=== PATIENT | male | born 1960 | race Caucasian/White ===

== ENCOUNTER 2018-03-07 08:50 | Day surgery (SDC) | payer BC ==
[2018-03-05 15:28] VITALS: BMI 31.1
[2018-03-07 09:26] VITALS: RESP 16; TEMP 97.4
[2018-03-07] MEDS: LACTATED RINGERS 1,000 ML IV SCH ×2 (09:32→09:56)
[2018-03-07] MEDS ORDERED: LIDOCAINE 1% 20 ML VIAL (10MG/ML) FOR IV START INTRADERMA ONE (09:32)
[2018-03-07] MEDS ORDERED: MIDAZOLAM 2 MG/2 ML VIAL ONE (09:59)
[2018-03-07] MEDS ORDERED: fentaNYL (PF) 50 MCG/ML 2 ML AMP ONE (09:59)
[2018-03-07] MEDS ORDERED: PROPOFOL 10 MG/ML 20 ML VIAL IV ONE (09:59)
--- NOTE | 2018-03-07 10:16 | P.PCN ---
Date of Procedure: 03/07/18 Procedure(s) Performed: BRIEF HISTORY: Patient is a 57-year-old pleasant white male, scheduled for an elective colonoscopy as a part of evaluation of prior history of colon polyps. Last colonoscopy was in 3 years ago and was noted to have multiple colon polyps all of which showed tubular adenoma. PROCEDURE PERFORMED: Colonoscopy with snare polypectomy. PREOPERATIVE DIAGNOSIS: History of colon polyps. IV sedation per Anesthesia. PROCEDURE: After informed consent was obtained, the patient, was brought into the endoscopy unit. IV sedation was administered by Anesthesia under continuous monitoring. Digital rectal examination was normal. Initially the Olympus CF- 160 flexible video colonoscope was then inserted in the rectum, gradually advanced into the cecum without any difficulty. Careful examination was performed as the scope was gradually being withdrawn. Ileocecal valve and the appendiceal orifice were visualized and appeared normal. Prep was excellent. Mucosa of the cecum, ascending colon, transverse colon, appeared normal. In the descending colon there was a 5 mm sessile polyp removed by snare polypectomy. In the sigmoid colon there was a 1 cm sessile polyp removed by snare polypectomy. There are scattered sigmoid diverticulosis seen. Rest of the descending colon, sigmoid colon, and rectum appeared normal. Retroflexion was performed in the rectum and no lesions were seen. The patient tolerated the procedure well. IMPRESSION: 1. 5 mm sessile descending colon polyp status post polypectomy 2. 1 cm sessile sigmoid colon polyp status post polypectomy 3. Scattered sigmoid diverticulosis RECOMMENDATIONS: Findings of this examination were discussed with the patient as well as his family. He was advised to follow with the biopsy results. Based on the biopsy results and can have a repeat colonoscopy in 3-5 years
[2018-03-07 10:50] VITALS: BP 118/74; PULSE 69
== END 2018-03-07 11:04 | disposition home or self-care (01) ==
LOC: ORWHC2ENDO 08:50
PROVIDERS: ATTEND Internal Medicine Gastroenterology
DX: Z12.11 Encounter for screening for malignant neoplasm of colon (principal); D12.4 Benign neoplasm of descending colon; D12.5 Benign neoplasm of sigmoid colon; K57.30 Diverticulosis of large intestine without perforation or abscess without bleeding; Z86.010 Personal history of colon polyps; H93.19 Tinnitus, unspecified ear
CPT/HCPCS: 88305; 45385; J2250; J3010; J2704

== ENCOUNTER 2020-05-02 01:30 | Emergency (ER) | payer OTHER, BC ==
[2020-05-02 01:38] VITALS: BP 155/88; PULSE 91; RESP 20; TEMP 98.1
[2020-05-02] MEDS ORDERED: LIDOCAINE 1% INJ 10MG/ML (20 ML MDV) SQ ONE (01:47)
[2020-05-02] MEDS ORDERED: BACITRACIN OINT 1 EACH PACKET TOPICAL ONE (01:48)
--- NOTE | 2020-05-02 02:23 | ED ---
Wound/Laceration HPI - General Chief Complaint: Wound/Laceration Stated Complaint: [facility]HS facial lac Time Seen by Provider: 05/02/20 01:39 Source: patient Mode of arrival: ambulatory Limitations: no limitations - History of Present Illness Initial Comments: 59-year-old male presents to the emergency department with complaints of laceration in his left eyebrow, onset 1 hour prior to arrival. States injury occurred while at work when a high pressure hose got away from him colliding with his safety glasses. Patient states he thinks the laceration is the result of the impact of the hose on his glasses. Denies loss of consciousness, dizziness, blurry vision, or marked periorbital tenderness. Does report having had a tetanus shot within the past 5 years. Patient denies any neck pain, back pain, chest pain, shortness of breath, dizziness, weakness, abdominal pain, nausea, vomiting, or difficulties with bowel movements or urination. - Related Data Home Medications Medication Instructions Recorded Confirmed Multivitamins, Thera [Multivitamin] 1 each PO DAILY 09/03/14 03/07/18 Flaxseed Oil [Cheney-3 Flaxseed Oil] 1,000 mg PO DAILY 03/05/18 03/07/18 Allergies Allergy/AdvReac Type Severity Reaction Status Date / Time No Known Allergies Allergy Verified 05/02/20 02:49 Review of Systems ROS Statement: Those systems with pertinent positive or pertinent negative responses have been documented in the HPI. ROS Other: All systems not noted in ROS Statement are negative. Past Medical History Past Medical History: Cancer Additional Past Medical History / Comment(s): tinnitus, leukemia History of Any Multi-Drug Resistant Organisms: None Reported Past Surgical History: Orthopedic Surgery Additional Past Surgical History / Comment(s): ganglion cyst-left hand Past Anesthesia/Blood Transfusion Reactions: No Reported Reaction Past Psychological History: No Psychological Hx Reported Smoking Status: Never smoker Past Alcohol Use History: Rare Past Drug Use History: None Reported - Past Family History Mother Family Medical History: No Reported History General Exam Limitations: no limitations (Well-developed, well-nourished male in no acute distress. Initial temperature 98.1F, pulse 91, respirations 20, blood pressure 155/88, pulse ox 99% on room air.) General appearance: alert, in no apparent distress Head exam: Present: normocephalic Expanded Head exam: Present: laceration (2 cm linear laceration in left eyebrow). Absent: abrasion, hematoma, raccoon eyes, castillo's sign Eye exam: Present: normal appearance, PERRL, EOMI. Absent: scleral icterus, conjunctival injection, periorbital swelling Respiratory exam: Present: normal lung sounds bilaterally. Absent: respiratory distress, wheezes, rales, rhonchi, stridor Cardiovascular Exam: Present: regular rate, normal rhythm, normal heart sounds. Absent: systolic murmur, diastolic murmur, rubs, gallop, clicks Neurological exam: Present: alert, oriented X3, CN II-XII intact, other (Denies loss of consciousness at time of injury) Psychiatric exam: Present: normal affect, normal mood Skin exam: Present: warm, dry, normal color Course Vital Signs 05/02/20 01:35 Temperature 98.1 F Pulse Rate 91 Respiratory 20 Rate Blood Pressure 155/88 O2 Sat by Pulse 99 Oximetry Procedures - Laceration Laceration #1 Consent Obtained: verbal consent Indication: laceration Site: face Size (cm): 2 Description: linear Depth: simple, single layer Anesthetic Used: lidocaine 1% Anesthesia Technique: local infiltration Amount (mls): 3 Pre-repair: irrigated extensively Type of Sutures: nylon Size of Sutures: 6-0 Number of Sutures: 4 Technique: simple, interrupted Patient Tolerated Procedure: well Medical Decision Making - Medical Decision Making 59-year-old male presents with a 2 cm linear laceration in the left eyebrow. Bleeding controlled prior to arrival. States injury occurred at work when a high pressure hose got away from him and collided with his safety glasses which in turn caused his injury. Patient denies any loss of consciousness, headache, blurry vision, or marked periorbital tenderness. States his last tetanus shot was within the past 5 years. Wound anesthetized, irrigated extensively, and then closed with four 4-0 nylon sutures. Patient tolerated procedure without difficulty or complication. Wound care and suture instructions reviewed with patient; including suture removal in 5 days. Return parameters were discussed in detail. Patient verbalizes understanding and agrees with this plan. Disposition Clinical Impression: Laceration of left eyebrow Disposition: HOME SELF-CARE Condition: Good Instructions (If sedation given, give patient instructions): Care For Your Stitches (ED), Laceration (ED) Additional Instructions: Keep wound clean and dry. Cleanse twice daily with warm water and antibacterial soap. Return in 3-5 days at the stitches removed. Monitor for signs or symptoms of infection including but not limited to redness, swelling, drainage of pus, fever, and chills. Return to the emergency department immediately for any new, worsening, or concerning symptoms. Is patient prescribed a controlled substance at d/c from ED?: No Referrals: Nate Blandon III, MD [Primary Care Provider] - 1-2 days Time of Disposition: 02:23
== END 2020-05-02 02:28 | disposition home or self-care (01) ==
LOC: EC 01:30
DX: S01.112A Laceration without foreign body of left eyelid and periocular area, initial encounter (principal); Z85.6 Personal history of leukemia; W25.XXXA Contact with sharp glass, initial encounter; Y93.89 Activity, other specified; Y92.69 Other specified industrial and construction area as the place of occurrence of the external cause; Y99.0 Civilian activity done for income or pay
CPT/HCPCS: 99282; 12011; J2001

== ENCOUNTER 2020-05-02 02:36 | Emergency (ER) | payer BC, OTHER ==
[2020-05-02 02:49] VITALS: BP 162/83; PULSE 82; RESP 20; TEMP 97.9
== END 2020-05-02 03:01 ==
LOC: EC 02:36
DX: Z02.89 Encounter for other administrative examinations (principal)
CPT/HCPCS: 99499

== ENCOUNTER → 2022-04-26 | Outpatient (CLI) | payer BC, OTHER ==
[~2022-04-26] MED LIST: TIXAGEVIMAB/CILGAVIMAB (EUA) 300 MG/3 ML COMBO.PKG IM NR
[2022-04-26 14:08] VITALS: RESP 16; TEMP 97.8
[2022-04-26 14:40] VITALS: BP 152/83; PULSE 84
== END ==
LOC: PROCWHC3 13:54
PROVIDERS: ATTEND Internal Medicine Hematology & Oncology
DX: Z23 Encounter for immunization (principal)
CPT/HCPCS: Q0220; M0220

== ENCOUNTER 2024-10-30 06:34 | Day surgery (SDC) | payer BC ==
[2024-10-30 07:07] VITALS: RESP 16; TEMP 98.1
[2024-10-30] MEDS: LACTATED RINGERS 1,000 ML IV SCH (07:07)
[2024-10-30] MEDS: IV FLUID CONTINUATION 1,000 ML IV ONE (07:08)
[2024-10-30] MEDS: LIDOCAINE 1% (10MG/ML) FOR IV START INTRADERMA STA (07:08)
[2024-10-30] MEDS ORDERED: LIDOCAINE 1% INJ 10MG/ML (20 ML MDV) ONE (07:48)
[2024-10-30] MEDS ORDERED: PROPOFOL 10 MG/ML 20 ML VIAL IV ONE (07:48)
--- NOTE | 2024-10-30 08:14 | P.PCN ---
Date of Procedure: 10/30/24 Procedure(s) Performed: Brief history: Patient is a pleasant 64-year-old white male scheduled for an elective upper endoscopy as well as colonoscopy as a part of evaluation of iron deficiency anemia and screening for history of colon polyps. Last colonoscopy was done in November 2017 and was noted to have colon polyps that revealed tubular adenoma. Procedure performed: Esophagogastroduodenoscopy with biopsy Colonoscopy with biopsy, tattooing with Nadege ink and snare polypectomy Preoperative diagnosis: Iron deficiency anemia Screening for history of colon polyps Anesthesia: MAC Procedure: After informed consent was obtained from the patient was brought into the endoscopy unit and IV sedation was administered by anesthesia under continuous monitoring. Initially upper endoscopy was done. The Olympus GF 160 video endoscope was inserted inserted into the mouth and esophagus intubated without any difficulty and was gradually advanced into the stomach and duodenum and carefully examined. The bulb and second part of the duodenum appeared normal. The scope was then withdrawn into the stomach adequately insufflated with air and upon careful examination the antrum and body, cardia and fundus appeared normal. The scope was then withdrawn into the esophagus. The GE junction was located at 40 cm to the incisors. It appeared regular with no erythema erosions or ulcerations. Rest of the esophagus appeared normal. Patient tolerated the procedure well. At this time the patient continued to remain sedation. Initial digital rectal examination was normal. Olympus CF 160 video colonoscope was then inserted into the rectum and gradually advanced to the cecum without any difficulty. Careful examination was performed as the scope was gradually being withdrawn. The prep was excellent. The cecum, ascending colon, transverse colon, appeared normal. In the distal descending colon there was a circumferential ulcerated mass identified at 50 cm from the anal verge and multiple biopsies were done from this area followed by tattooing with Nadege ink. Moderate left-sided diverticulosis seen. Rest of the descending colon, sigmoid colon and rectum appeared normal. Retroflexion was performed in the rectum and no lesions were noted. The rectum there was a 6 mm polyp removed by cold snare polypectomy. Patient tolerated the procedure well. Impression: 1. Upper endoscopy revealed mild antral gastritis but no notes of esophagitis or peptic ulcer disease 2. Colonoscopy revealed circumferential ulcerated distal descending colon mass located at 50 cm from the anal verge status post multiple biopsies followed by tattooing with Nadege ink. Scattered sigmoid diverticulosis and 6 mm rectal polyp status post cold snare polypectomy Recommendations: Findings of this examination were discussed with the patient as well as his family. He was advised to follow-up with the biopsy results. Follow-up in the office in [address] Randhawa in 1 week.
[2024-10-30 09:19] VITALS: BP 140/76; PULSE 92
== END 2024-10-30 09:02 | disposition home or self-care (01) ==
LOC: ORWHC2ENDO 06:34
PROVIDERS: ATTEND Internal Medicine Gastroenterology
DX: C18.6 Malignant neoplasm of descending colon (principal); K29.50 Unspecified chronic gastritis without bleeding; C91.10 Chronic lymphocytic leukemia of B-cell type not having achieved remission; D50.9 Iron deficiency anemia, unspecified; D12.8 Benign neoplasm of rectum; K57.30 Diverticulosis of large intestine without perforation or abscess without bleeding; Z86.0100 Personal history of colon polyps, unspecified
CPT/HCPCS: 45380; 45385; 43239; 45381; J2003; J2704; 88305

== ENCOUNTER → 2024-10-31 | Outpatient (CLI) | payer BC ==
--- NOTE | 2024-10-31 10:20 | CT ---
EXAMINATION TYPE: CT abdomen pelvis w con CT DLP: 1701.5 mGycm, Automated exposure control for dose reduction was used. DATE OF EXAM: 10/31/2024 10:04 AM COMPARISON: None CLINICAL INDICATION:Male, 64 years old with history of K63.89 OTHER SPECIFIED DISEASES OF INTESTINE; Abnormal colonoscopy. TECHNIQUE: Standard CT of the abdomen and pelvis following the administration of 100 cc of Isovue 3 00 IV contrast material and oral contrast. Coronal and sagittal reformats were performed. FINDINGS: LOWER CHEST: Small to moderate size right pleural effusion with trace left pleural effusion. There is associated compressive atelectasis of the right lower lobe. Elevation the right hemidiaphragm. Film arch anterior epicardial lymph nodes measuring up to 1.9 cm. There is soft tissue thickening along t he partially visualized right major fissure measuring up to 1.1 cm. ABDOMEN LIVER: Subcentimeter hypodense focus within the anterior left hepatic lobe which is too small to nikkie acterize. GALLBLADDER AND BILE DUCTS: Unremarkable. PANCREAS: Unremarkable. SPLEEN: Enlarged measuring 20.1 cm in CC dimension. Portal venous system appears grossly patent. ADRENAL GLANDS: Unremarkable. KIDNEYS AND URETERS: No evidence of hydronephrosis or renal calculus. The kidneys enhance symmetrical ly. Left renal upper pole 1 cm simple appearing cyst. No follow up recommended. Contrast is demonstra fabio within both collecting systems and proximal ureters on the delayed phase. PELVIS BLADDER: Unremarkable REPRODUCTIVE: Unremarkable. ABDOMEN & PELVIS STOMACH AND BOWEL: Stomach and duodenum are unremarkable. Abnormal circumferential wall thickening wi th surrounding stranding changes and small satellite prominent lymph nodes involving the proximal alyssa cending colon. Wall thickening measures up to 1.8 cm. Satellite nodules measuring up to 1.2 cm. Scatt ered colonic diverticulosis without evidence for acute diverticulitis. The appendix is within normal limits. Enteric contrast reaches the splenic flexure. No evidence of bowel obstruction. PERITONEUM: No evidence of pneumoperitoneum or free fluid. VASCULATURE: Mild atherosclerotic calcifications are present throughout the abdominal aorta and its b ranches. No evidence of aortic aneurysm. MUSCULOSKELETAL: No acute osseous abnormalities. No aggressive osseous lesion. LYMPH NODES: Prominent and enlarged retroperitoneal periaortic lymph nodes with largest on the left m easuring 2.9 cm (series 5, images 41). Enlarged periportal lymph nodes measuring up to 2.7 cm (series 3, image 25). Nonenlarged but mildly prominent bilateral inguinal lymph nodes. SOFT TISSUE/ABDOMINAL WALL: Unremarkable IMPRESSION: 1. Abnormal short segment circumferential wall thickening with stranding changes and satellite nodul arity involving the proximal aspect of the descending colon highly concerning for primary colon malig luis. Correlate with colonoscopy results. 2. Several enlarged periportal, periaortic retroperitoneal, and epicardial lymph nodes concerning for metastasis. 3. Splenomegaly measuring up to 20.1 cm in AP dimension. 4. Small to moderate size right pleural effusion with trace left pleural effusion. There is some abno rmal thickening along the partially visualized right major fissure which may represent metastasis katlyn coleman atelectatic lung. Recommend further evaluation with CT chest. 5. Colonic diverticulosis without evidence for acute diverticulitis. [facility], , 10/31/2024 10:18 AM
== END | disposition home or self-care (01) ==
LOC: RADCTMAIN 08:07
PROVIDERS: ATTEND Internal Medicine Gastroenterology
DX: K63.89 Other specified diseases of intestine (principal); K57.30 Diverticulosis of large intestine without perforation or abscess without bleeding; R59.0 Localized enlarged lymph nodes; R16.1 Splenomegaly, not elsewhere classified; J90 Pleural effusion, not elsewhere classified
CPT/HCPCS: 74177; Q9967

== ENCOUNTER → 2024-11-13 | Outpatient (CLI) | payer BC ==
--- NOTE | 2024-11-13 15:34 | CT ---
CT thorax with contrast. HISTORY: Shortness of breath. History of colon cancer COMPARISON: None TECHNIQUE: Multiple thorax after the administration of IV contrast material. FINDINGS: There is a small left pleural effusion and a moderate right pleural effusion. There is mild compressi ve atelectasis in the right lower lobe adjacent to the effusion. There are multiple parenchymal and j uxtapleural nodules in both lungs largest of which are in the right lung measuring approximately 7 to 8 mm. Evaluate suspicious for metastatic nodules. There is mild bilateral axillary adenopathy. The l argest lymph nodes are approximately 13 mm in both axilla. There is mild to moderate mediastinal noam opathy including a 15 to 16 mm subcarinal lymph node and a 15 mm right paratracheal lymph node. Limited scanning through the upper abdomen reveals a 16 mm area caval lymph node in the 14 mm peripor richa enlarged lymph node. There is marked splenomegaly. There are no focal osseous lesions. IMPRESSION: 1. Small left pleural effusion and moderate right pleural effusion. 2. Mild right lower lobe compressive atelectasis. 3. Multiple innumerable parenchymal and juxtapleural pulmonary nodules. 4. bilateral axillary and mediastinal adenopathy. 5. Marked splenomegaly. 6. Adenopathy in the visualized upper abdomen as described above. 7. Findings highly suspicious for metastatic colon cancer [facility], Workstation: BLACK 11/13/2024 3:32 PM
== END | disposition home or self-care (01) ==
LOC: RADCTMAIN 14:21
PROVIDERS: ATTEND Internal Medicine Hematology & Oncology
DX: C18.6 Malignant neoplasm of descending colon (principal); J90 Pleural effusion, not elsewhere classified; R91.8 Other nonspecific abnormal finding of lung field; R59.0 Localized enlarged lymph nodes; R16.1 Splenomegaly, not elsewhere classified
CPT/HCPCS: 71260; Q9967

== ENCOUNTER 2024-11-27 09:36 | Inpatient (IN) | payer BC ==
[2024-11-27 10:41] LABS: ALT 26 U/L (4-49); AST 22 U/L (17-59); African American GFR (CKD) >90 (>60 ml/min/1.73 sqM); Albumin 3.2 g/dL (3.5-5.0); Alkaline Phosphatase 87 U/L (38-126); Anion Gap 9 mmol/L; Blood Urea Nitrogen 13 mg/dL (9-20); Calcium 8.7 mg/dL (8.4-10.2); Carbon Dioxide 24 mmol/L (22-30); Chloride 96 mmol/L (98-107); Glucose 149 mg/dL (74-99); Magnesium 1.6 mg/dL (1.6-2.3); Non-African American GFR(CKD) >90 (>60 ml/min/1.73 sqM); Partial Thromboplastin Time 21.3 sec (22.0-30.0); Potassium 4.4 mmol/L (3.5-5.1); Prothrombin Time 11.3 sec (10.0-12.5); Sodium 129 mmol/L (137-145); Total Bilirubin 0.5 mg/dL (0.2-1.3); Total Protein 7.7 g/dL (6.3-8.2)
[2024-11-27 10:49] LABS: NT-Pro-B-Type Natriuretic Pept 33 pg/mL
--- NOTE | 2024-11-27 10:51 | XR ---
EXAMINATION TYPE: XR chest 2V DATE OF EXAM: 11/27/2024 10:35 AM COMPARISON: 11/21/2024 CLINICAL INDICATION: Male, 64 years old with history of difficulty breathing, TECHNIQUE: XR chest 2V view(s) obtained. FINDINGS: The heart size is normal. The pulmonary vasculature is normal. Moderate right pleural effusion is present. This is increasing from comparison.. Minimal left pleura l effusion is increasing. IMPRESSION: 1. Moderate right and minimal left pleural effusion, increasing from comparison.. [facility], , 11/27/2024 10:49 AM
[2024-11-27 11:12] LABS: HCT 27.4 % (39.6-50.0); HGB 8.9 g/dL (13.0-17.0); MCH 27.1 pg (27.0-32.0); MCHC 32.5 g/dL (32.0-37.0); MCV 83.3 fL (80.0-97.0); Mean Platelet Volume 9.4 fL (9.5-12.2); Platelet Count 210 10*3/uL (140-440); RBC 3.29 10*6/uL (4.40-5.60); RDW 15.4 % (11.5-14.5); WBC 48.17 10*3/uL (4.50-10.00)
--- NOTE | 2024-11-27 11:44 | ED ---
SOB HPI - General Chief Complaint: Shortness of Breath Stated Complaint: SOB Time Seen by Provider: 11/27/24 09:42 Source: patient, RN notes reviewed Mode of arrival: ambulatory Limitations: no limitations - History of Present Illness Initial Comments: 64-year-old male presents emergency department chief complaint of shortness of breath. Patient states that he had a recent thoracentesis. Patient states that he is unsure why this is happening he does admit that he has had a recent diagnosis of colon cancer unsure of his metastasized but is had multiple CTs. Patient has not started chemotherapy radiation or had any surgery secondary to his pulmonary function patient states she has had increased weakness, generalized not feeling well he is followed by Dr. Randhawa oncology and states that he saw Dr. Baker and for thoracentesis. - Related Data Home Medications Medication Instructions Recorded Confirmed Multivitamins, Thera [Multivitamin] 1 tab PO DAILY 09/03/14 11/27/24 Glucosamine/Chondr Tsai A Sod [Osteo 1 tab PO DAILY 04/26/22 11/27/24 Bi-Flex Caplet] Magnesium 250 mg PO DAILY 11/20/24 11/27/24 [place]-3/Dha/Epa/Fish Oil [[place]-3 1 cap PO DAILY 11/27/24 11/27/24 Fish Oil 1,000 mg Sfgl] Allergies Allergy/AdvReac Type Severity Reaction Status Date / Time No Known Allergies Allergy Verified 11/27/24 11:41 Review of Systems ROS Statement: Those systems with pertinent positive or pertinent negative responses have been documented in the HPI. ROS Other: All systems not noted in ROS Statement are negative. Past Medical History Past Medical History: Cancer Additional Past Medical History / Comment(s): tinnitus, leukemia.CML, colon ca History of Any Multi-Drug Resistant Organisms: None Reported Past Surgical History: Orthopedic Surgery Additional Past Surgical History / Comment(s): ganglion cyst-left hand, colonoscopies x 2 Past Anesthesia/Blood Transfusion Reactions: No Reported Reaction Past Psychological History: No Psychological Hx Reported Smoking Status: Never smoker - Past Family History Mother Family Medical History: No Reported History General Exam Limitations: no limitations General appearance: alert, in no apparent distress Head exam: Present: atraumatic, normocephalic, normal inspection Eye exam: Present: normal appearance, PERRL, EOMI. Absent: scleral icterus, conjunctival injection, periorbital swelling ENT exam: Present: normal exam, mucous membranes moist Neck exam: Present: normal inspection, full ROM. Absent: tenderness, meningismus, lymphadenopathy Respiratory exam: Present: decreased breath sounds. Absent: normal lung sounds bilaterally, respiratory distress, wheezes, rales, rhonchi, stridor Cardiovascular Exam: Present: normal rhythm, tachycardia, normal heart sounds. Absent: systolic murmur, diastolic murmur, rubs, gallop, clicks GI/Abdominal exam: Present: soft, tenderness, normal bowel sounds. Absent: distended, guarding, rebound, rigid Course Vital Signs 11/27/24 11/27/24 11/27/24 09:39 10:11 11:00 Temperature 97.5 F L Pulse Rate 114 H 97 92 Respiratory 20 18 18 Rate Blood Pressure 144/77 127/83 127/83 O2 Sat by Pulse 96 94 L 94 L Oximetry 11/27/24 11/27/24 11/27/24 12:00 12:46 13:00 Temperature Pulse Rate 95 92 Respiratory 18 18 16 Rate Blood Pressure 139/84 O2 Sat by Pulse 94 L 93 L Oximetry 11/27/24 11/27/24 11/27/24 14:00 15:00 16:00 Temperature Pulse Rate 103 H 104 H 90 Respiratory 18 8 L 16 Rate Blood Pressure 131/81 129/71 125/76 O2 Sat by Pulse 94 L 94 L 90 L Oximetry 11/27/24 11/27/24 11/27/24 17:00 18:00 19:28 Temperature 98.6 F Pulse Rate 104 H 102 H 96 Respiratory 16 16 18 Rate Blood Pressure 129/77 138/75 143/83 O2 Sat by Pulse 93 L 93 L 95 Oximetry 11/27/24 21:06 Temperature Pulse Rate 105 H Respiratory 18 Rate Blood Pressure 138/76 O2 Sat by Pulse 95 Oximetry Medical Decision Making - Medical Decision Making Was pt. sent in by a medical professional or institution (, PA, CIRCLE SHEAR OPERATOR, urgent care, hospital, or senior care...) When possible be specific @ -No Did you speak to anyone other than the patient for history (EMS, parent, family, police, friend...)? What history was obtained from this source @ -No Did you review nursing and triage notes (agree or disagree)? Why? @ -I reviewed and agree with nursing and triage notes Were old charts reviewed (outside hosp., previous admission, EMS record, old EKG, old radiological studies, urgent care reports/EKG's, senior care records)? Report findings @ -Reviewed recent outpatient x-ray and thoracentesis records Differential Diagnosis (chest pain, altered mental status, abdominal pain women, abdominal pain men, vaginal bleeding, weakness, fever, dyspnea, syncope, headache, dizziness, GI bleed, back pain, seizure, CVA, palpatations, mental health, musculoskeletal)? @ -Differential Dyspnea: Coronary syndrome, arrhythmia, tamponade, asthma, COPD, pulmonary embolism, pneumonia, pneumothorax, pulmonary effusion, anaphylaxis, diabetic ketoacidosis, flailed chest, pulmonary contusion, diaphragmatic rupture, anemia, neuromuscular, this is not meant to be an all-inclusive list. EKG interpreted by me (3pts min.). @ -As above X-rays interpreted by me (1pt min.). @ -Chest x-ray shows moderate pleural effusion CT interpreted by me (1pt min.). @ -None done U/S interpreted by me (1pt. min.). @ -None done What testing was considered but not performed or refused? (CT, X-rays, U/S, labs)? Why? @ -None What meds were considered but not given or refused? Why? @ -None Did you discuss the management of the patient with other professionals (professionals i.e. , PA, CIRCLE SHEAR OPERATOR, lab, RT, psych nurse, healthcare social worker, vp talent management, teacher, chief security officer, wrapper caser)? Give summary @ -[Some physician for admission requesting procalcitonin Was smoking cessation discussed for >3mins.? @ -No Was critical care preformed (if so, how long)? @ -No Were there social determinants of health that impacted care today? How? (Homelessness, low income, unemployed, alcoholism, drug addiction, transportation, low edu. Level, literacy, decrease access to med. care, usp, rehab)? @ -No Was there de-escalation of care discussed even if they declined (Discuss DNR or withdrawal of care, Hospice)? DNR status @ -No What co-morbidities impacted this encounter? (DM, HTN, Smoking, COPD, CAD, Cancer, CVA, ARF, Chemo, Hep., AIDS, mental health diagnosis, sleep apnea, morbid obesity)? @ -Colon cancer Was patient admitted / discharged? Hospital course, mention meds given and route, prescriptions, significant lab abnormalities, going to OR and other pertinent info. @Admitted patient found to have significant leukocytosis without obvious evidence of infection patient does have large pleural effusion requiring probable recurrent thoracentesis. Patient does have anemia of 8.9 concerning from known cancer. Patient admitted for oncology, pulmonary evaluation Undiagnosed new problem with uncertain prognosis? @ -Yes Drug Therapy requiring intensive monitoring for toxicity (Heparin, Nitro, Insulin, Cardizem)? @ -No Were any procedures done? @ -No Diagnosis/symptom? @ -Colon cancer, pleural effusion, dyspnea, anemia, leukocytosis Acute, or Chronic, or Acute on Chronic? @ -Acute Uncomplicated (without systemic symptoms) or Complicated (systemic symptoms)? @ -Complicated Side effects of treatment? @ -No Exacerbation, Progression, or Severe Exacerbation? @ -No Poses a threat to life or bodily function? How? (Chest pain, [place], [place], pneumonia, PE, COPD, DKA, ARF, appy, cholecystitis, CVA, Diverticulitis, Homicidal, Suicidal, threat to staff... and all critical care pts) @ -Yes threat to endorgan failure - Lab Data Result diagrams: 11/27/24 10:11 11/27/24 14:43 Lab Results 11/27/24 11/27/24 11/27/24 Range/Units 10:11 10:11 10:11 WBC 48.17 H (4.50-10.00) 10*3/uL RBC 3.29 L (4.40-5.60) 10*6/uL Hgb 8.9 L (13.0-17.0) g/dL Hct 27.4 L (39.6-50.0) % MCV 83.3 (80.0-97.0) fL MCH 27.1 (27.0-32.0) pg MCHC 32.5 (32.0-37.0) g/dL Plt Count 210 (140-440) 10*3/uL MPV 9.4 L (9.5-12.2) fL Immature Gran % (Auto) 0.1 % Neutrophils % (Manual) 5 % Lymphocytes % (Manual) 95 % Immature Gran # 0.03 (0.00-0.04) 10*3/uL Neutrophils # (Manual) 2.41 (1.3-7.7) k/uL Lymphocytes # (Manual) 45.76 H (1.0-4.8) k/uL Nucleated RBCs 0 (0-0) /100 WBC Manual Slide Review Performed PT 11.3 (10.0-12.5) sec INR 1.0 (<1.2) APTT 21.3 L (22.0-30.0) sec Sodium 129 L (137-145) mmol/L Potassium 4.4 (3.5-5.1) mmol/L Chloride 96 L (98-107) mmol/L Carbon Dioxide 24 (22-30) mmol/L Anion Gap 9 mmol/L BUN 13 (9-20) mg/dL Creatinine 0.63 L (0.66-1.25) mg/dL Est GFR (CKD-EPI)AfAm >90 (>60 ml/min/1.73 sqM) Est GFR (CKD-EPI)NonAf >90 (>60 ml/min/1.73 sqM) Glucose 149 H (74-99) mg/dL Plasma Lactic Acid [place] (0.7-2.0) mmol/L Calcium 8.7 (8.4-10.2) mg/dL Magnesium 1.6 (1.6-2.3) mg/dL Total Bilirubin 0.5 (0.2-1.3) mg/dL AST 22 (17-59) U/L ALT 26 (4-49) U/L Alkaline Phosphatase 87 (38-126) U/L Troponin I (0.000-0.034) ng/mL NT-Pro-B Natriuret Pep 33 pg/mL Total Protein 7.7 (6.3-8.2) g/dL Albumin 3.2 L (3.5-5.0) g/dL 11/27/24 11/27/24 Range/Units 10:11 10:11 WBC (4.50-10.00) 10*3/uL RBC (4.40-5.60) 10*6/uL Hgb (13.0-17.0) g/dL Hct (39.6-50.0) % MCV (80.0-97.0) fL MCH (27.0-32.0) pg MCHC (32.0-37.0) g/dL Plt Count (140-440) 10*3/uL MPV (9.5-12.2) fL Immature Gran % (Auto) % Neutrophils % (Manual) % Lymphocytes % (Manual) % Immature Gran # (0.00-0.04) 10*3/uL Neutrophils # (Manual) (1.3-7.7) k/uL Lymphocytes # (Manual) (1.0-4.8) k/uL Nucleated RBCs (0-0) /100 WBC Manual Slide Review PT (10.0-12.5) sec INR (<1.2) APTT (22.0-30.0) sec Sodium (137-145) mmol/L Potassium (3.5-5.1) mmol/L Chloride (98-107) mmol/L Carbon Dioxide (22-30) mmol/L Anion Gap mmol/L BUN (9-20) mg/dL Creatinine (0.66-1.25) mg/dL Est GFR (CKD-EPI)AfAm (>60 ml/min/1.73 sqM) Est GFR (CKD-EPI)NonAf (>60 ml/min/1.73 sqM) Glucose (74-99) mg/dL Plasma Lactic Acid [place] 1.0 (0.7-2.0) mmol/L Calcium (8.4-10.2) mg/dL Magnesium (1.6-2.3) mg/dL Total Bilirubin (0.2-1.3) mg/dL AST (17-59) U/L ALT (4-49) U/L Alkaline Phosphatase (38-126) U/L Troponin I <0.012 (0.000-0.034) ng/mL NT-Pro-B Natriuret Pep pg/mL Total Protein (6.3-8.2) g/dL Albumin (3.5-5.0) g/dL - EKG Data -: EKG Interpreted by Me EKG Comments: EKG performed at 9: 47 sinus rhythm rate of 97 TX 154 QRS 89 QT/QTc 322/377 Disposition Clinical Impression: Leukocytosis, Anemia, Colon cancer, Pleural effusion, Dyspnea Disposition: ADMITTED IP TO THIS [facility] Condition: Fair Time of Disposition: 11:45
[2024-11-27] MEDS ORDERED: HYDROcodone/APAP 5-325MG 1 EACH TAB PO PRN (11:45)
[2024-11-27] MEDS ORDERED: ACETAMINOPHEN TAB 325 MG TAB PO PRN (11:45)
[2024-11-27] MEDS ORDERED: NALOXONE 0.4 MG/ML 1 ML VIAL IV PRN (11:45)
[2024-11-27] MEDS: SODIUM CHLORIDE 0.9% 1,000 ML IV SCH (12:14)
[2024-11-27 13:16] LABS: Lymphocytes # (M) 45.76 k/uL (1.0-4.8); Neutrophils # (M) 2.41 k/uL (1.3-7.7); Neutrophils % (M) 5 %; Nucleated Red Blood Cells 0 /100 WBC (0-0); Total Cells Counted 100
[2024-11-27 15:18] LABS: African American GFR (CKD) >90 (>60 ml/min/1.73 sqM); Anion Gap 8 mmol/L; Blood Urea Nitrogen 12 mg/dL (9-20); Calcium 8.4 mg/dL (8.4-10.2); Carbon Dioxide 25 mmol/L (22-30); Chloride 97 mmol/L (98-107); Glucose 218 mg/dL (74-99); Non-African American GFR(CKD) >90 (>60 ml/min/1.73 sqM); Potassium 4.2 mmol/L (3.5-5.1); Sodium 130 mmol/L (137-145)
--- NOTE | 2024-11-27 15:39 | P.HPIM ---
History of Present Illness H&P Date: 11/27/24 Patient is a 64-year-old male with past medical history of CLL not requiring tx diagnosed 10 years ago, iron deficiency anemia, tubular adenoma and colon, recent diagnosis of invasive moderately differentiated colonic adenocarcinoma as of 10/2024, patient had CT abdomen pelvis done on 10/31/2024 that showed enlarged periportal, periaortic retroperitoneal and epicardial lymph nodes concerning for metastasis, splenomegaly, small to moderate right pleural effusion, CT chest showed multiple innumerable parenchymal and extra pleural pulmonary nodules, bilateral axillary and mediastinal adenopathy, his last echo dated 11/20/2024 showed EF of 65 to 70%, mild LVH, no valvular disease. Mildly dilated aorta 3.8, presented to the ER on 11/27 with worsening shortness of breath. States that he started feeling short of breath during wintertime when he developed bronchitis, however, recently noted worsening, also has right-sided very localized point tenderness worse with movement, had a fall on the right side and could not under go any evaluation for that, denied fevers, chills, chest pain, a bdominal pain He underwent right-sided thoracentesis on 11/21/[address] Sullivan, 900 cc turbid colored fluid removed., Cytology pending Admission afebrile, tachycardic 114, BP 144/77, SpO2 96% on room air. Underwent extensive workup, WBC is significantly elevated at 28.17, hemoglobin 8.9, platelet count normal, unknown baseline, sodium 129, potassium normal, bicarb normal, creatinine 0.63, normal liver enzymes and total bilirubin, chest x-ray showed moderate right and minimal left pleural effusion increased from before. EKG showed sinus rhythm, normal QTc, no ST elevation. Patient will be admitted for further evaluation of recurrent pleural effusion, leukocytosis, pulmonology, hematology oncology consulted. Pertinent positives and negatives as discussed in HPI, a complete review of systems was performed and all other systems are negative. Patient seen and examined at bedside. Vital signs reviewed General: nontoxic, no distress, appears at stated age Derm: warm, dry Head: atraumatic, normocephalic, symmetric Eyes: EOMI, no lid lag, anicteric sclera, pupils equal round reactive to light ENT: Nose and ears atraumatic Neck: No thyromegaly, supple Mouth: no lip lesion, mucus membranes moist Cardiovascular: S1S2 reg, no murmur, no edema Lungs: Diminished breath sounds on the right l, no rhonchi, no rales, no wheeze, no accessory muscle use Abdominal: soft, nontender to palpation, no guarding, no appreciable organomegaly Ext: no gross muscle atrophy, muscle strength muscle strength 5 out of 5 in all 4 extremities, no contractures Neuro: CN II-XII grossly intact Psych: Alert, oriented, appropriate affect Assessment/Plan: Shortness of breath secondary to recurrent right-sided pleural effusion invasive moderately differentiated colonic adenocarcinoma as of 10/2024, periportal, periaortic retroperitoneal and epicardial lymphadenopathy concerning for metastasis bilateral axillary and mediastinal adenopathy, likely CLL related Innumerable pulmonary nodules -Pulmonology for possible thoracentesis , oncology consulted, appreciate recommendations -Procalcitonin pending Mildly dilated aorta 3.8 Hyponatremia, 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 CODE STATUS: Full code DVT prophylaxis: SCD Anticipated discharge date: TBD Anticipated discharge place: TBD A total of 40 minutes was spent on the care of this complex patient more than 50% of the time was spent in counseling and care coordination. Past Medical History Past Medical History: Cancer Additional Past Medical History / Comment(s): tinnitus, leukemia.CML, colon ca History of Any Multi-Drug Resistant Organisms: None Reported Past Surgical History: Orthopedic Surgery Additional Past Surgical History / Comment(s): ganglion cyst-left hand, colonoscopies x 2 Past Anesthesia/Blood Transfusion Reactions: No Reported Reaction Past Psychological History: No Psychological Hx Reported Smoking Status: Never smoker - Past Family History Mother Family Medical History: No Reported History Medications and Allergies Home Medications Medication Instructions Recorded Confirmed Type Multivitamins, Thera [Multivitamin] 1 tab PO DAILY 09/03/14 11/27/24 History Glucosamine/Chondr Tsai A Sod [Osteo 1 tab PO DAILY 04/26/22 11/27/24 History Bi-Flex Caplet] Magnesium 250 mg PO DAILY 11/20/24 11/27/24 History [place]-3/Dha/Epa/Fish Oil [[place]-3 1 cap PO DAILY 11/27/24 11/27/24 History Fish Oil 1,000 mg Sfgl] Allergies Allergy/AdvReac Type Severity Reaction Status Date / Time No Known Allergies Allergy Verified 11/27/24 11:41 Physical Exam Vitals: Vital Signs Temp Pulse Resp BP Pulse Ox 11/27/24 12:46 18 11/27/24 12:00 95 18 139/84 94 L 11/27/24 11:00 92 18 127/83 94 L 11/27/24 10:11 97 18 127/83 94 L 11/27/24 09:39 97.5 F L 114 H 20 144/77 96 Intake and Output 11/26/24 11/27/24 11/27/24 22:59 06:59 14:59 Other: Weight 100.244 kg Results CBC & Chem 7: 11/27/24 10:11 11/27/24 14:43 Labs: Abnormal Lab Results - Last 24 Hours (Table) 11/27/24 11/27/24 11/27/24 Range/Units 10:11 10:11 10:11 WBC 48.17 H (4.50-10.00) 10*3/uL RBC 3.29 L (4.40-5.60) 10*6/uL Hgb 8.9 L (13.0-17.0) g/dL Hct 27.4 L (39.6-50.0) % MPV 9.4 L (9.5-12.2) fL APTT 21.3 L (22.0-30.0) sec Sodium 129 L (137-145) mmol/L Chloride 96 L (98-107) mmol/L Creatinine 0.63 L (0.66-1.25) mg/dL Glucose 149 H (74-99) mg/dL Albumin 3.2 L (3.5-5.0) g/dL
[2024-11-27] MEDS: LIDOCAINE 4% PATCH TOPICAL SCH (16:31)
[2024-11-27 21:04] LABS: Influenza A Not Detected (Not Detectd); Influenza B Not Detected (Not Detectd); RSV Not Detected (Not Detectd)
--- NOTE | 2024-11-27 22:10 | P.CNPUL ---
History of Present Illness Consult date: 11/27/24 Reason for consult: dyspnea History of present illness: This is a 64-year-old male patient who was recent diagnosed having invasive moderate differentiated colonic adenocarcinoma. The patient was found to have iron deficiency and subsequent workup with a colonoscopy revealed a colonic mass. CT of the abdomen that was done on 10/31/2024 showed enlarged periportal, periaortic and retroperitoneal and epicardial lymph nodes concerning for metast ases. However the patient also has history of CLL and this could also account for this lymphadenopathy. The patient also had a right-sided pleural effusion. I performed a thoracentesis on this patient on 11/21/2024 and a total of 900 cc of pleural fluid was aspirated. The primary report on the pleural fluid is consistent with adenocarcinoma consistent with metastases from the colon. The CAT scan of the chest done on 11/13/2024 showed several subcentimeter pulmonary nodules measuring 7 to 8 mm in size, suspicious for metastases. He also had mild bilateral axillary lymphadenopathy largest being 13 mm in the right axilla and 16 mm subcarinal lymph nodes and 15 mm paratracheal lymph node and the patient also had a moderate-sized right-sided pleural effusion and small left- sided pleural effusion. Following his thoracentesis, the patient was stable and he was discharged and is currently coming into the hospital with worsening shortness of breath and the patient has developed a recurrent right-sided pleural effusion. Based on that, a pulmonary consultation was requested. The patient is currently on room air oxygen with a pulse ox of 94%. Chest x-ray clearly shows a right-sided pleural effusion, moderate in size. The white cell count is chronically elevated at 48, hemoglobin is 8.9 and the patient's platelet count is at 210. Electrolytes show a sodium level of 130, BUN of 12 with a creatinine of 0.7. Troponins are negative. proBNP level is at 33. His previous echocardiogram has shown a ejection fraction of 65 to 70% with mild LVH without any significant valvular abnormalities. No fever at this point. Hemodynamically stable. Review of Systems Constitutional: Reports fatigue, Reports poor appetite Eyes: denies as per HPI, denies blurred vision, denies bulging eye, denies decreased vision, denies diplopia, denies discharge, denies dry eye, denies irritation, denies itching, denies pain, denies photophobia, denies loss of peripheral vision, denies loss of vision, denies tunnel vision/blind spots Ears: deny: decreased hearing, ear discharge, earache, tinnitus Ears, nose, mouth and throat: Reports as per HPI Breasts: absent: as per HPI, gynecomastia Cardiovascular: Reports decreased exercise tolerance, Reports dyspnea on exertion Respiratory: Reports dyspnea Gastrointestinal: Reports as per HPI Genitourinary: Reports as per HPI Musculoskeletal: Reports as per HPI Musculoskeletal: absent: ankle pain, ankle stiffness, ankle swelling, as per HPI, elbow pain, elbow stiffness, elbow swelling, foot pain, foot stiffness, foot swelling, hand pain, hand stiffness, hand swelling, hip pain, hip stiffness, hip swelling, knee pain, knee stiffness, knee swelling, shoulder pa in, shoulder stiffness, shoulder swelling, wrist pain, wrist stiffness, wrist swelling Integumentary: Reports as per HPI Neurological: Reports as per HPI Hematologic/Lymphatic: Reports as per HPI Allergic/Immunologic: Reports as per HPI Past Medical History Past Medical History: Cancer Additional Past Medical History / Comment(s): History of chronic lymphocytic leukemia, history of chronic adenocarcinoma, anemia with iron deficiency. History of Any Multi-Drug Resistant Organisms: None Reported Past Surgical History: Orthopedic Surgery Additional Past Surgical History / Comment(s): ganglion cyst-left hand, colonoscopies x 2 Past Anesthesia/Blood Transfusion Reactions: No Reported Reaction Past Psychological History: No Psychological Hx Reported Smoking Status: Never smoker - Past Family History Mother Family Medical History: No Reported History Medications and Allergies Home Medications Medication Instructions Recorded Confirmed Type Multivitamins, Thera [Multivitamin] 1 tab PO DAILY 09/03/14 11/27/24 History Glucosamine/Chondr Tsai A Sod [Osteo 1 tab PO DAILY 04/26/22 11/27/24 History Bi-Flex Caplet] Magnesium 250 mg PO DAILY 11/20/24 11/27/24 History Hammond-3/Dha/Epa/Fish Oil [Hammond-3 1 cap PO DAILY 11/27/24 11/27/24 History Fish Oil 1,000 mg Sfgl] Allergies Allergy/AdvReac Type Severity Reaction Status Date / Time No Known Allergies Allergy Verified 11/27/24 11:41 Physical Exam Vitals: Vital Signs Temp Pulse Resp BP Pulse Ox 11/27/24 12:46 18 11/27/24 12:00 95 18 139/84 94 L 11/27/24 11:00 92 18 127/83 94 L 11/27/24 10:11 97 18 127/83 94 L 11/27/24 09:39 97.5 F L 114 H 20 144/77 96 Intake and Output 11/27/24 11/27/24 11/27/24 06:59 14:59 22:59 Other: Weight 100.244 kg The patient appeared well nourished and normally developed. Vital signs as documented. Head exam is unremarkable. No scleral icterus or corneal arcus noted. Neck is without jugular venous distension, thyromegaly, or carotid bruits. Carotid upstrokes are brisk bilaterally. Lungs are clear to auscultation and percussion. Diminished breath on the right compared to the left Cardiac exam reveals the PMI to be normally sized and situated. Rhythm is regular. First and second heart sounds normal. No murmurs, rubs or gallops. Abdominal exam reveals normal bowel sounds, no masses, no organomegaly and no aortic enlargement. Extremities are nonedematous and both femoral and pedal pulses are normal. Examination of the skin revealed no evidence of significant rashes, suspicious appearing nevi or other concerning lesions. Neurologically, the patient is awake and alert and the patient does not have any focal neurological deficit. Cranial nerves are essentially intact. Results - Laboratory Findings CBC and BMP: 11/27/24 10:11 11/27/24 14:43 PT/INR, D-dimer PT 11.3 sec (10.0-12.5) 11/27/24 10:11 INR 1.0 (<1.2) 11/27/24 10:11 Abnormal lab findings: Abnormal Labs 11/27/24 11/27/24 11/27/24 10:11 10:11 10:11 WBC 48.17 H RBC 3.29 L Hgb 8.9 L Hct 27.4 L MPV 9.4 L Lymphocytes # (Manual) 45.76 H APTT 21.3 L Sodium 129 L Chloride 96 L Creatinine 0.63 L Glucose 149 H Albumin 3.2 L 11/27/24 14:43 WBC RBC Hgb Hct MPV Lymphocytes # (Manual) APTT Sodium 130 L Chloride 97 L Creatinine Glucose 218 H Albumin - Diagnostic Findings Chest x-ray: image reviewed Assessment and Plan Plan: Metastatic invasive colonic adenocarcinoma with a malignant right-sided pleural effusion. The patient had a recent diagnosis of colonic adenocarcinoma identified on a recent colonoscopy and the patient had CAT scan of the chest that showed multiple subcentimeter pulmonary nodules, mediastinal lymphadenopathy largest in the subcarinal area and a right-sided pleural effusion. A diagnostic and therapeutic thoracentesis of the right lung was done with evacuation of 900 cc of pleural fluid and a fluid cytology was positive for metastatic chronic adenocarcinoma. Recurrent right-sided pleural effusion, malignant Dyspnea secondary to above Intra-abdominal lymphadenopathy, could be related to CLL versus metastatic colon adenocarcinoma. Favor CLL as the patient has also splenomegaly and intra- abdominal and mediastinal lymphadenopathy although carcinoma cannot be completely ruled out. Chronic lymphocytic leukemia Iron deficiency anemia Plan Will discuss findings with the patient and cardiothoracic surgery. The pleural effusion obviously recurrent and it recurred within a short period of time. It would beneficial to consider a Pleurx catheter for this patient as the patient is undergoing further workup and investigation regarding his metastatic chronic adenocarcinoma. He does have a chronic leukocytosis related to his CLL and the patient has obvious lymphocytic predominance in the order of 95%. His sodium level is borderline low, rest of the electrolytes are all stable. Most recent echocardiogram showed a preserved LV function from 11/19/2024 without any significant valvular abnormalities Oncology consultation Will discuss case with cardiothoracic surgery Will continue to follow.
[2024-11-28] MEDS ORDERED: DEXTROSE 50% SYRINGE 50 ML IVP PRN ×2 (08:44)
[2024-11-28 10:33] LABS: BUN/Creat Ratio 14.86 Ratio (12.00-20.00); Blood Urea Nitrogen 10.4 mg/dL (9.0-27.0); Calcium 8.2 mg/dL (8.7-10.3); Chloride 98 mmol/L (96-109); Glucose 133 mg/dL (70-110); Potassium 4.2 mmol/L (3.5-5.5); Sodium 129 mmol/L (135-145)
--- NOTE | 2024-11-28 11:23 | P.GSCN ---
History of Present Illness Consult date: 11/28/24 Reason for Consult: Right-sided recurrent pleural effusion, recommendation for Pleurx catheter Requesting physician: Apple Sullivan History of present illness: This is a 64-year-old gentleman who follows outpatient with Dr. Randhawa for newly diagnosed colon cancer. He has a previous medical history of CLL for which he states he has never received treatment for, only monitoring, anemia, and previous tobacco dependence with cessation more than 30 years ago. This gentleman has had a recent diagnosis of colon adenocarcinoma expected to begin immunotherapy soon. His diagnosis came from anemia with iron deficiency, workup included colonoscopy which revealed a colonic mass. CT of the abdomen completed in October of this year showed enlarged periportal, periaortic, and retroperitoneal as well as epicardial lymph nodes concerning for metastasis. He was also found to have a right sided pleural effusion and underwent thoracentesis by Dr. Sullivan on November 21, 2024 with removal of 900 mL of fluid which was positive for adenocarcinoma consistent with metastases from the colon. He also had a CAT scan of the chest showing several subcentimeter pulmonary nodules which were suspicious for metastases. After his thoracentesis he was stable and felt good for a couple days, however he returned to the emergency room yesterday with complaints of progressive shortness of breath. Chest x-ray demonstrated recurrent right-sided pleural effusion. The patient was admitted for observation with consultation placed to pulmonology who then placed a consultation to cardiothoracic surgery for Pleurx catheter placement. Review of Systems Review of systems was completed and was negative except as noted - Respiratory Reports dyspnea Past Medical History Past Medical History: Cancer Additional Past Medical History / Comment(s): tinnitus, leukemia.CML, colon ca History of Any Multi-Drug Resistant Organisms: None Reported Past Surgical History: Orthopedic Surgery Additional Past Surgical History / Comment(s): ganglion cyst-left hand, colonoscopies x 2 Past Anesthesia/Blood Transfusion Reactions: No Reported Reaction Past Psychological History: No Psychological Hx Reported Smoking Status: Former smoker Past Alcohol Use History: Occasional Past Drug Use History: None Reported - Past Family History Mother Family Medical History: No Reported History Medications and Allergies Home Medications Medication Instructions Recorded Confirmed Type Multivitamins, Thera [Multivitamin] 1 tab PO DAILY 09/03/14 11/27/24 History Glucosamine/Chondr Tsai A Sod [Osteo 1 tab PO DAILY 04/26/22 11/27/24 History Bi-Flex Caplet] Magnesium 250 mg PO DAILY 11/20/24 11/27/24 History Boyce-3/Dha/Epa/Fish Oil [Boyce-3 1 cap PO DAILY 11/27/24 11/27/24 History Fish Oil 1,000 mg Sfgl] Allergies Allergy/AdvReac Type Severity Reaction Status Date / Time No Known Allergies Allergy Verified 11/27/24 11:41 Surgical - Exam Vital Signs Temp Pulse Resp BP Pulse Ox 97.5 F L 114 H 20 144/77 96 11/27/24 09:39 11/27/24 09:39 11/27/24 09:39 11/27/24 09:39 11/27/24 09:39 CONSTITUTIONAL: Awake and alert, appears comfortable, cooperative, well- developed, well-nourished, no pain, no acute distress EYES: Pupils equal, round, reactive to light, normal ocular movement ENT: Moist mucous membranes without oral lesions present NECK: No masses, no bruits, trachea midline RESPIRATORY: Lungs sounds clear to auscultation bilaterally. Respirations even, nonlabored. Currently on room air with oxygen saturation 93%. CARDIOVASCULAR: S1, S2 present. Regular rate and rhythm. Palpable peripheral pulses bilaterally. No edema present. No calf pain or tenderness noted GASTROINTESTINAL: Abdomen soft, nontender, nondistended without masses or organomegaly noted. There is no rebound or guarding present. Active bowel sounds present 4 quadrants. GENITOURINARY: Deferred INTEGUMENTARY: Skin is warm and dry NEUROLOGIC: Cranial nerves II through XII intact, normal coordination, no obvious motor or sensory deficits, speech is normal MUSKULOSKELETAL: Able to move all extremities, strength equal bilaterally, normal posture PSYCHIATRIC: Alert and oriented to person place and time, appropriate affect, intact judgment and insight Results - Labs 11/27/24 10:11 11/28/24 06:46 Abnormal Lab Results - Last 24 Hours (Table) 11/27/24 11/27/24 11/27/24 Range/Units 10:11 10:11 10:11 WBC 48.17 H (4.50-10.00) 10*3/uL RBC 3.29 L (4.40-5.60) 10*6/uL Hgb 8.9 L (13.0-17.0) g/dL Hct 27.4 L (39.6-50.0) % MPV 9.4 L (9.5-12.2) fL Lymphocytes # (Manual) 45.76 H (1.0-4.8) k/uL APTT 21.3 L (22.0-30.0) sec Sodium 129 L (137-145) mmol/L Chloride 96 L (98-107) mmol/L Creatinine 0.63 L (0.66-1.25) mg/dL Glucose 149 H (74-99) mg/dL Albumin 3.2 L (3.5-5.0) g/dL 11/27/24 Range/Units 14:43 WBC (4.50-10.00) 10*3/uL RBC (4.40-5.60) 10*6/uL Hgb (13.0-17.0) g/dL Hct (39.6-50.0) % MPV (9.5-12.2) fL Lymphocytes # (Manual) (1.0-4.8) k/uL APTT (22.0-30.0) sec Sodium 130 L (137-145) mmol/L Chloride 97 L (98-107) mmol/L Creatinine (0.66-1.25) mg/dL Glucose 218 H (74-99) mg/dL Albumin (3.5-5.0) g/dL Diabetes panel 11/27/24 11/27/24 Range/Units 10:11 14:43 Sodium 129 L 130 L (137-145) mmol/L Potassium 4.4 4.2 (3.5-5.1) mmol/L Chloride 96 L 97 L (98-107) mmol/L Carbon Dioxide 24 25 (22-30) mmol/L BUN 13 12 (9-20) mg/dL Creatinine 0.63 L 0.72 (0.66-1.25) mg/dL Glucose 149 H 218 H (74-99) mg/dL Calcium 8.7 8.4 (8.4-10.2) mg/dL AST 22 (17-59) U/L ALT 26 (4-49) U/L Alkaline Phosphatase 87 (38-126) U/L Total Protein 7.7 (6.3-8.2) g/dL Albumin 3.2 L (3.5-5.0) g/dL Calcium panel 11/27/24 11/27/24 Range/Units 10:11 14:43 Calcium 8.7 8.4 (8.4-10.2) mg/dL Albumin 3.2 L (3.5-5.0) g/dL Pituitary panel 11/27/24 11/27/24 Range/Units 10:11 14:43 Sodium 129 L 130 L (137-145) mmol/L Potassium 4.4 4.2 (3.5-5.1) mmol/L Chloride 96 L 97 L (98-107) mmol/L Carbon Dioxide 24 25 (22-30) mmol/L BUN 13 12 (9-20) mg/dL Creatinine 0.63 L 0.72 (0.66-1.25) mg/dL Glucose 149 H 218 H (74-99) mg/dL Calcium 8.7 8.4 (8.4-10.2) mg/dL Adrenal panel 11/27/24 11/27/24 Range/Units 10:11 14:43 Sodium 129 L 130 L (137-145) mmol/L Potassium 4.4 4.2 (3.5-5.1) mmol/L Chloride 96 L 97 L (98-107) mmol/L Carbon Dioxide 24 25 (22-30) mmol/L BUN 13 12 (9-20) mg/dL Creatinine 0.63 L 0.72 (0.66-1.25) mg/dL Glucose 149 H 218 H (74-99) mg/dL Calcium 8.7 8.4 (8.4-10.2) mg/dL Total Bilirubin 0.5 (0.2-1.3) mg/dL AST 22 (17-59) U/L ALT 26 (4-49) U/L Alkaline Phosphatase 87 (38-126) U/L Total Protein 7.7 (6.3-8.2) g/dL Albumin 3.2 L (3.5-5.0) g/dL - Imaging Chest x-ray: report reviewed, image reviewed Assessment and Plan Assessment: Recurrent right-sided pleural effusion, second occurrence, status post thoracentesis November 21, 2024 with removal of 900 mL of fluid which was positive for adenocarcinoma consistent with metastases from the colon Shortness of breath, secondary to above History of recent diagnosis of colon adenocarcinoma CLL for which he states he has never received treatment for, only monitoring Anemia Previous tobacco dependence with cessation more than 30 years ago Plan: The patient was seen and examined standing up walking around in his room on the medical oncology unit. Chart/diagnostics reviewed. The case was discussed with Dr. Sullivan. It was also discussed with Dr. Granados. Our plan is for right sided Pleurx catheter placement tomorrow, 11/29/[address] Granados. The usual perioperative course was discussed in detail with the patient, risks and benefits were reviewed, all questions were answered. Home care consulted for Pleurx bottle replacement and drainage, case management consulted. Patient should be nothing to eat or drink after midnight. After Pleurx catheter placement patient may be discharged to home with home care from our standpoint when okay with other services. Medical management of other comorbidities per internal medicine, pulmonology, oncology. Thank you Dr. Sullivan for this consult, we will continue to follow and make further recommendations as appropriate. I have personally seen and examined the patient, performed the documentation and the assessment and plan as written. Number of minutes spent on the visit: 30. Cielo Ramirez, YANIRA-C
[2024-11-28 12:08] LABS: Glucose,Whole Blood 202 mg/dL (70-110)
[2024-11-28] MEDS: INSULIN LISPRO (HumaLOG) 100 UNIT/ML 10 mL VL SQ SCH (12:39)
[2024-11-28 12:56] LABS: Basophils # (M) 0 X 10*3/uL (0.00-0.10); Eosinophils # (M) 0 X 10*3/uL (0.04-0.35); HCT 27.5 % (39.6-50.0); HGB 8.4 g/dL (13.0-17.0); Lymphocytes # (M) 39.97 X 10*3/uL (0.90-5.00); MCH 26.1 pg (27.0-32.0); MCHC 30.5 g/dL (32.0-37.0); MCV 85.4 FL (80.0-97.0); Mean Platelet Volume 9.7 FL (9.5-12.2); Monocytes # (M) 1.25 X 10*3/uL (0.20-1.00); NRBC Per 100 WBC 0 X 10*3/uL (0.00-0.01); Neutrophils # (M) 0.42 X 10*3/uL (1.80-7.70); Neutrophils % (M) 1 %; Platelet Count 205 X 10*3/uL (140-440); RBC 3.22 X 10*6/uL (4.40-5.60); RDW 15.3 % (11.5-14.5); WBC 41.64 X 10*3/uL (4.50-10.00)
--- NOTE | 2024-11-28 13:51 | P.PN ---
Subjective Progress Note Date: 11/28/24 Hospital Course: Patient is a 64-year-old male with past medical history of CLL not requiring tx diagnosed 10 years ago, iron deficiency anemia, tubular adenoma and colon, recent diagnosis of invasive moderately differentiated colonic adenocarcinoma as of 10/2024, patient had CT abdomen pelvis done on 10/31/2024 that showed enlarged periportal, periaortic retroperitoneal and epicardial lymph nodes concerning for metastasis, splenomegaly, small to moderate right pleural effusion, CT chest showed multiple innumerable parenchymal and extra pleural pulmonary nodules, bilateral axillary and mediastinal adenopathy, his last echo dated 11/20/2024 showed EF of 65 to 70%, mild LVH, no valvular disease. Mildly dilated aorta 3.8, presented to the ER on 11/27 with worsening shortness of breath. States that he started feeling short of breath during wintertime when he developed bronchitis, however, recently noted worsening, also has right-sided very localized point tenderness worse with movement, had a fall on the right side and could not under go any evaluation for that, denied fevers, chills, chest pain, abdominal pain He underwent right-sided thoracentesis on 11/21/[address] Sullivan, 900 cc turbid colored fluid removed., Cytology pending Admission afebrile, tachycardic 114, BP 144/77, SpO2 96% on room air. Underwent extensive workup, WBC is significantly elevated at 28.17, hemoglobin 8.9, platelet count normal, unknown baseline, sodium 129, potassium normal, bicarb normal, creatinine 0.63, normal liver enzymes and total bilirubin, chest x-ray showed moderate right and minimal left pleural effusion increased from before. EKG showed sinus rhythm, normal QTc, no ST elevation. Patient will be admitted for further evaluation of recurrent pleural effusion, leukocytosis, pulmonology, hematology oncology consulted. 11/28/2024: Examined at bedside, present. Shortness of breath persistent, no other new complaints. WBC elevated at 41.6, hemoglobin stable 8.4, platelet count 205, neutrophils 0.42 today, sodium 129, stable, blood glucose controlled, viral panel negative. Pulmonology consulted thoracic surgery, recommend to proceed with Pleurx catheter placement 11/29/2024. Oncology recommendations pending Pertinent positives and negatives as discussed above, a complete review of systems was performed and all other systems are negative. Vitals Signs Reviewed. General: nontoxic, no distress, appears at stated age Derm: warm, dry Head: atraumatic, normocephalic, symmetric Eyes: EOMI, no lid lag, anicteric sclera, pupils equal round reactive to light ENT: Nose and ears atraumatic Neck: No thyromegaly, supple Mouth: no lip lesion, mucus membranes moist Cardiovascular: S1S2 reg, no murmur, no edema Lungs: Diminished breath sounds on the right l, no rhonchi, no rales, no wheeze, no accessory muscle use Abdominal: soft, nontender to palpation, no guarding, no appreciable organomegaly Ext: no gross muscle atrophy, muscle strength muscle strength 5 out of 5 in all 4 extremities, no contractures Neuro: CN II-XII grossly intact Psych: Alert, oriented, appropriate affect Assessment and Plan: [Shortness of breath secondary to recurrent right-sided pleural effusion invasive moderately differentiated colonic adenocarcinoma as of 10/2024, periportal, periaortic retroperitoneal and epicardial lymphadenopathy concerning for metastasis bilateral axillary and mediastinal adenopathy, likely CLL related Innumerable pulmonary nodules -Pulmonology , oncology consulted, appreciate recommendations - Cardiothoracic surgery plans Pleurx catheter placement 11/29 -Case discussed with social work Mildly dilated aorta 3.8 Hyponatremia, likely secondary to malignancy related SIADH - Sodium remained stable at 129 despite IV hydration, will discontinue normal saline and repeat BMP in the morning Leukocytosis in the settings of CLL, unkown baseline iron deficiency anemia, unknown baseline - Continue to monitor CBC daily CODE STATUS: Full code DVT prophylaxis: SCD Anticipated discharge date: TBD Anticipated discharge place: TBD Objective - Vital Signs Vital signs: Vital Signs Temp 98.1 F 11/28/24 12:03 Pulse 103 H 11/28/24 12:03 Resp 20 11/28/24 12:03 BP 146/74 11/28/24 12:03 Pulse Ox 95 11/28/24 12:03 FiO2 Intake & Output 11/27/24 11/28/24 11/28/24 18:59 06:59 18:59 Intake Total 560 Balance 560 Weight 100.244 kg 100.244 kg Intake: Oral 560 Other: Voiding Method Toilet Toilet # Voids 3 - Labs CBC & Chem 7: 11/28/24 06:46 06/05/25 06:46 Labs: Abnormal Lab Results - Last 24 Hours (Table) 11/27/24 11/27/24 11/28/24 Range/Units 10:11 14:43 06:46 WBC 48.17 H 41.64 H (4.50-10.00) 10*3/uL RBC 3.29 L 3.22 L (4.40-5.60) 10*6/uL Hgb 8.9 L 8.4 L (13.0-17.0) g/dL Hct 27.4 L 27.5 L (39.6-50.0) % MCH 26.1 L (27.0-32.0) pg MCHC 30.5 L (32.0-37.0) g/dL RDW 15.3 H (11.5-14.5) % MPV 9.4 L (9.5-12.2) fL Neutrophils # (Manual) 0.42 A* (1.80-7.70) X 10*3/uL Lymphocytes # (Manual) 45.76 H 39.97 H (1.0-4.8) k/uL Monocytes # (Manual) 1.25 H (0.20-1.00) X 10*3/uL Eosinophils # (Manual) 0 L (0.04-0.35) X 10*3/uL Sodium 130 L (137-145) mmol/L Chloride 97 L (98-107) mmol/L Glucose 218 H (74-99) mg/dL POC Glucose (mg/dL) (70-110) mg/dL Calcium (8.7-10.3) mg/dL 11/28/24 11/28/24 Range/Units 06:46 12:07 WBC (4.50-10.00) 10*3/uL RBC (4.40-5.60) 10*6/uL Hgb (13.0-17.0) g/dL Hct (39.6-50.0) % MCH (27.0-32.0) pg MCHC (32.0-37.0) g/dL RDW (11.5-14.5) % MPV (9.5-12.2) fL Neutrophils # (Manual) (1.80-7.70) X 10*3/uL Lymphocytes # (Manual) (1.0-4.8) k/uL Monocytes # (Manual) (0.20-1.00) X 10*3/uL Eosinophils # (Manual) (0.04-0.35) X 10*3/uL Sodium 129 L (137-145) mmol/L Chloride (98-107) mmol/L Glucose 133 H (74-99) mg/dL POC Glucose (mg/dL) 202 H (70-110) mg/dL Calcium 8.2 L (8.7-10.3) mg/dL
--- NOTE | 2024-11-28 16:27 | P.CONS ---
History of Present Illness - Reason for Consult Consult date: 11/28/24 CLL, met colon adenocarcinoma Requesting physician: Ramakrishna Wilkinson - Chief Complaint SOB - History of Present Illness Mr. Dutta is a pleasant 64-year-old male patient of Dr. Randhawa with a longstanding history of CLL, diagnosed around 2014. He has not required t reatment for the same. His baseline white count is in the 20,000-50,000 range. Patient has remained current on his follow-ups. In September 2024 he was noted to have developed anemia, workup showed iron deficiency so, he was referred for GI workup. He underwent EGD and colonoscopy 10/30/2024 which showed a mass in the descending colon-prev colonoscopy was in 2018, polyp removed. Biopsy positive for invasive adenocarcinoma, MSI high, BRAF V600 E+. 10/31/2024 CTAP showed enlarged retroperitoneal, periaortic, janae hepatis and epicardiac lymphadenopathy, 20 cm splenomegaly and a moderate right pleural effusion. Patient did have a thoracentesis, pleural fluid was positive for metastatic colon adenocarcinoma. There are plans already in place for patient to begin dual immunotherapy with CTL A4 inhibitor and PD-L1 inhibitor. Unfortunately, patient was having recurrent shortness of breath, found to have recurrent effusion. Dr. Randhawa and Dr. Sullivan already have discussed the case. There are plans for Pleurx drain placement. When seen today patient denied any fevers, nausea or vomiting, he is stable to ambulate, though slowly, he does have to do some positioning in order to sleep. He is still having bowel movements, denies any black or bloody stools at this time. Review of Systems 10 point review of systems is negative except as stated in HPI Past Medical History Past Medical History: Cancer Additional Past Medical History / Comment(s): tinnitus, leukemia.CML, colon ca History of Any Multi-Drug Resistant Organisms: None Reported Past Surgical History: Orthopedic Surgery Additional Past Surgical History / Comment(s): ganglion cyst-left hand, colonoscopies x 2 Past Anesthesia/Blood Transfusion Reactions: No Reported Reaction Past Psychological History: No Psychological Hx Reported Smoking Status: Former smoker Past Alcohol Use History: Occasional Past Drug Use History: None Reported - Past Family History Mother Family Medical History: No Reported History Medications and Allergies Home Medications Medication Instructions Recorded Confirmed Type Multivitamins, Thera [Multivitamin] 1 tab PO DAILY 09/03/14 11/27/24 History Glucosamine/Chondr Tsai A Sod [Osteo 1 tab PO DAILY 04/26/22 11/27/24 History Bi-Flex Caplet] Magnesium 250 mg PO DAILY 11/20/24 11/27/24 History [place]-3/Dha/Epa/Fish Oil [[place]-3 1 cap PO DAILY 11/27/24 11/27/24 History Fish Oil 1,000 mg Sfgl] Allergies Allergy/AdvReac Type Severity Reaction Status Date / Time No Known Allergies Allergy Verified 11/27/24 11:41 Physical Exam Vitals: Vital Signs Temp Pulse Pulse Resp BP BP Pulse Ox 11/28/24 12:03 98.1 F 103 H 20 146/74 95 11/28/24 07:04 98 F 100 20 130/77 93 L 11/28/24 01:40 98 F 102 H 18 150/83 93 L 11/27/24 21:39 97.9 F 104 H 18 146/75 96 11/27/24 21:06 105 H 18 138/76 95 11/27/24 19:28 98.6 F 96 18 143/83 95 11/27/24 18:00 102 H 16 138/75 93 L 11/27/24 17:00 104 H 16 129/77 93 L Intake and Output 11/28/24 11/28/24 11/28/24 06:59 14:59 22:59 Other: Voiding Method Toilet # Voids 3 - Constitutional General appearance: average body habitus, cooperative, no acute distress - EENT Eyes: anicteric sclerae, EOMI ENT: hearing grossly normal - Respiratory Respiratory: right: diminished, left: rales (base) - Cardiovascular Rhythm: regular Heart sounds: normal: S1, S2 Abnormal Heart Sounds: no systolic murmur, no diastolic murmur, no rub, no S3 Gallop, no S4 Gallop, no click, no other leg Peripheral Edema: bilateral: None - Gastrointestinal General gastrointestinal: normal bowel sounds, soft - Integumentary Integumentary: normal - Neurologic Neurologic: CNII-XII intact - Musculoskeletal Musculoskeletal: strength equal bilaterally - Psychiatric Psychiatric: A&O x's 3, appropriate affect, intact judgment & insight Results CBC & Chem 7: 11/28/24 06:46 11/28/24 06:46 Labs: Abnormal Lab Results - Last 24 Hours (Table) 11/27/24 11/28/24 11/28/24 Range/Units 10:11 06:46 06:46 WBC 48.17 H 41.64 H (4.50-10.00) 10*3/uL RBC 3.29 L 3.22 L (4.40-5.60) 10*6/uL Hgb 8.9 L 8.4 L (13.0-17.0) g/dL Hct 27.4 L 27.5 L (39.6-50.0) % MCH 26.1 L (27.0-32.0) pg MCHC 30.5 L (32.0-37.0) g/dL RDW 15.3 H (11.5-14.5) % MPV 9.4 L (9.5-12.2) fL Neutrophils # (Manual) 0.42 A* (1.80-7.70) X 10*3/uL Lymphocytes # (Manual) 45.76 H 39.97 H (1.0-4.8) k/uL Monocytes # (Manual) 1.25 H (0.20-1.00) X 10*3/uL Eosinophils # (Manual) 0 L (0.04-0.35) X 10*3/uL Sodium 129 L (135-145) mmol/L Glucose 133 H (70-110) mg/dL POC Glucose (mg/dL) (70-110) mg/dL Calcium 8.2 L (8.7-10.3) mg/dL 11/28/24 Range/Units 12:07 WBC (4.50-10.00) 10*3/uL RBC (4.40-5.60) 10*6/uL Hgb (13.0-17.0) g/dL Hct (39.6-50.0) % MCH (27.0-32.0) pg MCHC (32.0-37.0) g/dL RDW (11.5-14.5) % MPV (9.5-12.2) fL Neutrophils # (Manual) (1.80-7.70) X 10*3/uL Lymphocytes # (Manual) (1.0-4.8) k/uL Monocytes # (Manual) (0.20-1.00) X 10*3/uL Eosinophils # (Manual) (0.04-0.35) X 10*3/uL Sodium (135-145) mmol/L Glucose (70-110) mg/dL POC Glucose (mg/dL) 202 H (70-110) mg/dL Calcium (8.7-10.3) mg/dL Chest x-ray: report reviewed Assessment and Plan (1) Malignant pleural effusion Current Visit: Yes Status: Acute Priority: High Code(s): J91.0 - MALIGNANT PLEURAL EFFUSION SNOMED Code(s): 508029008 (2) Anemia Current Visit: Yes Status: Acute Priority: Medium Code(s): D64.9 - ANEMIA, UNSPECIFIED SNOMED Code(s): 122664599 (3) Colon cancer Current Visit: Yes Status: Acute Priority: High Code(s): C18.9 - MALIGNANT NEOPLASM OF COLON, UNSPECIFIED SNOMED Code(s): 479361234 (4) CLL (chronic lymphocytic leukemia) Current Visit: Yes Status: Chronic Priority: Low Code(s): C91.10 - CHRONIC LYMPHOCYTIC LEUK OF B-CELL TYPE NOT ACHIEVE REMIS SNOMED Code(s): 82611256 Plan: Recurrent malignant pleural effusion - Case was discussed with Pulmonary. Pulmonary has discussed the case with CTS. Plans for placement of a Pleurx drain. Agree with plan for the same. Anemia - First noted in September 2024. Workup revealed PAT. This led to upper and lower endoscopy. Colon malignancy identified. Anemia secondary to colon malignancy. - Anemia has been/is being addressed in the outpatient setting. - Currently hemoglobin is 8.9, no need for transfusion at this time Metastatic colon adenocarcinoma - Diagnosis as documented in HPI. - Molecular testing did show that tumor is MSI high, he is due to start treatment on dual immunotherapy in the near future outpt. CLL - Chronic, diagnosed in 2014. - Baseline white blood cell count 20-50,000 range - Patient has not required treatment for the same - No acute intervention at this time
[2024-11-28 17:06] LABS: Glucose,Whole Blood 124 mg/dL (70-110)
--- NOTE | 2024-11-28 17:54 | P.PN ---
Subjective Progress Note Date: 11/28/24 On 11/28/2024, the patient is calm and comfortable. No new complaints for now. As stated, the patient has a malignant right-sided pleural effusion the patient is being considered for a Pleurx catheter insertion. Cardiothoracic consultation was obtained and the patient will have this procedure tomorrow on 11/29/2024. No new complaints otherwise for now. White cell count 41 consistent with CLL and hemoglobin stable at 8.4. Sodium is at 129, BUN is 10 with a creatinine 0.7. Nausea. No emesis. The patient will be seen also by medical oncology regarding his metastatic colonic adenocarcinoma. He is being considered for dual immunotherapy in the future. He remains anemic and hemoglobin is at 8.9. He remains on room air oxygen. Objective - Vital Signs Vital signs: Vital Signs Temp 98.1 F 11/28/24 12:03 Pulse 103 H 11/28/24 12:03 Resp 20 11/28/24 12:03 BP 146/74 11/28/24 12:03 Pulse Ox 95 11/28/24 12:03 FiO2 Intake & Output 11/27/24 11/28/24 11/28/24 18:59 06:59 18:59 Intake Total 560 Balance 560 Weight 100.244 kg 100.244 kg Intake: Oral 560 Other: Voiding Method Toilet Toilet # Voids 3 2 - Exam The patient appeared well nourished and normally developed. Vital signs as documented. Head exam is unremarkable. No scleral icterus or corneal arcus noted. Neck is without jugular venous distension, thyromegaly, or carotid bruits. Carotid upstrokes are brisk bilaterally. Lungs are clear to auscultation and percussion. Diminished breath on the right compared to the left Cardiac exam reveals the PMI to be normally sized and situated. Rhythm is regular. First and second heart sounds normal. No murmurs, rubs or gallops. Abdominal exam reveals normal bowel sounds, no masses, no organomegaly and no aortic enlargement. Extremities are nonedematous and both femoral and pedal pulses are normal. Examination of the skin revealed no evidence of significant rashes, suspicious appearing nevi or other concerning lesions. Neurologically, the patient is awake and alert and the patient does not have any focal neurological deficit. Cranial nerves are essentially intact. - Labs CBC & Chem 7: 11/28/24 06:46 11/28/24 06:46 Labs: Abnormal Lab Results - Last 24 Hours (Table) 11/27/24 11/28/24 11/28/24 Range/Units 10:11 06:46 06:46 WBC 48.17 H 41.64 H (4.50-10.00) 10*3/uL RBC 3.29 L 3.22 L (4.40-5.60) 10*6/uL Hgb 8.9 L 8.4 L (13.0-17.0) g/dL Hct 27.4 L 27.5 L (39.6-50.0) % MCH 26.1 L (27.0-32.0) pg MCHC 30.5 L (32.0-37.0) g/dL RDW 15.3 H (11.5-14.5) % MPV 9.4 L (9.5-12.2) fL Neutrophils # (Manual) 0.42 A* (1.80-7.70) X 10*3/uL Lymphocytes # (Manual) 45.76 H 39.97 H (1.0-4.8) k/uL Monocytes # (Manual) 1.25 H (0.20-1.00) X 10*3/uL Eosinophils # (Manual) 0 L (0.04-0.35) X 10*3/uL Sodium 129 L (135-145) mmol/L Glucose 133 H (70-110) mg/dL POC Glucose (mg/dL) (70-110) mg/dL Calcium 8.2 L (8.7-10.3) mg/dL 11/28/24 11/28/24 Range/Units 12:07 17:04 WBC (4.50-10.00) 10*3/uL RBC (4.40-5.60) 10*6/uL Hgb (13.0-17.0) g/dL Hct (39.6-50.0) % MCH (27.0-32.0) pg MCHC (32.0-37.0) g/dL RDW (11.5-14.5) % MPV (9.5-12.2) fL Neutrophils # (Manual) (1.80-7.70) X 10*3/uL Lymphocytes # (Manual) (1.0-4.8) k/uL Monocytes # (Manual) (0.20-1.00) X 10*3/uL Eosinophils # (Manual) (0.04-0.35) X 10*3/uL Sodium (135-145) mmol/L Glucose (70-110) mg/dL POC Glucose (mg/dL) 202 H 124 H (70-110) mg/dL Calcium (8.7-10.3) mg/dL Assessment and Plan Plan: Metastatic invasive colonic adenocarcinoma with a malignant right-sided pleural effusion. The patient had a recent diagnosis of colonic adenocarcinoma identified on a recent colonoscopy and the patient had CAT scan of the chest that showed multiple subcentimeter pulmonary nodules, mediastinal lymphadenopathy largest in the subcarinal area and a right-sided pleural effusion. A diagnostic and therapeutic thoracentesis of the right lung was done with evacuation of 900 cc of pleural fluid and a fluid cytology was positive for metastatic chronic adenocarcinoma. Recurrent right-sided pleural effusion, malignant Dyspnea secondary to above Intra-abdominal lymphadenopathy, could be related to CLL versus metastatic colon adenocarcinoma. Favor CLL as the patient has also splenomegaly and intra- abdominal and mediastinal lymphadenopathy although carcinoma cannot be completely ruled out. Chronic lymphocytic leukemia Iron deficiency anemia Plan Case was discussed with CT surgery and the patient will have a Pleurx catheter inserted for recurrent right-sided pleural effusion. The pleural effusion obviously recurrent and it recurred within a short period of time. Oncology evaluation and patient is able to receive dual immunotherapy on outpatient basis for metastatic colonic adenocarcinoma. He does have a chronic leukocytosis related to his CLL and the patient has obvious lymphocytic predominance in the order of 95%. His sodium level is borderline low, rest of the electrolytes are all stable. Most recent echocard iogram showed a preserved LV function from 11/19/2024 without any significant valvular abnormalities Will continue to follow. Pleurx catheter to be inserted on 11/29/2024.
[2024-11-28 20:23] LABS: Glucose,Whole Blood 178 mg/dL (70-110)
[2024-11-29 06:10] LABS: African American GFR (CKD) >90 (>60 ml/min/1.73 sqM); Anion Gap 8 mmol/L; Blood Urea Nitrogen 12 mg/dL (9-20); Calcium 8.7 mg/dL (8.4-10.2); Carbon Dioxide 25 mmol/L (22-30); Chloride 97 mmol/L (98-107); Glucose 128 mg/dL (74-99); Non-African American GFR(CKD) >90 (>60 ml/min/1.73 sqM); Potassium 4.3 mmol/L (3.5-5.1); Sodium 130 mmol/L (137-145)
[2024-11-29] MEDS: IV FLUID CONTINUATION 1,000 ML IV ONE (06:47)
[2024-11-29 06:53] LABS: Glucose,Whole Blood 142 mg/dL (70-110)
[2024-11-29] MEDS: ONDANSETRON 4 MG/2 ML VIAL IVP PRN (06:55)
[2024-11-29] MEDS: LACTATED RINGERS 1,000 ML BAG IV STA (07:13)
[2024-11-29] MEDS ORDERED: PROPOFOL 10 MG/ML 20 ML VIAL IV ONE (07:24)
[2024-11-29] MEDS ORDERED: fentaNYL (PF) 50 MCG/ML 2 ML AMP ONE (07:24)
[2024-11-29] MEDS ORDERED: LIDOCAINE 1% INJ 10MG/ML (20 ML MDV) ONE (07:24)
[2024-11-29] MEDS ORDERED: MIDAZOLAM 2 MG/2 ML VIAL ONE (07:24)
[2024-11-29] MEDS: ceFAZolin 2 GM in DEXTROSE 5% IN WATER 50 ML IVPB ONE (07:29)
[2024-11-29] MEDS: LIDOCAINE 1% INJ 10MG/ML (20 ML MDV) SQ ONE ×2 (07:55)
--- NOTE | 2024-11-29 08:33 | FL ---
Fluoroscopy INDICATION: Pain FINDINGS: Fluoroscopy time: 4.8 seconds. Total dose area product (DAP) in uGy*m?, mGy*cm? (or similar): 0.8368 Images obtained: 3. Images document the procedure. IMPRESSION: 1. Documentation of fluoroscopy. [facility], , 11/29/2024 8:30 AM
--- NOTE | 2024-11-29 09:01 | P.OP ---
Date of Procedure: 11/29/24 Preoperative Diagnosis: Malignant recurrent right pleural effusion Postoperative Diagnosis: Malignant recurrent right pleural effusion Procedure(s) Performed: Pleurx catheter placement right side Implants: Standard Pleurx catheter Anesthesia: MAC Surgeon: César Granados Estimated Blood Loss (ml): 2 Pathology: none sent Condition: stable Disposition: PACU Indications for Procedure: Mr. Dutta is our 64-year-old gentleman who presented to the hospital with a right pleural effusion with a known recent history of colon cancer. The effusion was tapped and unfortunately cytology came back positive for metastatic colon cancer. The effusion has recurred and we have been asked to place a Pleurx catheter for palliation. Operative Findings: 1. Good Pleurx catheter placement by fluoroscopy 2. No evidence of kinking 3. Good functional status of Pleurx catheter at end of case Description of Procedure: After consent was obtained, the patient was taken to the OR where he underwent monitored anesthesia IV sedation. He was prepped and draped in sterile fashion in supine position on a bump with [place] on the skin. We observed a timeout whereby the patient, the procedure, the site, the side, antibiotic delivery, personnel and films up in the room were all verified. We then proceeded to heriberto the patient for insertion of the Pleurx catheter both the insertion site the exit site in the tunnel. He was then injected based on the markings with 15 cc of 1% plain lidocaine and after that was accomplished an incision was made approximately 5 mm in length at the insertion site and between 3 and 5 cm at the exit site. We then used the 18-gauge Angiocath to access the fluid and after we had fluid returned in the syringe we passed an 035 guidewire and verified it was in good position on fluoroscopy. We then proceeded to pass the catheter attached to the tunneler from the exit site to the insertion site and once that was accomplished and the cuff was seated immediately below the skin we were able to place the dilator/peel-away sheath combination over the wire. We then removed the wire and stylette from the peel-away sheath and with some difficulty secondary to some kinking we were able to push the perforated end of the Pleurx catheter through the peel-away sheath into the chest cavity. Once it was in place we were able to verify good placement and no kinking on fluoroscopy and once that was accomplished, we placed a 4-0 Monocryl buried interrupted and the skin to reapposed the skin at the insertion site and dressed it with skin glue. At the exit site we placed a 2-0 silk suture as a retention suture and then dressed the Pleurx catheter and attached it to a Pleur-evac container on -20 of suction. Patient tolerated this well and was transferred to the PACU in good condition. He had no family available to update post procedure.
--- NOTE | 2024-11-29 09:10 | XR ---
EXAMINATION TYPE: XR chest 1V portable DATE OF EXAM: 11/29/2024 8:48 AM COMPARISON: 11/28/2019 CLINICAL INDICATION: Male, 64 years old with history of post pleurx placement, TECHNIQUE: XR chest 1V portable view(s) obtained. FINDINGS: The heart size is normal. The pulmonary vasculature is normal. Moderate right pleural effusion is present. There is placement of the catheter at the right base. No pneumothorax evident. IMPRESSION: 1. Placement of the catheter right base. 2. Right lower lung field pleural fluid [facility], , 11/29/2024 9:08 AM
[2024-11-29 10:17] LABS: Basophils # (M) 0 X 10*3/uL (0.00-0.10); Eosinophils # (M) 0 X 10*3/uL (0.04-0.35); HCT 28.1 % (39.6-50.0); HGB 8.5 g/dL (13.0-17.0); Lymphocytes # (M) 37.56 X 10*3/uL (0.90-5.00); MCH 26.1 pg (27.0-32.0); MCHC 30.2 g/dL (32.0-37.0); MCV 86.2 FL (80.0-97.0); Mean Platelet Volume 9.8 FL (9.5-12.2); Monocytes # (M) 0.83 X 10*3/uL (0.20-1.00); NRBC Per 100 WBC 0.02 X 10*3/uL (0.00-0.01); Neutrophils # (M) 3.34 X 10*3/uL (1.80-7.70); Neutrophils % (M) 8 %; Platelet Count 207 X 10*3/uL (140-440); RBC 3.26 X 10*6/uL (4.40-5.60); RDW 15.5 % (11.5-14.5); WBC 41.73 X 10*3/uL (4.50-10.00)
[2024-11-29 12:15] LABS: Glucose,Whole Blood 208 mg/dL (70-110)
[2024-11-29 12:46] VITALS: BP 145/75; PULSE 99; RESP 18; TEMP 97.9
--- NOTE | 2024-11-29 15:33 | P.DS ---
Providers Date of admission: 11/27/24 13:47 Attending physician: Yas Guzmán MD Consults: 11/27/24 11:45 Consult Physician Urgent Consulting Provider: Douglas Meier Consult Reason/Comments: Colon cancer, leukocytosis, anemia Do you want consulting provider notified?: Yes Consult Physician Urgent Consulting Provider: Apple Sullivan Consult Reason/Comments: Recurrent pleural effusion Do you want consulting provider notified?: Yes 11/28/24 07:47 Consult Physician Urgent Consulting Provider: César Granados Consult Reason/Comments: Pleurx catheter insertion Do you want consulting provider notified?: Yes Primary care physician: Stated None Hospital Course: Discharge Diagnosis: Recurrent right-sided malignant pleural effusion Invasive moderately differentiated colonic adenocarcinoma as of 10/2024, periportal, periaortic retroperitoneal and epicardial lymphadenopathy concerning for metastasis bilateral axillary and mediastinal adenopathy, likely CLL related Innumerable pulmonary nodules Type II DM Mildly dilated aorta 3.8 Hyponatremia likely secondary to malignant see related SIADH Chronic anemia Hospital Course: Patient is a 64-year-old male with past medical history of CLL not requiring tx diagnosed 10 years ago, iron deficiency anemia, tubular adenoma and colon, recent diagnosis of invasive moderately differentiated colonic adenocarcinoma as of 10/2024, patient had CT abdomen pelvis done on 10/31/2024 that showed enlarged periportal, periaortic retroperitoneal and epicardial lymph nodes concerning for metastasis, splenomegaly, small to moderate right pleural effusion, CT chest showed multiple innumerable parenchymal and extra pleural pulmonary nodules, bilateral axillary and mediastinal adenopathy, his last echo dated 11/20/2024 showed EF of 65 to 70%, mild LVH, no valvular disease. Mildly dilated aorta 3.8, presented to the ER on 11/27 with worsening shortness of breath. States that he started feeling short of breath during wintertime when he developed bronch itis, however, recently noted worsening, also has right-sided very localized point tenderness worse with movement, had a fall on the right side and could not under go any evaluation for that, denied fevers, chills, chest pain, abdominal pain He underwent right-sided thoracentesis on 11/21/[address] Sullivan, 900 cc turbid colored fluid removed., Cytology showed metastatic adenocarcinoma unfort unately. Admission afebrile, tachycardic 114, BP 144/77, SpO2 96% on room air. Underwent extensive workup, WBC is significantly elevated at 28.17, hemoglobin 8.9, platelet count normal, unknown baseline, sodium 129, potassium normal, bicarb normal, creatinine 0.63, normal liver enzymes and total bilirubin, chest x-ray showed moderate right and minimal left pleural effusion increased from before. EKG showed sinus rhythm, normal QTc, no ST elevation. Patient will be admitted for further evaluation of recurrent pleural effusion, leukocytosis, pulmonology, hematology oncology consulted. Cardiothoracic surgery consulted for Pleurx catheter placement that was performed on 11/29/2024, patient tolerated procedure well, cleared for discharge by oncology and pulmonology. Patient to follow-up with oncology to initiate outpatient treatment. Of note, he was diagnosed with diabetes, hemoglobin was 7, recommended to closely follow- up with PCP, watch carb intake. Patient seen and examined at bedside. Vital signs reviewed and stable. General: [nontoxic], [no distress], [appears at stated age] Derm: [warm], [dry] Head: [atraumatic], [normocephalic], [symmetric] Eyes: [EOMI], [no lid lag], [anicteric sclera] Mouth: [no lip lesion], [mucus membranes moist] Cardiovascular: [S1S2 reg], [no murmur] Lungs: [CTA bilateral], [breath sounds decreased on the right, Pleurx catheter in place, serosanguineous discharge., [no accessory muscle use] Abdominal: [soft], [ nontender to palpation], [no guarding], [no appreciable organomegaly] Ext: [no gross muscle atrophy], [no edema], [no contractures] Neuro: [ CN II-XI grossly intact], [no focal neuro deficits] Psych: [Alert], [oriented], [appropriate affect] A total of 40 minutes of time were spent preparing this complex discharge summary. Patient was discharged on 11/29/2024. Patient Condition at Discharge: Fair Plan - Discharge Summary Discharge Rx Participant: Yes New Discharge Prescriptions: New HYDROcodone/APAP 5-325MG [[place] 5-325] 1 each PO Q6HR PRN #12 tab PRN Reason: Moderate Pain (Scale 4 To 6) Continue Multivitamins, Thera [Multivitamin (formulary)] 1 tab PO DAILY Magnesium 250 mg PO DAILY Glucosamine/Chondr Tsai A Sod [Osteo Bi-Flex Caplet] 1 tab PO DAILY [place]-3/Dha/Epa/Fish Oil [[place]-3 Fish Oil 1,000 mg Sfgl] 1 cap PO DAILY Discharge Medication List Multivitamins, Thera [Multivitamin (formulary)] 1 tab PO DAILY 09/03/14 [History] Glucosamine/Chondr Tsai A Sod [Osteo Bi-Flex Caplet] 1 tab PO DAILY 04/26/22 [History] Magnesium 250 mg PO DAILY 11/20/24 [History] [place]-3/Dha/Epa/Fish Oil [[place]-3 Fish Oil 1,000 mg Sfgl] 1 cap PO DAILY 11/27/24 [History] HYDROcodone/APAP 5-325MG [[place] 5-325] 1 each PO Q6HR PRN #12 tab 11/29/24 [Rx] Follow up Appointment(s)/Referral(s): Home Health,[facility] [NON-STAFF] - 1 Week César Granados MD [STAFF PHYSICIAN] - As Needed ([place] office is in the [facility] behind [facility], [address] [place] [address]. Office phone number is . Please contact our office for Pleurx catheter removal when drainage is less than 50 mL for 3 times in a row) None,Stated [Primary Care Provider] - 1-2 days Activity/Diet/Wound Care/Special Instructions: PLEURX CATH DISCHARGE INSTRUCTIONS: 1. Home Care is ordered, they will obtain new bottles. 2. May shower after 24 hours, no tub baths/hot tubs. 3. Do not drain more than 1 liter or 1000 mL in 24 hours. 4. New drainage bottle needed with each drainage. 5. Drainage frequency dictated by patient symptoms, may be every day, every other day, weekly, or however often the patient is symptomatic. 6. Please notify SEAMER OPERATOR or office if temperature >101F, excessive pain at insertion site, drainage consistency changes to cloudy or smells bad, catheter falls out, or anything else that concerns you. 7. Contact surgery office with weekly drainage amounts. May fax the amounts. 8. Once drainage is less than 50 mL three times in a row, notify the surgery office for possible removal. Surgery office: , fax Please, follow-up with your primary care physician, oncology. Please note, your A1c was 7, that means that you have diabetes. Please, closely follow-up with your primary care physician, start watching your carb intake, follow diet recommendations [email or web address] Discharge Disposition: HOME WITH HOME HEALTH SERVICES
--- NOTE | 2024-11-29 22:08 | P.PN ---
Subjective Progress Note Date: 11/29/24 On 11/28/2024, the patient is calm and comfortable. No new complaints for now. As stated, the patient has a malignant right-sided pleural effusion the patient is being considered for a Pleurx catheter insertion. Cardiothoracic consultation was obtained and the patient will have this procedure tomorrow on 11/29/2024. No new complaints otherwise for now. White cell count 41 consistent with CLL and hemoglobin stable at 8.4. Sodium is at 129, BUN is 10 with a creatinine 0.7. Nausea. No emesis. The patient will be seen also by medical oncology regarding his metastatic colonic adenocarcinoma. He is being considered for dual immunotherapy in the future. He remains anemic and hemoglobin is at 8.9. He remains on room air oxygen. On 11/29/2024, the patient is being seen for a follow-up. The patient is feeling well. The patient underwent a Pleurx catheter insertion without any complications. The Pleurx catheter is attached to a Pleur-evac. There is another 600 cc of fluid collecting in the container. He has no other complaints otherwise for now. The patient is seeking for further education on the Pleurx catheter use and discharge. White cell count 41 with a hemoglobin of 8.5. Electrolytes are normal. BUN is 12 with a creatinine 0.7. He is currently on room air oxygen with a pulse ox of 93%. No other complaints otherwise for now. Objective - Vital Signs Vital signs: Vital Signs Temp 97.9 F 11/29/24 12:11 Pulse 99 11/29/24 12:11 Resp 18 11/29/24 12:11 BP 145/75 11/29/24 12:11 Pulse Ox 93 L 11/29/24 12:11 FiO2 Intake & Output 11/29/24 11/29/24 11/30/24 06:59 18:59 06:59 Intake Total 100 350 Output Total 2 Balance 100 348 Intake: IV 100 350 Output: Estimated Blood Loss 2 Other: Voiding Method Toilet Toilet # Voids 3 - Exam The patient appeared well nourished and normally developed. Vital signs as documented. Head exam is unremarkable. No scleral icterus or corneal arcus noted. Neck is without jugular venous distension, thyromegaly, or carotid bruits. Carotid upstrokes are brisk bilaterally. Lungs are clear to auscultation and percussion. Diminished breath on the right compared to the left, Pleurx catheter in the right chest attached to a Pleur- evac Cardiac exam reveals the PMI to be normally sized and situated. Rhythm is regular. First and second heart sounds normal. No murmurs, rubs or gallops. Abdominal exam reveals normal bowel sounds, no masses, no organomegaly and no aortic enlargement. Extremities are nonedematous and both femoral and pedal pulses are normal. Examination of the skin revealed no evidence of significant rashes, suspicious appearing nevi or other concerning lesions. Neurologically, the patient is awake and alert and the patient does not have any focal neurological deficit. Cranial nerves are essentially intact. - Labs CBC & Chem 7: 11/29/24 05:02 11/29/24 05:02 Labs: Abnormal Lab Results - Last 24 Hours (Table) 11/29/24 11/29/24 11/29/24 Range/Units 05:02 05:02 05:02 WBC 41.73 H (4.50-10.00) X 10*3/uL RBC 3.26 L (4.40-5.60) X 10*6/uL Hgb 8.5 L (13.0-17.0) g/dL Hct 28.1 L (39.6-50.0) % MCH 26.1 L (27.0-32.0) pg MCHC 30.2 L (32.0-37.0) g/dL RDW 15.5 H (11.5-14.5) % Lymphocytes # (Manual) 37.56 H (0.90-5.00) X 10*3/uL Eosinophils # (Manual) 0 L (0.04-0.35) X 10*3/uL NRBC/100 WBC Diff 0.02 H (0.00-0.01) X 10*3/uL Sodium 130 L (137-145) mmol/L Chloride 97 L (98-107) mmol/L Glucose 128 H (74-99) mg/dL POC Glucose (mg/dL) (70-110) mg/dL Hemoglobin A1c 7.0 H (<=6.0) % 11/29/24 11/29/24 Range/Units 06:52 12:14 WBC (4.50-10.00) X 10*3/uL RBC (4.40-5.60) X 10*6/uL Hgb (13.0-17.0) g/dL Hct (39.6-50.0) % MCH (27.0-32.0) pg MCHC (32.0-37.0) g/dL RDW (11.5-14.5) % Lymphocytes # (Manual) (0.90-5.00) X 10*3/uL Eosinophils # (Manual) (0.04-0.35) X 10*3/uL NRBC/100 WBC Diff (0.00-0.01) X 10*3/uL Sodium (137-145) mmol/L Chloride (98-107) mmol/L Glucose (74-99) mg/dL POC Glucose (mg/dL) 142 H 208 H (70-110) mg/dL Hemoglobin A1c (<=6.0) % Assessment and Plan Plan: Metastatic invasive colonic adenocarcinoma with a malignant right-sided pleural effusion. The patient had a recent diagnosis of colonic adenocarcinoma identified on a recent colonoscopy and the patient had CAT scan of the chest that showed multiple subcentimeter pulmonary nodules, mediastinal lymphadenopathy largest in the subcarinal area and a right-sided pleural effusion. A diagnostic and therapeutic thoracentesis of the right lung was done with evacuation of 900 cc of pleural fluid and a fluid cytology was positive for metastatic chronic adenocarcinoma. Pleurx catheter has been inserted today on 11/29/2024 without any complications. Recurrent right-sided pleural effusion, malignant Dyspnea secondary to above Intra-abdominal lymphadenopathy, could be related to CLL versus metastatic colon adenocarcinoma. Favor CLL as the patient has also splenomegaly and intra- abdominal and mediastinal lymphadenopathy although carcinoma cannot be completely ruled out. Chronic lymphocytic leukemia Iron deficiency anemia Plan Pleurx catheter inserted without any complication and the patient will need further education and post education if patient can be discharged home with some home nursing care. Oxygenation is stable and the patient is on room air oxygen Undergo periodic drainage 3 times a week and record the output Outpatient follow-up to be seen in the office with pulmonary and medical oncology.
== END 2024-11-29 16:46 | disposition home health service (06) | DRG 375 ==
LOC: EC 09:36 → 5NMEDONC 13:47
PROVIDERS: ADMIT Student in an Organized Health Care Education/Training Program; ATTEND Student in an Organized Health Care Education/Training Program
PROC: 0W9930Z Drainage of Right Pleural Cavity with Drainage Device, Percutaneous Approach (ICD-10-PCS; principal; 2024-11-29 07:30)
DX: C18.9 Malignant neoplasm of colon, unspecified (principal); C79.9 Secondary malignant neoplasm of unspecified site; J91.0 Malignant pleural effusion; E22.2 Syndrome of inappropriate secretion of antidiuretic hormone; C91.10 Chronic lymphocytic leukemia of B-cell type not having achieved remission; D50.9 Iron deficiency anemia, unspecified; R16.1 Splenomegaly, not elsewhere classified; E11.9 Type 2 diabetes mellitus without complications; I77.819 Aortic ectasia, unspecified site; D63.0 Anemia in neoplastic disease; R59.0 Localized enlarged lymph nodes; Z87.891 Personal history of nicotine dependence
CPT/HCPCS: 36415; 71045; 71046; 80048; 80053; 83036; 83605; 83735; 83880; 84484; 85025; 85610; 85730; 87636; 93005; 96360; 96361; 99285

== ENCOUNTER 2024-12-19 10:22 | Inpatient (IN) | payer BC ==
--- NOTE | 2024-12-19 10:53 | ED ---
SOB HPI - General Source: patient, family Mode of arrival: wheelchair <Karine Villalta - Last Filed: 12/19/24 10:49> <Radha Camarillo - Last Filed: 12/25/24 23:06> - General Stated Complaint: YOLIE Time Seen by Provider: 12/19/24 10:49 - History of Present Illness Initial Comments: Quick [id number] male with history of recently diagnosed colon cancer presenting for "blocked Pleurx catheter". Denies he was recently hospitalized due to recurrent right-sided pleural effusion and states he has become progressively more short of breath with exertion x 4 days. States he has not received any drainage out of the catheter since 4 days ago. Denies fevers. Has follow up appointment with Dr. Sullivan 4 days from now. (Karine Villalta) 64-year-old male presenting with chief complaint of "blocked Pleurx catheter". Patient was recently diagnosed with colon cancer with metastases. He was found to have a recurrent right-sided pleural effusion and recently had a Pleurx catheter placed. States that for the past few days he has been getting little if any output and he has been having progressively increasing shortness of breath. No chest pain. Patient does have a follow-up with his field service representative Dr. Sullivan in 4 days. (Radha Camarillo) - Related Data Home Medications Medication Instructions Recorded Confirmed Multivitamins, Thera [Multivitamin 1 tab PO PC-BRKFST 09/03/14 12/19/24 (formulary)] Glucosamine/Chondr Tsai A Sod [Osteo 1 tab PO PC-BRKFST 04/26/22 12/19/24 Bi-Flex Caplet] Acetaminophen Tab [Tylenol] 1,000 mg PO Q6HR PRN 12/19/24 12/19/24 Furosemide [Lasix] 40 mg PO DAILY 12/19/24 12/19/24 L.acidoph,Paracasei, B.lactis 1 cap PO PC-BRKFST 12/19/24 12/19/24 [Probiotic] Magnesium (Unknown Dose) 1 dose PO PC-BRKFST 12/19/24 12/19/24 Triple [place] 1 cap PO PC-BRKFST 12/19/24 12/19/24 Allergies Allergy/AdvReac Type Severity Reaction Status Date / Time No Known Allergies Allergy Verified 11/29/24 06:36 Review of Systems ROS Other: All systems not noted in ROS Statement are negative. <Karine Villalta - Last Filed: 12/19/24 10:49> ROS Other: All systems not noted in ROS Statement are negative. <Radha Camarillo - Last Filed: 12/25/24 23:06> ROS Statement: Those systems with pertinent positive or pertinent negative responses have been documented in the HPI. Past Medical History Past Medical History: Cancer Additional Past Medical History / Comment(s): tinnitus, leukemia.CML, colon ca History of Any Multi-Drug Resistant Organisms: None Reported Past Surgical History: Orthopedic Surgery Additional Past Surgical History / Comment(s): ganglion cyst-left hand, colonoscopies x 2 Past Anesthesia/Blood Transfusion Reactions: No Reported Reaction Past Psychological History: No Psychological Hx Reported Smoking Status: Former smoker Past Alcohol Use History: Occasional Past Drug Use History: None Reported - Past Family History Mother Family Medical History: No Reported History <Karine Villalta - Last Filed: 12/19/24 10:49> General Exam <Karine Villalta - Last Filed: 12/19/24 10:49> General appearance: alert, in no apparent distress Head exam: Present: atraumatic, normocephalic, normal inspection Eye exam: Present: normal appearance, EOMI Neck exam: Present: normal inspection. Absent: meningismus Respiratory exam: Absent: respiratory distress Cardiovascular Exam: Present: tachycardia Neurological exam: Present: alert, oriented X3 Psychiatric exam: Present: normal affect, normal mood Skin exam: Present: warm, dry, normal color <Radha Camarillo - Last Filed: 12/25/24 23:06> - General Exam Comments Initial Comments: Visual Physical Exam Vital signs reviewed General: Well-appearing, nontoxic, no acute distress. Head: Normocephalic, atraumatic Eyes: PERRLA, EOMI ENT: Airway patent Chest: Nonlabored breathing Skin: No visual rash, normal skin tone Neuro: Alert and oriented 3 Musculoskeletal: No gross abnormalities (Karine Villalta) Course Vital Signs 12/19/24 12/19/24 12/19/24 10:44 10:50 16:15 Temperature 98.0 F 98.3 F Pulse Rate 111 H 86 110 H Respiratory 16 16 24 Rate Blood Pressure 117/67 186/91 142/85 O2 Sat by Pulse 95 98 94 L Oximetry 12/19/24 20:32 Temperature 97.6 F Pulse Rate 112 H Respiratory 18 Rate Blood Pressure 139/86 O2 Sat by Pulse 95 Oximetry Medical Decision Making <Karine Villalta - Last Filed: 12/19/24 10:49> - Lab Data Result diagrams: 12/21/24 07:06 12/21/24 07:06 <Radha Camarillo - Last Filed: 12/25/24 23:06> - Medical Decision Making I completed the quick note portion of this chart signed by Karine Villalta PA-C (Karine Vlilalta) Was pt. sent in by a medical professional or institution (, PA, DROP SHIPMENT CLERK, urgent care, hospital, or jail...) When possible be specific @ -No Did you speak to anyone other than the patient for history (EMS, parent, family, police, friend...)? What history was obtained from this source @ -No Did you review nursing and triage notes (agree or disagree)? Why? @ -I reviewed and agree with nursing and triage notes Were old charts reviewed (outside hosp., previous admission, EMS record, old EKG, old radiological studies, urgent care reports/EKG's, jail records)? Report findings @ -No old charts were reviewed Differential Diagnosis (chest pain, altered mental status, abdominal pain women, abdominal pain men, vaginal bleeding, weakness, fever, dyspnea, syncope, headache, dizziness, GI bleed, back pain, seizure, CVA, palpatations, mental he alth, musculoskeletal)? @ -MDM Differential Dyspnea: Coronary syndrome, arrhythmia, tamponade, asthma, COPD, pulmonary embolism, pneumonia, pneumothorax, pulmonary effusion, anaphylaxis, diabetic ketoacidosis, flailed chest, pulmonary contusion, diaphragmatic rupture, anemia, neuromuscular… this is not meant to be an all-inclusive list. EKG interpreted by me (3pts min.). @ -EKG shows sinus tachycardia ventricular rate 114 CA interval 148 QRS 78 QT 301 QTc 369 X-rays interpreted by me (1pt min.). @ -X-ray shows moderate-sized bilateral pleural effusions this may be greater on the right lung the lateral margin CT interpreted by me (1pt min.). @ -None done U/S interpreted by me (1pt. min.). @ -None done What testing was considered but not performed or refused? (CT, X-rays, U/S, labs)? Why? @ -None What meds were considered but not given or refused? Why? @ -None Did you discuss the management of the patient with other professionals (professionals i.e. , PA, DROP SHIPMENT CLERK, lab, RT, psych nurse, social science professor, rivet hole machine operator, teacher, dispatch officer, outpatient case manager)? Give summary @ -No Was smoking cessation discussed for >3mins.? @ -No Was critical care preformed (if so, how long)? @ -No Were there social determinants of health that impacted care today? How? (Homelessness, low income, unemployed, alcoholism, drug addiction, transportation, low edu. Level, literacy, decrease access to med. care, detention, rehab)? @ -No Was there de-escalation of care discussed even if they declined (Discuss DNR or withdrawal of care, Hospice)? DNR status @ -No What co-morbidities impacted this encounter? (DM, HTN, Smoking, COPD, CAD, Cancer, CVA, ARF, Chemo, Hep., AIDS, mental health diagnosis, sleep apnea, morbid obesity)? @ -None Was patient admitted / discharged? Hospital course, mention meds given and route, prescriptions, significant lab abnormalities, going to OR and other pertinent info. @ -64-year-old male presenting with chief complaint of progressively increasing dyspnea. Recently diagnosed with colon cancer. Has been getting little to no output out of his Pleurx catheter and is concerned it may be blocked. Chest x- ray shows moderate-sized bilateral pleural effusions. Patient will be admitted for evaluation by cardiovascular surgery and pulmonology. He is agreeable with this plan. I discussed this case with my attending Dr. Rivera Undiagnosed new problem with uncertain prognosis? @ -No Drug Therapy requiring intensive monitoring for toxicity (Heparin, Nitro, Insulin, Cardizem)? @ -No Were any procedures done? @ -No Diagnosis/symptom? @ -Pleural effusion, colon cancer, dyspnea Acute, or Chronic, or Acute on Chronic? @ -Acute on chronic Uncomplicated (without systemic symptoms) or Complicated (systemic symptoms)? @ -Complicated Side effects of treatment? @ -No Exacerbation, Progression, or Severe Exacerbation? @ -No Poses a threat to life or bodily function? How? (Chest pain, USA, OR, pneumonia, PE, COPD, DKA, ARF, appy, cholecystitis, CVA, Diverticulitis, Homicidal, Suicidal, threat to staff... and all critical care pts) @ -Yes (Radha Camarillo) - Lab Data Lab Results 12/19/24 12/19/24 12/19/24 Range/Units 11:27 11:27 11:27 WBC 62.65 H* (4.50-10.00) 10*3/uL RBC 3.28 L (4.40-5.60) 10*6/uL Hgb 8.3 L (13.0-17.0) g/dL Hct 27.2 L (39.6-50.0) % MCV 82.9 (80.0-97.0) fL MCH 25.3 L (27.0-32.0) pg MCHC 30.5 L (32.0-37.0) g/dL Plt Count 291 (140-440) 10*3/uL MPV 9.2 L (9.5-12.2) fL Immature Gran % (Auto) 0.1 % Neutrophils % (Manual) 2 % Lymphocytes % (Manual) 97 % Monocytes % (Manual) 2 % Immature Gran # 0.06 H (0.00-0.04) 10*3/uL Neutrophils # (Manual) 1.25 L (1.3-7.7) k/uL Lymphocytes # (Manual) 60.77 H (1.0-4.8) k/uL Monocytes # (Manual) 1.25 H (0-1.0) k/uL Nucleated RBCs 0 (0-0) /100 WBC Differential Comment Manual Slide Review Performed RBC Morphology Normal PT 11.6 (10.0-12.5) sec INR 1.1 (<1.2) APTT 20.9 L (22.0-30.0) sec Sodium 126 L (137-145) mmol/L Potassium 4.4 (3.5-5.1) mmol/L Chloride 92 L (98-107) mmol/L Carbon Dioxide 25 (22-30) mmol/L Anion Gap 9 mmol/L BUN 16 (9-20) mg/dL Creatinine 0.54 L (0.66-1.25) mg/dL Est GFR (CKD-EPI)AfAm >90 (>60 ml/min/1.73 sqM) Est GFR (CKD-EPI)NonAf >90 (>60 ml/min/1.73 sqM) Glucose 114 H (74-99) mg/dL Calcium 8.5 (8.4-10.2) mg/dL Total Bilirubin 0.5 (0.2-1.3) mg/dL AST 34 (17-59) U/L ALT 48 (4-49) U/L Alkaline Phosphatase 107 (38-126) U/L Troponin I (0.000-0.034) ng/mL Total Protein 7.2 (6.3-8.2) g/dL Albumin 2.9 L (3.5-5.0) g/dL Influenza Type A (PCR) (Not Detectd) Influenza Type B (PCR) (Not Detectd) RSV (PCR) (Not Detectd) SARS-CoV-2 (PCR) (Not Detectd) 12/19/24 12/19/24 Range/Units 11:27 11:27 WBC (4.50-10.00) 10*3/uL RBC (4.40-5.60) 10*6/uL Hgb (13.0-17.0) g/dL Hct (39.6-50.0) % MCV (80.0-97.0) fL MCH (27.0-32.0) pg MCHC (32.0-37.0) g/dL Plt Count (140-440) 10*3/uL MPV (9.5-12.2) fL Immature Gran % (Auto) % Neutrophils % (Manual) % Lymphocytes % (Manual) % Monocytes % (Manual) % Immature Gran # (0.00-0.04) 10*3/uL Neutrophils # (Manual) (1.3-7.7) k/uL Lymphocytes # (Manual) (1.0-4.8) k/uL Monocytes # (Manual) (0-1.0) k/uL Nucleated RBCs (0-0) /100 WBC Differential Comment Manual Slide Review RBC Morphology PT (10.0-12.5) sec INR (<1.2) APTT (22.0-30.0) sec Sodium (137-145) mmol/L Potassium (3.5-5.1) mmol/L Chloride (98-107) mmol/L Carbon Dioxide (22-30) mmol/L Anion Gap mmol/L BUN (9-20) mg/dL Creatinine (0.66-1.25) mg/dL Est GFR (CKD-EPI)AfAm (>60 ml/min/1.73 sqM) Est GFR (CKD-EPI)NonAf (>60 ml/min/1.73 sqM) Glucose (74-99) mg/dL Calcium (8.4-10.2) mg/dL Total Bilirubin (0.2-1.3) mg/dL AST (17-59) U/L ALT (4-49) U/L Alkaline Phosphatase (38-126) U/L Troponin I <0.012 (0.000-0.034) ng/mL Total Protein (6.3-8.2) g/dL Albumin (3.5-5.0) g/dL Influenza Type A (PCR) Not Detected (Not Detectd) Influenza Type B (PCR) Not Detected (Not Detectd) RSV (PCR) Not Detected (Not Detectd) SARS-CoV-2 (PCR) Not Detected (Not Detectd) Disposition <Karine Villalta - Last Filed: 12/19/24 10:49> Time of Disposition: 17:24 <Radha Camarillo - Last Filed: 12/25/24 23:06> Clinical Impression: Pleural effusion, Colon cancer, Dyspnea Disposition: ADMITTED IP TO THIS HOSP Condition: Stable
[2024-12-19 11:51] LABS: HCT 27.2 % (39.6-50.0); HGB 8.3 g/dL (13.0-17.0); MCH 25.3 pg (27.0-32.0); MCHC 30.5 g/dL (32.0-37.0); MCV 82.9 fL (80.0-97.0); Mean Platelet Volume 9.2 fL (9.5-12.2); Platelet Count 291 10*3/uL (140-440); RBC 3.28 10*6/uL (4.40-5.60); RDW 16.5 % (11.5-14.5)
--- NOTE | 2024-12-19 11:51 | XR ---
EXAMINATION TYPE: XR chest 2V DATE OF EXAM: 12/19/2024 11:43 AM COMPARISON: 11/29/2024 CLINICAL INDICATION: Male, 64 years old with history of shortness of breath, TECHNIQUE: XR chest 2V view(s) obtained. FINDINGS: The heart size is upper limits for normal. The pulmonary vasculature is prominent. Bilateral moderate pleural effusions are present IMPRESSION: 1. Moderate-sized bilateral pleural effusions. This may be greater on the right lung the lateral marleni in. [facility], , 12/19/2024 11:48 AM
[2024-12-19 11:58] LABS: WBC 62.65 10*3/uL (4.50-10.00)
[2024-12-19 12:04] LABS: ALT 48 U/L (4-49); AST 34 U/L (17-59); African American GFR (CKD) >90 (>60 ml/min/1.73 sqM); Albumin 2.9 g/dL (3.5-5.0); Alkaline Phosphatase 107 U/L (38-126); Anion Gap 9 mmol/L; Blood Urea Nitrogen 16 mg/dL (9-20); Calcium 8.5 mg/dL (8.4-10.2); Carbon Dioxide 25 mmol/L (22-30); Chloride 92 mmol/L (98-107); Glucose 114 mg/dL (74-99); Non-African American GFR(CKD) >90 (>60 ml/min/1.73 sqM); Potassium 4.4 mmol/L (3.5-5.1); Sodium 126 mmol/L (137-145); Total Bilirubin 0.5 mg/dL (0.2-1.3); Total Protein 7.2 g/dL (6.3-8.2)
[2024-12-19 12:08] LABS: INR 1.1 (<1.2); Prothrombin Time 11.6 sec (10.0-12.5)
[2024-12-19 12:26] LABS: Influenza A Not Detected (Not Detectd); Influenza B Not Detected (Not Detectd); RSV Not Detected (Not Detectd)
[2024-12-19 12:33] LABS: Partial Thromboplastin Time 20.9 sec (22.0-30.0)
[2024-12-19 13:41] LABS: Lymphocytes # (M) 60.77 k/uL (1.0-4.8); Neutrophils # (M) 1.25 k/uL (1.3-7.7); Neutrophils % (M) 2 %
[2024-12-19 13:42] LABS: Monocytes # (M) 1.25 k/uL (0-1.0); Nucleated Red Blood Cells 0 /100 WBC (0-0); Total Cells Counted 200
[2024-12-19 13:46] LABS: RBC Morphology Normal
[2024-12-19] MEDS ORDERED: NALOXONE 0.4 MG/ML 1 ML VIAL IV PRN (17:21)
[2024-12-19] MEDS ORDERED: MELATONIN 3 MG TABLET PO PRN (17:57)
[2024-12-19] MEDS ORDERED: ONDANSETRON 4 MG/2 ML VIAL IVP PRN (17:57)
[2024-12-19] MEDS ORDERED: HYDROcodone/APAP 5-325MG 1 EACH TAB PO PRN (17:57)
[2024-12-19] MEDS ORDERED: DOCUSATE 100 MG CAP PO PRN (17:57)
--- NOTE | 2024-12-19 17:59 | P.HPIM ---
History of Present Illness H&P Date: 12/19/24 64 year old M with PMH of CLL, iron def. anemia, invasive moderately differentiated colonic adenocarcinoma as of 10/2024 presents to the ED for SOB. Recently hospitalized and discharged on 11/29 after undergoing PleurX catheter for malignant recurrent right pleural effusion. He reports he had been draining > 100 cc daily since discharge up until Monday when the drainage stopped. He reports SOB especially with exertion and feeling bloated. This prompted him to come to the ED. In the ED he underwent extensive evaluation. BP 117/67, HR 111, T 98F, RR 16, 95% on RA. CBC, Coag panel, CMP significant for WBC 62.65, RBC 3.28, Hg 8.3, Hct 27.2, APTT 20.9, Na 126, Cl 92, Cr 0.54, glu 114, alb 2.9. Trop < 0.012. COVID, RSV, Flu neg. CXR shows moderate-large pleural effusions. EKG showing sinus tachycardia. Patient is admitted for further workup and management. General: non toxic, no distress, appears at stated age Derm: warm, dry Head: atraumatic, normocephalic, symmetric Eyes: EOMI, no lid lag, anicteric sclera Mouth: no lip lesion, mucus membranes moist Cardiovascular: S1S2 tachy, no murmur Lungs: Decreased BS bilateral, no rhonchi, no rales , no accessory muscle use, + PleurX catheter in place Ext: no gross muscle atrophy, no edema, no contractures Neuro: no focal neuro deficits Psych: Alert, oriented, appropriate affect Based on my assessment of this patient, this patient meets a high complexity level of care. Malignant recurrent R pleural effusion: Concern for malfunctioning PleurX catheter. Consult Pulmonary and CT Surgery. 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 I have ordered the following tests: Repeat CBC and CMP in the AM. I have discussed the care of this patient with the following independent historian: MURIEL. I have independently interpreted the following test below: CXR I have discussed the management of this patient with the following physician: ED provider. Past Medical History Past Medical History: Cancer Additional Past Medical History / Comment(s): tinnitus, leukemia.CML, colon ca History of Any Multi-Drug Resistant Organisms: None Reported Past Surgical History: Orthopedic Surgery Additional Past Surgical History / Comment(s): ganglion cyst-left hand, colonoscopies x 2 Past Anesthesia/Blood Transfusion Reactions: No Reported Reaction Past Psychological History: No Psychological Hx Reported Smoking Status: Former smoker Past Alcohol Use History: Occasional Past Drug Use History: None Reported - Past Family History Mother Family Medical History: No Reported History Medications and Allergies Home Medications Medication Instructions Recorded Confirmed Type Multivitamins, Thera [Multivitamin 1 tab PO DAILY 09/03/14 11/27/24 History (formulary)] Glucosamine/Chondr Tsai A Sod [Osteo 1 tab PO DAILY 04/26/22 11/27/24 History Bi-Flex Caplet] Magnesium 250 mg PO DAILY 11/20/24 11/27/24 History [place]-3/Dha/Epa/Fish Oil [[place]-3 1 cap PO DAILY 11/27/24 11/27/24 History Fish Oil 1,000 mg Sfgl] HYDROcodone/APAP 5-325MG [[place] 1 each PO Q6HR PRN #12 tab 11/29/24 Rx 5-325] Allergies Allergy/AdvReac Type Severity Reaction Status Date / Time No Known Allergies Allergy Verified 11/29/24 06:36 Physical Exam Vitals: Vital Signs Temp Pulse Resp BP Pulse Ox 12/19/24 16:15 110 H 24 142/85 94 L 12/19/24 10:50 98.3 F 86 16 186/91 98 12/19/24 10:44 98.0 F 111 H 16 117/67 95 Intake and Output 12/19/24 12/19/24 12/19/24 06:59 14:59 22:59 Other: Weight 99.79 kg Results CBC & Chem 7: 12/19/24 11:27 12/19/24 11:27 Labs: Abnormal Lab Results - Last 24 Hours (Table) 12/19/24 12/19/24 12/19/24 Range/Units 11:27 11:27 11:27 WBC 62.65 H* (4.50-10.00) 10*3/uL RBC 3.28 L (4.40-5.60) 10*6/uL Hgb 8.3 L (13.0-17.0) g/dL Hct 27.2 L (39.6-50.0) % MCH 25.3 L (27.0-32.0) pg MCHC 30.5 L (32.0-37.0) g/dL MPV 9.2 L (9.5-12.2) fL Immature Gran # 0.06 H (0.00-0.04) 10*3/uL Neutrophils # (Manual) 1.25 L (1.3-7.7) k/uL Lymphocytes # (Manual) 60.77 H (1.0-4.8) k/uL Monocytes # (Manual) 1.25 H (0-1.0) k/uL APTT 20.9 L (22.0-30.0) sec Sodium 126 L (137-145) mmol/L Chloride 92 L (98-107) mmol/L Creatinine 0.54 L (0.66-1.25) mg/dL Glucose 114 H (74-99) mg/dL Albumin 2.9 L (3.5-5.0) g/dL
[2024-12-19] MEDS: ACETAMINOPHEN TAB 325 MG TAB PO PRN (21:20)
[2024-12-20] MEDS ORDERED: RX INFO: IV CONTRAST WAS GIVEN 1 EACH MISC MISCELLANE PRN (05:36)
--- NOTE | 2024-12-20 06:00 | P.CNPUL ---
History of Present Illness Consult date: 12/20/24 Requesting physician: Radha Camarillo Reason for consult: pleural effusion Chief complaint: Shortness of breath History of present illness: Patient is a 64-year-old male with recently diagnosed invasive moderate differential colonic adenocarcinoma and of CLL. Patient's previous abdominal CT showing abnormal short segment circumferential wall thickening with stranding changes and satellite nodularity involving the proximal aspect of the descending colon highly concerning for primary colon malignancy. Several enlarged periportal, periaortic retroperitoneal, and epicardial lymph nodes concerning for metastasis. Colonoscopy with biopsies of the colon mass positive for invasive moderately differentiated adenocarcinoma. CT of the chest, October 2024 showing multiple and normal parenchymal and juxtapleural pulmonary nodules. Bilateral axillary lymphadenopathy and mediastinal lymphadenopathy. Also, bilateral pleural effusions were noted. Did undergo right-sided thoracentesis on 11/21/2024, where a total of 900 cc of pleural fluid was removed from the pleural space. Pathology was positive for metastatic adenocarcinoma consistent with colorectal origin and atypical lymphocytic population consistent with CLL/SLL. Pleural fluid did return, patient did go for Pleurx catheter on 025. Patient presented back to the emergency department yesterday morning stating that his Pleurx catheter was blocked. He has been more short of breath over the last 4 days. Has not received any drainage of the catheter reportedly since Monday. Chest x-ray showing moderate-sized bilateral pleural effusions right greater than left. CBC from yesterday showing a increase in his WBC count up to 62.7, hemoglobin 8.3, platelets 291. CMP: Sodium 126, potassium 4.4, chloride 92, serum bicarb 25, BUN 16, creatinine 0.54, glucose 114. Troponin less than 0.012. Viral screen unremarkable for influenza A/B, RSV, or COVID. Afebrile. Currently being evaluated on oncology unit. On room air. Conv ersational dyspnea and tachypneic. Reporting right-sided chest pain, particularly worse with manipulation. Right-sided Pleurx catheter secured in place. Insertion site is clean. He does have some lower extremity swelling. Also reporting some abdominal fullness. Denies any abdominal pain, nausea or vomiting, change in bowel movements. Echocardiogram from Oct, 2024 estimating left ventricular ejection fraction of 65 to 70% with mild LVH. No significant valvular abnormalities reported. His oncologist is Dr. Randhawa. Reportedly started on immunotherapy. Most recent vital signs with a heart rate of 104 bpm, blood pressure 134/81 mmHg, nontachypneic, SpO2 recorded at 96% on 2 L/min nasal cannula. Review of Systems Constitutional: Denies chills, Denies fatigue, Denies fever, Denies poor appetite, Denies sweats, Denies weight gain Ears, nose, mouth and throat: Denies dysphagia, Denies headache, Denies nasal congestion, Denies nasal discharge, Denies post-nasal drip, Denies sinus pain, Denies sinus pressure, Denies sore throat Cardiovascular: Reports chest pain, Reports leg edema, Denies lightheadedness, Denies orthopnea, Denies palpitations, Denies paroxysmal nocturnal dyspnea, Denies syncope Respiratory: Reports dyspnea, Reports pain on inspiration, Denies congestion, Denies cough, Denies hemoptysis Gastrointestinal: Denies abdominal pain, Denies constipation, Denies diarrhea, Denies hematochezia, Denies melena, Denies nausea, Denies vomiting Genitourinary: Denies dysuria Musculoskeletal: Denies limitation of motion Integumentary: Denies rash Neurological: Denies seizures, Denies syncope Psychiatric: Denies anxiety, Denies depression Past Medical History Past Medical History: Cancer Additional Past Medical History / Comment(s): tinnitus, leukemia.CML, colon ca History of Any Multi-Drug Resistant Organisms: None Reported Past Surgical History: Orthopedic Surgery Additional Past Surgical History / Comment(s): ganglion cyst-left hand, colonoscopies x 2 Past Anesthesia/Blood Transfusion Reactions: No Reported Reaction Past Psychological History: No Psychological Hx Reported Smoking Status: Former smoker Past Alcohol Use History: Occasional Past Drug Use History: None Reported - Past Family History Mother Family Medical History: No Reported History Medications and Allergies Home Medications Medication Instructions Recorded Confirmed Type Multivitamins, Thera [Multivitamin 1 tab PO PC-BRKFST 09/03/14 12/19/24 History (formulary)] Glucosamine/Chondr Tsai A Sod [Osteo 1 tab PO PC-BRKFST 04/26/22 12/19/24 History Bi-Flex Caplet] Acetaminophen Tab [Tylenol Tab] 1,000 mg PO Q6HR PRN 12/19/24 12/19/24 History Furosemide [Lasix] 40 mg PO DAILY 12/19/24 12/19/24 History L.acidoph,Paracasei, B.lactis 1 cap PO PC-BRKFST 12/19/24 12/19/24 History [Probiotic] Magnesium (Unknown Dose) 1 dose PO PC-BRKFST 12/19/24 12/19/24 History Triple [place] 1 cap PO PC-BRKFST 12/19/24 12/19/24 History Allergies Allergy/AdvReac Type Severity Reaction Status Date / Time No Known Allergies Allergy Verified 11/29/24 06:36 Physical Exam Vitals: Vital Signs Temp Pulse Pulse Resp BP BP Pulse Ox 12/20/24 01:15 97.5 F L 104 H 16 134/81 96 12/19/24 23:20 18 12/19/24 20:32 97.6 F 112 H 18 139/86 95 12/19/24 16:15 110 H 24 142/85 94 L 12/19/24 10:50 98.3 F 86 16 186/91 98 12/19/24 10:44 98.0 F 111 H 16 117/67 95 Intake and Output 12/19/24 12/19/24 12/20/24 14:59 22:59 06:59 Other: Voiding Method Toilet Weight 99.79 kg 99.79 kg GENERAL EXAM: Alert, 64-year-old male, on room air, conversational dyspnea and tachypneic at rest HEAD: Normocephalic and atraumatic EYES: Normal reaction of pupils, equal size. NOSE: Clear with pink turbinates. THROAT: No erythema or exudates. NECK: No masses, no JVD. CHEST: Right Pleurx catheter secured to chest wall LUNGS: Equal air entry with no small craft operator diminished bibasilar lung sounds. CVS: S1 and S2 normal with no audible murmur, regular rhythm. No extra heart sounds ABDOMEN: No hepatosplenomegaly, active bowel sounds, no guarding or rigidity. SPINE: No scoliosis or deformity SKIN: No rashes CENTRAL NERVOUS SYSTEM: No focal deficits, tone is normal in all 4 extremities. EXTREMITIES: There is 2-3+ pitting edema of the lower extremities bilaterally. No clubbing or cyanosis. Peripheral pulses are intact. Results - Laboratory Findings CBC and BMP: 12/20/24 07:28 12/20/24 07:28 PT/INR, D-dimer PT 11.6 sec (10.0-12.5) 12/19/24 11:27 INR 1.1 (<1.2) 12/19/24 11:27 Abnormal lab findings: Abnormal Labs 12/19/24 12/19/24 12/19/24 11:27 11:27 11:27 WBC 62.65 H* RBC 3.28 L Hgb 8.3 L Hct 27.2 L MCH 25.3 L MCHC 30.5 L MPV 9.2 L Immature Gran # 0.06 H Neutrophils # (Manual) 1.25 L Lymphocytes # (Manual) 60.77 H Monocytes # (Manual) 1.25 H APTT 20.9 L Sodium 126 L Chloride 92 L Creatinine 0.54 L Glucose 114 H Albumin 2.9 L - Diagnostic Findings Chest x-ray: image reviewed Assessment and Plan Assessment: Metastatic invasive colonic adenocarcinoma with a malignant right-sided pleural effusion. The patient had a recent diagnosis of colonic adenocarcinoma grisel ntified on a recent colonoscopy and the patient had CAT scan of the chest that showed multiple subcentimeter pulmonary nodules, mediastinal lymphadenopathy largest in the subcarinal area and a right-sided pleural effusion. Currently on immunotherapy Recurrent right-sided pleural effusion, malignant; A diagnostic and therapeutic thoracentesis of the right lung was done with evacuation of 900 cc of pleural fluid and a fluid cytology was positive for metastatic chronic adenocarcinoma. Pleurx catheter inserted on 11/29/2024. Patient now stating he is having no output out of his Pleurx catheter. Chest x-ray showing moderate size bilateral pleural effusions. Acute hypoxemic respiratory failure, currently on 2 L/min nasal cannula, secondary to above Intra-abdominal lymphadenopathy, could be related to CLL versus metastatic colon adenocarcinoma. Chronic lymphocytic leukemia Splenomegaly Leukocytosis Anemia, hemoglobin 8.3 g/dL Hyponatremia, appears hypervolemic Bilateral lower extremity edema, resume Lasix Plan Continue supplemental oxygen, currently on 2 L/min nasal cannula Obtain CT of chest to further evaluate Pleurx catheter and pleural effusions Cardiothoracic surgery team also consulted Further recommendations to follow I have personally seen and examined the patient, performed the documentation and the assessment and plan as written. Number of minutes spent on the visit:20 This is a joint evaluation that was done along with the nurse practitioner. This evaluation was done and 32 minutes. The patient is known to have CLL and metastatic colonic adenocarcinoma. The patient also has a malignant right-sided pleural effusion and the patient has a right-sided Pleurx catheter in place. The patient has noted some diminished output from the Pleurx catheter and the patient accordingly came into the hospital because of worsening shortness of breath. A repeat CAT scan of the chest was done. The Pleurx catheter remains in the right hemithorax. The patient has also developed a moderate-sized left- sided pleural effusion. The patient has some right hemidiaphragmatic elevation in the Pleurx catheter in place and the patient has small effusion in the right lung base. The patient was started on immunotherapy regarding his metastatic lung cancer. He is currently on room air oxygen. I reviewed the CAT scan of the chest. The right-sided pleural effusion is small. There is also scattered loculation and possibly a metastatic pleural rind on the right. There is some right lower lobe atelectatic changes. There is interval worsening of the left-sided pleural effusion and interval worsening of the mediastinal lymphadenopathy specially in the right pericardiac region. The patient continues to have splenomegaly. Discussed the case with CT surgery. The Pleurx catheter was attached to a suction bottle and a total of 50 cc of fluid was removed. Time with Patient: Greater than 30
--- NOTE | 2024-12-20 07:57 | CT ---
EXAMINATION TYPE: CT chest w con DATE OF EXAM: 12/20/2024 7:32 AM COMPARISON: CT 11/13/2024 CLINICAL INDICATION: Male, 64 years old with history of Pleural effusion, trouble with pleural cath; PHH, Pleural effusion, trouble with pleural cath, catheter malfunction TECHNIQUE: Multiple axial images were obtained through the chest. Sagittal and coronal reformats were created for review. Contrast used:100ml mL of Isovue [address] DLP: 399 mGycm, Automated exposure control for dose reduction was used. FINDINGS: The heart is upper limits of normal in size without pericardial effusion. Ectatic aortic root at 3.8 cm and ascending aorta 3.7 cm. The metatarsal tarsal branching anatomy. Low right paratracheal node increased in size now 1.6 cm. Subcarinal node increased now 1.7 cm versus 1.5 cm previously. Bilateral axillary lymph nodes remain borderline prominent measuring up to 1.2 cm. Upper right paratracheal node increased now 1.1 cm. Right pericardiac lymphadenopathy and soft tissue nodularity now measuring up to 3.0 cm whereas indiv idual lymph nodes were present previously measuring up to 1.9 cm. A right basilar pleural catheter is present extending to the posteromedial right mid lung level. Whil e there is only a small residual pleural effusion now, the effusion now shows scattered loculation wi th pleural thickening throughout the right hemithorax consistent with the development of a pleural ri nd. The catheter courses into a region of collapsed right lower lobe. There is also right middle lobe collapse. Increasing, now moderate left pleural effusion. The left side also shows scattered pleural studding w hich has increased in the interval measuring up to 2.3 cm along the major fissure. Additional scatter ed nodularity mid and lower lungs measuring up to 8 mm redemonstrated. Visualized upper abdomen again shows marked splenomegaly measuring up to 18.4 cm. Bones: No osseous destructive process is seen. IMPRESSION: 1. Right-sided pleural catheter in place. There is a residual small right pleural effusion but now di stributed with scattered loculations and new metastatic pleural rind. The catheter courses to the pos teromedial right mid lung were no significant fluid is present. There is RML and RLL collapse here no w. 2. Worsening, now moderate left pleural effusion. Worsening metastatic pleural studding on the left a nd ongoing small scattered metastatic nodules mid and lower lungs. 3. Interval worsening in mediastinal adenopathy. Especially with worsening adenopathy in the right pa racardiac region. 4. Ongoing marked splenomegaly. Clinically correlate. [facility], Workstation: [id number], 12/20/2024 7:55 AM
[2024-12-20] MEDS: FUROSEMIDE 40 MG TAB PO SCH (08:34)
[2024-12-20 10:19] LABS: HCT 26.8 % (39.6-50.0); HGB 7.9 g/dL (13.0-17.0); MCHC 29.5 g/dL (32.0-37.0); MCV 84.8 FL (80.0-97.0); NRBC Per 100 WBC 0 X 10*3/uL (0.00-0.01); Platelet Count 299 X 10*3/uL (140-440); RBC 3.16 X 10*6/uL (4.40-5.60); RDW 16.6 % (11.5-14.5)
[2024-12-20 10:54] LABS: ALT 48 U/L (10-49); AST 33 U/L (14-35); Albumin 2.7 g/dL (3.8-4.9); Albumin/Globulin Ratio 0.63 Ratio (1.60-3.17); Alkaline Phosphatase 94 U/L (41-126); BUN/Creat Ratio 19.33 Ratio (12.00-20.00); Blood Urea Nitrogen 11.6 mg/dL (9.0-27.0); Calcium 8.1 mg/dL (8.7-10.3); Carbon Dioxide 24.5 mmol/L (21.6-31.8); Chloride 93 mmol/L (96-109); Globulin 4.3 g/dL (1.6-3.3); Glucose 140 mg/dL (70-110); Potassium 4.4 mmol/L (3.5-5.5); Sodium 126 mmol/L (135-145); Total Bilirubin 0.4 mg/dL (0.3-1.2)
[2024-12-20] MEDS: ALTEPLASE 2 MG VIAL (CATHFLO) IV STA (12:22)
--- NOTE | 2024-12-20 12:46 | P.GSCN ---
History of Present Illness Consult date: 12/20/24 Reason for Consult: Pleural effusion, Pleurx catheter Requesting physician: Radha Camarillo History of present illness: This is a 64-year-old gentleman who follows outpatient with Dr. Rodrigez for internal medicine and Dr. Randhawa for oncology. He has a previous medical history of recent diagnosis of colon adenocarcinoma currently undergoing immunotherapy, recurrent right-sided pleural effusion status post thoracentesis in October 2024 followed by Pleurx catheter placement November 29, 2024, CLL for which he has never received treatment for, anemia, previous tobacco dependence with cessation more than 30 years ago. This gentleman was hospitalized in early November with shortness of breath secondary to recurrent pleural effusion on the right. During that hospitalization Pleurx catheter was placed by Dr. Granados. He was discharged to home and has continued to drain his Pleurx 3 times per week. The last couple of times he tried to drain he had no output, the patient developed more shortness of breath so he reported to [facility] emergency room yesterday for evaluation and treatment. Chest x-ray demonstrated moderate-sized bilateral pleural effusions. He was admitted for evaluation and treatment with consultation placed to pulmonology. CT of the chest was completed and reviewed demonstrating residual small right pleural effusion distributed with scattered loculations and new metastatic pleural rind, Pleurx catheter coursing to the posterior medial right mid lung where no significant fluid is present, right middle and lower lobe collapse, worsening moderate left pleural effusion with worsening metastatic pleural studding on the left, ongoing small scattered metastatic nodules mid and lower lungs, interval worsening in mediastinal adenopathy. Consultation was placed to cardiothoracic surgery for treatment recommendations. Review of Systems Review of systems was completed and was negative except as noted - Respiratory Reports dyspnea Past Medical History Past Medical History: Cancer Additional Past Medical History / Comment(s): tinnitus, leukemia.CML, colon ca; recurrent right-sided pleural effusion History of Any Multi-Drug Resistant Organisms: None Reported Past Surgical History: Orthopedic Surgery Additional Past Surgical History / Comment(s): ganglion cyst-left hand, colonoscopies x 2; right sided thoracentesis 11/21/2024 removal of 900 mL fluid; right sided Pleurx catheter placement 11/29/2024 Past Anesthesia/Blood Transfusion Reactions: No Reported Reaction Past Psychological History: No Psychological Hx Reported Smoking Status: Former smoker Past Alcohol Use History: Occasional Past Drug Use History: None Reported - Past Family History Mother Family Medical History: No Reported History Medications and Allergies Home Medications Medication Instructions Recorded Confirmed Type Multivitamins, Thera [Multivitamin 1 tab PO PC-BRKFST 09/03/14 12/19/24 History (formulary)] Glucosamine/Chondr Tsai A Sod [Osteo 1 tab PO PC-BRKFST 04/26/22 12/19/24 History Bi-Flex Caplet] Acetaminophen Tab [Tylenol Tab] 1,000 mg PO Q6HR PRN 12/19/24 12/19/24 History Furosemide [Lasix] 40 mg PO DAILY 12/19/24 12/19/24 History L.acidoph,Paracasei, B.lactis 1 cap PO PC-BRKFST 12/19/24 12/19/24 History [Probiotic] Magnesium (Unknown Dose) 1 dose PO PC-BRKFST 12/19/24 12/19/24 History Triple [place] 1 cap PO PC-BRKFST 12/19/24 12/19/24 History Allergies Allergy/AdvReac Type Severity Reaction Status Date / Time No Known Allergies Allergy Verified 11/29/24 06:36 Surgical - Exam Vital Signs Temp Pulse Resp BP Pulse Ox 98.0 F 111 H 16 117/67 95 12/19/24 10:44 12/19/24 10:44 12/19/24 10:44 12/19/24 10:44 12/19/24 10:44 CONSTITUTIONAL: Appears comfortable, cooperative, no acute distress RESPIRATORY: Lungs sounds diminished bilaterally, especially in the bases. Respirations even, nonlabored. Currently on room air with oxygen saturation 93%. Strong cough. CARDIOVASCULAR: S1, S2 present. Regular rate and rhythm. Palpable peripheral pulses bilaterally. No edema present. No calf pain or tenderness noted GASTROINTESTINAL: Abdomen soft, nontender, nondistended. Active bowel sounds present 4 quadrants. Tolerating diet GENITOURINARY: Continues to void INTEGUMENTARY: Skin is warm and dry NEUROLOGIC: Cranial nerves II through XII intact MUSKULOSKELETAL: Able to move all extremities, strength equal bilaterally PSYCHIATRIC: Alert and oriented to person place and time, appropriate affect, intact judgment and insight INVASIVE LINES AND TUBES: Right sided Pleurx catheter present under clean dry dressing Results - Labs 12/20/24 07:28 12/20/24 07:28 Abnormal Lab Results - Last 24 Hours (Table) 12/19/24 12/19/24 12/20/24 Range/Units 11:27 11: 07:28 WBC 75.35 A* (4.50-10.00) X 10*3/uL RBC 3.16 L (4.40-5.60) X 10*6/uL Hgb 7.9 L (13.0-17.0) g/dL Hct 26.8 L (39.6-50.0) % MCH 25.0 L (27.0-32.0) pg MCHC 29.5 L (32.0-37.0) g/dL RDW 16.6 H (11.5-14.5) % MPV 9.0 L (9.5-12.2) FL Neutrophils # (Manual) 1.25 L (1.3-7.7) k/uL Lymphocytes # (Manual) 60.77 H (1.0-4.8) k/uL Monocytes # (Manual) 1.25 H (0-1.0) k/uL APTT 20.9 L (22.0-30.0) sec Sodium (135-145) mmol/L Chloride (96-109) mmol/L Glucose (70-110) mg/dL Calcium (8.7-10.3) mg/dL Albumin (3.8-4.9) g/dL Globulin (1.6-3.3) g/dL Albumin/Globulin Ratio (1.60-3.17) Ratio 12/20/24 Range/Units 07:28 WBC (4.50-10.00) X 10*3/uL RBC (4.40-5.60) X 10*6/uL Hgb (13.0-17.0) g/dL Hct (39.6-50.0) % MCH (27.0-32.0) pg MCHC (32.0-37.0) g/dL RDW (11.5-14.5) % MPV (9.5-12.2) FL Neutrophils # (Manual) (1.3-7.7) k/uL Lymphocytes # (Manual) (1.0-4.8) k/uL Monocytes # (Manual) (0-1.0) k/uL APTT (22.0-30.0) sec Sodium 126 L (135-145) mmol/L Chloride 93 L (96-109) mmol/L Glucose 140 H (70-110) mg/dL Calcium 8.1 L (8.7-10.3) mg/dL Albumin 2.7 L (3.8-4.9) g/dL Globulin 4.3 H (1.6-3.3) g/dL Albumin/Globulin Ratio 0.63 L (1.60-3.17) Ratio Diabetes panel 12/20/24 Range/Units 07:28 Sodium 126 L (135-145) mmol/L Potassium 4.4 (3.5-5.5) mmol/L Chloride 93 L (96-109) mmol/L Carbon Dioxide 24.5 (21.6-31.8) mmol/L BUN 11.6 (9.0-27.0) mg/dL Creatinine 0.6 (0.6-1.5) mg/dL Glucose 140 H (70-110) mg/dL Calcium 8.1 L (8.7-10.3) mg/dL AST 33 (14-35) U/L ALT 48 (10-49) U/L Alkaline Phosphatase 94 (41-126) U/L Total Protein 7.0 (6.2-8.2) g/dL Albumin 2.7 L (3.8-4.9) g/dL Calcium panel 12/20/24 Range/Units 07:28 Calcium 8.1 L (8.7-10.3) mg/dL Albumin 2.7 L (3.8-4.9) g/dL Pituitary panel 12/20/24 Range/Units 07:28 Sodium 126 L (135-145) mmol/L Potassium 4.4 (3.5-5.5) mmol/L Chloride 93 L (96-109) mmol/L Carbon Dioxide 24.5 (21.6-31.8) mmol/L BUN 11.6 (9.0-27.0) mg/dL Creatinine 0.6 (0.6-1.5) mg/dL Glucose 140 H (70-110) mg/dL Calcium 8.1 L (8.7-10.3) mg/dL Adrenal panel 12/20/24 Range/Units 07:28 Sodium 126 L (135-145) mmol/L Potassium 4.4 (3.5-5.5) mmol/L Chloride 93 L (96-109) mmol/L Carbon Dioxide 24.5 (21.6-31.8) mmol/L BUN 11.6 (9.0-27.0) mg/dL Creatinine 0.6 (0.6-1.5) mg/dL Glucose 140 H (70-110) mg/dL Calcium 8.1 L (8.7-10.3) mg/dL Total Bilirubin 0.4 (0.3-1.2) mg/dL AST 33 (14-35) U/L ALT 48 (10-49) U/L Alkaline Phosphatase 94 (41-126) U/L Total Protein 7.0 (6.2-8.2) g/dL Albumin 2.7 L (3.8-4.9) g/dL - Imaging Chest x-ray: report reviewed, image reviewed CT scan - chest: report reviewed, image reviewed Assessment and Plan Assessment: Bilateral pleural effusion (CT of the chest revealed residual small right pleural effusion distributed with scattered loculations and new metastatic p leural rind, Pleurx catheter coursing to the posterior medial right mid lung where no significant fluid is present, right middle and lower lobe collapse, worsening moderate left pleural effusion with worsening metastatic pleural studding on the left, ongoing small scattered metastatic nodules mid and lower lungs, interval worsening in mediastinal adenopathy) Shortness of breath, secondary to above Significant leukocytosis, hyponatremia History of recent diagnosis of colon adenocarcinoma currently undergoing immunotherapy Recurrent right-sided pleural effusion status post thoracentesis in October 2024 followed by Pleurx catheter placement November 29, 2024 CLL for which he has never received treatment for Anemia Previous tobacco dependence with cessation more than 30 years ag Plan: The patient was seen and examined at the bedside on the medical oncology unit with present. Chart/diagnostics reviewed with Dr. Cohen. We did instill Cathflo lytics into current right sided Pleurx and allowed to dwell, did connect Pleurx bottle with removal of about 50 mL serosanguineous thin fluid. Ultrasound of the chest ordered for possible thoracentesis to left pleural space versus placement of pigtail catheter by interventional radiology. Will discuss with pulmonology. Otherwise increase activity as tolerated. Medical management of other comorbidities per internal medicine. More recommendations to follow. Thank you for this consult, we will continue to follow along and make further recommendations as appropriate. I have personally seen and examined the patient, performed the documentation and the assessment and plan as written. Number of minutes spent on the visit: 30. Cielo Ramirez NP-C
--- NOTE | 2024-12-20 12:58 | US ---
EXAMINATION TYPE: US chest DATE OF EXAM: 12/20/2024 COMPARISON: CLINICAL INDICATION: Male, 64 years old with history of poss thoracentesis; Pt has right pleural cath eter TECHNIQUE: Grayscale imaging of the chest. Targeted ultrasound of the posterior lower bilateral rowan thoraces FINDINGS: EXAM MEASUREMENTS: Left Pleural Effusion pocket size: 9.8 cm Left skin surface to fluid distance: 2.3 cm Right side NOT marked for possible thoracentesis outside the dept. due to anterior catheter placement and echoes Left side marked for possible thoracentesis outside the dept. Pulmonologists are able to review the images in the patient?s EMR. IMPRESSIONS: 1. Bilateral pleural effusions [facility], , 12/20/2024 12:56 PM
[2024-12-20 15:33] LABS: Basophils # (M) 0 X 10*3/uL (0.00-0.10); Eosinophils # (M) 0 X 10*3/uL (0.04-0.35); Lymphocytes # (M) 60.28 X 10*3/uL (0.90-5.00); Monocytes # (M) 1.51 X 10*3/uL (0.20-1.00); Neutrophils # (M) 13.56 X 10*3/uL (1.80-7.70); Neutrophils % (M) 18 %; WBC 75.35 X 10*3/uL (4.50-10.00)
--- NOTE | 2024-12-20 18:23 | P.PN ---
Subjective Progress Note Date: 12/20/24 64 year old M with PMH of CLL, iron def. anemia, invasive moderately differentiated colonic adenocarcinoma as of 10/2024 presents to the ED for SOB. Recently hospitalized and discharged on 11/29 after undergoing PleurX catheter for malignant recurrent right pleural effusion. He reports he had been draining > 100 cc daily since discharge up until Monday when the drainage stopped. He reports SOB especially with exertion and feeling bloated. This prompted him to come to the ED. In the ED he underwent extensive evaluation. BP 117/67, HR 111, T 98F, RR 16, 95% on RA. CBC, Coag panel, CMP significant for WBC 62.65, RBC 3.28, Hg 8.3, Hct 27.2, APTT 20.9, Na 126, Cl 92, Cr 0.54, glu 114, alb 2.9. Trop < 0.012. COVID, RSV, Flu neg. CXR shows moderate-large pleural effusions. EKG showing sinus tachycardia. Patient is admitted for further workup and management. 12/20 Patient was seen and examined. CT surgery consulted, attempted Cathflo lytics with 50 cc drainage. CBC and CMP significant for WBC 75.35, RBC 3.16, Hg 7.9, Hct 26.8, Na 126, Cl 93, glu 140, Ca 8.1, alb 2.7. General: non toxic, no distress, appears at stated age Derm: warm, dry Head: atraumatic, normocephalic, symmetric Eyes: EOMI, no lid lag, anicteric sclera Mouth: no lip lesion, mucus membranes moist Cardiovascular: S1S2 tachy, no murmur Lungs: Decreased BS bilateral, no rhonchi, no rales , no accessory muscle use, + PleurX catheter in place Ext: no gross muscle atrophy, no edema, no contractures Neuro: no focal neuro deficits Psych: Alert, oriented, appropriate affect Based on my assessment of this patient, this patient meets a high complexity level of care. Malignant recurrent R pleural effusion: Concern for malfunctioning PleurX catheter. Pulmonary and CT Surgery on board. 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 I have ordered the following tests: Repeat CBC and CMP in the AM. I have discussed the care of this patient with the following independent historian: I have independently interpreted the following test below: I have discussed the management of this patient with the following physician: Objective - Vital Signs Vital signs: Vital Signs Temp 97.6 F 12/20/24 12:24 Pulse 107 H 12/20/24 12:24 Resp 18 12/20/24 12:24 BP 121/68 12/20/24 12:24 Pulse Ox 92 L 12/20/24 12:24 FiO2 21 12/20/24 11:10 Intake & Output 12/19/24 12/20/24 12/20/24 18:59 06:59 18:59 Intake Total 590 1080 Balance 590 1080 Weight 99.79 kg 99.79 kg Intake: Oral 590 1080 Other: Voiding Method Toilet Toilet # Voids 2 - Labs CBC & Chem 7: 12/20/24 07:28 12/20/24 07:28 Labs: Abnormal Lab Results - Last 24 Hours (Table) 12/20/24 12/20/24 Range/Units 07:28 07:28 WBC 75.35 A* (4.50-10.00) X 10*3/uL RBC 3.16 L (4.40-5.60) X 10*6/uL Hgb 7.9 L (13.0-17.0) g/dL Hct 26.8 L (39.6-50.0) % MCH 25.0 L (27.0-32.0) pg MCHC 29.5 L (32.0-37.0) g/dL RDW 16.6 H (11.5-14.5) % MPV 9.0 L (9.5-12.2) FL Neutrophils # (Manual) 13.56 H (1.80-7.70) X 10*3/uL Lymphocytes # (Manual) 60.28 H (0.90-5.00) X 10*3/uL Monocytes # (Manual) 1.51 H (0.20-1.00) X 10*3/uL Eosinophils # (Manual) 0 L (0.04-0.35) X 10*3/uL Sodium 126 L (135-145) mmol/L Chloride 93 L (96-109) mmol/L Glucose 140 H (70-110) mg/dL Calcium 8.1 L (8.7-10.3) mg/dL Albumin 2.7 L (3.8-4.9) g/dL Globulin 4.3 H (1.6-3.3) g/dL Albumin/Globulin Ratio 0.63 L (1.60-3.17) Ratio
[2024-12-21 01:15] VITALS: RESP 20
[2024-12-21 07:36] LABS: ALT 49 U/L (4-49); AST 41 U/L (17-59); African American GFR (CKD) >90 (>60 ml/min/1.73 sqM); Albumin 2.9 g/dL (3.5-5.0); Albumin/Globulin Ratio 0.7; Alkaline Phosphatase 106 U/L (38-126); Anion Gap 5 mmol/L; Blood Urea Nitrogen 13 mg/dL (9-20); Calcium 8.1 mg/dL (8.4-10.2); Carbon Dioxide 26 mmol/L (22-30); Chloride 94 mmol/L (98-107); Globulin 4.1 g/dL; Glucose 132 mg/dL (74-99); Non-African American GFR(CKD) >90 (>60 ml/min/1.73 sqM); Potassium 4.4 mmol/L (3.5-5.1); Sodium 125 mmol/L (137-145); Total Bilirubin 0.6 mg/dL (0.2-1.3)
[2024-12-21 07:40] LABS: HCT 25.5 % (39.6-50.0); HGB 7.5 g/dL (13.0-17.0); MCH 24.6 pg (27.0-32.0); MCHC 29.4 g/dL (32.0-37.0); MCV 83.6 fL (80.0-97.0); Mean Platelet Volume 9.1 fL (9.5-12.2); Platelet Count 292 10*3/uL (140-440); RBC 3.05 10*6/uL (4.40-5.60); RDW 16.6 % (11.5-14.5)
--- NOTE | 2024-12-21 07:41 | XR ---
EXAMINATION TYPE: XR chest 1V portable DATE OF EXAM: 12/21/2024 6:41 AM COMPARISON: Chest radiograph from one day prior. CLINICAL INDICATION: Male, 64 years old with history of effusion; [facility] TECHNIQUE: XR chest 1V portable Frontal view of the chest. FINDINGS: Lungs/Pleura: No evidence of focal consolidation or pneumothorax. Blunting of the costophrenic angles is present. Pulmonary vascularity: Pulmonary vascular congestion. Heart/mediastinum: Cardiomediastinal silhouette is enlarged. Musculoskeletal: No acute osseous pathology. Other findings: None IMPRESSION: Cardiomegaly, pulmonary vascular congestion and bilateral pleural effusions. Correlate with BNP for c ongestive heart failure. [facility], , 12/21/2024 7:38 AM
[2024-12-21 07:48] VITALS: BP 148/80; PULSE 115; TEMP 97.9
[2024-12-21 07:57] LABS: WBC 70.36 10*3/uL (4.50-10.00)
--- NOTE | 2024-12-21 09:20 | P.PN ---
Subjective Progress Note Date: 12/21/24 Principal diagnosis: Bilateral pleural effusion, significant leukocytosis, hyponatremia. History of recent diagnosis of colon adenocarcinoma currently undergoing immunotherapy, re current right-sided pleural effusion status post thoracentesis in October 2024 followed by Pleurx catheter placement November 29, 2024, CLL for which he has never received treatment for, anemia, previous tobacco dependence with cessation more than 30 years ago The patient was seen and examined this morning ambulating in his room on the medical oncology unit in no acute distress. States he feels about the same. Currently on room air with oxygen saturation in the mid 90s. Denies pain. Chest x-ray and chest ultrasound reviewed with Dr. Cohen, discussed with Dr. Sullivan. No other new concerns. Objective - Vital Signs Vital signs: Vital Signs Temp 97.9 F 12/21/24 07:19 Pulse 115 H 12/21/24 07:19 Resp 20 12/21/24 07:19 BP 148/80 12/21/24 07:19 Pulse Ox 94 L 12/21/24 07:19 FiO2 21 12/20/24 11:10 Intake & Output 12/20/24 12/21/24 12/21/24 18:59 06:59 18:59 Intake Total 1080 600 Output Total 50 Balance 1030 600 Intake: Oral 1080 Other 600 Output: Chest Tube Drainage 50 Pleural Catheter 50 Other: Voiding Method Toilet Toilet # Voids 8 # Bowel Movements 0 - Exam CONSTITUTIONAL: Appears comfortable, cooperative, no acute distress RESPIRATORY: Lungs sounds diminished in the bases bilaterally. Respirations even, nonlabored. Currently on room air with oxygen saturation 94%. Able to achieve 1000 mL on incentive spirometry. Strong cough. CARDIOVASCULAR: S1, S2 present. Regular rate and rhythm. Palpable peripheral pulses bilaterally. No edema present GASTROINTESTINAL: Abdomen soft, nontender, nondistended. Active bowel sounds present 4 quadrants. Tolerating diet GENITOURINARY: Continues to void INTEGUMENTARY: Skin is warm and dry, right sided Pleurx catheter present under clean dry dressing NEUROLOGIC: Cranial nerves II through XII intact MUSKULOSKELETAL: Able to move all extremities, strength equal bilaterally, gait normal PSYCHIATRIC: Alert and oriented to person place and time, appropriate affect, intact judgment and insight - Allied health notes Allied health notes reviewed: nursing - Labs CBC & Chem 7: 12/21/24 07:06 12/21/24 07:06 Labs: Abnormal Lab Results - Last 24 Hours (Table) 12/20/24 12/20/24 12/21/24 Range/Units 07: 07: 07:06 WBC 75.35 A* 70.36 H* (4.50-10.00) X 10*3/uL RBC 3.16 L 3.05 L (4.40-5.60) X 10*6/uL Hgb 7.9 L 7.5 L (13.0-17.0) g/dL Hct 26.8 L 25.5 L (39.6-50.0) % MCH 25.0 L 24.6 L (27.0-32.0) pg MCHC 29.5 L 29.4 L (32.0-37.0) g/dL RDW 16.6 H 16.6 H (11.5-14.5) % MPV 9.0 L 9.1 L (9.5-12.2) FL Neutrophils # (Manual) 13.56 H (1.80-7.70) X 10*3/uL Lymphocytes # (Manual) 60.28 H (0.90-5.00) X 10*3/uL Monocytes # (Manual) 1.51 H (0.20-1.00) X 10*3/uL Eosinophils # (Manual) 0 L (0.04-0.35) X 10*3/uL Sodium 126 L (135-145) mmol/L Chloride 93 L (96-109) mmol/L Creatinine (0.66-1.25) mg/dL Glucose 140 H (70-110) mg/dL Calcium 8.1 L (8.7-10.3) mg/dL Albumin 2.7 L (3.8-4.9) g/dL Globulin 4.3 H (1.6-3.3) g/dL Albumin/Globulin Ratio 0.63 L (1.60-3.17) Ratio 12/21/24 Range/Units 07:06 WBC (4.50-10.00) X 10*3/uL RBC (4.40-5.60) X 10*6/uL Hgb (13.0-17.0) g/dL Hct (39.6-50.0) % MCH (27.0-32.0) pg MCHC (32.0-37.0) g/dL RDW (11.5-14.5) % MPV (9.5-12.2) FL Neutrophils # (Manual) (1.80-7.70) X 10*3/uL Lymphocytes # (Manual) (0.90-5.00) X 10*3/uL Monocytes # (Manual) (0.20-1.00) X 10*3/uL Eosinophils # (Manual) (0.04-0.35) X 10*3/uL Sodium 125 L (135-145) mmol/L Chloride 94 L (96-109) mmol/L Creatinine 0.65 L (0.66-1.25) mg/dL Glucose 132 H (70-110) mg/dL Calcium 8.1 L (8.7-10.3) mg/dL Albumin 2.9 L (3.8-4.9) g/dL Globulin (1.6-3.3) g/dL Albumin/Globulin Ratio (1.60-3.17) Ratio - Imaging and Cardiology Chest x-ray: report reviewed, image reviewed Assessment and Plan Assessment: Bilateral pleural effusion (CT of the chest revealed residual small right pleural effusion distributed with scattered loculations and new metastatic pleural rind, Pleurx catheter coursing to the posterior medial right mid lung where no significant fluid is present, right middle and lower lobe collapse, worsening moderate left pleural effusion with worsening metastatic pleural studding on the left, ongoing small scattered metastatic nodules mid and lower lungs, interval worsening in mediastinal adenopathy) Shortness of breath, secondary to above Significant leukocytosis, hyponatremia History of recent diagnosis of colon adenocarcinoma currently undergoing immunotherapy Recurrent right-sided pleural effusion status post thoracentesis in October 2024 followed by Pleurx catheter placement November 29, 2024 CLL for which he has never received treatment for Anemia Previous tobacco dependence with cessation more than 30 years ag Plan: No surgical intervention planned from our standpoint Patient may continue to attempt drainage of right sided Pleurx catheter, if fluid is present will be drained Decision regarding left-sided thoracentesis left to pulmonology Increase activity as tolerated Medical management of other comorbidities per internal medicine We will continue to see again on an as needed basis. Please call us with any questions
--- NOTE | 2024-12-21 13:21 | P.DS ---
Providers Date of admission: 12/19/24 17:58 Expected date of discharge: 12/21/24 Attending physician: Christie Coker MD Consults: 12/19/24 17:21 Consult Physician Urgent Consulting Provider: Apple Sullivan Consult Reason/Comments: pleural effusion Do you want consulting provider notified?: Yes, Notify in am 12/19/24 17:23 Consult Physician Urgent Consulting Provider: César Granados Consult Reason/Comments: pleural effusion, pleurex catheter not draining Do you want consulting provider notified?: Yes, Notify in am Primary care physician: [facility] Course: 64 year old M with PMH of CLL, iron def. anemia, invasive moderately differentiated colonic adenocarcinoma as of 10/2024 presents to the ED for SOB. Recently hospitalized and discharged on 11/29 after undergoing PleurX catheter for malignant recurrent right pleural effusion. He reports he had been draining > 100 cc daily since discharge up until Monday when the drainage stopped. He reports SOB especially with exertion and feeling bloated. This prompted him to come to the ED. In the ED he underwent extensive evaluation. BP 117/67, HR 111, T 98F, RR 16, 95% on RA. CBC, Coag panel, CMP significant for WBC 62.65, RBC 3.28, Hg 8.3, Hct 27.2, APTT 20.9, Na 126, Cl 92, Cr 0.54, glu 114, alb 2.9. Trop < 0.012. COVID, RSV, Flu neg. CXR shows moderate-large pleural effusions. EKG showing sinus tachycardia. Patient is admitted for further workup and management. 12/20 Patient was seen and examined. CT surgery consulted, attempted Cathflo lytics with 50 cc drainage. CBC and CMP significant for WBC 75.35, RBC 3.16, Hg 7.9, Hct 26.8, Na 126, Cl 93, glu 140, Ca 8.1, alb 2.7. 12/21 Patient was seen and examined. CT surgery recommends no surgical intervention. Dr. Sullivan recommending no intervention at this time at to follow up on Monday for re-evaluation. CBC WBC 70.36, RBC 3.05, Hg 7.5, Hct 25.5, Na 125, Cl 94, Cr 0.65, glu 132, Ca 8.1, alb 2.9. He is 94% on RA. Discharge Plan: Follow up with Dr. Nelson on 12/23 for re-evaluation of pleural effusion for possible thoracentesis. Follow up with PCP within 1-2 days of discharge and Oncology within 1 week of discharge. Advised to limit physical exertion until follow up on Monday. General: non toxic, no distress, appears at stated age Derm: warm, dry Head: atraumatic, normocephalic, symmetric Eyes: EOMI, no lid lag, anicteric sclera Mouth: no lip lesion, mucus membranes moist Cardiovascular: good distal perfusion in all 4 extremities Lungs: breathing comfortably Ext: no gross muscle atrophy, no edema, no contractures Neuro: no focal neuro deficits Psych: Alert, oriented, appropriate affect Discharge Diagnosis: Malignant recurrent bilateral pleural effusion Hyponatremia, likely secondary to malignancy related SIADH Leukocytosis in the settings of CLL following Oncology Iron deficiency anemia with no signs of active bleeding at baseline This complex discharge took 35 minutes to complete. Patient Condition at Discharge: Stable Plan - Discharge Summary Discharge Rx Participant: Yes New Discharge Prescriptions: Continue Multivitamins, Thera [Multivitamin (formulary)] 1 tab PO PC-BRKFST Acetaminophen Tab [Tylenol] 1,000 mg PO Q6HR PRN PRN Reason: Pain Triple Cedar 1 cap PO PC-BRKFST Magnesium (Unknown Dose) 1 dose PO PC-BRKFST L.acidoph,Paracasei, B.lactis [Probiotic] 1 cap PO PC-BRKFST Glucosamine/Chondr Tsai A Sod [Osteo Bi-Flex Caplet] 1 tab PO PC-BRKFST Furosemide [Lasix] 40 mg PO DAILY Discharge Medication List Multivitamins, Thera [Multivitamin (formulary)] 1 tab PO PC-BRKFST 09/03/14 [History] Glucosamine/Chondr Tsai A Sod [Osteo Bi-Flex Caplet] 1 tab PO PC-BRKFST 04/26/22 [History] Acetaminophen Tab [Tylenol] 1,000 mg PO Q6HR PRN 12/19/24 [History] Furosemide [Lasix] 40 mg PO DAILY 12/19/24 [History] L.acidoph,Paracasei, B.lactis [Probiotic] 1 cap PO PC-BRKFST 12/19/24 [History] Magnesium (Unknown Dose) 1 dose PO PC-BRKFST 12/19/24 [History] Triple Cedar 1 cap PO PC-BRKFST 12/19/24 [History] Follow up Appointment(s)/Referral(s): [facility] [NON-STAFF] - 1 Week Irma Rodrigez MD [Primary Care Provider] - 1-2 days Apple Sullivan MD [STAFF PHYSICIAN] - 12/23/24 Discharge Disposition: HOME SELF-CARE
--- NOTE | 2024-12-21 23:44 | P.PN ---
Subjective Progress Note Date: 12/21/24 Patient is a 64-year-old male with recently diagnosed invasive moderate differential colonic adenocarcinoma and of CLL. Patient's previous abdominal CT showing abnormal short segment circumferential wall thickening with stranding changes and satellite nodularity involving the proximal aspect of the descending colon highly concerning for primary colon malignancy. Several enlarged periportal, periaortic retroperitoneal, and epicardial lymph nodes concerning for metastasis. Colonoscopy with biopsies of the colon mass positive for invasive moderately differentiated adenocarcinoma. CT of the chest, October 2024 showing multiple and normal parenchymal and juxtapleural pulmonary nodules. Bilateral axillary lymphadenopathy and mediastinal lymphadenopathy. Also, bilateral pleural effusions were noted. Did undergo right-sided thoracentesis on 11/21/2024, where a total of 900 cc of pleural fluid was removed from the pleural space. Pathology was positive for metastatic adenocarcinoma consistent with colorectal origin and atypical lymphocytic population consistent with CLL/SLL. Pleural fluid did return, patient did go for Pleurx catheter on 11/29/2024. Patient presented back to the emergency department yesterday morning stating that his Pleurx catheter was blocked. He has been more short of breath over the last 4 days. Has not received any drainage of the catheter reportedly since Monday. Chest x-ray showing moderate-sized bilateral pleural effusions right greater than left. CBC from yesterday showing a increase in his WBC count up to 62.7, hemoglobin 8.3, platelets 291. CMP: Sodium 126, potassium 4.4, chloride 92, serum bicarb 25, BUN 16, creatinine 0.54, glucose 114. Troponin less than 0.012. Viral screen unremarkable for influenza A/B, RSV, or COVID. Afebrile. Currently being evaluated on oncology unit. On room air. Conversational dyspnea and tachypneic. Reporting right-sided chest pain, particularly worse with manipulation. Right-sided Pleurx catheter secured in pl suge[place]. Insertion site is clean. He does have some lower extremity swelling. Also reporting some abdominal fullness. Denies any abdominal pain, nausea or vomiting, change in bowel movements. Echocardiogram from Oct, 2024 estimating left ventricular ejection fraction of 65 to 70% with mild LVH. No significant valvular abnormalities reported. His oncologist is Dr. Randhawa. Reportedly started on immunotherapy. Most recent vital signs with a heart rate of 104 bpm, blood pressure 134/81 mmHg, nontachypneic, SpO2 recorded at 96% on 2 L/min nasal cannula. On 12/21/2024, the patient is being seen for a follow-up. Remains on room air oxygen. No new complaints. Reviewed the CAT scan of the chest and the patient has a small to moderate size left-sided pleural effusion and a Pleurx catheter on the right. There is also worsening in the left-sided pleural effusion and worsening in the metastatic nodules and lymphadenopathy. The patient was started on Opdivo Yervoy as immunotherapy on outpatient basis. White cell count is 70 with a hemoglobin of 7.5 and a platelet count of 292. BUN is 13 and a creatinine 0.5. Sodium levels at 125. LFTs are normal. Viral screen is negative. Objective - Vital Signs Vital signs: Vital Signs Temp 97.9 F 12/21/24 07:19 Pulse 115 H 12/21/24 08:20 Resp 20 12/21/24 08:20 BP 148/80 12/21/24 07:19 Pulse Ox 94 L 12/21/24 07:19 FiO2 21 12/20/24 11:10 Intake & Output 12/21/24 12/21/24 12/22/24 06:59 18:59 06:59 Intake Total 600 Balance 600 Intake: Other 600 Other: Voiding Method Toilet Toilet - Exam CONSTITUTIONAL: Appears comfortable, cooperative, no acute distress RESPIRATORY: Lungs sounds diminished in the bases bilaterally. Respirations even, nonlabored. Currently on room air with oxygen saturation 94%. Able to achieve 1000 mL on incentive spirometry. Strong cough. CARDIOVASCULAR: S1, S2 present. Regular rate and rhythm. Palpable peripheral pulses bilaterally. No edema present GASTROINTESTINAL: Abdomen soft, nontender, nondistended. Active bowel sounds present 4 quadrants. Tolerating diet GENITOURINARY: Continues to void INTEGUMENTARY: Skin is warm and dry, right sided Pleurx catheter present under clean dry dressing NEUROLOGIC: Cranial nerves II through XII intact MUSKULOSKELETAL: Able to move all extremities, strength equal bilaterally, gait normal PSYCHIATRIC: Alert and oriented to person place and time, appropriate affect, intact judgment and insight - Labs CBC & Chem 7: 12/21/24 07:06 12/21/24 07:06 Labs: Abnormal Lab Results - Last 24 Hours (Table) 12/21/24 12/21/24 Range/Units 07:06 07:06 WBC 70.36 H* (4.50-10.00) 10*3/uL RBC 3.05 L (4.40-5.60) 10*6/uL Hgb 7.5 L (13.0-17.0) g/dL Hct 25.5 L (39.6-50.0) % MCH 24.6 L (27.0-32.0) pg MCHC 29.4 L (32.0-37.0) g/dL RDW 16.6 H (11.5-14.5) % MPV 9.1 L (9.5-12.2) fL Sodium 125 L (137-145) mmol/L Chloride 94 L (98-107) mmol/L Creatinine 0.65 L (0.66-1.25) mg/dL Glucose 132 H (74-99) mg/dL Calcium 8.1 L (8.4-10.2) mg/dL Albumin 2.9 L (3.5-5.0) g/dL Assessment and Plan Assessment: Metastatic invasive colonic adenocarcinoma with a malignant right-sided pleural effusion. The patient had a recent diagnosis of colonic adenocarcinoma identified on a recent colonoscopy and the patient had CAT scan of the chest that showed multiple subcentimeter pulmonary nodules, mediastinal lymphadenopathy largest in the subcarinal area and a right-sided pleural effusion. Currently on immunotherapy and the patient was started on Opdivo Yervoy, received the first dose. Recurrent right-sided pleural effusion, malignant; A diagnostic and therapeutic thoracentesis of the right lung was done with evacuation of 900 cc of pleural fluid and a fluid cytology was positive for metastatic chronic adenocarcinoma. Pleurx catheter inserted on 11/29/2024. Patient now stating he is having no output out of his Pleurx catheter. Chest x-ray showing moderate size left-sided pleural effusion and small right-sided pleural effusion. Acute hypoxemic respiratory failure, currently on 2 L/min nasal cannula, secondary to above, currently on room air oxygen Intra-abdominal lymphadenopathy, could be related to CLL versus metastatic colon adenocarcinoma. Chronic lymphocytic leukemia Splenomegaly Leukocytosis, attributed to CLL Hyponatremia, appears hypervolemic Bilateral lower extremity edema, resume Lasix Hyponatremia Iron deficiency anemia Plan Patient is currently on room air oxygen Shortness of breath is multifactorial The patient is known to have metastatic colonic adenocarcinoma in addition to anemia which is of an iron deficiency. The patient was started on Opdivo Yervoy the patient is known to have CLL and metastatic colonic adenocarcinoma. The pat ient also has a malignant right-sided pleural effusion and the patient has a right-sided Pleurx catheter in place. The patient has noted some diminished output from the Pleurx catheter and the patient accordingly came into the hospital because of worsening shortness of breath. A repeat CAT scan of the chest was done. The Pleurx catheter remains in the right hemithorax. The patient has also developed a moderate-sized left-sided pleural effusion. The patient has some right hemidiaphragmatic elevation in the Pleurx catheter in place and the patient has small effusion in the right lung base. The patient was started on immunotherapy regarding his metastatic lung cancer. He is currently on room air oxygen. I reviewed the CAT scan of the chest. The right- sided pleural effusion is small. There is also scattered loculation and possibly a metastatic pleural rind on the right. There is some right lower lobe atelectatic changes. There is interval worsening of the left-sided pleural eff usion and interval worsening of the mediastinal lymphadenopathy specially in the right pericardiac region. The patient continues to have splenomegaly. Discussed the case with CT surgery. The Pleurx catheter was attached to a suction bottle and a total of 50 cc of fluid was removed. I asked the patient to get discharged home today. He will contact me in the office on Monday for a follow-up. Will consider a left-sided thoracentesis should there be any interval worsening in left-sided pleural effusion. Management of anemia per hematology oncology. Continue periodic drainage of the Pleurx catheter and the pleural fluid in the right. Continue immunotherapy Will follow on outpatient basis.
== END 2024-12-21 15:07 | disposition home or self-care (01) | DRG 374 ==
LOC: EC 10:22 → 5NMEDONC 17:58
PROVIDERS: ADMIT Family Medicine; ATTEND Family Medicine
DX: C18.9 Malignant neoplasm of colon, unspecified (principal); J96.01 Acute respiratory failure with hypoxia; C77.1 Secondary and unspecified malignant neoplasm of intrathoracic lymph nodes; E22.2 Syndrome of inappropriate secretion of antidiuretic hormone; C91.10 Chronic lymphocytic leukemia of B-cell type not having achieved remission; R16.1 Splenomegaly, not elsewhere classified; J91.0 Malignant pleural effusion; C77.3 Secondary and unspecified malignant neoplasm of axilla and upper limb lymph nodes; D50.9 Iron deficiency anemia, unspecified; R00.0 Tachycardia, unspecified; Z11.52 Encounter for screening for COVID-19; E87.70 Fluid overload, unspecified; Z79.899 Other long term (current) drug therapy; Z85.038 Personal history of other malignant neoplasm of large intestine; Z87.891 Personal history of nicotine dependence; Z71.6 Tobacco abuse counseling
CPT/HCPCS: 36415; 71045; 71046; 71260; 76604; 80053; 84484; 85025; 85027; 85610; 85730; 87636; 93005; 94760; 99285

== ENCOUNTER → 2025-01-01 | Outpatient (CLI) | payer BC ==
--- NOTE | 2025-01-01 14:12 | CT ---
EXAMINATION TYPE: CT ChestAbdPelvis w con DATE OF EXAM: 01/01/2025 COMPARISON: CT chest dated 12/20/[address] abdomen and pelvis dated 10/31/2024 CLINICAL INDICATION: Male, 64 years old with history of R06.00 DYSPNEA R22.43 SWELL BLE C18.[address] DLP: 1890.30 mGycm Automated exposure control for dose reduction was used. CONTRAST: CT scan of the chest, abdomen and pelvis is performed with Oral Contrast and with IV Contrast, patien t injected with 100 ml mL of Isovue 300. FINDINGS: CT chest: There is no change in the multiloculated small to moderate right pleural effusion. There is a right s ided pleural drainage catheter unchanged in position in the right lower lobe. There is a stable large left pleural effusion. There are multiple stable juxtapleural pleural based and fissural based pulmonary nodules There is stable mediastinal and right hilar adenopathy. There are stable areas of bilateral lower lobe lung consolidation likely secondary to compressive ate lectasis from the pleural effusions. There are no focal osseous lesions. CT abdomen and pelvis: Gallbladder is normal without distention, pericholecystic fluid, wall thickening or gallstone. There is no biliary ductal dilatation. There is no focal mass within the liver. There is persistent splenomegaly although this lesion has de creased from 20 cm to 17 cm. There are no pancreatic or adrenal masses. There is no solid renal mass or hydronephrosis. The caliber of the abdominal aorta is normal. There is persistent periportal and retroperitoneal adenopathy however there is been interval decrease in all of the visualized enlarged lymph nodes. For example the largest retroperitoneal lymph node se en on the prior study which measured 3 cm is now 2.1 cm. The ascending and transverse colon is moderately dilated. The transition point is in the region of th e splenic flexure where there is ill-defined soft tissue density suspicious for omental and peritonea l metastasis as well thickened colon wall suspicious for recurrent neoplasm. There has been interval development of a small to moderate amount of ascites scattered throughout the abdomen and pelvis. There is no pelvic mass or adenopathy. There are no focal osseous lesions. IMPRESSION: 1. Stable metastatic disease within the thorax with stable bilateral pleural effusions, bilateral pul monary nodules, mediastinal and hilar adenopathy and bibasilar lung consolidations as described above . 2. Findings suspicious of recurrent neoplasm in the descending colon with possible omental or periton eal metastasis. Interval development of dilatation of the ascending and transverse colon. 3. Persistent but decreased periportal and retroperitoneal adenopathy as described above 4. Persistent splenomegaly with interval decrease in the size of the spleen from 20 cm 17 cm. 5. Interval development of mild to moderate scattered ascites throughout the abdomen and pelvis. [facility], , 01/01/2025 2:10 PM
== END | disposition home or self-care (01) ==
LOC: RADCTMAIN 11:47
PROVIDERS: ATTEND Internal Medicine Hematology & Oncology
DX: C18.6 Malignant neoplasm of descending colon (principal); J90 Pleural effusion, not elsewhere classified; R06.00 Dyspnea, unspecified; C91.10 Chronic lymphocytic leukemia of B-cell type not having achieved remission; D69.59 Other secondary thrombocytopenia; R59.0 Localized enlarged lymph nodes; R16.1 Splenomegaly, not elsewhere classified; R18.8 Other ascites
CPT/HCPCS: 71260; 74177; 36415; Q9967

== ENCOUNTER 2025-01-02 12:34 | Inpatient (IN) | payer BC ==
--- NOTE | 2025-01-02 15:19 | ED ---
General Adult HPI - General Chief complaint: Recheck/Abnormal Lab/Rx Stated complaint: Abn labs Time Seen by Provider: 01/02/25 14:48 Source: patient Mode of arrival: ambulatory Limitations: no limitations - History of Present Illness Initial comments: This patient is a 64-year-old man with history of colon cancer that is metastatic to the lungs, who is here after he received a call from his oncologist that his sodium is low. The patient had a routine follow-up with his oncologist as well as vocational education teacher yesterday. He states that he had some labs drawn and then received a call earlier today that his sodium was low. The patient states that he has been having trouble with bilateral leg edema, exertional dyspnea, and has bilateral pleural effusions. There is a Pleurx catheter in the right chest that he has been using to drain the effusion on the right. Patient states currently taking immunotherapy for the metastatic cancer. -: hour(s) Radiation: abdomen Quality: dull Consistency: constant Improves with: none Worsens with: none Associated Symptoms: weakness, other (Exertional dyspnea) Treatments Prior to Arrival: none - Related Data Home Medications Medication Instructions Recorded Confirmed Multivitamins, Thera [Multivitamin 1 tab PO PC-BRKFST 09/03/14 01/02/25 (formulary)] Glucosamine/Chondr Tsai A Sod [Osteo 1 tab PO PC-BRKFST 04/26/22 01/02/25 Bi-Flex Caplet] Acetaminophen Tab [Tylenol] 1,000 mg PO Q6HR PRN 12/19/24 01/02/25 L.acidoph,Paracasei, B.lactis 1 cap PO PC-BRKFST 12/19/24 01/02/25 [Probiotic] Magnesium (Unknown Dose) 1 dose PO PC-BRKFST 12/19/24 01/02/25 Triple [place] 1 cap PO PC-BRKFST 12/19/24 01/02/25 Furosemide [Lasix] 20 mg PO BID@0600,1600 01/02/25 01/02/25 Allergies Allergy/AdvReac Type Severity Reaction Status Date / Time No Known Allergies Allergy Verified 01/02/25 17:44 Review of Systems ROS Statement: Those systems with pertinent positive or pertinent negative responses have been documented in the HPI. ROS Other: All systems not noted in ROS Statement are negative. Constitutional: Reports: weakness. Denies: fever, chills Respiratory: Denies: cough, dyspnea, wheezes Cardiovascular: Reports: dyspnea on exertion, edema. Denies: chest pain, palpitations, syncope Gastrointestinal: Reports: abdominal pain. Denies: nausea, vomiting, diarrhea, melena, hematochezia Genitourinary: Denies: dysuria, hematuria Musculoskeletal: Denies: back pain Skin: Denies: rash Neurological: Denies: headache, weakness, numbness Past Medical History Past Medical History: Cancer Additional Past Medical History / Comment(s): tinnitus, leukemia.CML, colon ca History of Any Multi-Drug Resistant Organisms: None Reported Past Surgical History: Orthopedic Surgery Additional Past Surgical History / Comment(s): ganglion cyst-left hand, colonoscopies x 2 Past Anesthesia/Blood Transfusion Reactions: No Reported Reaction Past Psychological History: No Psychological Hx Reported Smoking Status: Former smoker Past Alcohol Use History: Occasional Past Drug Use History: None Reported - Past Family History Mother Family Medical History: No Reported History General Exam Limitations: no limitations General appearance: alert, in no apparent distress Head exam: Present: atraumatic, normocephalic Eye exam: Present: normal appearance. Absent: scleral icterus, conjunctival injection ENT exam: Present: normal oropharynx Neck exam: Present: normal inspection Respiratory exam: Present: normal lung sounds bilaterally, decreased breath sounds (Left base). Absent: respiratory distress, wheezes, rales, rhonchi, stridor, accessory muscle use Cardiovascular Exam: Present: normal rhythm, tachycardia, normal heart sounds GI/Abdominal exam: Present: soft. Absent: distended, tenderness, guarding, rebound, rigid, mass Extremities exam: Present: normal inspection, normal capillary refill, pedal edema. Absent: calf tenderness Back exam: Present: normal inspection. Absent: CVA tenderness (R), CVA tenderness (L) Neurological exam: Present: alert Skin exam: Present: warm, dry, intact, pallor. Absent: rash Course Vital Signs 01/02/25 01/02/25 01/02/25 12:52 14:54 15:00 Temperature 97.7 F Pulse Rate 108 H Respiratory 20 Rate Blood Pressure 121/69 Blood Pressure [Right Arm] O2 Sat by Pulse 94 L 88 L 96 Oximetry 01/02/25 01/02/25 01/02/25 16:00 17:00 19:02 Temperature 97.9 F Pulse Rate 115 H 118 H Respiratory 18 18 24 Rate Blood Pressure 140/74 152/88 Blood Pressure 117/74 [Right Arm] O2 Sat by Pulse 97 98 97 Oximetry 01/02/25 01/02/25 01/02/25 20:00 21:00 22:00 Temperature Pulse Rate 105 H 114 H Respiratory 24 22 22 Rate Blood Pressure 117/74 121/77 Blood Pressure 117/74 [Right Arm] O2 Sat by Pulse 96 98 96 Oximetry 01/02/25 01/03/25 01/03/25 23:00 00:00 01:00 Temperature Pulse Rate 115 H 113 H 109 H Respiratory 24 24 18 Rate Blood Pressure 133/86 131/86 131/86 Blood Pressure [Right Arm] O2 Sat by Pulse 96 95 97 Oximetry 01/03/25 01/03/25 01/03/25 02:00 04:52 06:38 Temperature Pulse Rate 113 H 115 H 116 H Respiratory 24 18 20 Rate Blood Pressure 126/78 132/80 133/74 Blood Pressure [Right Arm] O2 Sat by Pulse 97 97 96 Oximetry 01/03/25 01/03/25 01/03/25 06:40 08:00 08:18 Temperature Pulse Rate Respiratory 18 17 Rate Blood Pressure Blood Pressure 133/74 121/67 [Right Arm] O2 Sat by Pulse 96 96 97 Oximetry 01/03/25 01/03/25 01/03/25 08:39 09:00 12:00 Temperature Pulse Rate 100 113 H Respiratory 20 18 18 Rate Blood Pressure 121/67 126/75 Blood Pressure 114/79 [Right Arm] O2 Sat by Pulse 95 96 96 Oximetry 01/03/25 01/03/25 13:00 16:00 Temperature Pulse Rate 124 H 126 H Respiratory 18 18 Rate Blood Pressure 126/88 132/75 Blood Pressure 132/75 [Right Arm] O2 Sat by Pulse 96 97 Oximetry EKG Findings - EKG Results: EKG: interpreted by ERMD, sinus rhythm (With occasional supraventricular complex), normal axis, normal QRS, normal ST/T EKG shows: tachycardia (Rate 101 bpm) Medical Decision Making - Medical Decision Making The patient had chest x-ray that is consistent with developing congestive heart failure. Bilateral effusions. Was pt. sent in by a medical professional or institution (, PA, DIGITAL MARKETING STRATEGIST, urgent care, hospital, or long-term...) When possible be specific @ -[No] Did you speak to anyone other than the patient for history (EMS, parent, family, police, friend...)? What history was obtained from this source @ -[No] Did you review nursing and triage notes (agree or disagree)? Why? @ -[I reviewed and agree with nursing and triage notes] Were old charts reviewed (outside hosp., previous admission, EMS record, old EKG, old radiological studies, urgent care reports/EKG's, long-term records)? Report findings @ -[No old charts were reviewed] Differential Diagnosis (chest pain, altered mental status, abdominal pain women, abdominal pain men, vaginal bleeding, weakness, fever, dyspnea, syncope, headache, dizziness, GI bleed, back pain, seizure, CVA, palpatations, mental health, musculoskeletal)? @ -[not applicable] EKG interpreted by me (3pts min.). @ -[I interpreted as above] X-rays interpreted by me (1pt min.). @ -[I interpreted as above CT interpreted by me (1pt min.). @ -[None done] U/S interpreted by me (1pt. min.). @ -[None done] What testing was considered but not performed or refused? (CT, X-rays, U/S, labs)? Why? @ -[None] What meds were considered but not given or refused? Why? @ -[None] Did you discuss the management of the patient with other professionals (professionals i.e. , PA, DIGITAL MARKETING STRATEGIST, lab, RT, psych nurse, manager social responsibility, lawyers, teacher, chief knowledge officer, case management specialist)? Give summary @ -[No] Was smoking cessation discussed for >3mins.? @ -[No] Was critical care preformed (if so, how long)? @ -[No] Were there social determinants of health that impacted care today? How? (Homelessness, low income, unemployed, alcoholism, drug addiction, transportation, low edu. Level, literacy, decrease access to med. care, correction, rehab)? @ -[No] Was there de-escalation of care discussed even if they declined (Discuss DNR or withdrawal of care, Hospice)? DNR status @ -[No] What co-morbidities impacted this encounter? (DM, HTN, Smoking, COPD, CAD, Cancer, CVA, ARF, Chemo, Hep., AIDS, mental health diagnosis, sleep apnea, morbid obesity)? @ -[Metastatic cancer. Pleural effusions. Was patient admitted / discharged? Hospital course, mention meds given and route, prescriptions, significant lab abnormalities, going to OR and other pertinent info. @ -[This patient is 64-year-old man with metastatic cancer and pleural effusions presenting with dyspnea. Patient also found to be hyponatremic. Will admit to have pulmonology consultation about possible drainage of the other pleural effusion. The Undiagnosed new problem with uncertain prognosis? @ -[No] Drug Therapy requiring intensive monitoring for toxicity (Heparin, Nitro, Insulin, Cardizem)? @ -[No] Were any procedures done? @ -[No] Diagnosis/symptom? @ -[Metastatic cancer Hyponatremia Bilateral pleural effusions Congestive heart failure Acute, or Chronic, or Acute on Chronic? @ -[Acute on chronic Uncomplicated (without systemic symptoms) or Complicated (systemic symptoms)? @ -[Complicated by dyspnea Side effects of treatment? @ -[No] Exacerbation, Progression, or Severe Exacerbation? @ -[No] Poses a threat to life or bodily function? How? (Chest pain, USA, CT, pneumonia, PE, COPD, DKA, ARF, appy, cholecystitis, CVA, Diverticulitis, Homicidal, Suicidal, threat to staff... and all critical care pts) @ -Yes high rates of morbidity mortality associated with metastatic cancer and bilateral pleural effusion All treatments are based on ideal body weight as in ED triage - Lab Data Result diagrams: 01/08/25 02:23 01/08/25 02:23 Lab Results 01/02/25 01/02/25 01/02/25 Range/Units 15:36 15:36 15:36 WBC 145.12 H* (4.50-10.00) 10*3/uL RBC 3.49 L (4.40-5.60) 10*6/uL Hgb 8.5 L (13.0-17.0) g/dL Hct 29.1 L (39.6-50.0) % MCV 83.4 (80.0-97.0) fL MCH 24.4 L (27.0-32.0) pg MCHC 29.2 L (32.0-37.0) g/dL Plt Count 312 (140-440) 10*3/uL MPV 8.9 L (9.5-12.2) fL Immature Gran % (Auto) 0.2 % Neutrophils % (Manual) 4 % Lymphocytes % (Manual) 94 % Monocytes % (Manual) 2 % Immature Gran # 0.23 H (0.00-0.04) 10*3/uL Neutrophils # (Manual) 5.80 (1.3-7.7) k/uL Lymphocytes # (Manual) 136.41 H (1.0-4.8) k/uL Monocytes # (Manual) 2.90 H (0-1.0) k/uL Nucleated RBCs 0 (0-0) /100 WBC Manual Slide Review Performed Reactive Lymphocytes Present Sodium 117 L* (137-145) mmol/L Potassium 4.6 (3.5-5.1) mmol/L Chloride 86 L (98-107) mmol/L Carbon Dioxide 21 L (22-30) mmol/L Anion Gap 10 mmol/L BUN 18 (9-20) mg/dL Creatinine 0.52 L (0.66-1.25) mg/dL Est GFR (CKD-EPI)AfAm >90 (>60 ml/min/1.73 sqM) Est GFR (CKD-EPI)NonAf >90 (>60 ml/min/1.73 sqM) Glucose 138 H (74-99) mg/dL Osmolality (275-295) mOsm/kg Calcium 8.5 (8.4-10.2) mg/dL Total Bilirubin 0.7 (0.2-1.3) mg/dL AST 27 (17-59) U/L ALT 21 (4-49) U/L Alkaline Phosphatase 117 (38-126) U/L NT-Pro-B Natriuret Pep pg/mL Total Protein 7.2 (6.3-8.2) g/dL Albumin 3.2 L (3.5-5.0) g/dL Cortisol 48.3 H (3.1-22.4) UG/DL ACTH 164.00 H (0.00-45.99) pg/mL 01/02/25 01/02/25 01/02/25 Range/Units 17:58 18:12 18:12 WBC 150.24 H* (4.50-10.00) 10*3/uL RBC 3.47 L (4.40-5.60) 10*6/uL Hgb 8.3 L (13.0-17.0) g/dL Hct 28.7 L (39.6-50.0) % MCV 82.7 (80.0-97.0) fL MCH 23.9 L (27.0-32.0) pg MCHC 28.9 L (32.0-37.0) g/dL Plt Count 295 (140-440) 10*3/uL MPV 8.5 L (9.5-12.2) fL Immature Gran % (Auto) 0.2 % Neutrophils % (Manual) 7 % Lymphocytes % (Manual) 92 % Monocytes % (Manual) 1 % Immature Gran # 0.25 H (0.00-0.04) 10*3/uL Neutrophils # (Manual) 10.52 H (1.3-7.7) k/uL Lymphocytes # (Manual) 138.22 H (1.0-4.8) k/uL Monocytes # (Manual) 1.50 H (0-1.0) k/uL Nucleated RBCs 0 (0-0) /100 WBC Manual Slide Review Performed Reactive Lymphocytes Sodium (137-145) mmol/L Potassium (3.5-5.1) mmol/L Chloride (98-107) mmol/L Carbon Dioxide (22-30) mmol/L Anion Gap mmol/L BUN (9-20) mg/dL Creatinine (0.66-1.25) mg/dL Est GFR (CKD-EPI)AfAm (>60 ml/min/1.73 sqM) Est GFR (CKD-EPI)NonAf (>60 ml/min/1.73 sqM) Glucose (74-99) mg/dL Osmolality 257 L (275-295) mOsm/kg Calcium (8.4-10.2) mg/dL Total Bilirubin (0.2-1.3) mg/dL AST (17-59) U/L ALT (4-49) U/L Alkaline Phosphatase (38-126) U/L NT-Pro-B Natriuret Pep 383 pg/mL Total Protein (6.3-8.2) g/dL Albumin (3.5-5.0) g/dL Cortisol (3.1-22.4) UG/DL ACTH (0.00-45.99) pg/mL 01/02/25 Range/Units 18:12 WBC (4.50-10.00) 10*3/uL RBC (4.40-5.60) 10*6/uL Hgb (13.0-17.0) g/dL Hct (39.6-50.0) % MCV (80.0-97.0) fL MCH (27.0-32.0) pg MCHC (32.0-37.0) g/dL Plt Count (140-440) 10*3/uL MPV (9.5-12.2) fL Immature Gran % (Auto) % Neutrophils % (Manual) % Lymphocytes % (Manual) % Monocytes % (Manual) % Immature Gran # (0.00-0.04) 10*3/uL Neutrophils # (Manual) (1.3-7.7) k/uL Lymphocytes # (Manual) (1.0-4.8) k/uL Monocytes # (Manual) (0-1.0) k/uL Nucleated RBCs (0-0) /100 WBC Manual Slide Review Reactive Lymphocytes Sodium 116 L* (137-145) mmol/L Potassium 4.4 (3.5-5.1) mmol/L Chloride 85 L (98-107) mmol/L Carbon Dioxide 21 L (22-30) mmol/L Anion Gap 10 mmol/L BUN 19 (9-20) mg/dL Creatinine 0.47 L (0.66-1.25) mg/dL Est GFR (CKD-EPI)AfAm >90 (>60 ml/min/1.73 sqM) Est GFR (CKD-EPI)NonAf >90 (>60 ml/min/1.73 sqM) Glucose 138 H (74-99) mg/dL Osmolality (275-295) mOsm/kg Calcium 8.6 (8.4-10.2) mg/dL Total Bilirubin (0.2-1.3) mg/dL AST (17-59) U/L ALT (4-49) U/L Alkaline Phosphatase (38-126) U/L NT-Pro-B Natriuret Pep pg/mL Total Protein (6.3-8.2) g/dL Albumin (3.5-5.0) g/dL Cortisol (3.1-22.4) UG/DL ACTH (0.00-45.99) pg/mL Disposition Clinical Impression: Malignant pleural effusion, Hyponatremia, Dyspnea, Pleural effusion Disposition: ADMITTED IP TO THIS HOSP Condition: Critical Is patient prescribed a controlled substance at d/c from ED?: No
--- NOTE | 2025-01-02 15:47 | XR ---
EXAMINATION TYPE: XR chest 2V DATE OF EXAM: 01/02/2025 3:40 PM COMPARISON: Chest radiograph from one day prior. CLINICAL INDICATION: Male, 64 years old with history of Pleural effusions; [facility] TECHNIQUE: XR chest 2V Frontal and lateral views of the chest. FINDINGS: Lungs/Pleura: No evidence of focal consolidation or pneumothorax. Blunting of the costophrenic angles is present. Pulmonary vascularity: Pulmonary vascular congestion. Heart/mediastinum: Cardiomediastinal silhouette is enlarged. Atherosclerotic calcifications are seen in the aorta. Musculoskeletal: No acute osseous pathology. IMPRESSION: Cardiomegaly, pulmonary vascular congestion and bilateral pleural effusions. Correlate with BNP for c ongestive heart failure. [facility], , 01/02/2025 3:45 PM
[2025-01-02 15:59] LABS: HCT 29.1 % (39.6-50.0); HGB 8.5 g/dL (13.0-17.0); MCH 24.4 pg (27.0-32.0); MCHC 29.2 g/dL (32.0-37.0); MCV 83.4 fL (80.0-97.0); Platelet Count 312 10*3/uL (140-440); RBC 3.49 10*6/uL (4.40-5.60); RDW 18.4 % (11.5-14.5)
[2025-01-02 16:06] LABS: WBC 145.12 10*3/uL (4.50-10.00)
[2025-01-02 16:12] LABS: ALT 21 U/L (4-49); AST 27 U/L (17-59); African American GFR (CKD) >90 (>60 ml/min/1.73 sqM); Albumin 3.2 g/dL (3.5-5.0); Alkaline Phosphatase 117 U/L (38-126); Anion Gap 10 mmol/L; Blood Urea Nitrogen 18 mg/dL (9-20); Calcium 8.5 mg/dL (8.4-10.2); Carbon Dioxide 21 mmol/L (22-30); Chloride 86 mmol/L (98-107); Glucose 138 mg/dL (74-99); Non-African American GFR(CKD) >90 (>60 ml/min/1.73 sqM); Potassium 4.6 mmol/L (3.5-5.1); Total Protein 7.2 g/dL (6.3-8.2)
[2025-01-02 16:16] LABS: Sodium 117 mmol/L (137-145)
[2025-01-02 16:24] LABS: Lymphocytes # (M) 136.41 k/uL (1.0-4.8); Monocytes # (M) 2.90 k/uL (0-1.0); Neutrophils # (M) 5.80 k/uL (1.3-7.7); Neutrophils % (M) 4 %; Total Cells Counted 100
[2025-01-02] MEDS: methylPREDNISolone SOD SUCCI 125 MG/2 ML VIAL IV SCH (17:05)
[2025-01-02] MEDS ORDERED: NALOXONE 0.4 MG/ML 1 ML VIAL IV PRN (17:56)
--- NOTE | 2025-01-02 18:25 | P.HPIM ---
History of Present Illness H&P Date: 01/02/25 This patient is a 64-year-old man with history of colon cancer that is metastatic to the lungs, who is here after he received a call from his oncologist that his sodium is low. 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 He states that he had some labs drawn and then received a call earlier today that his sodium was low. The patient states that he has been having trouble with bilateral leg edema, exertional dyspnea, and has bilateral pleural effusions. There is a Pleurx catheter in the right chest that he has been using to drain the effusion on the right. Patient states currently taking immunotherapy for the metastatic cancer. Patient says breathing has become worse over the past couple weeks and has needed 4 L of nasal cannula in ER on admission, 98% on 4l. Patient sodium admission was 117. White blood cell count at 145 due to past medical history of CLL. Patient states is uncomfortable sitting in bed has a sacral ulcer patient states is uncomfortable in bed. Says he needs something for sleep. Patient's x-ray showed bilateral pleural effusions. WBC 145 Na 117 creatinine 0.52 BUN 18 hemoglobin 8.5 hematocrit 29.1 platelet 312 Heart rate 118 Respiratory rate 18 ED documentation reviewed and case discussed with ED provider. Review of systems: Pertinent positives and negatives as discussed in HPI, a complete review of systems was performed and all other systems are negative. Physical examination: Vital signs reviewed General: non toxic, no distress, appears at stated age, normal weight Derm: no unusual rashes/lesions, warm Head: atraumatic, normocephalic, symmetric Eyes: EOMI, anicteric sclera, pupils equal round reactive to light ENT: Nose and ears atraumatic Neck: No cervical lymphadenopathy, trachea midline, supple Mouth: no lip lesion, mucus membranes moist Cardiovascular: S1S2 reg, no murmur, positive dorsalis pedis pulse bilateral, no edema Lungs: decreased breath sounds Left lung. Absent: respiratory distress, wheezes, rales, rhonchi, stridor, accessory muscle use Abdominal: soft, nontender to palpation, no guarding Ext: no gross muscle atrophy, pitting edema bilateral up to knee Neuro: CN II-XI grossly intact, no gross focal neuro deficits Psych: Alert, oriented to person, place, and time Assessment/Plan: #. Hyponatremia 117 consult nephro SIADH versus volume overload CMP cortisol level ACTH BNP urine studies - urine osmolality - urine sodium - serum osmolality sodium levels q4hrs #. pleura effusions / dyspnea chest x ray - bilateral pleura effusions methylprednisolone 60mg ic q6 Chest ultrasound Consult pulmonology for possible thoracenthesis #CLL/leukocytosis anticipated - repeat cbc w/ diff #. Sleep melatonin as needed chronic: CLL DVT prophylaxis: Lovenox The patient is admitted with an anticipated less than 2 midnight stay for evaluation of hyponatremia CODE STATUS: full code Eddie Hoskins MD PGY-1 FM Dictation was produced using [employer] dictation software. please excuse any grammatical, word or spelling errors. [gender] with a PMH of [PMH] I have seen and evaluated the patient today. Discussed with the resident and agree with the residents subjective and objective as documented in the note above. We discussed the assessment and plan as below. Acute hypoxic respiratory failure due to malignant recurrent pleural effusion: R PleurX catheter. Supplemental O2 to maintain O2 sat > 92%. Chest US ordered. Would benefit from thoracentesis. Consult Pulmonary. Hyponatremia: Chronic. Serum Osm, Urine Osm, Nicole ordered. No confusion or seizures. Appears hypervolemic. Drinks 40-80 oz water daily. Trial of Lasix 40 mg IV. Fluid restrict to 1.5L. Monitor Q4H. Neurochecks. Fall and Seizure precautions. Nephrology consult. Leukocytosis in the settings of CLL following Oncology Iron deficiency anemia with no signs of active bleeding at baseline: Heme-Onc consult. Transfuse if Hg < 7. Sacral decubitus ulcer: Frequent positioning. Consider specialty mattress through DME. Wound care consult. Past Medical History Past Medical History: Cancer Additional Past Medical History / Comment(s): tinnitus, leukemia.CML, colon ca History of Any Multi-Drug Resistant Organisms: None Reported Past Surgical History: Orthopedic Surgery Additional Past Surgical History / Comment(s): ganglion cyst-left hand, colonoscopies x 2 Past Anesthesia/Blood Transfusion Reactions: No Reported Reaction Past Psychological History: No Psychological Hx Reported Smoking Status: Former smoker Past Alcohol Use History: Occasional Past Drug Use History: None Reported - Past Family History Mother Family Medical History: No Reported History Medications and Allergies Home Medications Medication Instructions Recorded Confirmed Type Multivitamins, Thera [Multivitamin 1 tab PO PC-BRKFST 09/03/14 01/02/25 History (formulary)] Glucosamine/Chondr Tsai A Sod [Osteo 1 tab PO PC-BRKFST 04/26/22 01/02/25 History Bi-Flex Caplet] Acetaminophen Tab [Tylenol] 1,000 mg PO Q6HR PRN 12/19/24 01/02/25 History L.acidoph,Paracasei, B.lactis 1 cap PO PC-BRKFST 12/19/24 01/02/25 History [Probiotic] Magnesium (Unknown Dose) 1 dose PO PC-BRKFST 12/19/24 01/02/25 History Triple [place] 1 cap PO PC-BRKFST 12/19/24 01/02/25 History Furosemide [Lasix] 20 mg PO BID@0600,1600 01/02/25 01/02/25 History Allergies Allergy/AdvReac Type Severity Reaction Status Date / Time No Known Allergies Allergy Verified 01/02/25 17:44 Physical Exam Vitals: Vital Signs Temp Pulse Resp BP Pulse Ox 01/02/25 17:00 118 H 18 152/88 98 01/02/25 16:00 115 H 18 140/74 97 01/02/25 15:00 96 01/02/25 14:54 88 L 01/02/25 12:52 97.7 F 108 H 20 121/69 94 L Intake and Output 01/02/25 01/02/25 01/02/25 06:59 14:59 22:59 Other: Weight 102.512 kg Results CBC & Chem 7: 01/02/25 15:36 01/02/25 15:36 Labs: Abnormal Lab Results - Last 24 Hours (Table) 01/02/25 01/02/25 Range/Units 15:36 15:36 WBC 145.12 H* (4.50-10.00) 10*3/uL RBC 3.49 L (4.40-5.60) 10*6/uL Hgb 8.5 L (13.0-17.0) g/dL Hct 29.1 L (39.6-50.0) % MCH 24.4 L (27.0-32.0) pg MCHC 29.2 L (32.0-37.0) g/dL MPV 8.9 L (9.5-12.2) fL Immature Gran # 0.23 H (0.00-0.04) 10*3/uL Lymphocytes # (Manual) 136.41 H (1.0-4.8) k/uL Monocytes # (Manual) 2.90 H (0-1.0) k/uL Sodium 117 L* (137-145) mmol/L Chloride 86 L (98-107) mmol/L Carbon Dioxide 21 L (22-30) mmol/L Creatinine 0.52 L (0.66-1.25) mg/dL Glucose 138 H (74-99) mg/dL Albumin 3.2 L (3.5-5.0) g/dL
[2025-01-02 18:28] LABS: HCT 28.7 % (39.6-50.0); HGB 8.3 g/dL (13.0-17.0); MCH 23.9 pg (27.0-32.0); MCHC 28.9 g/dL (32.0-37.0); MCV 82.7 fL (80.0-97.0); Platelet Count 295 10*3/uL (140-440); RBC 3.47 10*6/uL (4.40-5.60); RDW 18.5 % (11.5-14.5)
[2025-01-02] MEDS ORDERED: KETOROLAC 15 MG/ML 1 ML VIAL IVP PRN (18:28)
[2025-01-02] MEDS ORDERED: ALPRAZolam 0.25 MG TAB PO PRN (18:31)
[2025-01-02] MEDS ORDERED: ONDANSETRON 4 MG/2 ML VIAL IVP PRN (18:31)
[2025-01-02 18:39] LABS: WBC 150.24 10*3/uL (4.50-10.00)
[2025-01-02 18:42] LABS: African American GFR (CKD) >90 (>60 ml/min/1.73 sqM); Anion Gap 10 mmol/L; Blood Urea Nitrogen 19 mg/dL (9-20); Calcium 8.6 mg/dL (8.4-10.2); Carbon Dioxide 21 mmol/L (22-30); Chloride 85 mmol/L (98-107); Glucose 138 mg/dL (74-99); Non-African American GFR(CKD) >90 (>60 ml/min/1.73 sqM); Potassium 4.4 mmol/L (3.5-5.1)
[2025-01-02 18:50] LABS: Sodium 116 mmol/L (137-145)
[2025-01-02] MEDS: FUROSEMIDE 10 MG/ML 4 ML VIAL IV STA (19:05)
[2025-01-02] MEDS: ACETAMINOPHEN TAB 325 MG TAB PO PRN (19:11)
[2025-01-02 19:36] LABS: Lymphocytes # (M) 138.22 k/uL (1.0-4.8); Neutrophils # (M) 10.52 k/uL (1.3-7.7); Neutrophils % (M) 7 %
[2025-01-02 19:37] LABS: Monocytes # (M) 1.50 k/uL (0-1.0); Total Cells Counted 100
--- NOTE | 2025-01-02 20:12 | US ---
EXAMINATION TYPE: US chest DATE OF EXAM: 01/02/2025 COMPARISON: XR CLINICAL INDICATION: Male, 64 years old with history of pleura effusion; Pleural effusion seen on XR TECHNIQUE: Grayscale imaging of the chest. Targeted ultrasound of the posterior lower bilateral rowan thoraces FINDINGS: EXAM MEASUREMENTS: Right Pleural Effusion pocket size: 1.1cm cm NOT MARKED Left Pleural Effusion pocket size: 10.6 cm Left skin surface to fluid distance: 2.4 cm distance from skin surface to lung tissue: 6.7cm Right side NOT MARKED Left side marked for possible thoracentesis outside the dept. Pulmonologists are able to review the images in the patient?s EMR. IMPRESSIONS: Small right pleural effusion. Moderate left pleural effusion is present. [facility], , 01/02/2025 8:09 PM
[2025-01-03 06:56] LABS: HCT 28.5 % (39.6-50.0); HGB 8.3 g/dL (13.0-17.0); MCH 24.6 pg (27.0-32.0); MCHC 29.1 g/dL (32.0-37.0); MCV 84.6 fL (80.0-97.0); Platelet Count 283 10*3/uL (140-440); RBC 3.37 10*6/uL (4.40-5.60); RDW 18.8 % (11.5-14.5)
[2025-01-03 07:01] LABS: WBC 152.32 10*3/uL (4.50-10.00)
[2025-01-03 07:06] LABS: African American GFR (CKD) >90 (>60 ml/min/1.73 sqM); Anion Gap 9 mmol/L; Blood Urea Nitrogen 22 mg/dL (9-20); Calcium 8.7 mg/dL (8.4-10.2); Carbon Dioxide 23 mmol/L (22-30); Chloride 88 mmol/L (98-107); Glucose 161 mg/dL (74-99); Non-African American GFR(CKD) >90 (>60 ml/min/1.73 sqM); Potassium 4.6 mmol/L (3.5-5.1); Sodium 120 mmol/L (137-145)
[2025-01-03 08:12] LABS: Lymphocytes # (M) 143.18 k/uL (1.0-4.8); Neutrophils # (M) 9.14 k/uL (1.3-7.7); Neutrophils % (M) 6 %; Total Cells Counted 100
--- NOTE | 2025-01-03 10:59 | P.CONS ---
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 Patient has a stage II pressure ulcer to the right and left buttocks. Patient states that the ulceration has been there for approximately 1 month. He has been utilizing honey gel to the site. Ulceration is midline encompassing right and left buttocks measuring a pproximately 2 x 4 x 0.2 cm no granulation seen within the wound bed slough and nonviable tissue present wound edges are attached to the wound base no tunneling or undermining noted Review Of Systems: Constitutional: No fever, no chills, no night sweats. No weight change. No weakness, fatigue or lethargy. No daytime sleepiness. Integumentary:reports wounds, no lesions. No rash or pruritus. No unusual bruising. No change in hair or nails. Physical exam: General Appearance: Alert, cooperative, no distress, appears stated age. Skin: See HPI all other Skin color, texture, tugor normal, no rashes or lesions. Neurologic: Alert oriented x3 Assessment: 1. Stage II pressure ulcer right buttocks 2. Stage II pressure ulcer left buttocks Plan: 1. Apply honey gel and bordered foam to the site Monday. Utilize air-filled cushion while sitting. Avoid sitting for long periods of time. Spend the majority of the time alternating right and left hip. Thank you for the consultation any questions please contact the wound care center DNP note has been reviewed and discussed with Dr. Ramires and the impression and plan of care has been directed as dictated. Past Medical History Past Medical History: Cancer Additional Past Medical History / Comment(s): tinnitus, leukemia.CML, colon ca History of Any Multi-Drug Resistant Organisms: None Reported Past Surgical History: Orthopedic Surgery Additional Past Surgical History / Comment(s): ganglion cyst-left hand, colonoscopies x 2 Past Anesthesia/Blood Transfusion Reactions: No Reported Reaction Past Psychological History: No Psychological Hx Reported Smoking Status: Former smoker Past Alcohol Use History: Occasional Past Drug Use History: None Reported - Past Family History Mother Family Medical History: No Reported History Medications and Allergies Home Medications Medication Instructions Recorded Confirmed Type Multivitamins, Thera [Multivitamin 1 tab PO PC-BRKFST 09/03/14 01/02/25 History (formulary)] Glucosamine/Chondr Tsai A Sod [Osteo 1 tab PO PC-BRKFST 04/26/22 01/02/25 History Bi-Flex Caplet] Acetaminophen Tab [Tylenol] 1,000 mg PO Q6HR PRN 12/19/24 01/02/25 History L.acidoph,Paracasei, B.lactis 1 cap PO PC-BRKFST 12/19/24 01/02/25 History [Probiotic] Magnesium (Unknown Dose) 1 dose PO PC-BRKFST 12/19/24 01/02/25 History Triple [place] 1 cap PO PC-BRKFST 12/19/24 01/02/25 History Furosemide [Lasix] 20 mg PO BID@0600,1600 01/02/25 01/02/25 History Allergies Allergy/AdvReac Type Severity Reaction Status Date / Time No Known Allergies Allergy Verified 01/02/25 17:44 Physical Exam Vitals: Vital Signs Temp Pulse Resp BP BP Pulse Ox 01/03/25 08:39 100 20 121/67 95 01/03/25 08:18 97 01/03/25 06:40 18 133/74 96 01/03/25 06:38 116 H 20 133/74 96 01/03/25 04:52 115 H 18 132/80 97 01/03/25 02:00 113 H 24 126/78 97 01/03/25 01:00 109 H 18 131/86 97 01/03/25 00:00 113 H 24 131/86 95 01/02/25 23:00 115 H 24 133/86 96 01/02/25 22:00 114 H 22 121/77 96 01/02/25 21:00 22 117/74 98 01/02/25 20:00 105 H 24 117/74 96 01/02/25 19:02 97.9 F 24 117/74 97 01/02/25 17:00 118 H 18 152/88 98 01/02/25 16:00 115 H 18 140/74 97 01/02/25 15:00 96 01/02/25 14:54 88 L 01/02/25 12:52 97.7 F 108 H 20 121/69 94 L Intake and Output 01/02/25 01/03/25 01/03/25 22:59 06:59 14:59 Output Total 600 680 Balance -600 -680 Output: Urine 600 680 Other: # Voids 2 1 Results CBC & Chem 7: 01/03/25 06:38 01/03/25 09:40 Labs: Abnormal Lab Results - Last 24 Hours (Table) 01/02/25 01/02/25 01/02/25 Range/Units 15:36 15:36 17:58 WBC 145.12 H* (4.50-10.00) 10*3/uL RBC 3.49 L (4.40-5.60) 10*6/uL Hgb 8.5 L (13.0-17.0) g/dL Hct 29.1 L (39.6-50.0) % MCH 24.4 L (27.0-32.0) pg MCHC 29.2 L (32.0-37.0) g/dL MPV 8.9 L (9.5-12.2) fL Immature Gran # 0.23 H (0.00-0.04) 10*3/uL Neutrophils # (Manual) (1.3-7.7) k/uL Lymphocytes # (Manual) 136.41 H (1.0-4.8) k/uL Monocytes # (Manual) 2.90 H (0-1.0) k/uL Sodium 117 L* (137-145) mmol/L Chloride 86 L (98-107) mmol/L Carbon Dioxide 21 L (22-30) mmol/L BUN (9-20) mg/dL Creatinine 0.52 L (0.66-1.25) mg/dL Glucose 138 H (74-99) mg/dL Osmolality 257 L (275-295) mOsm/kg Albumin 3.2 L (3.5-5.0) g/dL Cortisol 48.3 H (3.1-22.4) UG/DL Ur Random Sodium (40-220) mmol/L 01/02/25 01/02/25 01/02/25 Range/Units 18:12 18:12 19:49 WBC 150.24 H* (4.50-10.00) 10*3/uL RBC 3.47 L (4.40-5.60) 10*6/uL Hgb 8.3 L (13.0-17.0) g/dL Hct 28.7 L (39.6-50.0) % MCH 23.9 L (27.0-32.0) pg MCHC 28.9 L (32.0-37.0) g/dL MPV 8.5 L (9.5-12.2) fL Immature Gran # 0.25 H (0.00-0.04) 10*3/uL Neutrophils # (Manual) 10.52 H (1.3-7.7) k/uL Lymphocytes # (Manual) 138.22 H (1.0-4.8) k/uL Monocytes # (Manual) 1.50 H (0-1.0) k/uL Sodium 116 L* (137-145) mmol/L Chloride 85 L (98-107) mmol/L Carbon Dioxide 21 L (22-30) mmol/L BUN (9-20) mg/dL Creatinine 0.47 L (0.66-1.25) mg/dL Glucose 138 H (74-99) mg/dL Osmolality (275-295) mOsm/kg Albumin (3.5-5.0) g/dL Cortisol (3.1-22.4) UG/DL Ur Random Sodium <20 L (40-220) mmol/L 01/02/25 01/03/25 01/03/25 Range/Units 20:54 01:19 06:38 WBC (4.50-10.00) 10*3/uL RBC (4.40-5.60) 10*6/uL Hgb (13.0-17.0) g/dL Hct (39.6-50.0) % MCH (27.0-32.0) pg MCHC (32.0-37.0) g/dL MPV (9.5-12.2) fL Immature Gran # (0.00-0.04) 10*3/uL Neutrophils # (Manual) (1.3-7.7) k/uL Lymphocytes # (Manual) (1.0-4.8) k/uL Monocytes # (Manual) (0-1.0) k/uL Sodium 117 L* 118 L* 120 L (137-145) mmol/L Chloride 88 L (98-107) mmol/L Carbon Dioxide (22-30) mmol/L BUN 22 H (9-20) mg/dL Creatinine 0.58 L (0.66-1.25) mg/dL Glucose 161 H (74-99) mg/dL Osmolality (275-295) mOsm/kg Albumin (3.5-5.0) g/dL Cortisol (3.1-22.4) UG/DL Ur Random Sodium (40-220) mmol/L 01/03/25 01/03/25 Range/Units 06:38 09:40 WBC 152.32 H* (4.50-10.00) 10*3/uL RBC 3.37 L (4.40-5.60) 10*6/uL Hgb 8.3 L (13.0-17.0) g/dL Hct 28.5 L (39.6-50.0) % MCH 24.6 L (27.0-32.0) pg MCHC 29.1 L (32.0-37.0) g/dL MPV 8.3 L (9.5-12.2) fL Immature Gran # 0.24 H (0.00-0.04) 10*3/uL Neutrophils # (Manual) 9.14 H (1.3-7.7) k/uL Lymphocytes # (Manual) 143.18 H (1.0-4.8) k/uL Monocytes # (Manual) (0-1.0) k/uL Sodium 119 L* (137-145) mmol/L Chloride (98-107) mmol/L Carbon Dioxide (22-30) mmol/L BUN (9-20) mg/dL Creatinine (0.66-1.25) mg/dL Glucose (74-99) mg/dL Osmolality (275-295) mOsm/kg Albumin (3.5-5.0) g/dL Cortisol (3.1-22.4) UG/DL Ur Random Sodium (40-220) mmol/L Assessment and Plan (1) Stage II pressure ulcer of left buttock Current Visit: Yes Status: Acute Code(s): L89.322 - PRESSURE ULCER OF LEFT BUTTOCK, STAGE 2 SNOMED Code(s): 71663220391468 (2) Stage II pressure ulcer of right buttock Current Visit: Yes Status: Acute Code(s): L89.312 - PRESSURE ULCER OF RIGHT BUTTOCK, STAGE 2 SNOMED Code(s): 38991101695827
--- NOTE | 2025-01-03 11:08 | P.NPCON ---
History of Present Illness - Reason for Consult hyponatremia - History of Present Illness Patient is a 64-year-old male with history of metastatic colon cancer who is admitted to the hospital due to low sodium noted on outpatient labs. Patient states he has had significant swelling of his legs over the past few weeks which has worsened recently. Patient also complained of shortness of breath which has progressed. No complaints of chest pain No history of fever chills nausea or vomiting or diarrhea Currently maintained on immunotherapy for metastatic cancer to the lungs. Patient has a Pleurx catheter for recurrent right pleural effusion. Serum sodium was 117 on admission. Patient received a dose of IV Lasix and sodium is up to 120 early this morning. Urine osmolality 618 and random urine sodium at less than 20 Serum sodium noted to be 125-130 on labs from November 2024. No new medications started recently. Patient denies any significant pain. Past Medical History Past Medical History: Cancer Additional Past Medical History / Comment(s): tinnitus, leukemia.CML, colon ca History of Any Multi-Drug Resistant Organisms: None Reported Past Surgical History: Orthopedic Surgery Additional Past Surgical History / Comment(s): ganglion cyst-left hand, colo noscopies x 2 Past Anesthesia/Blood Transfusion Reactions: No Reported Reaction Past Psychological History: No Psychological Hx Reported Smoking Status: Former smoker Past Alcohol Use History: Occasional Past Drug Use History: None Reported - Past Family History Mother Family Medical History: No Reported History Medications and Allergies Home Medications Medication Instructions Recorded Confirmed Type Multivitamins, Thera [Multivitamin 1 tab PO PC-BRKFST 09/03/14 01/02/25 History (formulary)] Glucosamine/Chondr Tsai A Sod [Osteo 1 tab PO PC-BRKFST 04/26/22 01/02/25 History Bi-Flex Caplet] Acetaminophen Tab [Tylenol] 1,000 mg PO Q6HR PRN 12/19/24 01/02/25 History L.acidoph,Paracasei, B.lactis 1 cap PO PC-BRKFST 12/19/24 01/02/25 History [Probiotic] Magnesium (Unknown Dose) 1 dose PO PC-BRKFST 12/19/24 01/02/25 History Triple [place] 1 cap PO PC-BRKFST 12/19/24 01/02/25 History Furosemide [Lasix] 20 mg PO BID@0600,1600 01/02/25 01/02/25 History Allergies Allergy/AdvReac Type Severity Reaction Status Date / Time No Known Allergies Allergy Verified 01/02/25 17:44 Physical Exam Vitals: Vital Signs Temp Pulse Resp BP BP Pulse Ox 01/03/25 08:39 100 20 121/67 95 01/03/25 08:18 97 01/03/25 06:40 18 133/74 96 01/03/25 06:38 116 H 20 133/74 96 01/03/25 04:52 115 H 18 132/80 97 01/03/25 02:00 113 H 24 126/78 97 01/03/25 01:00 109 H 18 131/86 97 01/03/25 00:00 113 H 24 131/86 95 01/02/25 23:00 115 H 24 133/86 96 01/02/25 22:00 114 H 22 121/77 96 01/02/25 21:00 22 117/74 98 01/02/25 20:00 105 H 24 117/74 96 01/02/25 19:02 97.9 F 24 117/74 97 01/02/25 17:00 118 H 18 152/88 98 01/02/25 16:00 115 H 18 140/74 97 01/02/25 15:00 96 01/02/25 14:54 88 L 01/02/25 12:52 97.7 F 108 H 20 121/69 94 L Intake and Output 01/02/25 01/03/25 01/03/25 22:59 06:59 14:59 Output Total 600 680 Balance -600 -680 Output: Urine 600 680 Other: # Voids 2 1 Patient is awake, comfortable, no acute distress Examination of the heart S1 and S2 Examination of the lungs bilateral breath sounds are heard with basal crackles Abdomen is soft obese nontender Examination of lower extremity shows edema 3+ bilaterally P[employer] INTERPRETER exam grossly intact Results - Lab Results Most recent lab results Calcium 8.7 mg/dL (8.4-10.2) 01/03/25 06:38 01/03/25 06:38 01/03/25 09:40 Assessment and Plan Assessment: 1. Hypervolemic hyponatremia, improving with diuresis. 2. Metastatic colon cancer with mets to the lungs with recurrent right pleural effusion, currently with right Pleurx catheter 3. Volume overload 4. Recurrent right pleural effusion due to metastatic colon cancer Plan: Continue to diurese patient Salt and fluid restriction Repeat labs in a.m. Recommend to check echocardiogram for ejection fraction Thank you for the consultation. We will continue to follow the patient with you during his hospitalization.
[2025-01-03] MEDS: FUROSEMIDE 10 MG/ML 4 ML VIAL IV SCH (13:31)
--- NOTE | 2025-01-03 14:03 | P.CNPUL ---
History of Present Illness Consult date: 01/03/25 Requesting physician: Christie Coker Reason for consult: dyspnea, pleural effusion, abnormal CXR/CT Chief complaint: Dyspnea on exertion History of present illness: This is a pleasant 64-year-old male patient with a known history of CML, former smoker, metastatic colon cancer to the lungs with recurrent pleural effusions on the right status post Pleurx catheter placed November 29, 2024. He was also noted to have a left pleural effusion and the plan was for thoracentesis January 08, 2025. He had seen his oncologist yesterday and had routine lab work drawn. He was later called and said to return port to the emergency room for low sodium level. He is seen today in consultation in the emergency department. He is currently sitting up in a chair. Awake and alert in no acute distress. Denies any worsening shortness of breath, cough or congestion. Is maintaining good O2 saturations in the mid 90s on 3 L/min per nasal cannula. Has been afebrile. Hemodynamically stable. Chest x-ray reveals cardiomegaly, pulmonary vascular congestion and bilateral pleural effusions. EKG revealed sinus mechanism. Ultrasound of the chest revealed a 1.1 cm pocket on the right and a 10.6 cm pocket on the left. White count 152. Hemoglobin 8.3. Platelets 283. Sodium 120. Potassium 4.6. Bicarb 23. BUN 22. Creatinine 0.58. Glucose 161. Review of Systems REVIEW OF SYSTEMS: CONSTITUTIONAL: Denies any recent significant weight loss or weight gain. EYES: Denies change in vision. EARS, NOSE, MOUTH, THROAT: Denies headaches, denies sore throat. CARDIOVASCULAR: Denies chest pain, palpitations or syncopal episodes. RESPIRATORY: Positive for shortness of breath, no cough, congestion or hemoptysis. GASTROINTESTINAL: Denies change in appetite, denies abdominal pain GENITOURINARY: Denies hematuria, denies infections. MUSKULOSKELETAL: Denies pain, denies swelling. INTEGUMENTARY: Denies rash, denies eczema. NEUROLOGICAL: Denies recent memory loss, no recent seizure activity. PSYCHIATRIC: Denies anxiety, denies depression. HEMATOLOGIC/LYMPHATIC: Denies anemia, denies enlarged lymph nodes. Past Medical History Past Medical History: Cancer Additional Past Medical History / Comment(s): tinnitus, leukemia.CML, colon ca History of Any Multi-Drug Resistant Organisms: None Reported Past Surgical History: Orthopedic Surgery Additional Past Surgical History / Comment(s): ganglion cyst-left hand, colonoscopies x 2 Past Anesthesia/Blood Transfusion Reactions: No Reported Reaction Past Psychological History: No Psychological Hx Reported Smoking Status: Former smoker Past Alcohol Use History: Occasional Past Drug Use History: None Reported - Past Family History Mother Family Medical History: No Reported History Medications and Allergies Home Medications Medication Instructions Recorded Confirmed Type Multivitamins, Thera [Multivitamin 1 tab PO PC-BRKFST 09/03/14 01/02/25 History (formulary)] Glucosamine/Chondr Tsai A Sod [Osteo 1 tab PO PC-BRKFST 04/26/22 01/02/25 History Bi-Flex Caplet] Acetaminophen Tab [Tylenol] 1,000 mg PO Q6HR PRN 12/19/24 01/02/25 History L.acidoph,Paracasei, B.lactis 1 cap PO PC-BRKFST 12/19/24 01/02/25 History [Probiotic] Magnesium (Unknown Dose) 1 dose PO PC-BRKFST 12/19/24 01/02/25 History Triple Grandy 1 cap PO PC-BRKFST 12/19/24 01/02/25 History Furosemide [Lasix] 20 mg PO BID@0600,1600 01/02/25 01/02/25 History Allergies Allergy/AdvReac Type Severity Reaction Status Date / Time No Known Allergies Allergy Verified 01/02/25 17:44 Physical Exam Vitals: Vital Signs Temp Pulse Resp BP BP Pulse Ox 01/03/25 13:00 124 H 18 126/88 96 01/03/25 12:00 18 114/79 96 01/03/25 09:00 113 H 18 126/75 96 01/03/25 08:39 100 20 121/67 95 01/03/25 08:18 97 01/03/25 08:00 17 121/67 96 01/03/25 06:40 18 133/74 96 01/03/25 06:38 116 H 20 133/74 96 01/03/25 04:52 115 H 18 132/80 97 01/03/25 02:00 113 H 24 126/78 97 01/03/25 01:00 109 H 18 131/86 97 01/03/25 00:00 113 H 24 131/86 95 01/02/25 23:00 115 H 24 133/86 96 01/02/25 22:00 114 H 22 121/77 96 01/02/25 21:00 22 117/74 98 01/02/25 20:00 105 H 24 117/74 96 01/02/25 19:02 97.9 F 24 117/74 97 01/02/25 17:00 118 H 18 152/88 98 01/02/25 16:00 115 H 18 140/74 97 01/02/25 15:00 96 01/02/25 14:54 88 L Intake and Output 01/02/25 01/03/25 01/03/25 22:59 06:59 14:59 Output Total 600 680 Balance -600 -680 Output: Urine 600 680 Other: # Voids 2 1 GENERAL EXAM: Alert, 64-year-old male, sitting up in a chair, on 3 L nasal cannula, fairly comfortable in no apparent distress. HEAD: Normocephalic. EYES: Normal reaction of pupils, equal size. NOSE: Clear with pink turbinates. THROAT: No erythema or exudates. NECK: No masses, no JVD. CHEST: No chest wall deformity. Right sided Pleurx catheter in place. LUNGS: Equal air entry with close in the bilateral bases left greater than right. CVS: S1 and S2 normal with no audible murmur, regular rhythm. ABDOMEN: No hepatosplenomegaly, normal bowel sounds, no guarding or rigidity. SPINE: No scoliosis or deformity SKIN: No rashes. Decubitus ulcer on the sacrum CENTRAL NERVOUS SYSTEM: No focal deficits, tone is normal in all 4 extremities. EXTREMITIES: There is 1-2+ peripheral edema. No clubbing, no cyanosis. Peripheral pulses are intact. Results - Laboratory Findings CBC and BMP: 01/03/25 06:38 01/03/25 09:40 Abnormal lab findings: Abnormal Labs 01/02/25 01/02/25 01/02/25 15:36 15:36 17:58 WBC 145.12 H* RBC 3.49 L Hgb 8.5 L Hct 29.1 L MCH 24.4 L MCHC 29.2 L MPV 8.9 L Immature Gran # 0.23 H Neutrophils # (Manual) Lymphocytes # (Manual) 136.41 H Monocytes # (Manual) 2.90 H Sodium 117 L* Chloride 86 L Carbon Dioxide 21 L BUN Creatinine 0.52 L Glucose 138 H Osmolality 257 L Albumin 3.2 L Cortisol 48.3 H Ur Random Sodium 01/02/25 01/02/25 01/02/25 18:12 18:12 19:49 WBC 150.24 H* RBC 3.47 L Hgb 8.3 L Hct 28.7 L MCH 23.9 L MCHC 28.9 L MPV 8.5 L Immature Gran # 0.25 H Neutrophils # (Manual) 10.52 H Lymphocytes # (Manual) 138.22 H Monocytes # (Manual) 1.50 H Sodium 116 L* Chloride 85 L Carbon Dioxide 21 L BUN Creatinine 0.47 L Glucose 138 H Osmolality Albumin Cortisol Ur Random Sodium <20 L 01/02/25 01/03/25 01/03/25 20:54 01:19 06:38 WBC RBC Hgb Hct MCH MCHC MPV Immature Gran # Neutrophils # (Manual) Lymphocytes # (Manual) Monocytes # (Manual) Sodium 117 L* 118 L* 120 L Chloride 88 L Carbon Dioxide BUN 22 H Creatinine 0.58 L Glucose 161 H Osmolality Albumin Cortisol Ur Random Sodium 01/03/25 01/03/25 06:38 09:40 WBC 152.32 H* RBC 3.37 L Hgb 8.3 L Hct 28.5 L MCH 24.6 L MCHC 29.1 L MPV 8.3 L Immature Gran # 0.24 H Neutrophils # (Manual) 9.14 H Lymphocytes # (Manual) 143.18 H Monocytes # (Manual) Sodium 119 L* Chloride Carbon Dioxide BUN Creatinine Glucose Osmolality Albumin Cortisol Ur Random Sodium - Diagnostic Findings Chest x-ray: image reviewed Assessment and Plan Assessment: 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 Right sided Pleurx catheter remains in place History of metastatic colon cancer to the lungs currently on immunotherapy Lower extremity edema History of CLL Former smoker Plan: The patient was seen and evaluated Chest x-ray, labs and medications reviewed Ultrasound of the chest reviewed Significant left-sided pleural effusion Offered to perform a thoracentesis today He prefers to wait until his scheduled date 01/08/2025 for the thoracentesis on the left We also offered the patient cardiothoracic consult for possible Pleurx catheter on the left, patient declines Currently stable and on 3 L nasal cannula Continue IV Lasix Nephrology consulted Oncology consulted Wound care consulted for decubitus ulcer on the sacrum We will continue to follow and make further recommendations based on his clinical status I have personally seen and examined the patient, performed the documentation and the assessment and plan as written. Number of minutes spent on the visit: 20 Dictation was produced using [employer] dictation software. Please excuse any g rammatical, word or spelling errors.
--- NOTE | 2025-01-03 17:24 | P.PN ---
Subjective Progress Note Date: 01/03/25 Hospital Course: This patient is a 64-year-old man with history of colon cancer that is metastatic to the lungs, who is here after he received a call from his oncologist that his sodium is low. The patient had a routine follow-up with his oncologist as well as litigation counsel yesterday. The patient states that he has been having trouble with bilateral leg edema, exertional dyspnea, xray evident for bilateral pleural effusions. Diuresis with lasix and fluid restriction initiated. There is a Pleurx catheter in the right chest that he has been using to drain the effusion on the right. Patient says breathing has become worse over the past couple weeks and has needed 4 L of nasal cannula in ER on admission, 98% on 4l. Patient sodium admission was 117, still at 119 today. White blood cell count at 145-152 due to past medical history of CLL. Patient still in hypervolemic hyponatermic overload, continuing to trend. Subjective: Patient seen and examined at bedside. No acute events overnight. Pertinent positives and negatives as discussed above, a complete review of syst ems was performed and all other systems are negative. Vitals: Signs Reviewed Physical examination: Vital signs reviewed General: non toxic, no distress, appears at stated age, normal weight Derm: no unusual rashes/lesions, warm Head: atraumatic, normocephalic, symmetric Eyes: EOMI, anicteric sclera, pupils equal round reactive to light ENT: Nose and ears atraumatic Neck: No cervical lymphadenopathy, trachea midline, supple Mouth: no lip lesion, mucus membranes moist Cardiovascular: S1S2 reg, no murmur, positive dorsalis pedis pulse bilateral, no edema Lungs: decreased breath sounds Left lung. Absent: respiratory distress, wheezes, rales, rhonchi, stridor, accessory muscle use Abdominal: soft, nontender to palpation, no guarding Ext: no gross muscle atrophy, pitting edema bilateral up to knee Neuro: CN II-XI grossly intact, no gross focal neuro deficits Psych: Alert, oriented to person, place, and time Data Received Today: Pertinent Labs: WBC 152 Na 118 > 120 > 119 > 119 creatinine 0.52 >0.58 BUN 18 > 22 hemoglobin 8.5 > 8.3 hematocrit 29.1 > 28.5 platelet 312 > 283 urine osmo 618 urine random sodium <20 serum osmo 257 pro-bnp 383 Heart rate 118 > 126 Respiratory rate 18 > 18 97% 3L NC Imaging: x-ray - bilateral pleura effusions chest u/s -small pleural effusion. Moderate left pleural effusion Assessment and Plan: Acute hypoxic respiratory failure due to malignant recurrent pleural effusion: R PleurX catheter. Supplemental O2 3l nc to maintain O2 sat > 92%. Would benefit from thoracentesis. Consult Pulmonary. Patient has declined thoracentesis at this time, declined left-sided Pleurx catheter Hypervolemic hyponatremia: Serum Osm, Urine Osm 618 , Nicole <20 No confusion or seizures. Appears hypervolemic. Drinks 40-80 oz water daily. Trial of Lasix 40 mg IV every 8 hours. Fluid restrict to 1.5L. Monitor Q4H. Neurochecks. Fall and Seizure precautions. Nephrology consult. Leukocytosis in the settings of CLL following Oncology Iron deficiency anemia with no signs of active bleeding at baseline: Heme-Onc consult. Transfuse if Hg < 7. Sacral decubitus ulcer: Frequent positioning. Consider specialty mattress through DME. Wound care consult. Code status: Full code Anticipated discharge place: Pending clinical course Anticipated discharge time: Pending clinical course Eddie Hoskins MD PGY-1 FM Dictation was produced using [employer] dictation software. please excuse any grammatical, word or spelling errors. I saw and evaluated the patient during the solorzano and critical portions of this encounter, and discussed the case in detail with the resident author of this note, I agree with the Assessment and Plan, and my changes, if any, are highlighted in blue. Objective - Vital Signs Vital signs: Vital Signs Temp 97.9 F 01/02/25 19:02 Pulse 124 H 01/03/25 13:00 Resp 18 01/03/25 13:00 BP 126/88 01/03/25 13:00 Pulse Ox 96 01/03/25 13:00 FiO2 Intake & Output 01/02/25 01/03/25 01/03/25 18:59 06:59 18:59 Output Total 1280 Balance -1280 Weight 102.512 kg Output: Urine 1280 Other: # Voids 1 - Labs CBC & Chem 7: 01/03/25 06:38 01/03/25 13:06 Labs: Abnormal Lab Results - Last 24 Hours (Table) 01/02/25 01/02/25 01/02/25 Range/Units 15:36 15:36 17:58 WBC 145.12 H* (4.50-10.00) 10*3/uL RBC 3.49 L (4.40-5.60) 10*6/uL Hgb 8.5 L (13.0-17.0) g/dL Hct 29.1 L (39.6-50.0) % MCH 24.4 L (27.0-32.0) pg MCHC 29.2 L (32.0-37.0) g/dL MPV 8.9 L (9.5-12.2) fL Immature Gran # 0.23 H (0.00-0.04) 10*3/uL Neutrophils # (Manual) (1.3-7.7) k/uL Lymphocytes # (Manual) 136.41 H (1.0-4.8) k/uL Monocytes # (Manual) 2.90 H (0-1.0) k/uL Sodium 117 L* (137-145) mmol/L Chloride 86 L (98-107) mmol/L Carbon Dioxide 21 L (22-30) mmol/L BUN (9-20) mg/dL Creatinine 0.52 L (0.66-1.25) mg/dL Glucose 138 H (74-99) mg/dL Osmolality 257 L (275-295) mOsm/kg Albumin 3.2 L (3.5-5.0) g/dL Cortisol 48.3 H (3.1-22.4) UG/DL Ur Random Sodium (40-220) mmol/L 01/02/25 01/02/25 01/02/25 Range/Units 18:12 18:12 19:49 WBC 150.24 H* (4.50-10.00) 10*3/uL RBC 3.47 L (4.40-5.60) 10*6/uL Hgb 8.3 L (13.0-17.0) g/dL Hct 28.7 L (39.6-50.0) % MCH 23.9 L (27.0-32.0) pg MCHC 28.9 L (32.0-37.0) g/dL MPV 8.5 L (9.5-12.2) fL Immature Gran # 0.25 H (0.00-0.04) 10*3/uL Neutrophils # (Manual) 10.52 H (1.3-7.7) k/uL Lymphocytes # (Manual) 138.22 H (1.0-4.8) k/uL Monocytes # (Manual) 1.50 H (0-1.0) k/uL Sodium 116 L* (137-145) mmol/L Chloride 85 L (98-107) mmol/L Carbon Dioxide 21 L (22-30) mmol/L BUN (9-20) mg/dL Creatinine 0.47 L (0.66-1.25) mg/dL Glucose 138 H (74-99) mg/dL Osmolality (275-295) mOsm/kg Albumin (3.5-5.0) g/dL Cortisol (3.1-22.4) UG/DL Ur Random Sodium <20 L (40-220) mmol/L 01/02/25 01/03/25 01/03/25 Range/Units 20:54 01:19 06:38 WBC (4.50-10.00) 10*3/uL RBC (4.40-5.60) 10*6/uL Hgb (13.0-17.0) g/dL Hct (39.6-50.0) % MCH (27.0-32.0) pg MCHC (32.0-37.0) g/dL MPV (9.5-12.2) fL Immature Gran # (0.00-0.04) 10*3/uL Neutrophils # (Manual) (1.3-7.7) k/uL Lymphocytes # (Manual) (1.0-4.8) k/uL Monocytes # (Manual) (0-1.0) k/uL Sodium 117 L* 118 L* 120 L (137-145) mmol/L Chloride 88 L (98-107) mmol/L Carbon Dioxide (22-30) mmol/L BUN 22 H (9-20) mg/dL Creatinine 0.58 L (0.66-1.25) mg/dL Glucose 161 H (74-99) mg/dL Osmolality (275-295) mOsm/kg Albumin (3.5-5.0) g/dL Cortisol (3.1-22.4) UG/DL Ur Random Sodium (40-220) mmol/L 01/03/25 01/03/25 01/03/25 Range/Units 06:38 09:40 13:06 WBC 152.32 H* (4.50-10.00) 10*3/uL RBC 3.37 L (4.40-5.60) 10*6/uL Hgb 8.3 L (13.0-17.0) g/dL Hct 28.5 L (39.6-50.0) % MCH 24.6 L (27.0-32.0) pg MCHC 29.1 L (32.0-37.0) g/dL MPV 8.3 L (9.5-12.2) fL Immature Gran # 0.24 H (0.00-0.04) 10*3/uL Neutrophils # (Manual) 9.14 H (1.3-7.7) k/uL Lymphocytes # (Manual) 143.18 H (1.0-4.8) k/uL Monocytes # (Manual) (0-1.0) k/uL Sodium 119 L* 119 L* (137-145) mmol/L Chloride (98-107) mmol/L Carbon Dioxide (22-30) mmol/L BUN (9-20) mg/dL Creatinine (0.66-1.25) mg/dL Glucose (74-99) mg/dL Osmolality (275-295) mOsm/kg Albumin (3.5-5.0) g/dL Cortisol (3.1-22.4) UG/DL Ur Random Sodium (40-220) mmol/L
--- NOTE | 2025-01-03 18:28 | CA ---
Transthoracic Echo Report Name: Gorge Dutta Age: 64 Gender: M : 1960 Exam Date: 01/03/2025 16:52 Exam Location: [facility] Ht (in): 71 Wt (lb): 226 Ordering Physician: Mirza Cuevas Attending/Referring Phys: Supervisor Dry Paste Bruec Steiner RDCS Procedure CPT: Indications: SOB, BLE edema Cardiac Hx: done by anni Technical Quality: Very technically difficult study Contrast 1: Total Dose (mL): Contrast 2: Total Dose (mL): MEASUREMENTS (Male / Female) Normal Values 2D ECHO LV Diastolic Diameter PLAX 2.9 cm 4.2 - 5.9 / 3.9 - 5.3 cm LV Systolic Diameter PLAX 2.1 cm IVS Diastolic Thickness 1.2 cm 0.6 - 1.0 / 0.6 - 0.9 cm LVPW Diastolic Thickness 1.4 cm 0.6 - 1.0 / 0.6 - 0.9 cm LV Relative Wall Thickness 0.9 LVOT Diameter 2.1 cm LA Systolic Diameter LX 3.8 cm 3.0 - 4.0 / 2.7 - 3.8 cm M-MODE Aortic Root Diameter MM 3.9 cm LA Systolic Diameter MM 2.5 cm LA Ao Ratio MM 0.6 DOPPLER AV Peak Velocity 141.0 cm/s AV Peak Gradient 8.0 mmHg Mitral E Point Velocity 61.1 cm/s Mitral A Point Velocity 84.4 cm/s Mitral E to A Ratio 0.7 MV Deceleration Time 107.2 ms FINDINGS Left Ventricle Left ventricular ejection fraction is visually estimated at 55-60 %. Mildly increased septal wall thickness.left ventricular cavity size normal. unable to determine wallmotion abnormalities due to image quality and tachycardia. Right Ventricle Right ventricle not well visualized. Right Atrium Normal right atrial size. No right atrial thrombus or mass seen. Left Atrium Normal left atrial size. No left atrial thrombus or mass present. Mitral Valve Mitral valve not well visualized. Mitral valve thickened. Trace mitral regurgitation. Aortic Valve Aortic valve not well visualized. unable to assess the aorta Tricuspid Valve Tricuspid valve not well visualized. No tricuspid regurgitation. Pulmonic Valve Pulmonic valve not well visualized. unable to assess pulmonic valve Pericardium Question moderate pericardial effusion vs Large plueral effusion vs Fat Pad Aorta Aortic root normal size. unable to assess ascending aorta CONCLUSIONS Reason: Shortness of breath Patient tachycardic Preserved LV systolic function Small pericardial effusion/thickened posterior-lateral pericardium Previewed by: Dr. Mitchell Joyce MD (Electronically Signed) Final Date: 03 January 2025 18:27
[2025-01-03 20:15] LABS: Glucose,Whole Blood 208 mg/dL (70-110)
--- NOTE | 2025-01-03 20:33 | P.CONS ---
History of Present Illness - Reason for Consult Consult date: 01/03/25 cancer Requesting physician: Christie Coker - Chief Complaint abnormal labs - History of Present Illness Mr. Dutta is a pleasant 64-year-old male patient of Dr. Randhawa with a longstanding history of CLL, diagnosed around 2014. He has not required treatment for the same. His baseline white count is in the 20,000-50,000 range. Patient has remained current on his follow-ups. In September 2024 he was noted to haved. Biopsy positive for invasive adenocarcinoma, MSI high, BRAF V600 E+. 10/31/2024 CTAP showed enlarged retroperitoneal, periaortic, janae hepatis and epicardiac lymphadenopathy, 20 cm splenomegaly and a moderate right ve developed anemia, workup showed iron deficiency so, he was referred for GI workup. He underwent EGD and colonoscopy 10/30/2024 which showed a mass in the descending colon-prev colonoscopy was in 2017, polyp remopleural effusion. Patient did have a thoracentesis, pleural fluid was positive for metastatic colon adenocarcinoma and CLL. Patient started dual immunotherapy with yervoy/opdivo on 12/09/2024, completing cycle 2 on 12/30/24. There was also concern that his CLL has progressed due to worsening lymphocytosis over a short period of time. Flow cytometry was ordered at last visit, results still pending. [facility] Patient presented to emergency room for abnormal labs, hyponatremia. Upon admit sodium is noted at 117. Serum osmolality 257. Cortisol elevated at 48.7, el[place] katlyn this was drawn in the afternoon. ACTH pending. Patient has subsequently been started on IV steroids, Solu-Medrol 60 mg every 6 hours. Creatinine 0.52, GFR greater than 90. WBC 152,000, hemoglobin 8.3, platelets 283,000. Absolute lymphocyte count 143. ANC 9.14. Bilirubin LFTs WNL. CXR showing pulmonary vascular congestion and bilateral pleural effusions. Chest US showing moderate left pleural effusion, pulm consulted. At today's visit patient is lethargic and easily fell asleep during visit. Nephrology following, recommending continuing diuretics and fluid restrictions. Review of Systems 10 point ROS is negative except as stated in the HPI Past Medical History Past Medical History: Cancer Additional Past Medical History / Comment(s): tinnitus, leukemia.CML, colon ca History of Any Multi-Drug Resistant Organisms: None Reported Past Surgical History: Orthopedic Surgery Additional Past Surgical History / Comment(s): ganglion cyst-left hand, colonoscopies x 2 Past Anesthesia/Blood Transfusion Reactions: No Reported Reaction Past Psychological History: No Psychological Hx Reported Smoking Status: Former smoker Past Alcohol Use History: Occasional Past Drug Use History: None Reported - Past Family History Mother Family Medical History: No Reported History Medications and Allergies Home Medications Medication Instructions Recorded Confirmed Type Multivitamins, Thera [Multivitamin 1 tab PO PC-BRKFST 09/03/14 01/02/25 History (formulary)] Glucosamine/Chondr Tsai A Sod [Osteo 1 tab PO PC-BRKFST 04/26/22 01/02/25 History Bi-Flex Caplet] Acetaminophen Tab [Tylenol] 1,000 mg PO Q6HR PRN 12/19/24 01/02/25 History L.acidoph,Paracasei, B.lactis 1 cap PO PC-BRKFST 12/19/24 01/02/25 History [Probiotic] Magnesium (Unknown Dose) 1 dose PO PC-BRKFST 12/19/24 01/02/25 History Triple Adolphus 1 cap PO PC-BRKFST 12/19/24 01/02/25 History Furosemide [Lasix] 20 mg PO BID@0600,1600 01/02/25 01/02/25 History Allergies Allergy/AdvReac Type Severity Reaction Status Date / Time No Known Allergies Allergy Verified 01/02/25 17:44 Physical Exam Vitals: Vital Signs Temp Pulse Resp BP BP Pulse Ox 01/03/25 08:39 100 20 121/67 95 01/03/25 08:18 97 01/03/25 06:40 18 133/74 96 01/03/25 06:38 116 H 20 133/74 96 01/03/25 04:52 115 H 18 132/80 97 01/03/25 02:00 113 H 24 126/78 97 01/03/25 01:00 109 H 18 131/86 97 01/03/25 00:00 113 H 24 131/86 95 01/02/25 23:00 115 H 24 133/86 96 01/02/25 22:00 114 H 22 121/77 96 01/02/25 21:00 22 117/74 98 01/02/25 20:00 105 H 24 117/74 96 01/02/25 19:02 97.9 F 24 117/74 97 01/02/25 17:00 118 H 18 152/88 98 01/02/25 16:00 115 H 18 140/74 97 01/02/25 15:00 96 01/02/25 14:54 88 L Intake and Output 01/02/25 01/03/25 01/03/25 22:59 06:59 14:59 Output Total 600 680 Balance -600 -680 Output: Urine 600 680 Other: # Voids 2 1 - Constitutional General appearance: average body habitus, no acute distress - EENT Eyes: anicteric sclerae, EOMI ENT: hearing grossly normal - Respiratory breathing is even and unlabored - Cardiovascular skin warm and dry - Gastrointestinal General gastrointestinal: soft, no tenderness - Integumentary Integumentary: no cyanotic, decreased turgor, no jaundiced - Psychiatric Psychiatric: A&O x's 3 Results CBC & Chem 7: 01/03/25 06:38 01/03/25 18:04 Labs: Abnormal Lab Results - Last 24 Hours (Table) 01/02/25 01/02/25 01/02/25 Range/Units 15:36 15:36 17:58 WBC 145.12 H* (4.50-10.00) 10*3/uL RBC 3.49 L (4.40-5.60) 10*6/uL Hgb 8.5 L (13.0-17.0) g/dL Hct 29.1 L (39.6-50.0) % MCH 24.4 L (27.0-32.0) pg MCHC 29.2 L (32.0-37.0) g/dL MPV 8.9 L (9.5-12.2) fL Immature Gran # 0.23 H (0.00-0.04) 10*3/uL Neutrophils # (Manual) (1.3-7.7) k/uL Lymphocytes # (Manual) 136.41 H (1.0-4.8) k/uL Monocytes # (Manual) 2.90 H (0-1.0) k/uL Sodium 117 L* (137-145) mmol/L Chloride 86 L (98-107) mmol/L Carbon Dioxide 21 L (22-30) mmol/L BUN (9-20) mg/dL Creatinine 0.52 L (0.66-1.25) mg/dL Glucose 138 H (74-99) mg/dL Osmolality 257 L (275-295) mOsm/kg Albumin 3.2 L (3.5-5.0) g/dL Cortisol 48.3 H (3.1-22.4) UG/DL Ur Random Sodium (40-220) mmol/L 01/02/25 01/02/25 01/02/25 Range/Units 18:12 18:12 19:49 WBC 150.24 H* (4.50-10.00) 10*3/uL RBC 3.47 L (4.40-5.60) 10*6/uL Hgb 8.3 L (13.0-17.0) g/dL Hct 28.7 L (39.6-50.0) % MCH 23.9 L (27.0-32.0) pg MCHC 28.9 L (32.0-37.0) g/dL MPV 8.5 L (9.5-12.2) fL Immature Gran # 0.25 H (0.00-0.04) 10*3/uL Neutrophils # (Manual) 10.52 H (1.3-7.7) k/uL Lymphocytes # (Manual) 138.22 H (1.0-4.8) k/uL Monocytes # (Manual) 1.50 H (0-1.0) k/uL Sodium 116 L* (137-145) mmol/L Chloride 85 L (98-107) mmol/L Carbon Dioxide 21 L (22-30) mmol/L BUN (9-20) mg/dL Creatinine 0.47 L (0.66-1.25) mg/dL Glucose 138 H (74-99) mg/dL Osmolality (275-295) mOsm/kg Albumin (3.5-5.0) g/dL Cortisol (3.1-22.4) UG/DL Ur Random Sodium <20 L (40-220) mmol/L 01/02/25 01/03/25 01/03/25 Range/Units 20:54 01:19 06:38 WBC (4.50-10.00) 10*3/uL RBC (4.40-5.60) 10*6/uL Hgb (13.0-17.0) g/dL Hct (39.6-50.0) % MCH (27.0-32.0) pg MCHC (32.0-37.0) g/dL MPV (9.5-12.2) fL Immature Gran # (0.00-0.04) 10*3/uL Neutrophils # (Manual) (1.3-7.7) k/uL Lymphocytes # (Manual) (1.0-4.8) k/uL Monocytes # (Manual) (0-1.0) k/uL Sodium 117 L* 118 L* 120 L (137-145) mmol/L Chloride 88 L (98-107) mmol/L Carbon Dioxide (22-30) mmol/L BUN 22 H (9-20) mg/dL Creatinine 0.58 L (0.66-1.25) mg/dL Glucose 161 H (74-99) mg/dL Osmolality (275-295) mOsm/kg Albumin (3.5-5.0) g/dL Cortisol (3.1-22.4) UG/DL Ur Random Sodium (40-220) mmol/L 01/03/25 01/03/25 Range/Units 06:38 09:40 WBC 152.32 H* (4.50-10.00) 10*3/uL RBC 3.37 L (4.40-5.60) 10*6/uL Hgb 8.3 L (13.0-17.0) g/dL Hct 28.5 L (39.6-50.0) % MCH 24.6 L (27.0-32.0) pg MCHC 29.1 L (32.0-37.0) g/dL MPV 8.3 L (9.5-12.2) fL Immature Gran # 0.24 H (0.00-0.04) 10*3/uL Neutrophils # (Manual) 9.14 H (1.3-7.7) k/uL Lymphocytes # (Manual) 143.18 H (1.0-4.8) k/uL Monocytes # (Manual) (0-1.0) k/uL Sodium 119 L* (137-145) mmol/L Chloride (98-107) mmol/L Carbon Dioxide (22-30) mmol/L BUN (9-20) mg/dL Creatinine (0.66-1.25) mg/dL Glucose (74-99) mg/dL Osmolality (275-295) mOsm/kg Albumin (3.5-5.0) g/dL Cortisol (3.1-22.4) UG/DL Ur Random Sodium (40-220) mmol/L Chest x-ray: report reviewed Assessment and Plan (1) Stage II pressure ulcer of left buttock Current Visit: Yes Status: Acute Code(s): L89.322 - PRESSURE ULCER OF LEFT BUTTOCK, STAGE 2 SNOMED Code(s): 84971161729986 (2) Colon cancer Current Visit: Yes Status: Acute Priority: High Code(s): C18.9 - MALIGNANT NEOPLASM OF COLON, UNSPECIFIED SNOMED Code(s): 637841479 (3) Leukocytosis Current Visit: Yes Status: Acute Code(s): D72.829 - ELEVATED WHITE BLOOD CELL COUNT, UNSPECIFIED SNOMED Code(s): 604064710 (4) Pleural effusion Current Visit: Yes Status: Acute Code(s): J90 - PLEURAL EFFUSION, NOT ELSEWHERE CLASSIFIED SNOMED Code(s): 76747014 (5) CLL (chronic lymphocytic leukemia) Current Visit: Yes Status: Chronic Priority: Low Code(s): C91.10 - CHRONIC LYMPHOCYTIC LEUK OF B-CELL TYPE NOT ACHIEVE REMIS SNOMED Code(s): 88158142 (6) Hyponatremia Current Visit: Yes Status: Acute Priority: High Code(s): E87.1 - HYPO- OSMOLALITY AND HYPONATREMIA SNOMED Code(s): 39944120 Plan: Hyponatremia: Upon admit sodium is noted at 117. Serum osmolality 257. -Cortisol elevated at 48.7, however this was drawn in the afternoon. ACTH pending. -Concern for IO induced adrenal insufficiency. Solu-Medrol 60 mg q6 hours started. -Sodium improved to 120 today. Nephrology following, recommending continuing diuretics and fluid restrictions. -Continue to monitor sodium levels CLL, Metastatic colon cancer: -Oncology history as dictated in the HPI -Started dual immunotherapy with yervoy/opdivo on 12/09/2024, completing cycle 2 on 12/30/24. -There was also concern that his CLL has progressed due to worsening lymphocytosis over a short period of time. Flow cytometry was ordered at last visit, results still pending. Plan to start [place] once prior auth obtained. -WBC elevated at 152,000. Discussed case with admitting team, no noted blasts in differential. Will continue to monitor CBC, but no need for transfer for further intervention for leukaphresis, as there is not a concern for transformation into acute leukemia at this time -Immunotherapy on hold until acute condition resolved. Will schedule clinic f/u upon discharge to further discuss treatment options, possible retrial of IO, once steroids completed attests: I have performed H&P and developed impression and plan of care for patient, discussed with dictator. I agree with dictated note, documented as a scribe
[2025-01-04 05:42] LABS: Glucose,Whole Blood 216 mg/dL (70-110)
[2025-01-04 07:36] LABS: HCT 28.5 % (39.6-50.0); HGB 8.4 g/dL (13.0-17.0); MCH 25.0 pg (27.0-32.0); MCHC 29.5 g/dL (32.0-37.0); MCV 84.8 fL (80.0-97.0); Platelet Count 281 10*3/uL (140-440); RBC 3.36 10*6/uL (4.40-5.60); RDW 18.6 % (11.5-14.5)
[2025-01-04 07:45] LABS: WBC 142.63 10*3/uL (4.50-10.00)
[2025-01-04 08:11] LABS: African American GFR (CKD) >90 (>60 ml/min/1.73 sqM); Anion Gap 9 mmol/L; Blood Urea Nitrogen 34 mg/dL (9-20); Calcium 8.9 mg/dL (8.4-10.2); Carbon Dioxide 22 mmol/L (22-30); Chloride 90 mmol/L (98-107); Glucose 176 mg/dL (74-99); Magnesium 1.9 mg/dL (1.6-2.3); Non-African American GFR(CKD) >90 (>60 ml/min/1.73 sqM); Potassium 4.6 mmol/L (3.5-5.1); Sodium 121 mmol/L (137-145)
[2025-01-04 09:33] LABS: Lymphocytes # (M) 139.78 k/uL (1.0-4.8); Neutrophils # (M) 2.85 k/uL (1.3-7.7); Neutrophils % (M) 2 %; Total Cells Counted 100
--- NOTE | 2025-01-04 11:11 | US ---
EXAMINATION TYPE: US abdomen limited DATE OF EXAM: 01/04/2025 COMPARISON: CT 01/01/25 CLINICAL INDICATION: Male, 64 years old with history of ascites; Ascites check TECHNIQUE: Grayscale imaging of the abdomen for ascites. FINDINGS: Some ascites was seen in RLQ. Very small amount of ascites seen in LUQ and LLQ. IMPRESSION: Mild to moderate ascites in the right lower quadrant of the abdomen. [facility], Workstation: [facility], 01/04/2025 11:08 AM
[2025-01-04 11:18] LABS: Glucose,Whole Blood 200 mg/dL (70-110)
--- NOTE | 2025-01-04 11:22 | P.PN ---
Subjective Progress Note Date: 01/04/25 Principal diagnosis: Shortness of breath. This is a pleasant 64-year-old male patient with a known history of CML, former smoker, metastatic colon cancer to the lungs with recurrent pleural effusions on the right status post Pleurx catheter placed November 29, 2024. He was also noted to have a left pleural effusion and the plan was for thoracentesis January 08, 2025. He had seen his oncologist yesterday and had routine lab work drawn. He was later called and said to return port to the emergency room for low sodium level. He is seen today in consultation in the emergency department. He is currently sitting up in a chair. Awake and alert in no acute distress. Denies any wor sening shortness of breath, cough or congestion. Is maintaining good O2 saturations in the mid 90s on 3 L/min per nasal cannula. Has been afebrile. Hemodynamically stable. Chest x-ray reveals cardiomegaly, pulmonary vascular congestion and bilateral pleural effusions. EKG revealed sinus mechanism. Ultrasound of the chest revealed a 1.1 cm pocket on the right and a 10.6 cm pocket on the left. White count 152. Hemoglobin 8.3. Platelets 283. Sodium 120. Potassium 4.6. Bicarb 23. BUN 22. Creatinine 0.58. Glucose 161. Progress note dated January 04, 2025. 64-year-old male who was seen in the emergency department yesterday, in room 1. Please see the consultation above. He has a history of CML, previous tobacco use, metastatic colon cancer, and recurrent pleural effusion. The patient had a right-sided pleural effusion, treated with Pleurx catheter, November 29. The patient had a repeat chest x-ray and ultrasound which showed almost no fluid on the right, but a moderate to large left pleural effusion. I offered the patient thoracentesis which he refused. I also offered him a consultation with cardiothoracic surgery to consider Pleurx catheter placement on the left side. He refused that as well. He apparently was scheduled to have a thoracentesis with one of my partners, on Monday as an outpatient. He was also admitted with hyponatremia. Current labs include a white count of 142,000, hemoglobin 8.4, hematocrit 28.5, and a normal platelet count. Sodium 122, potassium 4.6, chlorides 90, CO2 22, BUN 34, creatinine 0.74. Glucose is 176. Calcium 8.9. Abdominal ultrasound showed mild to moderate ascites in the right lower quadrant of the abdomen. Objective - Vital Signs Vital signs: Vital Signs Temp 98.2 F 01/04/25 04:14 Pulse 117 H 01/04/25 04:14 Resp 24 01/04/25 04:14 BP 128/67 01/04/25 04:14 Pulse Ox 93 L 01/04/25 04:14 FiO2 Intake & Output 01/03/25 01/04/25 01/04/25 18:59 06:59 18:59 Intake Total 0 0 Output Total 950 300 Balance 0 -950 -300 Weight 102.512 kg Intake: Oral 0 0 Output: Urine 950 300 Other: Voiding Method Urinal Urinal # Voids 1 1 - Exam No acute distress, oriented 3. Currently on 4 L nasal cannula. No respiratory distress. Is sitting in bed. He is awake and alert. HEENT examination is grossly unremarkable. Mucous membranes are moist. No oral lesions. Neck supple. Full range of motion. No adenopathy thyromegaly or neck vein distention. Cardiovascular examination reveals regular rhythm rate. S1-S2 normal. No S3 or S4. No discernible murmur noted. Lungs reveal diminished breath sounds on the left. No adventitious lung sounds. The right lung is relatively clear. A Pleurx catheter is noted on the right side. Abdomen soft bowel sounds are heard. No masses or tenderness. Extremities reveal significant edema. Skin is without rash or lesion. Neurologic examination is brief but nonfocal. - Labs CBC & Chem 7: 01/04/25 06:09 01/04/25 09:36 Labs: Abnormal Lab Results - Last 24 Hours (Table) 01/02/25 01/03/25 01/03/25 Range/Units 15:36 13:06 18:04 WBC (4.50-10.00) 10*3/uL RBC (4.40-5.60) 10*6/uL Hgb (13.0-17.0) g/dL Hct (39.6-50.0) % MCH (27.0-32.0) pg MCHC (32.0-37.0) g/dL MPV (9.5-12.2) fL Immature Gran # (0.00-0.04) 10*3/uL Lymphocytes # (Manual) (1.0-4.8) k/uL Sodium 119 L* 120 L (137-145) mmol/L Chloride (98-107) mmol/L BUN (9-20) mg/dL Glucose (74-99) mg/dL POC Glucose (mg/dL) (70-110) mg/dL ACTH 164.00 H (0.00-45.99) pg/mL 01/03/25 01/03/25 01/04/25 Range/Units 20:13 21:17 01:18 WBC (4.50-10.00) 10*3/uL RBC (4.40-5.60) 10*6/uL Hgb (13.0-17.0) g/dL Hct (39.6-50.0) % MCH (27.0-32.0) pg MCHC (32.0-37.0) g/dL MPV (9.5-12.2) fL Immature Gran # (0.00-0.04) 10*3/uL Lymphocytes # (Manual) (1.0-4.8) k/uL Sodium 121 L 121 L (137-145) mmol/L Chloride (98-107) mmol/L BUN (9-20) mg/dL Glucose (74-99) mg/dL POC Glucose (mg/dL) 208 H (70-110) mg/dL ACTH (0.00-45.99) pg/mL 01/04/25 01/04/25 01/04/25 Range/Units 05:41 06:09 06:09 WBC 142.63 H* (4.50-10.00) 10*3/uL RBC 3.36 L (4.40-5.60) 10*6/uL Hgb 8.4 L (13.0-17.0) g/dL Hct 28.5 L (39.6-50.0) % MCH 25.0 L (27.0-32.0) pg MCHC 29.5 L (32.0-37.0) g/dL MPV 8.7 L (9.5-12.2) fL Immature Gran # 0.25 H (0.00-0.04) 10*3/uL Lymphocytes # (Manual) 139.78 H (1.0-4.8) k/uL Sodium 121 L (137-145) mmol/L Chloride 90 L (98-107) mmol/L BUN 34 H (9-20) mg/dL Glucose 176 H (74-99) mg/dL POC Glucose (mg/dL) 216 H (70-110) mg/dL ACTH (0.00-45.99) pg/mL 01/04/25 Range/Units 09:36 WBC (4.50-10.00) 10*3/uL RBC (4.40-5.60) 10*6/uL Hgb (13.0-17.0) g/dL Hct (39.6-50.0) % MCH (27.0-32.0) pg MCHC (32.0-37.0) g/dL MPV (9.5-12.2) fL Immature Gran # (0.00-0.04) 10*3/uL Lymphocytes # (Manual) (1.0-4.8) k/uL Sodium 122 L (137-145) mmol/L Chloride (98-107) mmol/L BUN (9-20) mg/dL Glucose (74-99) mg/dL POC Glucose (mg/dL) (70-110) mg/dL ACTH (0.00-45.99) pg/mL Assessment and Plan Assessment: Hyponatremia, suspect SIADH. Acute hypoxic respiratory failure secondary to bilateral pleural effusions left greater than right. Right sided Pleurx catheter noted. History of metastatic colon cancer to the lungs, currently on immunotherapy. Lower extremity edema. History of CLL. Former smoker. Plan: Plan dated January 04, 2025. The patient was seen in the emergency department yesterday, room 1. He presented with abnormal laboratory data including a low sodium. In addition, chest x-ray revealed a negligible right-sided pleural effusion, as well as a larger left-sided pleural effusion. The patient had a previous right-sided Pleurx catheter placed by cardiothoracic surgery. I offer the patient a thoracentesis on the left side, but he refused. I also offered the patient consultation with cardiothoracic surgery for consideration of Pleurx catheter placement on the left side. He refused that as well. He apparently was scheduled to have a thoracentesis by one of my partners on Monday. Labs, x- rays, medications are reviewed. We will continue to follow patient, make r ecommendations. Prognosis is guarded. Dictation was produced using [employer] software. Please excuse any grammatical, word or spelling errors. Time with Patient: Less than 30
[2025-01-04] MEDS ORDERED: DEXTROSE 50% SYRINGE 50 ML IVP PRN ×2 (12:10)
--- NOTE | 2025-01-04 12:23 | P.PN ---
Subjective Progress Note Date: 01/04/25 Patient seen in follow-up for hyponatremia. Sodium level mildly improved. Edema improving with Lasix per patient and family. No new complaints. Patient is awake, comfortable, no acute distress Examination of the heart S1 and S2 Examination of the lungs bilateral breath sounds are heard with basal crackles Abdomen is soft obese nontender Examination of lower extremity shows edema 3+ bilaterally Objective - Vital Signs Vital signs: Vital Signs Temp 97.9 F 01/04/25 08:42 Pulse 111 H 01/04/25 08:42 Resp 24 01/04/25 08:42 BP 128/76 01/04/25 08:42 Pulse Ox 96 01/04/25 08:42 FiO2 Intake & Output 01/03/25 01/04/25 01/04/25 18:59 06:59 18:59 Intake Total 0 10 Output Total 950 300 Balance 0 -950 -290 Weight 102.512 kg Intake: IV 10 Invasive Line 1 10 Oral 0 0 Output: Urine 950 300 Other: Voiding Method Urinal Urinal Urinal # Voids 1 1 - Labs CBC & Chem 7: 01/04/25 06:09 01/04/25 09:36 Labs: Abnormal Lab Results - Last 24 Hours (Table) 01/02/25 01/03/25 01/03/25 Range/Units 15:36 13:06 18:04 WBC (4.50-10.00) 10*3/uL RBC (4.40-5.60) 10*6/uL Hgb (13.0-17.0) g/dL Hct (39.6-50.0) % MCH (27.0-32.0) pg MCHC (32.0-37.0) g/dL MPV (9.5-12.2) fL Immature Gran # (0.00-0.04) 10*3/uL Lymphocytes # (Manual) (1.0-4.8) k/uL Sodium 119 L* 120 L (137-145) mmol/L Chloride (98-107) mmol/L BUN (9-20) mg/dL Glucose (74-99) mg/dL POC Glucose (mg/dL) (70-110) mg/dL ACTH 164.00 H (0.00-45.99) pg/mL 01/03/25 01/03/25 01/04/25 Range/Units 20:13 21:17 01:18 WBC (4.50-10.00) 10*3/uL RBC (4.40-5.60) 10*6/uL Hgb (13.0-17.0) g/dL Hct (39.6-50.0) % MCH (27.0-32.0) pg MCHC (32.0-37.0) g/dL MPV (9.5-12.2) fL Immature Gran # (0.00-0.04) 10*3/uL Lymphocytes # (Manual) (1.0-4.8) k/uL Sodium 121 L 121 L (137-145) mmol/L Chloride (98-107) mmol/L BUN (9-20) mg/dL Glucose (74-99) mg/dL POC Glucose (mg/dL) 208 H (70-110) mg/dL ACTH (0.00-45.99) pg/mL 01/04/25 01/04/25 01/04/25 Range/Units 05:41 06:09 06:09 WBC 142.63 H* (4.50-10.00) 10*3/uL RBC 3.36 L (4.40-5.60) 10*6/uL Hgb 8.4 L (13.0-17.0) g/dL Hct 28.5 L (39.6-50.0) % MCH 25.0 L (27.0-32.0) pg MCHC 29.5 L (32.0-37.0) g/dL MPV 8.7 L (9.5-12.2) fL Immature Gran # 0.25 H (0.00-0.04) 10*3/uL Lymphocytes # (Manual) 139.78 H (1.0-4.8) k/uL Sodium 121 L (137-145) mmol/L Chloride 90 L (98-107) mmol/L BUN 34 H (9-20) mg/dL Glucose 176 H (74-99) mg/dL POC Glucose (mg/dL) 216 H (70-110) mg/dL ACTH (0.00-45.99) pg/mL 01/04/25 01/04/25 Range/Units 09:36 11:16 WBC (4.50-10.00) 10*3/uL RBC (4.40-5.60) 10*6/uL Hgb (13.0-17.0) g/dL Hct (39.6-50.0) % MCH (27.0-32.0) pg MCHC (32.0-37.0) g/dL MPV (9.5-12.2) fL Immature Gran # (0.00-0.04) 10*3/uL Lymphocytes # (Manual) (1.0-4.8) k/uL Sodium 122 L (137-145) mmol/L Chloride (98-107) mmol/L BUN (9-20) mg/dL Glucose (74-99) mg/dL POC Glucose (mg/dL) 200 H (70-110) mg/dL ACTH (0.00-45.99) pg/mL Assessment and Plan Assessment: 1. Hypervolemic hyponatremia, on IV diuresis. Presented with Na 117, now 122 this morning 2. Metastatic colon cancer with mets to the lungs with recurrent right pleural effusion, currently with right Pleurx catheter 3. Volume overload 4. Recurrent right pleural effusion due to metastatic colon cancer Plan: Continue IV diuresis Salt and fluid restriction Repeat labs in a.m.
[2025-01-04] MEDS: INSULIN LISPRO (HumaLOG) 100 UNIT/ML 10 mL VL SQ SCH (12:37)
--- NOTE | 2025-01-04 13:12 | P.PN ---
Subjective Progress Note Date: 01/04/25 Hospital Course: This patient is a 64-year-old man with history of colon cancer that is metastatic to the lungs, who is here after he received a call from his oncologist that his sodium is low. 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 The patient states that he has been having trouble with bilateral leg edema, exertional dyspnea, xray evident for bilateral pleural effusions. Diuresis with lasix and fluid restriction initiated. There is a Pleurx catheter in the right chest that he has been using to drain the effusion on the right. Patient says breathing has become worse over the past couple weeks and has needed 4 L of nasal cannula in ER on admission, 98% on 4l. Patient sodium admission was 117, still at 119 today. White blood cell count at 145-152 due to past medical history of CLL. Patient still in hypervolemic hyponatermic overload, continuing to trend. Subjective: Patient seen and examined at bedside. No acute events overnight. Patient notes his shortness of breath has not improved and is worse with activity. He also endorses decreased appetite and notes he has been drinking protein drinks (ensure) but has not eaten food for a long time. He denies chest pain, fevers, chills, abdominal pain. Spoke with patient regarding thoracentesis, at this time he still continues to decline however is aware that this procedure may help improve his shortness of breath. Patient states he will think about getting the procedure and plan to reevaluate tomorrow. Pertinent positives and negatives as discussed above, a complete review of systems was performed and all other systems are negative. Vitals: Signs Reviewed Physical Exam: General: nontoxic, no distress, appears at stated age Derm: warm, dry, intact Head: atraumatic, normocephalic, symmetric Eyes: EOMI, anicteric sclera Mouth: no lip lesion, mucus membranes moist Cardiovascular: S1 S2 reg, no murmur, rubs, or gallops Lungs: Decreased breath sound in left lower lobe, no rhonchi, no rales, no accessory muscle use Abdominal: soft, non-tender to palpation, distended, no appreciable organomegaly Extremities: no gross muscle atrophy, 2+ pitting edema bilaterally Neuro: Alert, Oriented, CNII-XII grossly intact, gait normal Psych: well appearing, appropriate affect Data Received Today: Pertinent Labs: WBC 142.6, hemoglobin 8.4, platelets 281, corrected sodium 123, BUN 34, creatinine 0.74, blood glucose ranging from 160-200s Imaging: Echo shows EF of 50 to 60%, small pericardial effusion/thickened posterior lateral pericardium. Abdominal ultrasound -mild to moderate ascites in the right lower quadrant Assessment and Plan: Acute hypoxic respiratory failure due to malignant recurrent pleural effusion Right Pleurx catheter -Pulmonology consulted, patient has declined thoracentesis at this time. Will continue to follow, recs appreciated - Continue IV Solu-Medrol 60 g every 6 hours Hypervolemic hyponatremia -Continue IV Lasix 40 mg every 8 hours -Strict I's and O's -Patient has agreed to catheter today -Continue fluid restriction to 1.5 L/day -Nephrology consulted, recs appreciated -Continue every 4 hours sodium checks Leukocytosis in setting of CLL -Oncology consulted, plan to start Calquence once authorized, no need for transfer for further intervention of Leukaphresis as there is not a concern for transformation into acute leukemia at this time. Immunotherapy on hold and will schedule clinic follow-up on discharge. Iron deficiency anemia with no signs of active bleeding -Continue to monitor -If hemoglobin < 7 will transfuse Sacral decubitus ulcer -Wound care consulted, recs appreciated DVT ppx: Lovenox Code status: Full code Anticipated discharge place: Pending clinical course Anticipated discharge time: Pending clinical course Alvaro Belcher DO PGY-1 IM Dictation was produced using [employer] dictation software. please excuse any grammatical, word or spelling errors. I saw and evaluated the patient during the solorzano and critical portions of this encounter, and discussed the case in detail with the resident author of this note, I agree with the Assessment and Plan, and my changes, if any, are highlighted in blue. Objective - Vital Signs Vital signs: Vital Signs Temp 97.9 F 01/04/25 08:42 Pulse 111 H 01/04/25 08:42 Resp 24 01/04/25 08:42 BP 128/76 01/04/25 08:42 Pulse Ox 96 01/04/25 08:42 FiO2 Intake & Output 01/03/25 01/04/25 01/04/25 18:59 06:59 18:59 Intake Total 0 10 Output Total 950 300 Balance 0 -950 -290 Weight 102.512 kg Intake: IV 10 Invasive Line 1 10 Oral 0 0 Output: Urine 950 300 Other: Voiding Method Urinal Urinal Urinal # Voids 1 1 - Labs CBC & Chem 7: 01/04/25 06:09 01/04/25 09:36 Labs: Abnormal Lab Results - Last 24 Hours (Table) 01/02/25 01/03/25 01/03/25 Range/Units 15:36 13:06 18:04 WBC (4.50-10.00) 10*3/uL RBC (4.40-5.60) 10*6/uL Hgb (13.0-17.0) g/dL Hct (39.6-50.0) % MCH (27.0-32.0) pg MCHC (32.0-37.0) g/dL MPV (9.5-12.2) fL Immature Gran # (0.00-0.04) 10*3/uL Lymphocytes # (Manual) (1.0-4.8) k/uL Sodium 119 L* 120 L (137-145) mmol/L Chloride (98-107) mmol/L BUN (9-20) mg/dL Glucose (74-99) mg/dL POC Glucose (mg/dL) (70-110) mg/dL ACTH 164.00 H (0.00-45.99) pg/mL 01/03/25 01/03/25 01/04/25 Range/Units 20:13 21:17 01:18 WBC (4.50-10.00) 10*3/uL RBC (4.40-5.60) 10*6/uL Hgb (13.0-17.0) g/dL Hct (39.6-50.0) % MCH (27.0-32.0) pg MCHC (32.0-37.0) g/dL MPV (9.5-12.2) fL Immature Gran # (0.00-0.04) 10*3/uL Lymphocytes # (Manual) (1.0-4.8) k/uL Sodium 121 L 121 L (137-145) mmol/L Chloride (98-107) mmol/L BUN (9-20) mg/dL Glucose (74-99) mg/dL POC Glucose (mg/dL) 208 H (70-110) mg/dL ACTH (0.00-45.99) pg/mL 01/04/25 01/04/25 01/04/25 Range/Units 05:41 06:09 06:09 WBC 142.63 H* (4.50-10.00) 10*3/uL RBC 3.36 L (4.40-5.60) 10*6/uL Hgb 8.4 L (13.0-17.0) g/dL Hct 28.5 L (39.6-50.0) % MCH 25.0 L (27.0-32.0) pg MCHC 29.5 L (32.0-37.0) g/dL MPV 8.7 L (9.5-12.2) fL Immature Gran # 0.25 H (0.00-0.04) 10*3/uL Lymphocytes # (Manual) 139.78 H (1.0-4.8) k/uL Sodium 121 L (137-145) mmol/L Chloride 90 L (98-107) mmol/L BUN 34 H (9-20) mg/dL Glucose 176 H (74-99) mg/dL POC Glucose (mg/dL) 216 H (70-110) mg/dL ACTH (0.00-45.99) pg/mL 01/04/25 01/04/25 Range/Units 09:36 11:16 WBC (4.50-10.00) 10*3/uL RBC (4.40-5.60) 10*6/uL Hgb (13.0-17.0) g/dL Hct (39.6-50.0) % MCH (27.0-32.0) pg MCHC (32.0-37.0) g/dL MPV (9.5-12.2) fL Immature Gran # (0.00-0.04) 10*3/uL Lymphocytes # (Manual) (1.0-4.8) k/uL Sodium 122 L (137-145) mmol/L Chloride (98-107) mmol/L BUN (9-20) mg/dL Glucose (74-99) mg/dL POC Glucose (mg/dL) 200 H (70-110) mg/dL ACTH (0.00-45.99) pg/mL
[2025-01-04] MEDS: ENOXAPARIN 40 MG/0.4 ML SYRINGE SQ SCH (14:18)
[2025-01-04 16:23] LABS: Glucose,Whole Blood 199 mg/dL (70-110)
[2025-01-04 19:55] LABS: Glucose,Whole Blood 170 mg/dL (70-110)
[2025-01-05 06:14] LABS: Glucose,Whole Blood 201 mg/dL (70-110)
[2025-01-05 07:39] LABS: HCT 29.4 % (39.6-50.0); HGB 8.3 g/dL (13.0-17.0); MCH 24.3 pg (27.0-32.0); MCHC 28.2 g/dL (32.0-37.0); MCV 86.0 fL (80.0-97.0); Platelet Count 250 10*3/uL (140-440); RBC 3.42 10*6/uL (4.40-5.60); RDW 18.9 % (11.5-14.5)
[2025-01-05 07:52] LABS: WBC 153.71 10*3/uL (4.50-10.00)
[2025-01-05 07:59] LABS: African American GFR (CKD) >90 (>60 ml/min/1.73 sqM); Anion Gap 7 mmol/L; Blood Urea Nitrogen 36 mg/dL (9-20); Calcium 8.6 mg/dL (8.4-10.2); Carbon Dioxide 29 mmol/L (22-30); Chloride 91 mmol/L (98-107); Glucose 171 mg/dL (74-99); Non-African American GFR(CKD) >90 (>60 ml/min/1.73 sqM); Potassium 4.6 mmol/L (3.5-5.1); Sodium 127 mmol/L (137-145)
[2025-01-05 10:10] LABS: Lymphocytes # (M) 147.56 k/uL (1.0-4.8); Neutrophils # (M) 6.15 k/uL (1.3-7.7); Neutrophils % (M) 4 %; Total Cells Counted 100
--- NOTE | 2025-01-05 11:38 | P.PN ---
Subjective Progress Note Date: 01/05/25 This is a pleasant 64-year-old male patient with a known history of CML, former smoker, metastatic colon cancer to the lungs with recurrent pleural effusions on the right status post Pleurx catheter placed November 29, 2024. He was also noted to have a left pleural effusion and the plan was for thoracentesis January 08, 2025. He had seen his oncologist yesterday and had routine lab work drawn. He was later called and said to return port to the emergency room for low sodium level. He is seen today in consultation in the emergency department. He is currently sitting up in a chair. Awake and alert in no acute distress. Denies any worsening shortness of breath, cough or congestion. Is maintaining good O2 saturations in the mid 90s on 3 L/min per nasal cannula. Has been afebrile. Hemodynamically stable. Chest x-ray reveals cardiomegaly, pulmonary vascular congestion and bilateral pleural effusions. EKG revealed sinus mechanism. Ultrasound of the chest revealed a 1.1 cm pocket on the right and a 10.6 cm pocket on the left. White count 152. Hemoglobin 8.3. Platelets 283. Sodium 120. Potassium 4.6. Bicarb 23. BUN 22. Creatinine 0.58. Glucose 161. Progress note dated January 04, 2025. 64-year-old male who was seen in the emergency department yesterday, in room 1. Please see the consultation above. He has a history of CML, previous tobacco use, metastatic colon cancer, and recurrent pleural effusion. The patient had a right-sided pleural effusion, treated with Pleurx catheter, November 29. The patient had a repeat chest x-ray and ultrasound which showed almost no fluid on the right, but a moderate to large left pleural effusion. I offered the patient thoracentesis which he refused. I also offered him a consultation with cardiothoracic surgery to consider Pleurx catheter placement on the left side. He refused that as well. He apparently was scheduled to have a thoracentesis with one of my partners, on Monday as an outpatient. He was also admitted with hyponatremia. Current labs include a white count of 142,000, hemoglobin 8.4, hematocrit 28.5, and a normal platelet count. Sodium 122, potassium 4.6, chlorides 90, CO2 22, BUN 34, creatinine 0.74. Glucose is 176. Calcium 8.9. Abdominal ultrasound showed mild to moderate ascites in the right lower quadrant of the abdomen. The patient is seen today January 05, 2025 in follow-up on the selective care unit. He is currently sitting up in a chair at the bedside. Awake and alert in no acute distress. He is maintaining O2 saturations in the 90s on 4 L/min per nasal cannula. No IV fluids. Abdominal ultrasound revealed mild to moderate ascites in the right lower quadrant of the abdomen. Echocardiogram revealed preserved left ventricular systolic function. Small pericardial effusion/thickened posterior lateral pericardium. White count 154. Hemoglobin 8.3. Platelets 250. Sodium 127. Potassium 4.6. Bicarb 29. BUN 36. Creatinine 0.57. Glucose 171. He remains on Lasix 40 mg IV every 8 hours. Continued on Solu-Medrol. Lovenox for DVT prophylaxis. He is currently in a - 2.8 L balance. Objective - Vital Signs Vital signs: Vital Signs Temp 98.4 F 01/05/25 09:54 Pulse 119 H 01/05/25 09:54 Resp 18 01/05/25 09:54 BP 119/72 01/05/25 09:54 Pulse Ox 95 01/05/25 09:54 FiO2 Intake & Output 01/04/25 01/05/25 01/05/25 18:59 06:59 18:59 Intake Total 10 540 128 Output Total 2049 1350 1100 Balance -0 -810 -972 Weight 102.512 kg 102 kg Intake: IV 10 10 Invasive Line 1 10 10 Oral 0 540 118 Output: Urine 2049 135 1100 Other: Voiding Method Indwelling Catheter Indwelling Catheter Indwelling Catheter # Voids 1 - Exam GENERAL EXAM: Alert, 64-year-old male, sitting up in a chair, on 4 L nasal cannula, fairly comfortable in no apparent distress. HEAD: Normocephalic. EYES: Normal reaction of pupils, equal size. NOSE: Clear with pink turbinates. THROAT: No erythema or exudates. NECK: No masses, no JVD. CHEST: No chest wall deformity. LUNGS: Equal air entry with crackles in the posterior bases left greater than right. CVS: S1 and S2 normal with no audible murmur, regular rhythm. ABDOMEN: No hepatosplenomegaly, normal bowel sounds, no guarding or rigidity. SPINE: No scoliosis or deformity SKIN: No rashes CENTRAL NERVOUS SYSTEM: No focal deficits, tone is normal in all 4 extremities. EXTREMITIES: There is 1+ peripheral edema. No clubbing, no cyanosis. Peripheral pulses are intact. - Labs CBC & Chem 7: 01/05/25 07:10 01/05/25 10:05 Labs: Abnormal Lab Results - Last 24 Hours (Table) 01/04/25 01/04/25 01/04/25 Range/Units 14:10 16:21 18:14 WBC (4.50-10.00) 10*3/uL RBC (4.40-5.60) 10*6/uL Hgb (13.0-17.0) g/dL Hct (39.6-50.0) % MCH (27.0-32.0) pg MCHC (32.0-37.0) g/dL MPV (9.5-12.2) fL Immature Gran # (0.00-0.04) 10*3/uL Lymphocytes # (Manual) (1.0-4.8) k/uL Sodium 123 L 124 L (137-145) mmol/L Chloride (98-107) mmol/L BUN (9-20) mg/dL Creatinine (0.66-1.25) mg/dL Glucose (74-99) mg/dL POC Glucose (mg/dL) 199 H (70-110) mg/dL 01/04/25 01/04/25 01/05/25 Range/Units 19:54 22:34 02:25 WBC (4.50-10.00) 10*3/uL RBC (4.40-5.60) 10*6/uL Hgb (13.0-17.0) g/dL Hct (39.6-50.0) % MCH (27.0-32.0) pg MCHC (32.0-37.0) g/dL MPV (9.5-12.2) fL Immature Gran # (0.00-0.04) 10*3/uL Lymphocytes # (Manual) (1.0-4.8) k/uL Sodium 125 L 126 L (137-145) mmol/L Chloride (98-107) mmol/L BUN (9-20) mg/dL Creatinine (0.66-1.25) mg/dL Glucose (74-99) mg/dL POC Glucose (mg/dL) 170 H (70-110) mg/dL 01/05/25 01/05/25 01/05/25 Range/Units 06:13 07:10 07:10 WBC 153.71 H* (4.50-10.00) 10*3/uL RBC 3.42 L (4.40-5.60) 10*6/uL Hgb 8.3 L (13.0-17.0) g/dL Hct 29.4 L (39.6-50.0) % MCH 24.3 L (27.0-32.0) pg MCHC 28.2 L (32.0-37.0) g/dL MPV 8.2 L (9.5-12.2) fL Immature Gran # 0.30 H (0.00-0.04) 10*3/uL Lymphocytes # (Manual) 147.56 H (1.0-4.8) k/uL Sodium 127 L (137-145) mmol/L Chloride (98-107) mmol/L BUN (9-20) mg/dL Creatinine (0.66-1.25) mg/dL Glucose (74-99) mg/dL POC Glucose (mg/dL) 201 H (70-110) mg/dL 01/05/25 01/05/25 Range/Units 07:10 10:05 WBC (4.50-10.00) 10*3/uL RBC (4.40-5.60) 10*6/uL Hgb (13.0-17.0) g/dL Hct (39.6-50.0) % MCH (27.0-32.0) pg MCHC (32.0-37.0) g/dL MPV (9.5-12.2) fL Immature Gran # (0.00-0.04) 10*3/uL Lymphocytes # (Manual) (1.0-4.8) k/uL Sodium 127 L 127 L (137-145) mmol/L Chloride 91 L (98-107) mmol/L BUN 36 H (9-20) mg/dL Creatinine 0.57 L (0.66-1.25) mg/dL Glucose 171 H (74-99) mg/dL POC Glucose (mg/dL) (70-110) mg/dL Assessment and Plan Assessment: 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 Right sided Pleurx catheter remains in place History of metastatic colon cancer to the lungs currently on immunotherapy Lower extremity edema History of CLL Former smoker Plan: The patient was seen and evaluated Labs and medications reviewed Ultrasound of the abdomen reviewed Echocardiogram reviewed Ultrasound of the chest reviewed Offered to perform a thoracentesis He prefers to wait until his scheduled date 01/08/2025 for the thoracentesis on the left We also offered the patient cardiothoracic consult for possible Pleurx catheter on the left, patient declines Currently stable and on 4 L nasal cannula Continue IV Lasix 40 milligrams IV acute 8 hours Remains in a negative balance We will continue to follow I have personally seen and examined the patient, performed the documentation and the assessment and plan as written. Number of minutes spent on the visit: 10 Dictation was produced using [employer] dictation software. Please excuse any grammatical, word or spelling errors.
[2025-01-05 12:06] LABS: Glucose,Whole Blood 181 mg/dL (70-110)
--- NOTE | 2025-01-05 12:32 | P.PN ---
Subjective Progress Note Date: 01/05/25 Patient seen in follow-up for hyponatremia. Sodium level mildly improved. Edema improving, no new complaints. Patient is awake, comfortable, no acute distress Examination of the heart S1 and S2 Examination of the lungs bilateral breath sounds are heard with basal crackles Abdomen is soft obese nontender Examination of lower extremity shows edema 3+ bilaterally Objective - Vital Signs Vital signs: Vital Signs Temp 98.4 F 01/05/25 09:54 Pulse 119 H 01/05/25 09:54 Resp 18 01/05/25 09:54 BP 119/72 01/05/25 09:54 Pulse Ox 95 01/05/25 09:54 FiO2 Intake & Output 01/04/25 01/05/25 01/05/25 18:59 06:59 18:59 Intake Total 10 540 128 Output Total 0 1350 1100 Balance -0 -810 -972 Weight 102.512 kg 102 kg Intake: IV 10 10 Invasive Line 1 10 10 Oral 0 540 118 Output: Urine 2049 1350 1100 Other: Voiding Method Indwelling Catheter Indwelling Catheter Indwelling Catheter # Voids 1 - Labs CBC & Chem 7: 01/05/25 07:10 01/05/25 10:05 Labs: Abnormal Lab Results - Last 24 Hours (Table) 01/04/25 01/04/25 01/04/25 Range/Units 11:16 14:10 16:21 WBC (4.50-10.00) 10*3/uL RBC (4.40-5.60) 10*6/uL Hgb (13.0-17.0) g/dL Hct (39.6-50.0) % MCH (27.0-32.0) pg MCHC (32.0-37.0) g/dL MPV (9.5-12.2) fL Immature Gran # (0.00-0.04) 10*3/uL Lymphocytes # (Manual) (1.0-4.8) k/uL Sodium 123 L (137-145) mmol/L Chloride (98-107) mmol/L BUN (9-20) mg/dL Creatinine (0.66-1.25) mg/dL Glucose (74-99) mg/dL POC Glucose (mg/dL) 200 H 199 H (70-110) mg/dL 01/04/25 01/04/2501/04/25 Range/Units 18:14 19:54 22:34 WBC (4.50-10.00) 10*3/uL RBC (4.40-5.60) 10*6/uL Hgb (13.0-17.0) g/dL Hct (39.6-50.0) % MCH (27.0-32.0) pg MCHC (32.0-37.0) g/dL MPV (9.5-12.2) fL Immature Gran # (0.00-0.04) 10*3/uL Lymphocytes # (Manual) (1.0-4.8) k/uL Sodium 124 L 125 L (137-145) mmol/L Chloride (98-107) mmol/L BUN (9-20) mg/dL Creatinine (0.66-1.25) mg/dL Glucose (74-99) mg/dL POC Glucose (mg/dL) 170 H (70-110) mg/dL 01/05/25 01/05/25 01/05/25 Range/Units 02:25 06:13 07:10 WBC (4.50-10.00) 10*3/uL RBC (4.40-5.60) 10*6/uL Hgb (13.0-17.0) g/dL Hct (39.6-50.0) % MCH (27.0-32.0) pg MCHC (32.0-37.0) g/dL MPV (9.5-12.2) fL Immature Gran # (0.00-0.04) 10*3/uL Lymphocytes # (Manual) (1.0-4.8) k/uL Sodium 126 L 127 L (137-145) mmol/L Chloride (98-107) mmol/L BUN (9-20) mg/dL Creatinine (0.66-1.25) mg/dL Glucose (74-99) mg/dL POC Glucose (mg/dL) 201 H (70-110) mg/dL 01/05/25 01/05/25 Range/Units 07:10 07:10 WBC 153.71 H* (4.50-10.00) 10*3/uL RBC 3.42 L (4.40-5.60) 10*6/uL Hgb 8.3 L (13.0-17.0) g/dL Hct 29.4 L (39.6-50.0) % MCH 24.3 L (27.0-32.0) pg MCHC 28.2 L (32.0-37.0) g/dL MPV 8.2 L (9.5-12.2) fL Immature Gran # 0.30 H (0.00-0.04) 10*3/uL Lymphocytes # (Manual) 147.56 H (1.0-4.8) k/uL Sodium 127 L (137-145) mmol/L Chloride 91 L (98-107) mmol/L BUN 36 H (9-20) mg/dL Creatinine 0.57 L (0.66-1.25) mg/dL Glucose 171 H (74-99) mg/dL POC Glucose (mg/dL) (70-110) mg/dL Assessment and Plan Assessment: 1. Hypervolemic hyponatremia, on IV diuresis. Presented with Na 117, now 127 this morning 2. Metastatic colon cancer with mets to the lungs with recurrent right pleural effusion, currently with right Pleurx catheter 3. Volume overload 4. Recurrent right pleural effusion due to metastatic colon cancer Plan: Continue IV diuresis Salt and fluid restriction Repeat labs in a.m.
--- NOTE | 2025-01-05 12:33 | P.PN ---
Subjective Progress Note Date: 01/05/25 Hospital Course: 64-year-old man with history of colon cancer that is metastatic to the lungs, who is here after he received a call from his oncologist that his sodium is low. The patient states that he has been having trouble with bilateral leg edema, exertional dyspnea, xray evident for bilateral pleural effusions. U/S showing mild to moderate asictes in RLQ of abdomen. ECHO impression shows EF of 55-60% with small pericardial effusion. Diuresis with lasix and fluid restriction initiated. There is a Pleurx catheter in the right chest that he has been using to drain the effusion on the right. Patient says breathing has become worse over the past couple weeks and has needed 4 L of nasal cannula in ER on admission, 98% on 4l. Patient sodium is improving, 125 > 126, admission was 117. White blood cell count at 142-152 due to past medical history of CLL. Patient still in hypervolemic hyponatermic overload, continuing to trend with diuresis. Patient agreed to indwelling catheter. Patient has agreed for throcaentesis at his upcoming appointment 01/08. Patient has agreed to for placing Pluerx catheter on left side. Pulm consulted. Subjective: Patient seen and examined at bedside. No acute events overnight. Patient states he is still having trouble breathing. Pertinent positives and negatives as discussed above, a complete review of systems was performed and all other systems are negative. Vitals: Signs Reviewed Physical Exam: General: nontoxic, no distress, appears at stated age Derm: warm, dry, intact Head: atraumatic, normocephalic, symmetric Eyes: EOMI, anicteric sclera Mouth: no lip lesion, mucus membranes moist Cardiovascular: S1 S2 reg, no murmur, rubs, or gallops Lungs: Decreased breath sound in left lower lobe, no rhonchi, no rales, no accessory muscle use Abdominal: soft, non-tender to palpation, distended, no appreciable organomegaly Extremities: no gross muscle atrophy, 2+ pitting edema bilaterally Neuro: Alert, Oriented, CNII-XII grossly intact, gait normal Psych: well appearing, appropriate affect Data Received Today: Pertinent Labs: Na 126 > 127 > 127 WBC: 142 > 153 Hgb: 8.4 > 8.3 PLTS: 281 > 250 BUN: 34 > 36 Cr: 0.74 0.57 B -200 I/O: Indwelling catheter - input 128 - output 1100 (-972) Imaging: Ab U/S: mild to moderate ascites in right lower quad ECHO: Ef 55-60% - small pericardial effusion / thickened posterior lateral pericardium / mildly increased septal wall thickness Assessment and Plan: Assessment and Plan: Acute hypoxic respiratory failure due to malignant recurrent pleural effusion - 95% 4L NC - Right Pleurx catheter - pt has agreed for left side - Pulmonology consulted. - Patient agrees to today to thoracentesis at his appointment 01/08 - Continue IV Solu-Medrol 60 g every 6 hour Hypervolemic hyponatremia -Continue IV Lasix 40 mg every 8 hours -Strict I's and O's -Indwelling catheter -Continue fluid restriction to 1.5 L/day -Nephrology consulted -Continue every 4 hours sodium checks Leukocytosis in setting of CLL -Oncology consulted, plan to start Calquence once authorized, no need for transfer for further intervention of Leukaphresis as there is not a concern for transformation into acute leukemia at this time. Immunotherapy on hold and will schedule clinic follow-up on discharge. Iron deficiency anemia with no signs of active bleeding -Continue to monitor -If hemoglobin < 7 will transfuse Sacral decubitus ulcer -Wound care consulted, recs appreciated DVT ppx: Lovenox Code status: Full code Anticipated discharge place: pending clinical Course Anticipated discharge time: Pending clinical course Eddie Hoskins MD PGY-1 FM Dictation was produced using [employer] dictation software. please excuse any grammatical, word or spelling errors. I saw and evaluated the patient during the solorzano and critical portions of this encounter, and discussed the case in detail with the resident author of this note, I agree with the Assessment and Plan, and my changes, if any, are highlighted in blue. Objective - Vital Signs Vital signs: Vital Signs Temp 97.6 F 01/05/25 03:37 Pulse 113 H 01/05/25 03:37 Resp 20 01/05/25 03:37 BP 124/71 01/05/25 03:37 Pulse Ox 95 01/05/25 03:37 FiO2 Intake & Output 01/04/25 01/05/25 01/05/25 18:59 06:59 18:59 Intake Total 10 540 Output Total 0 1350 500 Balance -2039 -810 -500 Weight 102.512 kg 102 kg Intake: IV 10 Invasive Line 1 10 Oral 0 540 Output: Urine 2049 1349 500 Other: Voiding Method Indwelling Catheter Indwelling Catheter # Voids 1 - Labs CBC & Chem 7: 01/05/25 07:10 01/05/25 10:05 Labs: Abnormal Lab Results - Last 24 Hours (Table) 01/04/25 01/04/25 01/04/25 Range/Units 06:09 06:09 09:36 WBC 142.63 H* (4.50-10.00) 10*3/uL RBC 3.36 L (4.40-5.60) 10*6/uL Hgb 8.4 L (13.0-17.0) g/dL Hct 28.5 L (39.6-50.0) % MCH 25.0 L (27.0-32.0) pg MCHC 29.5 L (32.0-37.0) g/dL MPV 8.7 L (9.5-12.2) fL Immature Gran # 0.25 H (0.00-0.04) 10*3/uL Lymphocytes # (Manual) 139.78 H (1.0-4.8) k/uL Sodium 121 L 122 L (137-145) mmol/L Chloride 90 L (98-107) mmol/L BUN 34 H (9-20) mg/dL Glucose 176 H (74-99) mg/dL POC Glucose (mg/dL) (70-110) mg/dL 01/04/25 01/04/25 01/04/25 Range/Units 11:16 14:10 16:21 WBC (4.50-10.00) 10*3/uL RBC (4.40-5.60) 10*6/uL Hgb (13.0-17.0) g/dL Hct (39.6-50.0) % MCH (27.0-32.0) pg MCHC (32.0-37.0) g/dL MPV (9.5-12.2) fL Immature Gran # (0.00-0.04) 10*3/uL Lymphocytes # (Manual) (1.0-4.8) k/uL Sodium 123 L (137-145) mmol/L Chloride (98-107) mmol/L BUN (9-20) mg/dL Glucose (74-99) mg/dL POC Glucose (mg/dL) 200 H 199 H (70-110) mg/dL 01/04/25 01/04/25 01/04/25 Range/Units 18:14 19:54 22:34 WBC (4.50-10.00) 10*3/uL RBC (4.40-5.60) 10*6/uL Hgb (13.0-17.0) g/dL Hct (39.6-50.0) % MCH (27.0-32.0) pg MCHC (32.0-37.0) g/dL MPV (9.5-12.2) fL Immature Gran # (0.00-0.04) 10*3/uL Lymphocytes # (Manual) (1.0-4.8) k/uL Sodium 124 L 125 L (137-145) mmol/L Chloride (98-107) mmol/L BUN (9-20) mg/dL Glucose (74-99) mg/dL POC Glucose (mg/dL) 170 H (70-110) mg/dL 01/05/25 01/05/25 Range/Units 02:25 06:13 WBC (4.50-10.00) 10*3/uL RBC (4.40-5.60) 10*6/uL Hgb (13.0-17.0) g/dL Hct (39.6-50.0) % MCH (27.0-32.0) pg MCHC (32.0-37.0) g/dL MPV (9.5-12.2) fL Immature Gran # (0.00-0.04) 10*3/uL Lymphocytes # (Manual) (1.0-4.8) k/uL Sodium 126 L (137-145) mmol/L Chloride (98-107) mmol/L BUN (9-20) mg/dL Glucose (74-99) mg/dL POC Glucose (mg/dL) 201 H (70-110) mg/dL
--- NOTE | 2025-01-05 16:04 | P.PN ---
Subjective Progress Note Date: 01/05/25 No acute events overnight. Pt sitting up in bedside chair. Reporting he is feeling improved since admit. Leg swelling improving, SOB persisting, but also improved. Sodium improving, 127 today. Counts stable Objective - Vital Signs Vital signs: Vital Signs Temp 98.3 F 01/05/25 12:34 Pulse 117 H 01/05/25 12:34 Resp 18 01/05/25 12:34 BP 123/75 01/05/25 12:34 Pulse Ox 98 01/05/25 12:34 FiO2 Intake & Output 01/04/25 01/05/25 01/05/25 18:59 06:59 18:59 Intake Total 10 540 378 Output Total 2049 1350 1700 Balance -2040 -810 -1322 Weight 102.512 kg 102 kg Intake: IV 10 20 Invasive Line 1 10 20 Oral 0 540 358 Output: Chest Tube Drainage 0 Pleural Catheter Right 0 Lateral Chest Urine 2049 135 1700 Other: Voiding Method Indwelling Catheter Indwelling Catheter Indwelling Catheter # Voids 1 - Constitutional General appearance: Present: no acute distress - EENT Eyes: Present: anicteric sclerae, EOMI ENT: Present: hearing grossly normal - Respiratory Details: breathing mildly labored - Cardiovascular Details: skin warm and dry - Integumentary Integumentary: Absent: cyanotic - Musculoskeletal Musculoskeletal: Present: generalized weakness - Psychiatric Psychiatric: Present: A&O x's 3 - Labs CBC & Chem 7: 01/05/25 07:10 01/05/25 14:34 Labs: Abnormal Lab Results - Last 24 Hours (Table) 01/04/25 01/04/25 01/04/25 Range/Units 16:21 18:14 19:54 WBC (4.50-10.00) 10*3/uL RBC (4.40-5.60) 10*6/uL Hgb (13.0-17.0) g/dL Hct (39.6-50.0) % MCH (27.0-32.0) pg MCHC (32.0-37.0) g/dL MPV (9.5-12.2) fL Immature Gran # (0.00-0.04) 10*3/uL Lymphocytes # (Manual) (1.0-4.8) k/uL Sodium 124 L (137-145) mmol/L Chloride (98-107) mmol/L BUN (9-20) mg/dL Creatinine (0.66-1.25) mg/dL Glucose (74-99) mg/dL POC Glucose (mg/dL) 199 H 170 H (70-110) mg/dL Hemoglobin A1c (<=6.0) % 01/04/25 01/05/25 01/05/25 Range/Units 22:34 02:25 06:13 WBC (4.50-10.00) 10*3/uL RBC (4.40-5.60) 10*6/uL Hgb (13.0-17.0) g/dL Hct (39.6-50.0) % MCH (27.0-32.0) pg MCHC (32.0-37.0) g/dL MPV (9.5-12.2) fL Immature Gran # (0.00-0.04) 10*3/uL Lymphocytes # (Manual) (1.0-4.8) k/uL Sodium 125 L 126 L (137-145) mmol/L Chloride (98-107) mmol/L BUN (9-20) mg/dL Creatinine (0.66-1.25) mg/dL Glucose (74-99) mg/dL POC Glucose (mg/dL) 201 H (70-110) mg/dL Hemoglobin A1c (<=6.0) % 01/05/25 01/05/25 01/05/25 Range/Units 07:10 07:10 07:10 WBC 153.71 H* (4.50-10.00) 10*3/uL RBC 3.42 L (4.40-5.60) 10*6/uL Hgb 8.3 L (13.0-17.0) g/dL Hct 29.4 L (39.6-50.0) % MCH 24.3 L (27.0-32.0) pg MCHC 28.2 L (32.0-37.0) g/dL MPV 8.2 L (9.5-12.2) fL Immature Gran # 0.30 H (0.00-0.04) 10*3/uL Lymphocytes # (Manual) 147.56 H (1.0-4.8) k/uL Sodium 127 L (137-145) mmol/L Chloride (98-107) mmol/L BUN (9-20) mg/dL Creatinine (0.66-1.25) mg/dL Glucose (74-99) mg/dL POC Glucose (mg/dL) (70-110) mg/dL Hemoglobin A1c 6.4 H (<=6.0) % 01/05/25 01/05/25 01/05/25 Range/Units 07:10 10:05 11:54 WBC (4.50-10.00) 10*3/uL RBC (4.40-5.60) 10*6/uL Hgb (13.0-17.0) g/dL Hct (39.6-50.0) % MCH (27.0-32.0) pg MCHC (32.0-37.0) g/dL MPV (9.5-12.2) fL Immature Gran # (0.00-0.04) 10*3/uL Lymphocytes # (Manual) (1.0-4.8) k/uL Sodium 127 L 127 L (137-145) mmol/L Chloride 91 L (98-107) mmol/L BUN 36 H (9-20) mg/dL Creatinine 0.57 L (0.66-1.25) mg/dL Glucose 171 H (74-99) mg/dL POC Glucose (mg/dL) 181 H (70-110) mg/dL Hemoglobin A1c (<=6.0) % 01/05/25 Range/Units 14:34 WBC (4.50-10.00) 10*3/uL RBC (4.40-5.60) 10*6/uL Hgb (13.0-17.0) g/dL Hct (39.6-50.0) % MCH (27.0-32.0) pg MCHC (32.0-37.0) g/dL MPV (9.5-12.2) fL Immature Gran # (0.00-0.04) 10*3/uL Lymphocytes # (Manual) (1.0-4.8) k/uL Sodium 126 L (137-145) mmol/L Chloride (98-107) mmol/L BUN (9-20) mg/dL Creatinine (0.66-1.25) mg/dL Glucose (74-99) mg/dL POC Glucose (mg/dL) (70-110) mg/dL Hemoglobin A1c (<=6.0) % Assessment and Plan (1) Stage II pressure ulcer of left buttock Current Visit: Yes Status: Acute Code(s): L89.322 - PRESSURE ULCER OF LEFT BUTTOCK, STAGE 2 SNOMED Code(s): 41034455699968 (2) Colon cancer Current Visit: Yes Status: Acute Priority: High Code(s): C18.9 - MALIGNANT NEOPLASM OF COLON, UNSPECIFIED SNOMED Code(s): 118069462 (3) Leukocytosis Current Visit: Yes Status: Acute Code(s): D72.829 - ELEVATED WHITE BLOOD CELL COUNT, UNSPECIFIED SNOMED Code(s): 760363555 (4) Pleural effusion Current Visit: Yes Status: Acute Code(s): J90 - PLEURAL EFFUSION, NOT ELSEWHERE CLASSIFIED SNOMED Code(s): 92677571 (5) CLL (chronic lymphocytic leukemia) Current Visit: Yes Status: Chronic Priority: Low Code(s): C91.10 - CHRONIC LYMPHOCYTIC LEUK OF B-CELL TYPE NOT ACHIEVE REMIS SNOMED Code(s): 92962326 (6) Hyponatremia Current Visit: Yes Status: Acute Priority: High Code(s): E87.1 - HYPO- OSMOLALITY AND HYPONATREMIA SNOMED Code(s): 31856638 Plan: Hyponatremia: Upon admit sodium is noted at 117. Serum osmolality 257. Urin sodium <20 -Cortisol elevated at 48.7, however this was drawn in the afternoon. ACTH elevated at 164 -Concern for IO induced adrenal insufficiency. Solu-Medrol 60 mg q6 hours started. -Sodium continues to improve, 127 today. Nephrology following, recommending continuing diuretics and fluid restrictions. -Continue to monitor sodium levels CLL, Metastatic colon cancer: -Oncology history as dictated in the HPI -Started dual immunotherapy with yervoy/opdivo on 12/09/2024, completing cycle 2 on 12/30/24. -There was also concern that his CLL has progressed due to worsening lymphocytosis over a short period of time. Flow cytometry was ordered at last visit, results still pending. Plan to start Calquence once prior auth obtained. -WBC elevated in 140,000-150,000 range. Discussed case with admitting team, no noted blasts in differential. Will continue to monitor CBC, but no need for transfer for further intervention for leukaphresis, as there is not a concern for transformation into acute leukemia at this time -Immunotherapy on hold until acute condition resolved. Will schedule clinic f/u upon discharge to further discuss treatment options, possible retrial of IO, once steroids completed
[2025-01-05 16:49] LABS: Glucose,Whole Blood 192 mg/dL (70-110)
[2025-01-05 20:06] LABS: Glucose,Whole Blood 179 mg/dL (70-110)
[2025-01-06 02:04] LABS: Glucose,Whole Blood 213 mg/dL (70-110)
[2025-01-06] MEDS: DILTIAZEM 5 MG/ML 5 ML VIAL IVP STA (02:31)
[2025-01-06] MEDS: HEPARIN SODIUM 1,000 UN/ML (10ML VL) IV ONE (02:33)
[2025-01-06] MEDS: DILTIAZEM 125 MG in DEXTROSE 5% IN WATER 100 ML IV SCH (02:37)
[2025-01-06] MEDS: HEPARIN SOD,PORK IN 0.45% NACL 25,000 UNIT in 0.45% NACL 1 250ML.BAG IV SCH (02:38)
--- NOTE | 2025-01-06 03:57 | XR ---
EXAM: XR Chest, 1 View CLINICAL HISTORY: ITS.REASON XR Reason: Pleaural effusion TECHNIQUE: Frontal view of the chest. COMPARISON: Two views of the chest 01/02/2025 IMPRESSION: 1. Redemonstrated moderate right and small left pleural effusions with adjacent airspace disease which may relate to compressive atelectasis. 2. Hypoinflated lungs. 3. Partially obscured cardiomegaly. 4. Mild interstitial changes in the lungs which can be seen with mild interstitial pulmonary edema.
[2025-01-06 06:04] LABS: Glucose,Whole Blood 236 mg/dL (70-110)
[2025-01-06 07:17] LABS: HCT 37.3 % (39.6-50.0); HGB 10.6 g/dL (13.0-17.0); MCH 24.4 pg (27.0-32.0); MCHC 28.4 g/dL (32.0-37.0); MCV 85.9 fL (80.0-97.0); Platelet Count 237 10*3/uL (140-440); RBC 4.34 10*6/uL (4.40-5.60); RDW 20.0 % (11.5-14.5)
[2025-01-06 07:55] LABS: WBC 153.07 10*3/uL (4.50-10.00)
[2025-01-06 08:18] LABS: ABG HCO3 33 mmol/L (21-25); ABG PCO2 47 mmHg (35-45); ABG PH 7.46 (7.35-7.45); ABG PO2 157 mmHg (83-108); ABG TCO2 35 mmol/L (19-24); Allen Test Performed? Yes
--- NOTE | 2025-01-06 08:34 | P.CRDCN ---
History of Present Illness Consult date: 01/06/25 Requesting physician: Vasu Toney Reason for Consult (text): new onset Afib RVR History of present illness: This is a pleasant 64-year-old male patient who is lethargic aand on bi-pap at the time of my exam. The is at the bedside and HPI has been obtained from her and the patient's cahrt. 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 He has a history of CLL that had been relatively stable. He developed anemia earlier this year and underwent EGD and colonoscopy and found to have a mass. He was subsequently found to have metastasis involving the lungs with recurrent malignant right-sided pleural effusion requiring Pleurx catheter basement. Presented to the hospital on 01/02/2025 after follow-up with oncology and pulmonology. He had labs that showed hyponatremia. At home he had been having lower extremity edema and shortness of breath felt to be related to immunotherapy. He underwent echocardiogram this admission that showed normal LV systolic function with a small pericardial effusion. He was beginning to feel somewhat better. There is plans for outpatient left-sided thoracentesis later this week. Overnight last night patient decompensated and was placed on BiPAP he was found to be in atrial fibrillation with rapid ventricular response. He was placed on IV heparin and Cardizem. He has no history of cardiac issues, no hypertension, diabetes or hyperlipidemia. He is a non-smoker, does not consume alcohol. Diagnostics -EKG: Atrial fibrillation with rapid ventricular response -Chest x-ray: Redemonstrated moderate right and small left pleural effusions wit h adjacent airspace disease which may relate to compressive atelectasis, hypoinflated lungs, partially obscured cardiomegaly, mild interstitial changes in the lungs which can be seen with mild interstitial pulmonary edema -Abdominal ultrasound: Mild to moderate ascites in the right lower quadrant of the abdomen -Laboratory studies: White blood cell count 153,000, hemoglobin 10.6, 126, potassium 4.6, chloride 91, BUN 36, creatinine 0.57, hemoglobin A1c 6.4 -Home cardiac medications: Lasix 20 mg p.o. twice daily -Prior stress test: None -Echocardiogram: 01/03/2025 normal LV systolic function with small pleural pericardial effusion -Cardiac catheterization: None Review Of Systems: At the time of my exam: Patient is lethargic and on BiPAP unable to obtain complete review of systems PHYSICAL EXAMINATION: This is a 64-year-old gentleman lethargic and on BiPAP at the time of my examination. VITAL SIGNS: Reviewed. HEENT: Head is atraumatic, normocephalic. Pupils are equal, round. Sclerae anicteric. Conjunctivae are clear. Mucous membranes of the mouth are moist. Neck is supple. There is no elevated jugular venous pressure. No carotid bruit is heard. CHEST EXAMINATION: Diminished air entry bilaterally. No wheezes rales or rhonchi. Respirations even and nonlabored. HEART EXAMINATION: Heart irregular rate and rhythm, positive S1 and S2. No S3. No S4. Tachycardia noted. ABDOMEN: Distended. Bowel sounds are heard. EXTREMITIES: 2+ peripheral pulses with evidence of moderate peripheral edema and no calf tenderness noted. NEUROLOGIC EXAMINATION: Patient is lethargic. Assessment: 1. New onset atrial fibrillation with RVR 2. metastatic colon cancer 3. CLL Plan: From cardiology's perspective, patient's blood pressure is on the low side, we will start amiodarone drip for rate control. We will continue to follow the patient and provide further recommendations accordingly. Thank you kindly for this consultation. Nurse practitioner note has been reviewed, I agree with documented findings and plan of care. Patient was seen and examined. Past Medical History Past Medical History: Cancer Additional Past Medical History / Comment(s): tinnitus, leukemia.CML, colon ca History of Any Multi-Drug Resistant Organisms: None Reported Past Surgical History: Orthopedic Surgery Additional Past Surgical History / Comment(s): ganglion cyst-left hand, colonoscopies x 2 Past Anesthesia/Blood Transfusion Reactions: No Reported Reaction Past Psychological History: No Psychological Hx Reported Smoking Status: Former smoker Past Alcohol Use History: Occasional Past Drug Use History: None Reported - Past Family History Mother Family Medical History: No Reported History Medications and Allergies Home Medications Medication Instructions Recorded Confirmed Type Multivitamins, Thera [Multivitamin 1 tab PO PC-BRKFST 09/03/14 01/02/25 History (formulary)] Glucosamine/Chondr Tsai A Sod [Osteo 1 tab PO PC-BRKFST 04/26/22 01/02/25 History Bi-Flex Caplet] Acetaminophen Tab [Tylenol] 1,000 mg PO Q6HR PRN 12/19/24 01/02/25 History L.acidoph,Paracasei, B.lactis 1 cap PO PC-BRKFST 12/19/24 01/02/25 History [Probiotic] Magnesium (Unknown Dose) 1 dose PO PC-BRKFST 12/19/24 01/02/25 History Triple [place] 1 cap PO PC-BRKFST 12/19/24 01/02/25 History Furosemide [Lasix] 20 mg PO BID@0600,1600 01/02/25 01/02/25 History Allergies Allergy/AdvReac Type Severity Reaction Status Date / Time No Known Allergies Allergy Verified 01/02/25 17:44 Physical Exam Vitals: Vital Signs Temp Pulse Resp BP BP Pulse Ox FiO2 01/06/25 08:12 100 01/06/25 07:39 97.8 F 136 H 32 H 100/65 98 100 01/06/25 07:01 116 H 33 H 104/66 91 L 100 01/06/25 06:50 155 H 42 H 85 L 75 01/06/25 06:30 153 H 34 H 98/66 91 L 75 01/06/25 05:07 144 H 26 H 105/64 95 75 01/06/25 04:55 75 01/06/25 04:11 26 H 107/67 95 100 01/06/25 04:05 92 L 01/06/25 04:00 100 01/06/25 03:52 88 L 01/06/25 03:45 80 L 01/06/25 02:54 141 H 20 107/65 95 01/06/25 01:37 157 H 32 H 132/88 98 01/05/25 23:33 117 H 20 126/76 98 01/05/25 20:00 98.0 F 113 H 18 119/73 96 01/05/25 16:53 97.8 F 113 H 18 148/75 96 01/05/25 12:34 98.3 F 117 H 18 123/75 98 01/05/25 09:54 98.4 F 119 H 18 119/72 95 01/05/25 08:19 94 L Intake and Output 01/05/25 01/06/25 01/06/25 22:59 06:59 14:59 Intake Total 335 62.417 20 Output Total 1075 800 Balance -740 -737.583 20 Intake: IV 10 50 20 Invasive Line 1 10 20 Invasive Line 2 20 10 Invasive Line 3 10 10 Intake, IV Titration 12.417 Amount Diltiazem 125 mg In 12.417 Dextrose 5% in Water 100 ml @ 5 MG/HR 5 mls/hr IV .Q24H [facility] Rx#:[id number] Oral 325 Output: Urine 1075 800 Other: Voiding Method Indwelling Catheter Indwelling Catheter Indwelling Catheter Weight 119 kg Results 01/06/25 06:15 01/06/25 06:15 CBC 01/06/25 Range/Units 06:15 WBC 153.07 H* (4.50-10.00) 10*3/uL RBC 4.34 L (4.40-5.60) 10*6/uL Hgb 10.6 L (13.0-17.0) g/dL Hct 37.3 L (39.6-50.0) % Plt Count 237 (140-440) 10*3/uL Comprehensive Metabolic Panel 01/05/25 01/05/25 01/05/25 Range/Units 10:05 14:34 18:30 Sodium 127 L 126 L 125 L (137-145) mmol/L 01/05/25 01/06/25 01/06/25 Range/Units 22:42 01:21 06:15 Sodium 126 L 124 L 126 L (137-145) mmol/L Current Medications Generic Name Dose Route Start Last Admin Trade Name Freq PRN Reason Stop Dose Admin Acetaminophen 650 mg 01/02/25 17:56 01/04/25 12:36 Acetaminophen Tab 325 Mg Tab PO 650 mg Q6HR PRN Administration Mild Pain or Fever > 100.5 Alprazolam 0.25 mg 01/02/25 18:31 Alprazolam 0.25 Mg Tab PO Q6HR PRN Anxiety Dextrose/Water 25 ml 01/04/25 12:10 Dextrose 50% Syringe 50 Ml IVP PER PROTOCOL PRN Hypoglycemia Protocol Dextrose/Water 50 ml 01/04/25 12:10 Dextrose 50% Syringe 50 Ml IVP PER PROTOCOL PRN Hypoglycemia Protocol Furosemide 40 mg 01/03/25 11:15 01/06/25 08:02 Furosemide 10 Mg/Ml 4 Ml Vial IV 40 mg Q8HR THOR Administration Heparin Sodium (Porcine) 0 unit 01/06/25 02:10 Heparin Sodium 1,000 Un/Ml (10ml Vl) IV PER PROTOCOL PRN Low PTT Protocol Heparin Sodium/Sodium Chloride 250 mls @ 10 mls/hr 01/06/25 02:15 01/06/25 02:38 25,000 unit/ Sodium Chloride IV 9.804 units/kg/hr .Q24H THOR 10 mls/hr Administration Protocol 9.804 UNITS/KG/HR Diltiazem HCl 125 mg/ Dextrose 125 mls @ 5 mls/hr 01/06/25 02:15 01/06/25 04:35 /Water IV 15 mg/hr .Q24H THOR 15 mls/hr Titration Protocol 5 MG/HR Insulin Human Lispro 0 unit 01/04/25 12:30 01/06/25 06:37 Insulin Lispro (Humalog) 100 Unit/Ml 10 Ml Vl SQ 4 unit ACHS THOR Administration Protocol Ketorolac Tromethamine 15 mg 01/02/25 18:28 Ketorolac 15 Mg/Ml 1 Ml Vial IVP 01/07/25 18:28 Q6HR PRN Pain Methylprednisolone Sodium Succinate 60 mg 01/02/25 17:00 01/06/25 05:24 Methylprednisolone Sod Succi 125 Mg/2 Ml Vial IV 60 mg Q6H THOR Administration Naloxone HCl 0.2 mg 01/02/25 17:56 Naloxone 0.4 Mg/Ml 1 Ml Vial IV Q2M PRN Opioid Reversal Ondansetron HCl 4 mg 01/02/25 18:31 Ondansetron 4 Mg/2 Ml Vial IVP Q8HR PRN Nausea And Vomiting Intake and Output 01/05/25 01/06/25 01/06/25 22:59 06:59 14:59 Intake Total 335 62.417 20 Output Total 1075 800 Balance -740 -737.583 20 Intake: IV 10 50 20 Invasive Line 1 10 20 Invasive Line 2 20 10 Invasive Line 3 10 10 Intake, IV Titration 12.417 Amount Diltiazem 125 mg In 12.417 Dextrose 5% in Water 100 ml @ 5 MG/HR 5 mls/hr IV .Q24H [facility] Rx#:[id number] Oral 325 Output: Urine 1075 800 Other: Voiding Method Indwelling Catheter Indwelling Catheter Indwelling Catheter Weight 119 kg 01/06/25 06:15 01/06/25 06:15
[2025-01-06 09:49] LABS: Lymphocytes # (M) 143.89 k/uL (1.0-4.8); Neutrophils # (M) 9.18 k/uL (1.3-7.7); Neutrophils % (M) 6 %; Total Cells Counted 100
[2025-01-06] MEDS: AMIODARONE 360 MG in DEXTROSE 5% IN WATER 200 ML IV ONE (09:51)
[2025-01-06] MEDS: DEXTROSE 5% IN WATER 100 ML with AMIODARONE 150 MG IV ONE (09:51)
[2025-01-06 10:36] LABS: Sodium 127 mmol/L (137-145)
--- NOTE | 2025-01-06 10:49 | P.PN ---
Subjective Patient is seen in follow-up for hyponatremia. Sodium level 127 this morning. On IV Lasix. Went into A-fib with RVR last night and is currently maintained on amiodarone drip as well as heparin drip. Has Harris catheter. Nonoliguric. Currently on BiPAP. Family present at bedside. Vital signs are stable. General: Resting in bed. HEENT: On BiPAP. LUNGS: Scattered rhonchi. HEART: Rate and Rhythm are regular. ABDOMEN: No distention. EXTREMITITES: 2+ edema. Objective - Vital Signs Vital signs: Vital Signs Temp 97.8 F 01/06/25 07:39 Pulse 111 H 01/06/25 10:18 Resp 23 01/06/25 09:13 BP 106/68 01/06/25 10:18 Pulse Ox 98 01/06/25 10:18 FiO2 90 01/06/25 10:18 Intake & Output 01/05/25 01/06/25 01/06/25 18:59 06:59 18:59 Intake Total 703 72.417 103 Output Total 1974 1600 525 Balance -1272 -1527.583 -422 Weight 119 kg Intake: IV 20 60 20 Invasive Line 1 20 30 Invasive Line 2 20 10 Invasive Line 3 10 10 Intake, IV Titration 12.417 83 Amount Diltiazem 125 mg In 12.417 83 Dextrose 5% in Water 100 ml @ 5 MG/HR 5 mls/hr IV .Q24H [facility] Rx#:[id number] Oral 683 Output: Chest Tube Drainage 0 Pleural Catheter Right 0 Lateral Chest Urine 1974 1600 525 Other: Voiding Method Indwelling Catheter Indwelling Catheter Indwelling Catheter - Labs CBC & Chem 7: 01/06/25 06:15 01/06/25 09:55 Labs: Abnormal Lab Results - Last 24 Hours (Table) 01/05/25 01/05/25 01/05/25 Range/Units 07:10 11:54 14:34 WBC (4.50-10.00) 10*3/uL RBC (4.40-5.60) 10*6/uL Hgb (13.0-17.0) g/dL Hct (39.6-50.0) % MCH (27.0-32.0) pg MCHC (32.0-37.0) g/dL MPV (9.5-12.2) fL Immature Gran # (0.00-0.04) 10*3/uL Neutrophils # (Manual) (1.3-7.7) k/uL Lymphocytes # (Manual) (1.0-4.8) k/uL ABG pH (7.35-7.45) ABG pCO2 (35-45) mmHg ABG pO2 (83-108) mmHg ABG HCO3 (21-25) mmol/L ABG Total CO2 (19-24) mmol/L ABG O2 Saturation (94-97) % Hemoglobin (13.0-17.5) gm/dL Sodium 126 L (137-145) mmol/L POC Glucose (mg/dL) 181 H (70-110) mg/dL Hemoglobin A1c 6.4 H (<=6.0) % 01/05/25 01/05/25 01/05/25 Range/Units 16:42 18:30 20:05 WBC (4.50-10.00) 10*3/uL RBC (4.40-5.60) 10*6/uL Hgb (13.0-17.0) g/dL Hct (39.6-50.0) % MCH (27.0-32.0) pg MCHC (32.0-37.0) g/dL MPV (9.5-12.2) fL Immature Gran # (0.00-0.04) 10*3/uL Neutrophils # (Manual) (1.3-7.7) k/uL Lymphocytes # (Manual) (1.0-4.8) k/uL ABG pH (7.35-7.45) ABG pCO2 (35-45) mmHg ABG pO2 (83-108) mmHg ABG HCO3 (21-25) mmol/L ABG Total CO2 (19-24) mmol/L ABG O2 Saturation (94-97) % Hemoglobin (13.0-17.5) gm/dL Sodium 125 L (137-145) mmol/L POC Glucose (mg/dL) 192 H 179 H (70-110) mg/dL Hemoglobin A1c (<=6.0) % 01/05/25 01/06/25 01/06/25 Range/Units 22:42 01:21 02:03 WBC (4.50-10.00) 10*3/uL RBC (4.40-5.60) 10*6/uL Hgb (13.0-17.0) g/dL Hct (39.6-50.0) % MCH (27.0-32.0) pg MCHC (32.0-37.0) g/dL MPV (9.5-12.2) fL Immature Gran # (0.00-0.04) 10*3/uL Neutrophils # (Manual) (1.3-7.7) k/uL Lymphocytes # (Manual) (1.0-4.8) k/uL ABG pH (7.35-7.45) ABG pCO2 (35-45) mmHg ABG pO2 (83-108) mmHg ABG HCO3 (21-25) mmol/L ABG Total CO2 (19-24) mmol/L ABG O2 Saturation (94-97) % Hemoglobin (13.0-17.5) gm/dL Sodium 126 L 124 L (137-145) mmol/L POC Glucose (mg/dL) 213 H (70-110) mg/dL Hemoglobin A1c (<=6.0) % 01/06/25 01/06/25 01/06/25 Range/Units 05:58 06:15 06:15 WBC 153.07 H* (4.50-10.00) 10*3/uL RBC 4.34 L (4.40-5.60) 10*6/uL Hgb 10.6 L (13.0-17.0) g/dL Hct 37.3 L (39.6-50.0) % MCH 24.4 L (27.0-32.0) pg MCHC 28.4 L (32.0-37.0) g/dL MPV 8.4 L (9.5-12.2) fL Immature Gran # 0.26 H (0.00-0.04) 10*3/uL Neutrophils # (Manual) 9.18 H (1.3-7.7) k/uL Lymphocytes # (Manual) 143.89 H (1.0-4.8) k/uL ABG pH (7.35-7.45) ABG pCO2 (35-45) mmHg ABG pO2 (83-108) mmHg ABG HCO3 (21-25) mmol/L ABG Total CO2 (19-24) mmol/L ABG O2 Saturation (94-97) % Hemoglobin (13.0-17.5) gm/dL Sodium 126 L (137-145) mmol/L POC Glucose (mg/dL) 236 H (70-110) mg/dL Hemoglobin A1c (<=6.0) % 01/06/25 01/06/25 Range/Units 08:10 09:55 WBC (4.50-10.00) 10*3/uL RBC (4.40-5.60) 10*6/uL Hgb (13.0-17.0) g/dL Hct (39.6-50.0) % MCH (27.0-32.0) pg MCHC (32.0-37.0) g/dL MPV (9.5-12.2) fL Immature Gran # (0.00-0.04) 10*3/uL Neutrophils # (Manual) (1.3-7.7) k/uL Lymphocytes # (Manual) (1.0-4.8) k/uL ABG pH 7.46 H (7.35-7.45) ABG pCO2 47 H (35-45) mmHg ABG pO2 157 H (83-108) mmHg ABG HCO3 33 H (21-25) mmol/L ABG Total CO2 35 H (19-24) mmol/L ABG O2 Saturation 98.7 H (94-97) % Hemoglobin 9.1 L (13.0-17.5) gm/dL Sodium 127 L (137-145) mmol/L POC Glucose (mg/dL) (70-110) mg/dL Hemoglobin A1c (<=6.0) % Assessment and Plan Plan: Assessment: 1. Hyponatremia, hypervolemic. Sodium level 127 this morning. 2. Metastatic colon cancer with recurrent pleural effusion. Has Pleurx catheter. 3. A-fib with RVR maintained on amiodarone drip. Cardiology following. 4. Volume overload. 5. Acute hypoxic respiratory failure. Plan: Maintain IV Lasix. Wean FiO2. Awaits transfer to ICU. Repeat labs in the morning.
[2025-01-06 11:31] LABS: Glucose,Whole Blood 218 mg/dL (70-110)
--- NOTE | 2025-01-06 11:44 | US ---
EXAMINATION TYPE: US chest DATE OF EXAM: 01/06/2025 COMPARISON: Radiograph same day CLINICAL INDICATION: Male, 64 years old with history of Markings for thoracentesis by pulmonary staff ; Pleural effusion. TECHNIQUE: Grayscale imaging of the chest. Targeted ultrasound of the posterior lower bilateral rowan thoraces FINDINGS: EXAM MEASUREMENTS: Left Pleural Effusion pocket size: 10.7 cm Left skin surface to fluid distance: 1.9 cm tissue visualized at 4.6 cm in fluid pocket. Left side marked for possible thoracentesis outside the dept. Pulmonologists are able to review the images in the patient?s EMR. Right pleural effusion: None. IMPRESSIONS: Moderate left pleural effusion with underlying atelectatic lung. [facility], Workstation: [id number], 01/06/2025 11:41 AM
--- NOTE | 2025-01-06 12:34 | P.PN ---
Subjective Progress Note Date: 01/06/25 Hospital Course: 64-year-old man with history of colon cancer that is metastatic to the lungs, who is here after he received a call from his oncologist that his sodium is low. The patient states that he has been having trouble with bilateral leg edema, exertional dyspnea, xray evident for bilateral pleural effusions. U/S showing mild to moderate asictes in RLQ of abdomen. ECHO impression shows EF of 55-60% with small pericardial effusion. Diuresis with lasix and fluid restriction initiated. There is a Pleurx catheter in the right chest. Patient says breathing has become worse over the past couple weeks and has needed 4 L of nasal cannula in ER on admission, 98% on 4l. Patient sodium is improving, 124 (corrected Na+ = 126) today, on admission was 117. White blood cell count at 142-152 due to past medical history of CLL. Patient still in hypervolemic hyponatermic overload, continuing to trend with diuresis. Patient has agreed for throcentesis at his upcoming appointment 01/08. Patient has agreed to placing Pluerx catheter on left side. Pulm consulted. New onset A.fib with RVR Cardiology consulted. Subjective: Patient seen and examined at bedside. During the early hours of this morning patients O2 levels dropped to 80% on 5L of IN O2 via NC, Patient was placed on 1 5L of O2 via non-rebreather mask, but did not significantly improve (80% - 92% O2 saturation), Patient was then placed on 100% Bipap 12/05 and O2 saturation improved to 95%, when FiO2 was titrated to 75%, O2 saturation dropped to 75%, as a result FiO2 was increased back to 100%. Pertinent positives and negatives as discussed above, a complete review of systems was performed and all other systems are negative. Vitals: Signs Reviewed Physical Exam: General: nontoxic, in obvious respiratory distress on Bipap, appears at stated age Derm: warm, dry, intact Head: atraumatic, normocephalic, symmetric Eyes: EOMI, anicteric sclera Mouth: no lip lesion, mucus membranes moist Cardiovascular: S1 S2 reg, no murmur, rubs, or gallops Lungs: use of accessory muscle, scattered rhonci bilaterally Abdominal: soft, non-tender to palpation, distended, no appreciable organomegaly Extremities: no gross muscle atrophy, 2+ pitting edema bilaterally Neuro: Alert, Oriented, CNII-XII grossly intact Psych: well appearing, appropriate affect Data Received Today: Pertinent Labs: Na:126 > 127 > 126 WBC: 152 > 142 > 153 Hgb: 8.4 > 8.3 > 10.6 PLTS: 281 > 250 > 237 BUN: 22 > 34 > 36 Cr: 0.58 > 0.74 > 0.57 B > 179 > 218 I/O: Indwelling catheter - input 775 - output 3575 (-2800ml) Pleural Catheter Right Lateral Chest - 0ml pH: 7.46 PaCO2: 47 PaO2: 157 HCO3: 33 Imaging: ECG done today revealed Atrial fibrillation with RVR. Cardiology consulted Assessment and Plan: Acute hypoxic respiratory failure due to malignant pleural effusion - BiPAP 12/6 100%FiO2, attempt to wean down. - Spoke with pulmonology, requesting patient to be transferred to ICU for close monitoring - For possible Thoracentesis today. - Continue with IV solumedrol 60 mg New onset afib - EKG reviewed as above - s/p cardizem drip, now currently placed on amioadarone drip by cardiology - Continue with IV heparin - cardiology following Hypervolemic Hyponatremia - Continue IV Lasix 40 mg every 8 hours - Strict I's and O's - Indwelling catheter - Monitor electrolytes - Continue fluid restriction to 1.5 L/day - Nephrology following, continue with IV lasix Leukocytosis in the setting of CLL -Oncology consulted, plan to start Calquence once authorized, no need for transfer for further intervention of Leukaphresis as there is not a concern for transformation into acute leukemia at this time. Immunotherapy on hold and will schedule clinic follow-up on discharge. Iron deficiency anemia with no active bleeding Sacral decubitus ulcer -Wound care consulted, recommendations appreciated DVT ppx: IV heparin Code status: Full Anticipated discharge place: pending clinical course Anticipated discharge time: pending clinical course Patient is critically ill in ICU. Prognosis is guarded. Magdaleno Quinonez MD PGY-1 FM Dictation was produced using [employer] dictation software. please excuse any grammatical, word or spelling errors. I saw and evaluated the patient during the solorzano and critical portions of this encounter, and discussed the case in detail with the resident author of this note, I agree with the Assessment and Plan, and my changes, if any, are highlighted in blue. 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 Patient may benefit from right heart catheterization for further characterization of heart pressures if there is no improvement following drainage of left pleural effusion. Agree with transfer to the ICU, 45 minutes of critical care time was spent on this patient today. Objective - Vital Signs Vital signs: Vital Signs Temp 97.8 F 01/06/25 07:39 Pulse 111 H 01/06/25 10:18 Resp 23 01/06/25 09:13 BP 106/68 01/06/25 10:18 Pulse Ox 98 01/06/25 10:18 FiO2 90 01/06/25 10:18 Intake & Output 01/05/25 01/06/25 01/06/25 18:59 06:59 18:59 Intake Total 703 72.417 103 Output Total 1975 1600 525 Balance -1272 -1527.583 -422 Weight 119 kg Intake: IV 20 60 20 Invasive Line 1 20 30 Invasive Line 2 20 10 Invasive Line 3 10 10 Intake, IV Titration 12.417 83 Amount Diltiazem 125 mg In 12.417 83 Dextrose 5% in Water 100 ml @ 5 MG/HR 5 mls/hr IV .Q24H [facility] Rx#:[id number] Oral 683 Output: Chest Tube Drainage 0 Pleural Catheter Right 0 Lateral Chest Urine 1975 1600 525 Other: Voiding Method Indwelling Catheter Indwelling Catheter Indwelling Catheter - Labs CBC & Chem 7: 01/06/25 06:15 01/06/25 09:55 Labs: Abnormal Lab Results - Last 24 Hours (Table) 01/05/25 01/05/25 01/05/25 Range/Units 07:10 11:54 14:34 WBC (4.50-10.00) 10*3/uL RBC (4.40-5.60) 10*6/uL Hgb (13.0-17.0) g/dL Hct (39.6-50.0) % MCH (27.0-32.0) pg MCHC (32.0-37.0) g/dL MPV (9.5-12.2) fL Immature Gran # (0.00-0.04) 10*3/uL Neutrophils # (Manual) (1.3-7.7) k/uL Lymphocytes # (Manual) (1.0-4.8) k/uL ABG pH (7.35-7.45) ABG pCO2 (35-45) mmHg ABG pO2 (83-108) mmHg ABG HCO3 (21-25) mmol/L ABG Total CO2 (19-24) mmol/L ABG O2 Saturation (94-97) % Hemoglobin (13.0-17.5) gm/dL Sodium 126 L (137-145) mmol/L POC Glucose (mg/dL) 181 H (70-110) mg/dL Hemoglobin A1c 6.4 H (<=6.0) % 01/05/25 01/05/25 01/05/25 Range/Units 16:42 18:30 20:05 WBC (4.50-10.00) 10*3/uL RBC (4.40-5.60) 10*6/uL Hgb (13.0-17.0) g/dL Hct (39.6-50.0) % MCH (27.0-32.0) pg MCHC (32.0-37.0) g/dL MPV (9.5-12.2) fL Immature Gran # (0.00-0.04) 10*3/uL Neutrophils # (Manual) (1.3-7.7) k/uL Lymphocytes # (Manual) (1.0-4.8) k/uL ABG pH (7.35-7.45) ABG pCO2 (35-45) mmHg ABG pO2 (83-108) mmHg ABG HCO3 (21-25) mmol/L ABG Total CO2 (19-24) mmol/L ABG O2 Saturation (94-97) % Hemoglobin (13.0-17.5) gm/dL Sodium 125 L (137-145) mmol/L POC Glucose (mg/dL) 192 H 179 H (70-110) mg/dL Hemoglobin A1c (<=6.0) % 01/05/25 01/06/25 01/06/25 Range/Units 22:42 01:21 02:03 WBC (4.50-10.00) 10*3/uL RBC (4.40-5.60) 10*6/uL Hgb (13.0-17.0) g/dL Hct (39.6-50.0) % MCH (27.0-32.0) pg MCHC (32.0-37.0) g/dL MPV (9.5-12.2) fL Immature Gran # (0.00-0.04) 10*3/uL Neutrophils # (Manual) (1.3-7.7) k/uL Lymphocytes # (Manual) (1.0-4.8) k/uL ABG pH (7.35-7.45) ABG pCO2 (35-45) mmHg ABG pO2 (83-108) mmHg ABG HCO3 (21-25) mmol/L ABG Total CO2 (19-24) mmol/L ABG O2 Saturation (94-97) % Hemoglobin (13.0-17.5) gm/dL Sodium 126 L 124 L (137-145) mmol/L POC Glucose (mg/dL) 213 H (70-110) mg/dL Hemoglobin A1c (<=6.0) % 01/06/25 01/06/25 01/06/25 Range/Units 05:58 06:15 06:15 WBC 153.07 H* (4.50-10.00) 10*3/uL RBC 4.34 L (4.40-5.60) 10*6/uL Hgb 10.6 L (13.0-17.0) g/dL Hct 37.3 L (39.6-50.0) % MCH 24.4 L (27.0-32.0) pg MCHC 28.4 L (32.0-37.0) g/dL MPV 8.4 L (9.5-12.2) fL Immature Gran # 0.26 H (0.00-0.04) 10*3/uL Neutrophils # (Manual) 9.18 H (1.3-7.7) k/uL Lymphocytes # (Manual) 143.89 H (1.0-4.8) k/uL ABG pH (7.35-7.45) ABG pCO2 (35-45) mmHg ABG pO2 (83-108) mmHg ABG HCO3 (21-25) mmol/L ABG Total CO2 (19-24) mmol/L ABG O2 Saturation (94-97) % Hemoglobin (13.0-17.5) gm/dL Sodium 126 L (137-145) mmol/L POC Glucose (mg/dL) 236 H (70-110) mg/dL Hemoglobin A1c (<=6.0) % 01/06/25 01/06/25 Range/Units 08:10 09:55 WBC (4.50-10.00) 10*3/uL RBC (4.40-5.60) 10*6/uL Hgb (13.0-17.0) g/dL Hct (39.6-50.0) % MCH (27.0-32.0) pg MCHC (32.0-37.0) g/dL MPV (9.5-12.2) fL Immature Gran # (0.00-0.04) 10*3/uL Neutrophils # (Manual) (1.3-7.7) k/uL Lymphocytes # (Manual) (1.0-4.8) k/uL ABG pH 7.46 H (7.35-7.45) ABG pCO2 47 H (35-45) mmHg ABG pO2 157 H (83-108) mmHg ABG HCO3 33 H (21-25) mmol/L ABG Total CO2 35 H (19-24) mmol/L ABG O2 Saturation 98.7 H (94-97) % Hemoglobin 9.1 L (13.0-17.5) gm/dL Sodium 127 L (137-145) mmol/L POC Glucose (mg/dL) (70-110) mg/dL Hemoglobin A1c (<=6.0) %
[2025-01-06 13:05] LABS: African American GFR (CKD) >90 (>60 ml/min/1.73 sqM); Anion Gap 8 mmol/L; Blood Urea Nitrogen 53 mg/dL (9-20); Calcium 9.0 mg/dL (8.4-10.2); Carbon Dioxide 32 mmol/L (22-30); Chloride 88 mmol/L (98-107); Glucose 210 mg/dL (74-99); Non-African American GFR(CKD) >90 (>60 ml/min/1.73 sqM); Potassium 4.8 mmol/L (3.5-5.1); Sodium 128 mmol/L (137-145)
[2025-01-06 13:56] LABS: Uric Acid 9.6 mg/dL (3.5-8.5)
--- NOTE | 2025-01-06 15:04 | XR ---
EXAMINATION TYPE: XR chest 1V portable DATE OF EXAM: 01/06/2025 2:34 PM COMPARISON: 01/06/2025 CLINICAL INDICATION: Male, 64 years old with history of post thoracentesis, , FINDINGS: Right heart margin obscured by adjacent pleural parenchymal opacity. Residual small left pleural effu octavia remains. Background interstitial densities persist. Overlying external artifact limits assessmen t of the left apex. No obvious sizable pneumothorax is seen. Possible development of a small right pl eural effusion. IMPRESSION: 1. Residual small left pleural effusion after thoracentesis. There is external artifact projecting at the left apex limiting the evaluation. No obvious sizable pneumothorax is seen. Recommend reassessme nt at follow-up after clearing the chest of external material. 2. Right-sided pleural rind redemonstrated. [facility], , 01/06/2025 3:02 PM
--- NOTE | 2025-01-06 15:26 | CDI ---
Documentation Clarification Form Date: 01/06/2025 03:14:04 PM From: Kori Manuel RN CCDS Phone: [phone] Admit Date: 01/02/2025 06:33:00 PM Patient Name: Gorge Dutta Visit Number: [id number] Discharge Date: ATTENTION: The Clinical Documentation Specialists (CDI) and [facility] Coding Staff appreciate your assistance in clarifying documentation. Please respond to the clarification below the line at the bottom and electronically sign. The CDI & [facility] Coding staff will review the response and follow-up if needed. Please note: Queries are made part of the Legal Health Record. If you have any questions, please contact the author of this message via ITS. Doctor: Kusum Diaz Conflicting documentation has been found in the medical record. As attending physician, please provide clarification. Stage II pressure ulcer right buttock, Stage II pressure ulcer left buttock, Wound care consult 01/03 Sacral decubitus ulcer, HP 01/02 through Medicine note, 01/06 History/Risk Factors: 64 year old male presents to the ED with bilateral leg edema, exertional dyspnea, and has bilateral pleural effusions. Medical History: CML and Colon cancer. 01/02 HP Clinical Indicators: Nursing pressure injury assessment 01/03 01/06: Bilateral buttock Stage II Pressure Injury; Granulation Quality [place], No drainage. Treatment: Honey Gel, Foam with border, Turning Q2H Please clarify which diagnosis is most appropriate: [ x] Stage II pressure ulcer right buttock, Stage II pressure ulcer left buttock [ ] Sacral decubitus ulcer [ ] Other (please specify) [ ] Unable to determine (Template Last Revised: August 2020) MTDD
--- NOTE | 2025-01-06 16:21 | P.PN ---
Subjective Progress Note Date: 01/06/25 Principal diagnosis: Hyponatremia, tony pleural effusions Pt is on bipap, he is alert and oriented, abd is distended, he is feeling uncomfortable in general. Objective - Vital Signs Vital signs: Vital Signs Temp 98.7 F 01/06/25 11:51 Pulse 111 H 01/06/25 11:51 Resp 35 H 01/06/25 11:51 BP 110/70 01/06/25 11:51 Pulse Ox 98 01/06/25 11:51 FiO2 70 01/06/25 11:51 Intake & Output 01/05/25 01/06/25 01/06/25 18:59 06:59 18:59 Intake Total 703 72.417 343 Output Total 1974 1600 900 Balance -1272 -1527.583 -557 Weight 119 kg Intake: IV 20 60 20 Invasive Line 1 20 30 Invasive Line 2 20 10 Invasive Line 3 10 10 Intake, IV Titration 12.417 83 Amount Diltiazem 125 mg In 12.417 83 Dextrose 5% in Water 100 ml @ 5 MG/HR 5 mls/hr IV .Q24H [facility] Rx#:[id number] Oral 683 240 Output: Chest Tube Drainage 0 Pleural Catheter Right 0 Lateral Chest Urine 1974 1599 900 Other: Voiding Method Indwelling Catheter Indwelling Catheter Indwelling Catheter - Constitutional General appearance: Present: average body habitus, cooperative, mild distress - EENT Eyes: Present: anicteric sclerae, EOMI ENT: Present: hearing grossly normal - Respiratory Respiratory: bilateral: diminished, wheezing (anterior) - Cardiovascular Rhythm: irregularly irregular - Peripheral edema leg Peripheral Edema: right: Trace, left: 1+ - Gastrointestinal Gastrointestinal Comment(s): dullness to percussion inferior to naval, 1/3 up flank General gastrointestinal: Present: distended, normal bowel sounds, soft - Neurologic Neurologic: Present: CNII-XII intact - Musculoskeletal Musculoskeletal: Present: generalized weakness - Psychiatric Psychiatric: Present: A&O x's 3, appropriate affect, intact judgment & insight - Labs CBC & Chem 7: 01/06/25 06:15 01/06/25 12:38 Labs: Abnormal Lab Results - Last 24 Hours (Table) 01/05/25 01/05/25 01/05/25 Range/Units 14:34 16:42 18:30 WBC (4.50-10.00) 10*3/uL RBC (4.40-5.60) 10*6/uL Hgb (13.0-17.0) g/dL Hct (39.6-50.0) % MCH (27.0-32.0) pg MCHC (32.0-37.0) g/dL MPV (9.5-12.2) fL Immature Gran # (0.00-0.04) 10*3/uL Neutrophils # (Manual) (1.3-7.7) k/uL Lymphocytes # (Manual) (1.0-4.8) k/uL APTT (22.0-30.0) sec ABG pH (7.35-7.45) ABG pCO2 (35-45) mmHg ABG pO2 (83-108) mmHg ABG HCO3 (21-25) mmol/L ABG Total CO2 (19-24) mmol/L ABG O2 Saturation (94-97) % Hemoglobin (13.0-17.5) gm/dL Sodium 126 L 125 L (137-145) mmol/L Chloride (98-107) mmol/L Carbon Dioxide (22-30) mmol/L BUN (9-20) mg/dL Glucose (74-99) mg/dL POC Glucose (mg/dL) 192 H (70-110) mg/dL 01/05/25 01/05/25 01/06/25 Range/Units 20:05 22:42 01:21 WBC (4.50-10.00) 10*3/uL RBC (4.40-5.60) 10*6/uL Hgb (13.0-17.0) g/dL Hct (39.6-50.0) % MCH (27.0-32.0) pg MCHC (32.0-37.0) g/dL MPV (9.5-12.2) fL Immature Gran # (0.00-0.04) 10*3/uL Neutrophils # (Manual) (1.3-7.7) k/uL Lymphocytes # (Manual) (1.0-4.8) k/uL APTT (22.0-30.0) sec ABG pH (7.35-7.45) ABG pCO2 (35-45) mmHg ABG pO2 (83-108) mmHg ABG HCO3 (21-25) mmol/L ABG Total CO2 (19-24) mmol/L ABG O2 Saturation (94-97) % Hemoglobin (13.0-17.5) gm/dL Sodium 126 L 124 L (137-145) mmol/L Chloride (98-107) mmol/L Carbon Dioxide (22-30) mmol/L BUN (9-20) mg/dL Glucose (74-99) mg/dL POC Glucose (mg/dL) 179 H (70-110) mg/dL 01/06/25 01/06/25 01/06/25 Range/Units 02:03 05:58 06:15 WBC (4.50-10.00) 10*3/uL RBC (4.40-5.60) 10*6/uL Hgb (13.0-17.0) g/dL Hct (39.6-50.0) % MCH (27.0-32.0) pg MCHC (32.0-37.0) g/dL MPV (9.5-12.2) fL Immature Gran # (0.00-0.04) 10*3/uL Neutrophils # (Manual) (1.3-7.7) k/uL Lymphocytes # (Manual) (1.0-4.8) k/uL APTT (22.0-30.0) sec ABG pH (7.35-7.45) ABG pCO2 (35-45) mmHg ABG pO2 (83-108) mmHg ABG HCO3 (21-25) mmol/L ABG Total CO2 (19-24) mmol/L ABG O2 Saturation (94-97) % Hemoglobin (13.0-17.5) gm/dL Sodium 126 L (137-145) mmol/L Chloride (98-107) mmol/L Carbon Dioxide (22-30) mmol/L BUN (9-20) mg/dL Glucose (74-99) mg/dL POC Glucose (mg/dL) 213 H 236 H (70-110) mg/dL 01/06/25 01/06/25 01/06/25 Range/Units 06:15 08:10 09:55 WBC 153.07 H* (4.50-10.00) 10*3/uL RBC 4.34 L (4.40-5.60) 10*6/uL Hgb 10.6 L (13.0-17.0) g/dL Hct 37.3 L (39.6-50.0) % MCH 24.4 L (27.0-32.0) pg MCHC 28.4 L (32.0-37.0) g/dL MPV 8.4 L (9.5-12.2) fL Immature Gran # 0.26 H (0.00-0.04) 10*3/uL Neutrophils # (Manual) 9.18 H (1.3-7.7) k/uL Lymphocytes # (Manual) 143.89 H (1.0-4.8) k/uL APTT (22.0-30.0) sec ABG pH 7.46 H (7.35-7.45) ABG pCO2 47 H (35-45) mmHg ABG pO2 157 H (83-108) mmHg ABG HCO3 33 H (21-25) mmol/L ABG Total CO2 35 H (19-24) mmol/L ABG O2 Saturation 98.7 H (94-97) % Hemoglobin 9.1 L (13.0-17.5) gm/dL Sodium 127 L (137-145) mmol/L Chloride (98-107) mmol/L Carbon Dioxide (22-30) mmol/L BUN (9-20) mg/dL Glucose (74-99) mg/dL POC Glucose (mg/dL) (70-110) mg/dL 01/06/25 01/06/25 01/06/25 Range/Units 11:24 11:30 12:38 WBC (4.50-10.00) 10*3/uL RBC (4.40-5.60) 10*6/uL Hgb (13.0-17.0) g/dL Hct (39.6-50.0) % MCH (27.0-32.0) pg MCHC (32.0-37.0) g/dL MPV (9.5-12.2) fL Immature Gran # (0.00-0.04) 10*3/uL Neutrophils # (Manual) (1.3-7.7) k/uL Lymphocytes # (Manual) (1.0-4.8) k/uL APTT 20.7 L (22.0-30.0) sec ABG pH (7.35-7.45) ABG pCO2 (35-45) mmHg ABG pO2 (83-108) mmHg ABG HCO3 (21-25) mmol/L ABG Total CO2 (19-24) mmol/L ABG O2 Saturation (94-97) % Hemoglobin (13.0-17.5) gm/dL Sodium 128 L (137-145) mmol/L Chloride 88 L (98-107) mmol/L Carbon Dioxide 32 H (22-30) mmol/L BUN 53 H (9-20) mg/dL Glucose 210 H (74-99) mg/dL POC Glucose (mg/dL) 218 H (70-110) mg/dL - Imaging and Cardiology Chest x-ray: report reviewed (Postthoracentesis chest x-ray showing only a small residual left pleural effusion. No pneumothorax. ) Assessment and Plan (1) Hyponatremia Current Visit: Yes Status: Acute Priority: High Code(s): E87.1 - HYPO- OSMOLALITY AND HYPONATREMIA SNOMED Code(s): 73293171 (2) Pleural effusion Current Visit: Yes Status: Acute Priority: High Code(s): J90 - PLEURAL EFFUSION, NOT ELSEWHERE CLASSIFIED SNOMED Code(s): 71153275 (3) CLL (chronic lymphocytic leukemia) Current Visit: Yes Status: Chronic Priority: Low Code(s): C91.10 - CHRONIC LYMPHOCYTIC LEUK OF B-CELL TYPE NOT ACHIEVE REMIS SNOMED Code(s): 88602238 (4) Colon cancer Current Visit: Yes Status: Acute Priority: High Code(s): C18.9 - MALIGNANT NEOPLASM OF COLON, UNSPECIFIED SNOMED Code(s): 504306362 Plan: Hyponatremia -Routine lab work showed a mow sodium, pt instructed to come to hospital. Upon admit sodium 117. -Cortisol elevated at 48.7, drawn in the afternoon. ACTH elevated at 164, rule out IO induced hypophysitis -Concern for IO induced adrenal insufficiency. Solu-Medrol 60 mg q6 hours started. -Sodium continues to improve, 128 today. Nephrology following -Continue to monitor sodium levels Pleural effusion -s/p thoracentesis-can see that bipap has been removed -cytology and cultures pending CLL, Metastatic colon cancer -Oncology history as dictated in consult -Lab work consistent with CLL progression. Patient has had lymphocytosis that is worsened over a short period of time. Calquence prescription has been obtained. Patient will initiate while inpatient. -TLS labs ordered. Mildly elevated uric acid and phosphorus. Allopurinol initiated -Started dual immunotherapy with yervoy/opdivo on 12/09/2024, completing cycle 2 on 12/30/24. -Immunotherapy on hold until acute condition resolved. Will schedule clinic f/u upon discharge to further discuss treatment options, possible retrial of IO, once steroids completed Doctor attests: I performed a history and physical examination of this patient, developed impression and plan of care. Discussed with dictator. I agree with dictators note, documented as a scribe.
[2025-01-06] MEDS: AMIODARONE 450 MG in DEXTROSE 5% IN WATER 250 ML IV SCH (16:26)
[2025-01-06 16:40] LABS: Glucose,Whole Blood 215 mg/dL (70-110)
[2025-01-06] MEDS: METOPROLOL TARTRATE 25 MG TAB PO SCH (17:03)
--- NOTE | 2025-01-06 18:32 | P.PN ---
Subjective Progress Note Date: 01/06/25 This is a pleasant 64-year-old male patient with a known history of CML, former smoker, metastatic colon cancer to the lungs with recurrent pleural effusions on the right status post Pleurx catheter placed November 29, 2024. He was also noted to have a left pleural effusion and the plan was for thoracentesis January 08, 2025. He had seen his oncologist yesterday and had routine lab work drawn. He was later called and said to return port to the emergency room for low sodium level. He is seen today in consultation in the emergency department. He is currently sitting up in a chair. Awake and alert in no acute distress. Denies any worsening shortness of breath, cough or congestion. Is maintaining good O2 saturations in the mid 90s on 3 L/min per nasal cannula. Has been afebrile. Hemodynamically stable. Chest x-ray reveals cardiomegaly, pulmonary vascular congestion and bilateral pleural effusions. EKG revealed sinus mechanism. Ultrasound of the chest revealed a 1.1 cm pocket on the right and a 10.6 cm pocket on the left. White count 152. Hemoglobin 8.3. Platelets 283. Sodium 120. Potassium 4.6. Bicarb 23. BUN 22. Creatinine 0.58. Glucose 161. Progress note dated January 04, 2025. 64-year-old male who was seen in the emergency department yesterday, in room 1. Please see the consultation above. He has a history of CML, previous tobacco use, metastatic colon cancer, and recurrent pleural effusion. The patient had a right-sided pleural effusion, treated with Pleurx catheter, November 29. The patient had a repeat chest x-ray and ultrasound which showed almost no fluid on the right, but a moderate to large left pleural effusion. I offered the patient thoracentesis which he refused. I also offered him a consultation with cardiothoracic surgery to consider Pleurx catheter placement on the left side. He refused that as well. He apparently was scheduled to have a thoracentesis with one of my partners, on Monday as an outpatient. He was also admitted with hyponatremia. Current labs include a white count of 142,000, hemoglobin 8.4, hematocrit 28.5, and a normal platelet count. Sodium 122, potassium 4.6, chlorides 90, CO2 22, BUN 34, creatinine 0.74. Glucose is 176. Calcium 8.9. Abdominal ultrasound showed mild to moderate ascites in the right lower quadrant of the abdomen. The patient is seen today January 05, 2025 in follow-up on the selective care unit. He is currently sitting up in a chair at the bedside. Awake and alert in no acute distress. He is maintaining O2 saturations in the 90s on 4 L/min per nasal cannula. No IV fluids. Abdominal ultrasound revealed mild to moderate ascites in the right lower quadrant of the abdomen. Echocardiogram revealed preserved left ventricular systolic function. Small pericardial effusion/thickened posterior lateral pericardium. White count 154. Hemoglobin 8.3. Platelets 250. Sodium 127. Potassium 4.6. Bicarb 29. BUN 36. Creatinine 0.57. Glucose 171. He remains on Lasix 40 mg IV every 8 hours. Continued on Solu-Medrol. Lovenox for DVT prophylaxis. He is currently in a - 2.8 L balance. On 01/06/2025, the patient is being seen in follow-up. The patient was hospitalized on 01/03/2025 and the patient was hyponatremic, had worsening shortness of breath and increased edema lower extremities bilaterally. The patient was also in atrial fibrillation. He is also known to have a Pleurx cath eter on the right and the output from the Pleurx catheter has been extremely limited and minimal without any significant output over the past 1 to 2 weeks. He was also noted to have a moderate-sized left-sided pleural effusion. Noted the patient is known to have metastatic adenocarcinoma of the colon and CML. He had a malignant right-sided pleural effusion that required a Pleurx catheter insertion on 11/29/2024. At the time of my evaluation this morning, the patient was still on the BiPAP at a pressure of 12/6 with an FiO2 of 90%. He was generating a tidal volume of 580 with a respirate of 28. He was being diuresed with IV Lasix and the patient has been excellent negative fluid balance over the past 48 to 72 hours. Fluid balance for last 24 hours has been -2.7 L and the patient has a Harris catheter in place and he continues to receive Lasix 40 mg every 8 hours. He remains in atrial fibrillation with a improved rate control. The patient is on amiodarone drip and he is at 1 mg/min per protocol to be weaned down to 0.5 mg/min. He is also on metoprolol 25 mg p.o. 3 times daily. He is on IV heparin. I reviewed the most recent chest x-ray from this morning and the patient had cardiomegaly with volume loss in the right lung base and some elevation of the right hemidiaphragm and moderate-sized left-sided pleural effusion. The lungs were essentially hyperinflated and there was some interstitial change in lung base bilaterally along with some interstitial edema. Ultrasound of the chest was obtained and the patient was found to have a 10 cm pocket on the left with no fluid on the right. Ultrasound marking was done. I stopped IV heparin for approximately 60 to 90 minutes and following that I performed a thoracentesis on the left lung. Total of 1.3 L of pleural fluid was aspirated and this was sent for chemical analysis and cytology. Reviewed the postop chest x-ray and there is no evidence of any pneumothorax. There is a small residual left-sided pleural effusion still on the left. I also connected the Pleurx catheter to a Pleur-evac and suction and there is no significant fluid output in the atrium. Most recent CBC shows a white cell count of 153 with a hemoglobin 10.6 and a platelet count of 237. BUN is 53 with a creatinine of 0.7. Sodium levels at 128. Nephrology on the case regarding his hyponatremia. Echocardiogram was also done and the patient was found to have a preserved LV function. Small pericardial effusion. Ultrasound of the abdomen shows small to moderate-sized ascites in the right lower quadrant of the abdomen. Objective - Vital Signs Vital signs: Vital Signs Temp 97.8 F 01/06/25 07:39 Pulse 111 H 01/06/25 10:18 Resp 23 01/06/25 09:13 BP 106/68 01/06/25 10:18 Pulse Ox 98 01/06/25 10:18 FiO2 90 01/06/25 10:18 Intake & Output 01/05/25 01/06/25 01/06/25 18:59 06:59 18:59 Intake Total 703 72.417 103 Output Total 1975 1600 525 Balance -5832 -1527.583 -422 Weight 119 kg Intake: IV 20 60 20 Invasive Line 1 20 30 Invasive Line 2 20 10 Invasive Line 3 10 10 Intake, IV Titration 12.417 83 Amount Diltiazem 125 mg In 12.417 83 Dextrose 5% in Water 100 ml @ 5 MG/HR 5 mls/hr IV .Q24H [facility] Rx#:[id number] Oral 683 Output: Chest Tube Drainage 0 Pleural Catheter Right 0 Lateral Chest Urine 1975 1600 525 Other: Voiding Method Indwelling Catheter Indwelling Catheter Indwelling Catheter - Exam GENERAL EXAM: Alert, 64-year-old male, sitting up in a chair, on BiPAP at a pressure of 12/6 with an FiO2 of 90% to be gradually weaned off HEAD: Normocephalic. EYES: Normal reaction of pupils, equal size. NOSE: Clear with pink turbinates. THROAT: No erythema or exudates. NECK: No masses, no JVD. CHEST: No chest wall deformity. LUNGS: Equal air entry with crackles in the posterior bases left greater than right. Aeration is improved following the thoracentesis in the left lung base. Pleurx catheter has been attached to a Pleur-evac/atrium. Output is almost 0 at this point. CVS: S1 and S2 normal with no audible murmur, regular rhythm. ABDOMEN: No hepatosplenomegaly, normal bowel sounds, no guarding or rigidity. SPINE: No scoliosis or deformity SKIN: No rashes CENTRAL NERVOUS SYSTEM: No focal deficits, tone is normal in all 4 extremities. EXTREMITIES: There is 1+ peripheral edema. No clubbing, no cyanosis. Peripheral pulses are intact. - Labs CBC & Chem 7: 01/06/25 06:15 01/06/25 12:38 Labs: Abnormal Lab Results - Last 24 Hours (Table) 01/05/25 01/05/25 01/05/25 Range/Units 07:10 11:54 14:34 WBC (4.50-10.00) 10*3/uL RBC (4.40-5.60) 10*6/uL Hgb (13.0-17.0) g/dL Hct (39.6-50.0) % MCH (27.0-32.0) pg MCHC (32.0-37.0) g/dL MPV (9.5-12.2) fL Immature Gran # (0.00-0.04) 10*3/uL Neutrophils # (Manual) (1.3-7.7) k/uL Lymphocytes # (Manual) (1.0-4.8) k/uL ABG pH (7.35-7.45) ABG pCO2 (35-45) mmHg ABG pO2 (83-108) mmHg ABG HCO3 (21-25) mmol/L ABG Total CO2 (19-24) mmol/L ABG O2 Saturation (94-97) % Hemoglobin (13.0-17.5) gm/dL Sodium 126 L (137-145) mmol/L POC Glucose (mg/dL) 181 H (70-110) mg/dL Hemoglobin A1c 6.4 H (<=6.0) % 01/05/25 01/05/25 01/05/25 Range/Units 16:42 18:30 20:05 WBC (4.50-10.00) 10*3/uL RBC (4.40-5.60) 10*6/uL Hgb (13.0-17.0) g/dL Hct (39.6-50.0) % MCH (27.0-32.0) pg MCHC (32.0-37.0) g/dL MPV (9.5-12.2) fL Immature Gran # (0.00-0.04) 10*3/uL Neutrophils # (Manual) (1.3-7.7) k/uL Lymphocytes # (Manual) (1.0-4.8) k/uL ABG pH (7.35-7.45) ABG pCO2 (35-45) mmHg ABG pO2 (83-108) mmHg ABG HCO3 (21-25) mmol/L ABG Total CO2 (19-24) mmol/L ABG O2 Saturation (94-97) % Hemoglobin (13.0-17.5) gm/dL Sodium 125 L (137-145) mmol/L POC Glucose (mg/dL) 192 H 179 H (70-110) mg/dL Hemoglobin A1c (<=6.0) % 01/05/25 01/06/25 01/06/25 Range/Units 22:42 01:21 02:03 WBC (4.50-10.00) 10*3/uL RBC (4.40-5.60) 10*6/uL Hgb (13.0-17.0) g/dL Hct (39.6-50.0) % MCH (27.0-32.0) pg MCHC (32.0-37.0) g/dL MPV (9.5-12.2) fL Immature Gran # (0.00-0.04) 10*3/uL Neutrophils # (Manual) (1.3-7.7) k/uL Lymphocytes # (Manual) (1.0-4.8) k/uL ABG pH (7.35-7.45) ABG pCO2 (35-45) mmHg ABG pO2 (83-108) mmHg ABG HCO3 (21-25) mmol/L ABG Total CO2 (19-24) mmol/L ABG O2 Saturation (94-97) % Hemoglobin (13.0-17.5) gm/dL Sodium 126 L 124 L (137-145) mmol/L POC Glucose (mg/dL) 213 H (70-110) mg/dL Hemoglobin A1c (<=6.0) % 01/06/25 01/06/25 01/06/25 Range/Units 05:58 06:15 06:15 WBC 153.07 H* (4.50-10.00) 10*3/uL RBC 4.34 L (4.40-5.60) 10*6/uL Hgb 10.6 L (13.0-17.0) g/dL Hct 37.3 L (39.6-50.0) % MCH 24.4 L (27.0-32.0) pg MCHC 28.4 L (32.0-37.0) g/dL MPV 8.4 L (9.5-12.2) fL Immature Gran # 0.26 H (0.00-0.04) 10*3/uL Neutrophils # (Manual) 9.18 H (1.3-7.7) k/uL Lymphocytes # (Manual) 143.89 H (1.0-4.8) k/uL ABG pH (7.35-7.45) ABG pCO2 (35-45) mmHg ABG pO2 (83-108) mmHg ABG HCO3 (21-25) mmol/L ABG Total CO2 (19-24) mmol/L ABG O2 Saturation (94-97) % Hemoglobin (13.0-17.5) gm/dL Sodium 126 L (137-145) mmol/L POC Glucose (mg/dL) 236 H (70-110) mg/dL Hemoglobin A1c (<=6.0) % 01/06/25 01/06/25 Range/Units 08:10 09:55 WBC (4.50-10.00) 10*3/uL RBC (4.40-5.60) 10*6/uL Hgb (13.0-17.0) g/dL Hct (39.6-50.0) % MCH (27.0-32.0) pg MCHC (32.0-37.0) g/dL MPV (9.5-12.2) fL Immature Gran # (0.00-0.04) 10*3/uL Neutrophils # (Manual) (1.3-7.7) k/uL Lymphocytes # (Manual) (1.0-4.8) k/uL ABG pH 7.46 H (7.35-7.45) ABG pCO2 47 H (35-45) mmHg ABG pO2 157 H (83-108) mmHg ABG HCO3 33 H (21-25) mmol/L ABG Total CO2 35 H (19-24) mmol/L ABG O2 Saturation 98.7 H (94-97) % Hemoglobin 9.1 L (13.0-17.5) gm/dL Sodium 127 L (137-145) mmol/L POC Glucose (mg/dL) (70-110) mg/dL Hemoglobin A1c (<=6.0) % Assessment and Plan Plan: Acute hypoxic respiratory failure, multifactorial and the patient is currently on BiPAP at a pressure of 12 or 6 with an FiO2 of 90%. The patient has volume loss in the right lung and the right hemidiaphragm is elevated and he has a malignant right-sided pleural effusion for which a Pleurx catheter has been inserted and the output from the right-sided Pleurx catheter has dropped considerably and currently is down to 0. Meanwhile, the patient had developed a left-sided pleural effusion and a bedside thoracentesis was done on 01/06/2025 with evacuation of 1.3 L of pleural fluid. In addition, the patient has small to moderate-sized ascites in the right abdomen and signs of volume overload with excessive lower extremity edema and he is in new onset atrial fibrillation. Echocardiogram showed a preserved LV function with an ejection fraction of 55%. History of metastatic colon cancer to the lungs currently on immunotherapy, the patient has malignant right-sided pleural effusion and pleural surface on the right is also affected with malignancy. Chronic lymphocytic leukemia with significantly based on the white cell count and the patient has chronic anemia Lower extremity edema Atrial fibrillation with rapid ventricular response, currently on amiodarone drip and metoprolol. The patient is also on IV heparin. Chronic anemia secondary to above. The patient is known to have CLL Former smoker Medical debility and generalized weakness secondary to above-mentioned malignancy and complications related to his malignancy. Plan: Keep the patient on BiPAP for the next 24 hours and wean down the FiO2 Echocardiogram reviewed and the patient has a preserved LV function with an EF of around 55% Ultrasound of the chest reviewed, thoracentesis of the left lung was done on 01/06/2025 and the right Pleurx catheter was attached atrium/Pleur-evac. Management of atrial fibrillation by cardiology. The patient is currently on amiodarone drip and this has been at a dose of 0.5 mg/min. The patient is also on metoprolol and IV heparin. May consider paracentesis regarding his mild to moderate ascites Monitor sodium level Monitor fluid balance Continue IV Lasix 40 milligrams IV acute 8 hours Remains in a negative balance We will continue to follow Long-term prognosis poor based on above-mentioned comorbidities. The patient has become extremely debilitated related to his underlying malignancy. Time with Patient: Greater than 30
--- NOTE | 2025-01-06 18:33 | P.PCN ---
Date of Procedure: 01/06/25 Preoperative Diagnosis: Pleural effusion, left Postoperative Diagnosis: Pleural effusion, left Procedure(s) Performed: Thoracentesis, left Anesthesia: local Surgeon: Apple Sullivan Pathology: other Condition: critical Disposition: floor Operative Findings: The procedure was done under ultrasound guidance. Ultrasound marking of the left chest was done. Bedside ultrasound was also utilized to locate the left- sided pleural effusion. A time out was performed and the chest x-ray was reviewed, the appropriate side was confirmed and marked. My hands were washed immediately prior to the procedure. I wore a surgical cap, mask with protective eyewear, sterile gown and sterile gloves throughout the procedure. The patient was prepped and draped in a sterile manner using chlorhexidine scrub after the appropriate level was percussed and confirmed by ultrasound. 1% lidocaine was used to anesthesize the skin, subcutaneous tissue, superior aspect of the rib periosteum and parietal pleura. A finder needle was then introduced over the superior aspect of the rib to locate the pleural fluid; 2colored fluid was aspirated at a depth of approximately 2 cm. A 10-blade scalpel was used to rainer the skin at the insertion site. The Bmbc-d-[id number] needle was then introduced through the skin incision into the pleural space using negative aspiration pressure and the red colometric indicator to confirm appropriate positioning of the needle. The thoracentesis catheter was then threaded without difficulty. 1300 ml of turbid colored fluid was removed without difficulty. The catheter was then removed. No immediate complications were noted during the procedure. A post-procedure chest x-ray is pending at the time of this note. The fluid will be sent for studies. Estimated blood loss is 0cc
[2025-01-06 20:06] LABS: Glucose,Whole Blood 199 mg/dL (70-110)
[2025-01-06 20:34] LABS: Glucose, BF Source Pleural Fluid; Glucose, Body Fluid 171 mg/dL; LDH, Body Fluid Source Pleural Fluid; T. Protein, Body Fluid Source Pleural Fluid; Total Protein, Body Fluid >3600 mg/dL
[2025-01-06] MEDS: CALQUENCE 100 MG PO SCH (21:18)
[2025-01-06 21:36] LABS: Appearance,BF Cloudy (Clear)
[2025-01-06] MEDS: HEPARIN SODIUM 1,000 UN/ML (10ML VL) IV PRN (21:57)
[2025-01-07 03:59] LABS: Basophils # (A) 0.05 10*3/uL (0.00-0.10); Basophils % (A) 0.0 %; Eosinophils # (A) 0.01 10*3/uL (0.04-0.35); Eosinophils % (A) 0.0 %; HCT 30.9 % (39.6-50.0); Lymphocytes % (A) 95.5 %; MCH 24.4 pg (27.0-32.0); MCHC 27.8 g/dL (32.0-37.0); MCV 87.8 fL (80.0-97.0); Monocytes # (A) 0.42 10*3/uL (0.20-1.00); Monocytes % (A) 0.2 %; Neutrophils # (A) 7.30 10*3/uL (1.80-7.70); Neutrophils % (A) 4.0 %; Platelet Count 204 10*3/uL (140-440); RBC 3.52 10*6/uL (4.40-5.60); RDW 21.2 % (11.5-14.5)
[2025-01-07 04:07] LABS: Lymphocytes # (A) 173.91 10*3/uL (0.90-5.00); WBC 182.16 10*3/uL (4.50-10.00)
[2025-01-07 04:08] LABS: HGB 8.6 g/dL (13.0-17.0)
[2025-01-07 04:13] LABS: African American GFR (CKD) >90 (>60 ml/min/1.73 sqM); Anion Gap 6 mmol/L; Blood Urea Nitrogen 62 mg/dL (9-20); Calcium 8.8 mg/dL (8.4-10.2); Carbon Dioxide 31 mmol/L (22-30); Chloride 87 mmol/L (98-107); Glucose 196 mg/dL (74-99); Magnesium 2.0 mg/dL (1.6-2.3); Non-African American GFR(CKD) >90 (>60 ml/min/1.73 sqM); Potassium 5.4 mmol/L (3.5-5.1); Sodium 124 mmol/L (137-145)
[2025-01-07 05:57] LABS: Glucose,Whole Blood 210 mg/dL (70-110)
--- NOTE | 2025-01-07 09:48 | P.PN ---
Subjective This is a pleasant 64-year-old male patient who is lethargic aand on bi-pap at the time of my exam. The is at the bedside and HPI has been obtained from her and the patient's cahrt. 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 He has a history of CLL that had been relatively stable. He developed anemia earlier this year and underwent EGD and colonoscopy and found to have a mass. He was subsequently found to have me tastasis involving the lungs with recurrent malignant right-sided pleural effusion requiring Pleurx catheter basement. Presented to the hospital on 01/02/2025 after follow-up with oncology and pulmonology. He had labs that showed hyponatremia. At home he had been having lower extremity edema and s hortness of breath felt to be related to immunotherapy. He underwent echocardiogram this admission that showed normal LV systolic function with a small pericardial effusion. He was beginning to feel somewhat better. There is plans for outpatient left-sided thoracentesis later this week. Overnight last night patient decompensated and was placed on BiPAP he was found to be in atrial fibrillation with rapid ventricular response. He was placed on IV heparin and Cardizem. He has no history of cardiac issues, no hypertension, diabetes or hyperlipidemia. He is a non-smoker, does not consume alcohol. Diagnostics -EKG: Atrial fibrillation with rapid ventricular response -Chest x-ray: Redemonstrated moderate right and small left pleural effusions with adjacent airspace disease which may relate to compressive atelectasis, hypoinflated lungs, partially obscured cardiomegaly, mild interstitial changes in the lungs which can be seen with mild interstitial pulmonary edema -Abdominal ultrasound: Mild to moderate ascites in the right lower quadrant of the abdomen -Laboratory studies: White blood cell count 153,000, hemoglobin 10.6, 126, potassium 4.6, chloride 91, BUN 36, creatinine 0.57, hemoglobin A1c 6.4 -Home cardiac medications: Lasix 20 mg p.o. twice daily -Prior stress test: None -Echocardiogram: 01/03/2025 normal LV systolic function with small pleural pericardial effusion -Cardiac catheterization: None 01/07/2025 Patient was seen and examined resting comfortably in bed. He is off BiPAP. Underwent left-sided thoracentesis yesterday with Dr. Sullivan with removal of 1300 mL of turbid colored fluid. He feels his breathing is a bit better. Continues to have Pleurx catheter on the right. Unfortunately heart rate remains elevated but blood pressure is low in the 90s. Currently on IV amiodarone. PHYSICAL EXAMINATION: This is a 64-year-old in no apparent distress at the time of my examination. VITAL SIGNS: Reviewed. HEENT: Head is atraumatic, normocephalic. Pupils are equal, round. Sclerae anicteric. Conjunctivae are clear. Mucous membranes of the mouth are moist. Neck is supple. There is no elevated jugular venous pressure. No carotid bruit is heard. CHEST EXAMINATION: Diminished air entry bilaterally. Respirations even and nonlabored. HEART EXAMINATION: Heart irregular rate and rhythm, positive S1 and S2. No S3. No S4. Tachycardia noted. ABDOMEN: Distended. Bowel sounds are heard. EXTREMITIES: 2+ peripheral pulses with evidence of moderate peripheral edema and no calf tenderness noted. NEUROLOGIC EXAMINATION: Patient is awake alert and oriented. Assessment: 1. New onset atrial fibrillation with RVR 2. metastatic colon cancer 3. CLL Plan: From cardiology's perspective we will switch the patient to oral amiodarone. Continue to monitor renal function and electrolytes. We will continue to follow the patient and provide further recommendations accordingly. Nurse practitioner note has been reviewed, I agree with documented findings and plan of care. Patient was seen and examined. Objective - Vital Signs Vital signs: Vital Signs Temp 97.6 F 01/07/25 07:41 Pulse 150 H 01/07/25 08:00 Resp 26 H 01/07/25 07:41 BP 94/51 01/07/25 07:41 Pulse Ox 91 L 01/07/25 07:57 FiO2 70 01/07/25 00:20 Intake & Output 01/06/25 01/07/25 01/07/25 18:59 06:59 18:59 Intake Total 943.833 370.938 Output Total 1450 850 500 Balance -506.167 -479.062 -500 Weight 98.5 kg Intake: IV 20 Invasive Line 2 10 Invasive Line 3 10 Intake, IV Titration 203.833 370.938 Amount Amiodarone 450 mg In 215.004 Dextrose 5% in Water 250 ml @ 0.5 MG/MIN 16.667 mls/hr IV .Q15H [facility] Rx#: [id number] Diltiazem 125 mg In 83 Dextrose 5% in Water 100 ml @ 5 MG/HR 5 mls/hr IV .Q24H [facility] Rx#:[id number] Heparin Sod,Pork in 0.45% 120.833 155.934 NaCl 25,000 unit In 0.45 % NaCl 1 250ml.bag @ 9. 804 UNITS/KG/HR 10 mls/hr IV .Q24H [facility] Rx#: [id number] Oral 720 Output: Urine 1450 850 500 Other: Voiding Method Indwelling Catheter Indwelling Catheter Indwelling Catheter # Bowel Movements 1 1 - Labs CBC & Chem 7: 01/07/25 03:42 01/07/25 03:42 Labs: Abnormal Lab Results - Last 24 Hours (Table) 01/06/25 01/06/25 01/06/25 Range/Units 06:15 06:15 09:55 WBC (4.50-10.00) 10*3/uL RBC (4.40-5.60) 10*6/uL Hgb (13.0-17.0) g/dL Hct (39.6-50.0) % MCH (27.0-32.0) pg MCHC (32.0-37.0) g/dL MPV (9.5-12.2) fL Immature Gran # (0.00-0.04) 10*3/uL Neutrophils # (Manual) 9.18 H (1.3-7.7) k/uL Lymphocytes # (0.90-5.00) 10*3/uL Lymphocytes # (Manual) 143.89 H (1.0-4.8) k/uL Eosinophils # (0.04-0.35) 10*3/uL APTT (22.0-30.0) sec Sodium 127 L (137-145) mmol/L Potassium (3.5-5.1) mmol/L Chloride (98-107) mmol/L Carbon Dioxide (22-30) mmol/L BUN (9-20) mg/dL Glucose (74-99) mg/dL POC Glucose (mg/dL) (70-110) mg/dL Uric Acid 9.6 H (3.5-8.5) mg/dL Phosphorus 4.7 H (2.5-4.5) mg/dL Fluid Appearance (Clear) 01/06/25 01/06/25 01/06/25 Range/Units 11:24 11:30 12:38 WBC (4.50-10.00) 10*3/uL RBC (4.40-5.60) 10*6/uL Hgb (13.0-17.0) g/dL Hct (39.6-50.0) % MCH (27.0-32.0) pg MCHC (32.0-37.0) g/dL MPV (9.5-12.2) fL Immature Gran # (0.00-0.04) 10*3/uL Neutrophils # (Manual) (1.3-7.7) k/uL Lymphocytes # (0.90-5.00) 10*3/uL Lymphocytes # (Manual) (1.0-4.8) k/uL Eosinophils # (0.04-0.35) 10*3/uL APTT 20.7 L (22.0-30.0) sec Sodium 128 L (137-145) mmol/L Potassium (3.5-5.1) mmol/L Chloride 88 L (98-107) mmol/L Carbon Dioxide 32 H (22-30) mmol/L BUN 53 H (9-20) mg/dL Glucose 210 H (74-99) mg/dL POC Glucose (mg/dL) 218 H (70-110) mg/dL Uric Acid (3.5-8.5) mg/dL Phosphorus (2.5-4.5) mg/dL Fluid Appearance (Clear) 01/06/25 01/06/25 01/06/25 Range/Units 13:22 16:39 20:04 WBC (4.50-10.00) 10*3/uL RBC (4.40-5.60) 10*6/uL Hgb (13.0-17.0) g/dL Hct (39.6-50.0) % MCH (27.0-32.0) pg MCHC (32.0-37.0) g/dL MPV (9.5-12.2) fL Immature Gran # (0.00-0.04) 10*3/uL Neutrophils # (Manual) (1.3-7.7) k/uL Lymphocytes # (0.90-5.00) 10*3/uL Lymphocytes # (Manual) (1.0-4.8) k/uL Eosinophils # (0.04-0.35) 10*3/uL APTT (22.0-30.0) sec Sodium (137-145) mmol/L Potassium (3.5-5.1) mmol/L Chloride (98-107) mmol/L Carbon Dioxide (22-30) mmol/L BUN (9-20) mg/dL Glucose (74-99) mg/dL POC Glucose (mg/dL) 215 H 199 H (70-110) mg/dL Uric Acid (3.5-8.5) mg/dL Phosphorus (2.5-4.5) mg/dL Fluid Appearance Cloudy A (Clear) 01/06/25 01/07/25 01/07/25 Range/Units 20:24 03:42 03:42 WBC 182.16 H* (4.50-10.00) 10*3/uL RBC 3.52 L (4.40-5.60) 10*6/uL Hgb 8.6 L D (13.0-17.0) g/dL Hct 30.9 L (39.6-50.0) % MCH 24.4 L (27.0-32.0) pg MCHC 27.8 L (32.0-37.0) g/dL MPV 8.5 L (9.5-12.2) fL Immature Gran # 0.47 H (0.00-0.04) 10*3/uL Neutrophils # (Manual) (1.3-7.7) k/uL Lymphocytes # 173.91 H (0.90-5.00) 10*3/uL Lymphocytes # (Manual) (1.0-4.8) k/uL Eosinophils # 0.01 L (0.04-0.35) 10*3/uL APTT 21.3 L (22.0-30.0) sec Sodium 124 L (137-145) mmol/L Potassium 5.4 H (3.5-5.1) mmol/L Chloride 87 L (98-107) mmol/L Carbon Dioxide 31 H (22-30) mmol/L BUN 62 H (9-20) mg/dL Glucose 196 H (74-99) mg/dL POC Glucose (mg/dL) (70-110) mg/dL Uric Acid (3.5-8.5) mg/dL Phosphorus (2.5-4.5) mg/dL Fluid Appearance (Clear) 01/07/25 Range/Units 05:55 WBC (4.50-10.00) 10*3/uL RBC (4.40-5.60) 10*6/uL Hgb (13.0-17.0) g/dL Hct (39.6-50.0) % MCH (27.0-32.0) pg MCHC (32.0-37.0) g/dL MPV (9.5-12.2) fL Immature Gran # (0.00-0.04) 10*3/uL Neutrophils # (Manual) (1.3-7.7) k/uL Lymphocytes # (0.90-5.00) 10*3/uL Lymphocytes # (Manual) (1.0-4.8) k/uL Eosinophils # (0.04-0.35) 10*3/uL APTT (22.0-30.0) sec Sodium (137-145) mmol/L Potassium (3.5-5.1) mmol/L Chloride (98-107) mmol/L Carbon Dioxide (22-30) mmol/L BUN (9-20) mg/dL Glucose (74-99) mg/dL POC Glucose (mg/dL) 210 H (70-110) mg/dL Uric Acid (3.5-8.5) mg/dL Phosphorus (2.5-4.5) mg/dL Fluid Appearance (Clear) Microbiology - Last 24 Hours (Table) 01/06/25 13:22 Gram Stain - Preliminary Pleural Fluid
--- NOTE | 2025-01-07 10:25 | P.PN ---
Subjective Patient is seen in follow-up for hyponatremia. Sodium level 124 this morning. On IV Lasix. On amiodarone drip for A-fib. Has Harris catheter. Nonoliguric. Currently on nasal cannula. Vital signs are stable. General: Resting in bed. HEENT: On BiPAP. LUNGS: Scattered rhonchi. HEART: Rate and Rhythm are regular. ABDOMEN: No distention. EXTREMITITES: 2+ edema. Objective - Vital Signs Vital signs: Vital Signs Temp 97.6 F 01/07/25 07:41 Pulse 150 H 01/07/25 08:00 Resp 26 H 01/07/25 07:41 BP 94/51 01/07/25 07:41 Pulse Ox 91 L 01/07/25 07:57 FiO2 70 01/07/25 00:20 Intake & Output 01/06/25 01/07/25 01/07/25 18:59 06:59 18:59 Intake Total 943.833 370.938 Output Total 1450 850 500 Balance -506.167 -479.062 -500 Weight 98.5 kg Intake: IV 20 Invasive Line 2 10 Invasive Line 3 10 Intake, IV Titration 203.833 370.938 Amount Amiodarone 450 mg In 215.004 Dextrose 5% in Water 250 ml @ 0.5 MG/MIN 16.667 mls/hr IV .Q15H THOR Rx#: [id number] Diltiazem 125 mg In 83 Dextrose 5% in Water 100 ml @ 5 MG/HR 5 mls/hr IV .Q24H THOR Rx#:[id number] Heparin Sod,Pork in 0.45% 120.833 155.934 NaCl 25,000 unit In 0.45 % NaCl 1 250ml.bag @ 9. 804 UNITS/KG/HR 10 mls/hr IV .Q24H THOR Rx#: [id number] Oral 720 Output: Urine 1450 850 500 Other: Voiding Method Indwelling Catheter Indwelling Catheter Indwelling Catheter # Bowel Movements 1 1 - Labs CBC & Chem 7: 01/07/25 03:42 01/07/25 03:42 Labs: Abnormal Lab Results - Last 24 Hours (Table) 01/06/25 01/06/25 01/06/25 Range/Units 06:15 09:55 11:24 WBC (4.50-10.00) 10*3/uL RBC (4.40-5.60) 10*6/uL Hgb (13.0-17.0) g/dL Hct (39.6-50.0) % MCH (27.0-32.0) pg MCHC (32.0-37.0) g/dL MPV (9.5-12.2) fL Immature Gran # (0.00-0.04) 10*3/uL Lymphocytes # (0.90-5.00) 10*3/uL Eosinophils # (0.04-0.35) 10*3/uL APTT 20.7 L (22.0-30.0) sec Sodium 127 L (137-145) mmol/L Potassium (3.5-5.1) mmol/L Chloride (98-107) mmol/L Carbon Dioxide (22-30) mmol/L BUN (9-20) mg/dL Glucose (74-99) mg/dL POC Glucose (mg/dL) (70-110) mg/dL Uric Acid 9.6 H (3.5-8.5) mg/dL Phosphorus 4.7 H (2.5-4.5) mg/dL Fluid Appearance (Clear) 01/06/25 01/06/25 01/06/25 Range/Units 11:30 12:38 13:22 WBC (4.50-10.00) 10*3/uL RBC (4.40-5.60) 10*6/uL Hgb (13.0-17.0) g/dL Hct (39.6-50.0) % MCH (27.0-32.0) pg MCHC (32.0-37.0) g/dL MPV (9.5-12.2) fL Immature Gran # (0.00-0.04) 10*3/uL Lymphocytes # (0.90-5.00) 10*3/uL Eosinophils # (0.04-0.35) 10*3/uL APTT (22.0-30.0) sec Sodium 128 L (137-145) mmol/L Potassium (3.5-5.1) mmol/L Chloride 88 L (98-107) mmol/L Carbon Dioxide 32 H (22-30) mmol/L BUN 53 H (9-20) mg/dL Glucose 210 H (74-99) mg/dL POC Glucose (mg/dL) 218 H (70-110) mg/dL Uric Acid (3.5-8.5) mg/dL Phosphorus (2.5-4.5) mg/dL Fluid Appearance Cloudy A (Clear) 01/06/25 01/06/25 01/06/25 Range/Units 16:39 20:04 20:24 WBC (4.50-10.00) 10*3/uL RBC (4.40-5.60) 10*6/uL Hgb (13.0-17.0) g/dL Hct (39.6-50.0) % MCH (27.0-32.0) pg MCHC (32.0-37.0) g/dL MPV (9.5-12.2) fL Immature Gran # (0.00-0.04) 10*3/uL Lymphocytes # (0.90-5.00) 10*3/uL Eosinophils # (0.04-0.35) 10*3/uL APTT 21.3 L (22.0-30.0) sec Sodium (137-145) mmol/L Potassium (3.5-5.1) mmol/L Chloride (98-107) mmol/L Carbon Dioxide (22-30) mmol/L BUN (9-20) mg/dL Glucose (74-99) mg/dL POC Glucose (mg/dL) 215 H 199 H (70-110) mg/dL Uric Acid (3.5-8.5) mg/dL Phosphorus (2.5-4.5) mg/dL Fluid Appearance (Clear) 01/07/25 01/07/25 01/07/25 Range/Units 03:42 03:42 05:55 WBC 182.16 H* (4.50-10.00) 10*3/uL RBC 3.52 L (4.40-5.60) 10*6/uL Hgb 8.6 L D (13.0-17.0) g/dL Hct 30.9 L (39.6-50.0) % MCH 24.4 L (27.0-32.0) pg MCHC 27.8 L (32.0-37.0) g/dL MPV 8.5 L (9.5-12.2) fL Immature Gran # 0.47 H (0.00-0.04) 10*3/uL Lymphocytes # 173.91 H (0.90-5.00) 10*3/uL Eosinophils # 0.01 L (0.04-0.35) 10*3/uL APTT (22.0-30.0) sec Sodium 124 L (137-145) mmol/L Potassium 5.4 H (3.5-5.1) mmol/L Chloride 87 L (98-107) mmol/L Carbon Dioxide 31 H (22-30) mmol/L BUN 62 H (9-20) mg/dL Glucose 196 H (74-99) mg/dL POC Glucose (mg/dL) 210 H (70-110) mg/dL Uric Acid (3.5-8.5) mg/dL Phosphorus (2.5-4.5) mg/dL Fluid Appearance (Clear) Microbiology - Last 24 Hours (Table) 01/06/25 13:22 Gram Stain - Preliminary Pleural Fluid Assessment and Plan Plan: Assessment: 1. Hyponatremia, hypervolemic. Sodium level 124 this morning. 2. Metastatic colon cancer with recurrent pleural effusion. Has Pleurx catheter. Status post left-sided thoracentesis with 1.3 L drained January 06, 2025. 3. A-fib with RVR maintained on amiodarone drip. Cardiology following. 4. Volume overload. 5. Acute hypoxic respiratory failure. Plan: Maintain IV Lasix. Discontinue NSAIDs. Wean FiO2. Samsca x 1 dose today.
[2025-01-07] MEDS: TOLVAPTAN 15 MG TABLET PO ONE (11:11)
[2025-01-07] MEDS: AMIODARONE 200 MG TAB PO SCH (11:11)
[2025-01-07 11:40] LABS: African American GFR (CKD) >90 (>60 ml/min/1.73 sqM); Anion Gap 6 mmol/L; Blood Urea Nitrogen 63 mg/dL (9-20); Calcium 8.6 mg/dL (8.4-10.2); Carbon Dioxide 32 mmol/L (22-30); Chloride 88 mmol/L (98-107); Glucose 195 mg/dL (74-99); Non-African American GFR(CKD) >90 (>60 ml/min/1.73 sqM); Potassium 4.9 mmol/L (3.5-5.1); Sodium 126 mmol/L (137-145)
[2025-01-07 11:45] LABS: Glucose,Whole Blood 210 mg/dL (70-110)
[2025-01-07] MEDS: SODIUM FERRIC GLUCONAT-SUCROSE 125 MG in SODIUM CHLORIDE 0.9% 100 ML IVPB SCH (11:59)
--- NOTE | 2025-01-07 14:14 | P.PN ---
Subjective Progress Note Date: 01/07/25 This is a pleasant 64-year-old male patient with a known history of CML, former smoker, metastatic colon cancer to the lungs with recurrent pleural effusions on the right status post Pleurx catheter placed November 29, 2024. He was also noted to have a left pleural effusion and the plan was for thoracentesis January 08, 2025. He had seen his oncologist yesterday and had routine lab work drawn. He was later called and said to return port to the emergency room for low sodium level. He is seen today in consultation in the emergency department. He is currently sitting up in a chair. Awake and alert in no acute distress. Denies any worsening shortness of breath, cough or congestion. Is maintaining good O2 saturations in the mid 90s on 3 L/min per nasal cannula. Has been afebrile. Hemodynamically stable. Chest x-ray reveals cardiomegaly, pulmonary vascular congestion and bilateral pleural effusions. EKG revealed sinus mechanism. Ultrasound of the chest revealed a 1.1 cm pocket on the right and a 10.6 cm pocket on the left. White count 152. Hemoglobin 8.3. Platelets 283. Sodium 120. Potassium 4.6. Bicarb 23. BUN 22. Creatinine 0.58. Glucose 161. Progress note dated January 04, 2025. 64-year-old male who was seen in the emergency department yesterday, in room 1. Please see the consultation above. He has a history of CML, previous tobacco use, metastatic colon cancer, and recurrent pleural effusion. The patient had a right-sided pleural effusion, treated with Pleurx catheter, November 29. The patient had a repeat chest x-ray and ultrasound which showed almost no fluid on the right, but a moderate to large left pleural effusion. I offered the patient thoracentesis which he refused. I also offered him a consultation with cardiothoracic surgery to consider Pleurx catheter placement on the left side. He refused that as well. He apparently was scheduled to have a thoracentesis with one of my partners, on Monday as an outpatient. He was also admitted with hyponatremia. Current labs include a white count of 142,000, hemoglobin 8.4, hematocrit 28.5, and a normal platelet count. Sodium 122, potassium 4.6, chlorides 90, CO2 22, BUN 34, creatinine 0.74. Glucose is 176. Calcium 8.9. Abdominal ultrasound showed mild to moderate ascites in the right lower quadrant of the abdomen. The patient is seen today January 05, 2025 in follow-up on the selective care unit. He is currently sitting up in a chair at the bedside. Awake and alert in no acute distress. He is maintaining O2 saturations in the 90s on 4 L/min per nasal cannula. No IV fluids. Abdominal ultrasound revealed mild to moderate ascites in the right lower quadrant of the abdomen. Echocardiogram revealed preserved left ventricular systolic function. Small pericardial effusion/thickened posterior lateral pericardium. White count 154. Hemoglobin 8.3. Platelets 250. Sodium 127. Potassium 4.6. Bicarb 29. BUN 36. Creatinine 0.57. Glucose 171. He remains on Lasix 40 mg IV every 8 hours. Continued on Solu-Medrol. Lovenox for DVT prophylaxis. He is currently in a - 2.8 L balance. On 01/06/2025, the patient is being seen in follow-up. The patient was hospitalized on 01/03/2025 and the patient was hyponatremic, had worsening shortness of breath and increased edema lower extremities bilaterally. The patient was also in atrial fibrillation. He is also known to have a Pleurx cath eter on the right and the output from the Pleurx catheter has been extremely limited and minimal without any significant output over the past 1 to 2 weeks. He was also noted to have a moderate-sized left-sided pleural effusion. Noted the patient is known to have metastatic adenocarcinoma of the colon and CML. He had a malignant right-sided pleural effusion that required a Pleurx catheter insertion on 11/29/2024. At the time of my evaluation this morning, the patient was still on the BiPAP at a pressure of 12/6 with an FiO2 of 90%. He was generating a tidal volume of 580 with a respirate of 28. He was being diuresed with IV Lasix and the patient has been excellent negative fluid balance over the past 48 to 72 hours. Fluid balance for last 24 hours has been -2.7 L and the patient has a Harris catheter in place and he continues to receive Lasix 40 mg every 8 hours. He remains in atrial fibrillation with a improved rate control. The patient is on amiodarone drip and he is at 1 mg/min per protocol to be weaned down to 0.5 mg/min. He is also on metoprolol 25 mg p.o. 3 times daily. He is on IV heparin. I reviewed the most recent chest x-ray from this morning and the patient had cardiomegaly with volume loss in the right lung base and some elevation of the right hemidiaphragm and moderate-sized left-sided pleural effusion. The lungs were essentially hyperinflated and there was some interstitial change in lung base bilaterally along with some interstitial edema. Ultrasound of the chest was obtained and the patient was found to have a 10 cm pocket on the left with no fluid on the right. Ultrasound marking was done. I stopped IV heparin for approximately 60 to 90 minutes and following that I performed a thoracentesis on the left lung. Total of 1.3 L of pleural fluid was aspirated and this was sent for chemical analysis and cytology. Reviewed the postop chest x-ray and there is no evidence of any pneumothorax. There is a small residual left-sided pleural effusion still on the left. I also connected the Pleurx catheter to a Pleur-evac and suction and there is no significant fluid output in the atrium. Most recent CBC shows a white cell count of 153 with a hemoglobin 10.6 and a platelet count of 237. BUN is 53 with a creatinine of 0.7. Sodium levels at 128. Nephrology on the case regarding his hyponatremia. Echocardiogram was also done and the patient was found to have a preserved LV function. Small pericardial effusion. Ultrasound of the abdomen shows small to moderate-sized ascites in the right lower quadrant of the abdomen. On 01/07/2025, The patient is quite debilitated and weak and lethargic. Following his left-sided thoracentesis, total of 1.3 L of pleural fluid was aspirated and the patient was taken off the BiPAP. This morning, he is on 60s of oxygen by nasal cannula. He is still having some mild shortness of breath even at rest. Breath sounds are still diminished in lung base bilaterally. A follow-up chest x-ray was done following the thoracentesis. There is improvement left-sided pleural effusion. There is elevation of the right hemidiaphragm and a loculated small right-sided pleural effusion. Pleurx catheter is attached to an atrium and there is no output. At the same time, the patient remains atrial fibrillation with RVR. He is still tachycardic. He is currently on amiodarone 0.5 mg/min and metoprolol 25 mg p.o. 3 times daily. He remains on IV heparin. He is anemic. The white cell count is up 282. He moglobin is 8.6 and this is an underlying iron deficiency anemia. The sodium levels at 126, BUN 63 with a creatinine of 0.8. He remains on IV Lasix and the fluid balance has been -2.7 L over the past 24 hours. Echocardiogram showed a preserved LV function and patient remains on Lasix 40 mg IV every 8 hours. The patient was also started on Calquence per oncology recommendations. Awaiting the pleural fluid cytology from the left lung. In terms of his oxygenation, his oxygenation remains quite borderline. He is currently on 6 L. I made recommendations to increase the oxygen flow to maintain saturation above 90%. Will also utilize an Airvo if needed. Objective - Vital Signs Vital signs: Vital Signs Temp 97.8 F 01/07/25 12:08 Pulse 124 H 01/07/25 11:14 Resp 24 01/07/25 11:14 BP 93/56 01/07/25 11:14 Pulse Ox 92 L 01/07/25 13:21 FiO2 70 01/07/25 12:43 Intake & Output 01/06/25 01/07/25 01/07/25 18:59 06:59 18:59 Intake Total 943.833 370.938 126.749 Output Total 1450 850 900 Balance -506.167 -479.062 -773.251 Weight 98.5 kg Intake: IV 20 Invasive Line 2 10 Invasive Line 3 10 Intake, IV Titration 203.833 370.938 126.749 Amount Amiodarone 450 mg In 215.004 Dextrose 5% in Water 250 ml @ 0.5 MG/MIN 16.667 mls/hr IV .Q15H [facility]OR Rx#: [id number] Diltiazem 125 mg In 83 Dextrose 5% in Water 100 ml @ 5 MG/HR 5 mls/hr IV .Q24H THOR Rx#:[id number] Heparin Sod,Pork in 0.45% 120.833 155.934 126.749 NaCl 25,000 unit In 0.45 % NaCl 1 250ml.bag @ 9. 804 UNITS/KG/HR 10 mls/hr IV .Q24H THOR Rx#: [id number] Oral 720 Output: Urine 1450 850 900 Other: Voiding Method Indwelling Catheter Indwelling Catheter Indwelling Catheter # Bowel Movements 1 1 - Exam GENERAL EXAM: Alert, 64-year-old male, currently off the BiPAP and the patient is currently on 6 L of O2 nasal cannula HEAD: Normocephalic. EYES: Normal reaction of pupils, equal size. NOSE: Clear with pink turbinates. THROAT: No erythema or exudates. NECK: No masses, no JVD. CHEST: No chest wall deformity. LUNGS: Equal air entry with crackles in the posterior bases left greater than right. Aeration is improved following the thoracentesis in the left lung base. Pleurx catheter has been attached to a Pleur-evac/atrium. Output is almost 0 at this point. CVS: S1 and S2 normal with no audible murmur, regular rhythm. ABDOMEN: No hepatosplenomegaly, normal bowel sounds, no guarding or rigidity. SPINE: No scoliosis or deformity SKIN: No rashes CENTRAL NERVOUS SYSTEM: No focal deficits, tone is normal in all 4 extremities. EXTREMITIES: There is 1+ peripheral edema. No clubbing, no cyanosis. Peripheral pulses are intact. - Labs CBC & Chem 7: 01/07/25 03:42 01/07/25 11:04 Labs: Abnormal Lab Results - Last 24 Hours (Table) 01/06/25 01/06/25 01/06/25 Range/Units 13:22 16:39 20:04 WBC (4.50-10.00) 10*3/uL RBC (4.40-5.60) 10*6/uL Hgb (13.0-17.0) g/dL Hct (39.6-50.0) % MCH (27.0-32.0) pg MCHC (32.0-37.0) g/dL MPV (9.5-12.2) fL Immature Gran # (0.00-0.04) 10*3/uL Lymphocytes # (0.90-5.00) 10*3/uL Eosinophils # (0.04-0.35) 10*3/uL APTT (22.0-30.0) sec Sodium (137-145) mmol/L Potassium (3.5-5.1) mmol/L Chloride (98-107) mmol/L Carbon Dioxide (22-30) mmol/L BUN (9-20) mg/dL Glucose (74-99) mg/dL POC Glucose (mg/dL) 215 H 199 H (70-110) mg/dL Fluid Appearance Cloudy A (Clear) 01/06/25 01/07/25 01/07/25 Range/Units 20:24 03:42 03:42 WBC 182.16 H* (4.50-10.00) 10*3/uL RBC 3.52 L (4.40-5.60) 10*6/uL Hgb 8.6 L D (13.0-17.0) g/dL Hct 30.9 L (39.6-50.0) % MCH 24.4 L (27.0-32.0) pg MCHC 27.8 L (32.0-37.0) g/dL MPV 8.5 L (9.5-12.2) fL Immature Gran # 0.47 H (0.00-0.04) 10*3/uL Lymphocytes # 173.91 H (0.90-5.00) 10*3/uL Eosinophils # 0.01 L (0.04-0.35) 10*3/uL APTT 21.3 L (22.0-30.0) sec Sodium 124 L (137-145) mmol/L Potassium 5.4 H (3.5-5.1) mmol/L Chloride 87 L (98-107) mmol/L Carbon Dioxide 31 H (22-30) mmol/L BUN 62 H (9-20) mg/dL Glucose 196 H (74-99) mg/dL POC Glucose (mg/dL) (70-110) mg/dL Fluid Appearance (Clear) 01/07/25 01/07/25 01/07/25 Range/Units 05:55 11:04 11:04 WBC (4.50-10.00) 10*3/uL RBC (4.40-5.60) 10*6/uL Hgb (13.0-17.0) g/dL Hct (39.6-50.0) % MCH (27.0-32.0) pg MCHC (32.0-37.0) g/dL MPV (9.5-12.2) fL Immature Gran # (0.00-0.04) 10*3/uL Lymphocytes # (0.90-5.00) 10*3/uL Eosinophils # (0.04-0.35) 10*3/uL APTT 32.0 H (22.0-30.0) sec Sodium 126 L (137-145) mmol/L Potassium (3.5-5.1) mmol/L Chloride 88 L (98-107) mmol/L Carbon Dioxide 32 H (22-30) mmol/L BUN 63 H (9-20) mg/dL Glucose 195 H (74-99) mg/dL POC Glucose (mg/dL) 210 H (70-110) mg/dL Fluid Appearance (Clear) 01/07/25 Range/Units 11:43 WBC (4.50-10.00) 10*3/uL RBC (4.40-5.60) 10*6/uL Hgb (13.0-17.0) g/dL Hct (39.6-50.0) % MCH (27.0-32.0) pg MCHC (32.0-37.0) g/dL MPV (9.5-12.2) fL Immature Gran # (0.00-0.04) 10*3/uL Lymphocytes # (0.90-5.00) 10*3/uL Eosinophils # (0.04-0.35) 10*3/uL APTT (22.0-30.0) sec Sodium (137-145) mmol/L Potassium (3.5-5.1) mmol/L Chloride (98-107) mmol/L Carbon Dioxide (22-30) mmol/L BUN (9-20) mg/dL Glucose (74-99) mg/dL POC Glucose (mg/dL) 210 H (70-110) mg/dL Fluid Appearance (Clear) Microbiology - Last 24 Hours (Table) 01/06/25 13:22 Gram Stain - Preliminary Pleural Fluid Assessment and Plan Plan: Acute hypoxic respiratory failure, multifactorial and the patient is off the BiPAP and 60s of oxygen by nasal cannula. The patient has volume loss in the right lung and the right hemidiaphragm is elevated and he has a malignant right- sided pleural effusion for which a Pleurx catheter has been inserted and the output from the right-sided Pleurx catheter has dropped considerably and curr ently is down to 0. Meanwhile, the patient had developed a left-sided pleural effusion and a bedside thoracentesis was done on 01/06/2025 with evacuation of 1.3 L of pleural fluid. In addition, the patient has small to moderate-sized ascites in the right abdomen and signs of volume overload with excessive lower extremity edema and he is in new onset atrial fibrillation. Echocardiogram showed a preserved LV function with an ejection fraction of 55%. Clinically, somewhat improved in terms of his shortness of breath and hypoxia as per failure compared to yesterday. Nevertheless, the patient continues to be extremely debilitated, weak, poor ability to do pulmonary toileting. Poor cough and mechanism. Output from the Pleurx catheter is essentially 0. History of metastatic colon cancer to the lungs currently on immunotherapy, the patient has malignant right-sided pleural effusion and pleural surface on the right is also affected with malignancy. Chronic lymphocytic leukemia with significantly based on the white cell count and the patient has chronic anemia Iron deficiency anemia related to GI bleeding and station with metastatic colon cancer. Lower extremity edema Atrial fibrillation with rapid ventricular response, currently on amiodarone drip and metoprolol. The patient is also on IV heparin. Chronic anemia secondary to above. The patient is known to have CLL Former smoker Medical debility and generalized weakness secondary to above-mentioned malignancy and complications related to his malignancy. Plan: Patient currently on 6 L and titrate oxygen flow to maintain saturation above 90%. Airvo if needed. Echocardiogram reviewed and the patient has a preserved LV function with an EF of around 55% Ultrasound of the chest reviewed, thoracentesis of the left lung was done on 01/06/2025 and the right Pleurx catheter was attached atrium/Pleur-evac. Management of atrial fibrillation by cardiology. The patient is currently on amiodarone drip and this has been at a dose of 0.5 mg/min. The patient is also on metoprolol and IV heparin. May consider paracentesis regarding his mild to moderate ascites, I reviewed the CAT scan of the abdomen and the ascites is minimal at this point. Awaiting the pleural fluid cytology from the left lung Started on Calquence per hematology oncology Monitor sodium level Monitor fluid balance Continue IV Lasix 40 milligrams IV every 8 hours Remains in a negative balance We will continue to follow Long-term prognosis poor based on above-mentioned comorbidities. The patient has become extremely debilitated related to his underlying malignancy. Time with Patient: Greater than 30
--- NOTE | 2025-01-07 14:42 | P.PN ---
Subjective Progress Note Date: 01/07/25 Hospital Course: 64-year-old man with history of colon cancer that is metastatic to the lungs, who is here after he received a call from his oncologist that his sodium is low. The patient states that he has been having trouble with bilateral leg edema, exertional dyspnea, xray evident for bilateral pleural effusions. U/S showing mild to moderate asictes in RLQ of abdomen. ECHO impression shows EF of 55-60% with small pericardial effusion. Diuresis with lasix and fluid restriction initiated. There is a Pleurx catheter in the right chest. Patient sodium is improving, 124 (corrected Na+ = 126) today, on admission was 117. White blood cell count at 182 due to past medical history of CLL. Patient still in hypervolemic hyponatermic overload, continuing to trend with diuresis. Patient had a left-sided thoracentesis yesterday with removal of 1300 mL of turbid colored fluid (gram stain of pleural fluid showed few polymorphonuclear leukocytes, no organism seen; culture is pending). Cardiology plans to switch patient to oral amiodarone Subjective: 01/07/2025 Patient seen and examined at bedside. Patient stated that he feels better today after left-sided thoracentesis yesterday. Patient stated that pedal edema has significantly improved. Pertinent positives and negatives as discussed above, a complete review of systems was performed and all other systems are negative. Vitals: Signs Reviewed Physical Exam: General: nontoxic, on 5L of O2 via NC. Derm: warm, dry, intact Head: atraumatic, normocephalic, symmetric Eyes: EOMI, anicteric sclera Mouth: no lip lesion, mucus membranes moist Cardiovascular: S1 S2 reg, no murmur, rubs, or gallops Lungs: Fast breathing, mild rhonci head bilaterally at lung base Abdominal: soft, non-tender to palpation, distended, no appreciable organomegaly Extremities: no gross muscle atrophy, 2+ pitting edema bilaterally Neuro: Alert, Oriented, CNII-XII grossly intact Psych: well appearing, appropriate affect Data Received Today: Pertinent Labs: Na:127 > 126 > 126 WBC: 153 > 153 > 182 Hgb: 8.3 > 10.6 > 8.6 BUN: 36 > 53 > 63 B > 210 > 195 I/O: Indwelling catheter - input 1314 - output 2300 (-986ml) Pleural Catheter Right Lateral Chest - not draining Imaging: ECG done today revealed Atrial fibrillation with RVR. Cardiology following Assessment and Plan: Acute hypoxic respiratory failure due to malignant pleural effusion - s/p thoracentesis - pt is on 6L of INO2 via NC - Pleural fluid culture pending - Continue with IV solumedrol 60 mg - Pulmonology following, plans to remove Pleurx catheter, CT scan reviewed no plans for paracentesis New onset afib - s/p Amiodarone drip, now currently placed on Amioadarone 400mg PO bid by cardiology - Continue with IV heparin - Cardiology following Hypervolemic Hyponatremia - Continue IV Lasix 40 mg every 8 hours - Strict I's and O's - Indwelling catheter - Monitor electrolytes - Continue fluid restriction to 1.5 L/day - Nephrology following, continue with IV lasix, Samsca x1 dose ordered Leukocytosis in the setting of CLL, Metastatic colon cancer 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 Patient will initiate while inpatient - Started dual immunotherapy with yervoy/opdivo on 12/09/2024, completing cycle 2 on 12/30/24. - Immunotherapy on hold until acute condition resolved. - TLS labs ordered by heme/onc. Mildly elevated uric and phosphorus. Allopurinol started. Iron deficiency anemia with no active bleeding - IV Ferrlecit 125mg dly for 3 days Sacral decubitus ulcer -Wound care consulted, recommendations appreciated DVT ppx: IV heparin Code status: Full Anticipated discharge place: pending clinical course Anticipated discharge time: pending clinical course Patient is critically ill. Prognosis is guarded. Magdaleno Quinonez MD PGY-1 FM Dictation was produced using [employer] dictation software. please excuse any grammatical, word or spelling errors. I saw and evaluated the patient during the solorzano and critical portions of this encounter, and discussed the case in detail with the resident author of this note, I agree with the Assessment and Plan, and my changes, if any, are highlighted in blue. Objective - Vital Signs Vital signs: Vital Signs Temp 97.8 F 01/07/25 12:08 Pulse 124 H 01/07/25 11:14 Resp 24 01/07/25 11:14 BP 93/56 01/07/25 11:14 Pulse Ox 92 L 01/07/25 13:21 FiO2 70 01/07/25 12:43 Intake & Output 01/06/25 01/07/25 01/07/25 18:59 06:59 18:59 Intake Total 943.833 370.938 126.749 Output Total 1450 850 900 Balance -506.167 -479.062 -773.251 Weight 98.5 kg Intake: IV 20 Invasive Line 2 10 Invasive Line 3 10 Intake, IV Titration 203.833 370.938 126.749 Amount Amiodarone 450 mg In 215.004 Dextrose 5% in Water 250 ml @ 0.5 MG/MIN 16.667 mls/hr IV .Q15H THOR Rx#: [id number] Diltiazem 125 mg In 83 Dextrose 5% in Water 100 ml @ 5 MG/HR 5 mls/hr IV .Q24H THOR Rx#:[id number] Heparin Sod,Pork in 0.45% 120.833 155.934 126.749 NaCl 25,000 unit In 0.45 % NaCl 1 250ml.bag @ 9. 804 UNITS/KG/HR 10 mls/hr IV .Q24H THOR Rx#: [id number] Oral 720 Output: Urine 1450 850 900 Other: Voiding Method Indwelling Catheter Indwelling Catheter Indwelling Catheter # Bowel Movements 1 1 - Labs CBC & Chem 7: 01/07/25 03:42 01/07/25 11:04 Labs: Abnormal Lab Results - Last 24 Hours (Table) 01/06/25 01/06/25 01/06/25 Range/Units 13:22 16:39 20:04 WBC (4.50-10.00) 10*3/uL RBC (4.40-5.60) 10*6/uL Hgb (13.0-17.0) g/dL Hct (39.6-50.0) % MCH (27.0-32.0) pg MCHC (32.0-37.0) g/dL MPV (9.5-12.2) fL Immature Gran # (0.00-0.04) 10*3/uL Lymphocytes # (0.90-5.00) 10*3/uL Eosinophils # (0.04-0.35) 10*3/uL APTT (22.0-30.0) sec Sodium (137-145) mmol/L Potassium (3.5-5.1) mmol/L Chloride (98-107) mmol/L Carbon Dioxide (22-30) mmol/L BUN (9-20) mg/dL Glucose (74-99) mg/dL POC Glucose (mg/dL) 215 H 199 H (70-110) mg/dL Fluid Appearance Cloudy A (Clear) 01/06/25 01/07/25 01/07/25 Range/Units 20:24 03:42 03:42 WBC 182.16 H* (4.50-10.00) 10*3/uL RBC 3.52 L (4.40-5.60) 10*6/uL Hgb 8.6 L D (13.0-17.0) g/dL Hct 30.9 L (39.6-50.0) % MCH 24.4 L (27.0-32.0) pg MCHC 27.8 L (32.0-37.0) g/dL MPV 8.5 L (9.5-12.2) fL Immature Gran # 0.47 H (0.00-0.04) 10*3/uL Lymphocytes # 173.91 H (0.90-5.00) 10*3/uL Eosinophils # 0.01 L (0.04-0.35) 10*3/uL APTT 21.3 L (22.0-30.0) sec Sodium 124 L (137-145) mmol/L Potassium 5.4 H (3.5-5.1) mmol/L Chloride 87 L (98-107) mmol/L Carbon Dioxide 31 H (22-30) mmol/L BUN 62 H (9-20) mg/dL Glucose 196 H (74-99) mg/dL POC Glucose (mg/dL) (70-110) mg/dL Fluid Appearance (Clear) 01/07/25 01/07/25 01/07/25 Range/Units 05:55 11:04 11:04 WBC (4.50-10.00) 10*3/uL RBC (4.40-5.60) 10*6/uL Hgb (13.0-17.0) g/dL Hct (39.6-50.0) % MCH (27.0-32.0) pg MCHC (32.0-37.0) g/dL MPV (9.5-12.2) fL Immature Gran # (0.00-0.04) 10*3/uL Lymphocytes # (0.90-5.00) 10*3/uL Eosinophils # (0.04-0.35) 10*3/uL APTT 32.0 H (22.0-30.0) sec Sodium 126 L (137-145) mmol/L Potassium (3.5-5.1) mmol/L Chloride 88 L (98-107) mmol/L Carbon Dioxide 32 H (22-30) mmol/L BUN 63 H (9-20) mg/dL Glucose 195 H (74-99) mg/dL POC Glucose (mg/dL) 210 H (70-110) mg/dL Fluid Appearance (Clear) 01/07/25 Range/Units 11:43 WBC (4.50-10.00) 10*3/uL RBC (4.40-5.60) 10*6/uL Hgb (13.0-17.0) g/dL Hct (39.6-50.0) % MCH (27.0-32.0) pg MCHC (32.0-37.0) g/dL MPV (9.5-12.2) fL Immature Gran # (0.00-0.04) 10*3/uL Lymphocytes # (0.90-5.00) 10*3/uL Eosinophils # (0.04-0.35) 10*3/uL APTT (22.0-30.0) sec Sodium (137-145) mmol/L Potassium (3.5-5.1) mmol/L Chloride (98-107) mmol/L Carbon Dioxide (22-30) mmol/L BUN (9-20) mg/dL Glucose (74-99) mg/dL POC Glucose (mg/dL) 210 H (70-110) mg/dL Fluid Appearance (Clear) Microbiology - Last 24 Hours (Table) 01/06/25 13:22 Gram Stain - Preliminary Pleural Fluid
[2025-01-07 15:23] VITALS: BMI 29.4
--- NOTE | 2025-01-07 16:00 | CT ---
EXAMINATION TYPE: CT brain wo con DATE OF EXAM: 01/07/2025 COMPARISON: None CLINICAL INDICATION: Male, 64 years old with history of Brain mets; PHH, BRAIN METS CT DLP: 1186.4 mGycm Automated exposure control for dose reduction was used. Findings: The ventricles, basal cisterns and sulci over the convexities are within normal limits and there is n o mass effect or shift of midline structures. No abnormal density is seen throughout the brain parenchyma and there is no acute intra or extra-axia l hemorrhage. The posterior fossa including the brainstem, fourth ventricle and cerebellar pontine angles appear no rmal. Intraorbital contents appear normal and symmetric. Visualized paranasal sinuses and mastoid air cells are well aerated. The calvarium is intact. IMPRESSION: No significant abnormality seen. There is no acute bleed or mass effect. [facility], Workstation: BLACK 01/07/2025 3:57 PM
[2025-01-07 16:45] LABS: Glucose,Whole Blood 175 mg/dL (70-110)
[2025-01-07 20:01] LABS: Glucose,Whole Blood 214 mg/dL (70-110)
[2025-01-07 22:21] VITALS: TEMP 98.1
[2025-01-08 00:09] VITALS: BP 87/54; PULSE 118; RESP 28
[2025-01-08 01:47] LABS: Glucose,Whole Blood 189 mg/dL (70-110)
[2025-01-08] MEDS ORDERED: EPINEPHrine 10 ML SYRINGE (0.1 MG/ML) ONE (01:48)
[2025-01-08 02:23] LABS: ABG HCO3 22 mmol/L (21-25); ABG PCO2 56 mmHg (35-45); ABG PH 7.20 (7.35-7.45); ABG PO2 115 mmHg (83-108); ABG TCO2 24 mmol/L (19-24)
[2025-01-08 02:27] LABS: Allen Test Performed? no
[2025-01-08 02:37] LABS: HCT 37.1 % (39.6-50.0); HGB 9.4 g/dL (13.0-17.0); MCH 23.4 pg (27.0-32.0); MCHC 25.3 g/dL (32.0-37.0); MCV 92.5 fL (80.0-97.0); Platelet Count 255 10*3/uL (140-440); RBC 4.01 10*6/uL (4.40-5.60)
--- NOTE | 2025-01-08 03:00 | P.EN ---
CODE BLUE DOCUMENTATION Patient: Gorge Dutta Date: 01/08/2025 Event Timeline: 0139 Code Blue activated Found supine on floor, peripheral IV dislodged No palpable pulse, CPR initiated 0141 threat monitoring analyst: Asystole No palpable pulse 0145 threat monitoring analyst: Asystole No palpable pulse Intubation: STRATEGY LEAD placed 8.0 ETT 0147 threat monitoring analyst: Asystole No palpable pulse 0148 IV access established (22g L wrist) Medication: Epinephrine 1mg IV push Labs: [id number] glucose 189 mg/dL 0149 threat monitoring analyst: Asystole No palpable pulse 0151 threat monitoring analyst: Ventricular Fibrillation Intervention: Defibrillation 1 at 200J CPR resumed immediately post-shock 0153 ROSC achieved Palpable pulse present threat monitoring analyst: Sinus tachycardia 0158 BP 79/53 mmHg Initiated transfer from floor to bed 0202 BP 92/50 mmHg 0204 Disposition: Transferred to ICU Inocencio New MD
--- NOTE | 2025-01-08 03:02 | P.EN ---
Central Line Procedure Note Indication: [X] Hypotension/Sepsis/Need for Pressors [X] Vascular Access [_] Dialysis Access [_] Suspected Central Line Infection [_] Line Malfunction Central Line Location: [_] Right or [X] Left [_] Internal Jugular Vein or [_] Subclavian Vein or [X] Femoral Vein Consent: [_] Consent was obtained from _ prior to the procedure. Indications, risks and benefits were discussed prior to the procedure. [X] The procedure was performed emergently and the permission was implied because of the emergent nature. PROCEDURE SUMMARY: My hands were washed immediately prior to the procedure. I wore a surgical cap, mask with protective eyewear, full gown and sterile gloves throughout the procedure. The patient was placed in flat position. The Left groin was prepped using [_] chlorhexidine scrub and draped in sterile fashion using a three quarter sheet drape and sterile towels. Skin preparation was allowed to dry prior to skin puncture. Anatomic landmarks were identified. Anesthesia was achieved over the vein using 1% lidocaine. Using real-time ultrasound, with sterile probe cover and sterile gel, the introducer needle was inserted into the vein under direct ultrasound visualization. Venous blood was withdrawn. The syringe was removed and a guidewire was advanced into the introducer needle. The guidewire was visualized in the appropriate vein by ultrasound. A small incision was made at the skin surface with a scalpel and the introducer needle was exchanged for a dilator over the guidewire. After appropriate dilation was o btained, the dilator was exchanged over the wire for an [antimicrobial coated] _ central venous catheter. The wire was removed and the catheter was sutured in place. A biopatch was placed at the insertion site. A sterile op-site was placed over the catheter and biopatch. The patient tolerated the procedure without any hemodynamic compromise. At time of procedure completion, all ports aspirated and flushed properly. Femoral Arterial Line Procedure Note INDICATION: BP monitoring CONSENT: [_] During the informed consent discussion regarding the procedure, or treatment, I explained the following to the patient/designee: a. Nature of the procedure or treatment and who will perform the procedure or treatment. b. Necessity for procedure and the possible benefits. c. Risks and complications (most common and serious). d. Alternative treatments and the risks, benefits and side effects of each (including no treatment). e. Likelihood of the patient achieving his/her goals without this procedure and surgery treatment. f. Problems that might occur during the recuperation. g. Conflicts of interest, if any [X] The procedure was emergent, the patient was unable to provide consent, and a designee was not immediately available. PROCEDURE SUMMARY: A time out was performed. My hands were washed immediately prior to the procedure. I wore a surgical cap, mask with protective eyewear, sterile gown and sterile gloves throughout the procedure. The L inguinal region was prepped using chlorhexidine scrub and draped in sterile fashion using a three quarter sheet drape and sterile towels. The femoral pulse was identified. Anesthesia was achieved using 1% lidocaine. Palpating the femoral pulse throughout the procedure, the introducer needle was inserted into the femoral artery. Arterial blood was withdrawn. The syringe was removed and a guidewire was advanced through the needle into the femoral artery. The needle was exchanged over the wire for an arterial catheter. The wire was removed and the catheter was secured to the skin using a suture. The patient tolerated the procedure without any hemodynamic compromise. At time of procedure completion, the catheter was connected to the cardiac cath rn and calibrated. Appropriate waveform and blood pressure tracing was observed.
--- NOTE | 2025-01-08 03:07 | P.EN ---
GOALS OF CARE UPDATE NOTE Patient: Gorge Dutta Date: 01/08/2025 Location: ICU Bedside FAMILY PRESENCE arrived at bedside Two adult children (son and daughter) Patient's brother and sister in law DISCUSSION HIGHLIGHTS Code Status Review: Detailed explanation of cardiac arrest event and current critical condition Addressed prognosis and likely outcomes Patient's Known Wishes: unequivocally stated patient previously expressed: No endotracheal intubation No mechanical ventilation Confirmed by children and siblings Recommendation: Transition to comfort-focused care aligned with patient's values DECISIONS MADE (FAMILY CONSENSUS) Change code status to DNR/DNI Transition to Comfort Measures Only Proceed with compassionate extubation Avoid escalation of life-sustaining therapies ACTIONS TAKEN Morphine IV infusion initiated Comfort Extubation Plan: 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
[2025-01-08 03:09] LABS: AST 364 U/L (17-59); African American GFR (CKD) 56 (>60 ml/min/1.73 sqM); Albumin 3.0 g/dL (3.5-5.0); Alkaline Phosphatase 123 U/L (38-126); Anion Gap 17 mmol/L; Blood Urea Nitrogen 68 mg/dL (9-20); Calcium 8.5 mg/dL (8.4-10.2); Carbon Dioxide 22 mmol/L (22-30); Chloride 90 mmol/L (98-107); Glucose 184 mg/dL (74-99); Non-African American GFR(CKD) 48 (>60 ml/min/1.73 sqM); Potassium 6.0 mmol/L (3.5-5.1); Sodium 129 mmol/L (137-145); Total Protein 6.3 g/dL (6.3-8.2)
[2025-01-08] MEDS: MORPHINE SULFATE 100 MG in SODIUM CHLORIDE 0.9% 90 ML IV SCH (03:10)
[2025-01-08 03:11] LABS: WBC 271.98 10*3/uL (4.50-10.00)
[2025-01-08 03:16] LABS: ALT 281 U/L (4-49)
[2025-01-08] MEDS: GLYCOPYRROLATE 0.2 MG/ML 2 ML VIAL IVP ONE (03:20)
--- NOTE | 2025-01-08 03:32 | XR ---
EXAM: XR Chest, 1 View CLINICAL HISTORY: ITS.REASON XR Reason: cardiac arrest TECHNIQUE: Frontal view of the chest. COMPARISON: No relevant prior studies available. FINDINGS: Lungs: Unremarkable. No consolidation. Pleural space: Bilateral pleural effusions [id number]-left. No pneumothorax. Heart: Cardiomegaly. Mediastinum: Unremarkable. Normal mediastinal contour. Bones/joints: Unremarkable. No acute fracture. Tubes, lines and devices: Endotracheal tube with its tip above the chantal. IMPRESSION: Bilateral pleural effusions [id number]-left
[2025-01-08] MEDS ORDERED: MORPHINE SULFATE 2 MG/ML SYRINGE IVP PRN (03:57)
[2025-01-08 08:16] LABS: Lymphocytes # (M) 263.82 k/uL (1.0-4.8); Neutrophils # (M) 8.15 k/uL (1.3-7.7); Neutrophils % (M) 1 %; Total Cells Counted 100
--- NOTE | 2025-01-08 17:38 | P.DS ---
Providers Date of admission: 01/02/25 18:33 Discharge Diagnosis: Acute hypoxic respiratory failure secondary to malignant pleural effusions New onset A-fib with RVR Hypervolemic hyponatremia Leukocytosis complaining of CLL, metastatic colon cancer Suspected tumor lysis syndrome Iron deficiency anemia Sacral decubitus ulcer Hospital Course: 64-year-old man with history of colon cancer that is metastatic to the lungs, who is here after he received a call from his oncologist that his sodium is low. The patient states that he has been having trouble with bilateral leg edema, exertional dyspnea, xray evident for bilateral pleural effusions. U/S showing mild to moderate asictes in RLQ of abdomen. ECHO impression shows EF of 55-60% with small pericardial effusion. Diuresis with lasix and fluid restriction initiated. There is a Pleurx catheter in the right chest. Patient sodium is improving, 124 (corrected Na+ = 126) today, on admission was 117. White blood cell count at 182 due to past medical history of CLL. Patient still in hypervolemic hyponatermic overload, continuing to trend with diuresis. Patient had a left-sided thoracentesis yesterday with removal of 1300 mL of turbid colored fluid (gram stain of pleural fluid showed few polymorphonuclear leukocytes, no organism seen; culture is pending). Cardiology plans to switch patient to oral amiodarone. patients O2 levels dropped to 80% on 5L of IN O2 via NC, Patient was placed on 15L of O2 via non-rebreather mask, but did not significantly improve (80% - 92% O2 saturation), Patient was then placed on 100% Bipap /12 and O2 saturation improved to 95%, when FiO2 was titrated to 75%, O2 saturation dropped to 75%, as a result FiO2 was increased back to 100%. Patient was found supine on the floor with peripheral IV dislodged and code blue was activated. CPR was done for 14 minutes and ROSC was achieved, and was transferred to the ICU. He was sedated and mechanically ventilated. Arterial line and left femoral vein central line were placed. Patient was placed on pressors. Patient's family arrived at bedside. The explanation of cardiac arrest event and current recommendations given critical situation were addressed to the family. Patient's family elected to go for comfort care. Patient on 01/08/2025. Kati Ferro MD PGY-2 IM Dictation was produced using [employer] dictation software. please excuse any grammatical, word or spelling errors. Discussed with the resident and agree with the residents finding and plan as documented in the resident's note. Changes highlighted in blue font. Expected date of discharge: 01/08/25 Attending physician: Christie Coker MD Consults: 01/02/25 17:58 Consult Physician Routine Consulting Provider: Ap Vega Consult Reason/Comments: Worsening pleura effusions Do you want consulting provider notified?: Yes 01/02/25 18:27 Consult Physician Routine Consulting Provider: Tari Alvarez Consult Reason/Comments: hyponatremia Do you want consulting provider notified?: Yes 01/02/25 18:30 Consult Physician Routine Consulting Provider: Isaiah Hernandez Consult Reason/Comments: [place] Do you want consulting provider notified?: Yes 01/06/25 02:15 Consult Physician Routine Consulting Provider: Hong Daly Consult Reason/Comments: n/o afib RVR Do you want consulting provider notified?: Yes, Notify in am Primary care physician: Irma Rodrigez Patient Condition at Discharge: Critical Plan - Discharge Summary Discharge Rx Participant: No New Discharge Prescriptions: No Action Multivitamins, Thera [Multivitamin (formulary)] 1 tab PO PC-BRKFST Acetaminophen Tab [Tylenol] 1,000 mg PO Q6HR PRN PRN Reason: Pain Triple [place] 1 cap PO PC-BRKFST Magnesium (Unknown Dose) 1 dose PO PC-BRKFST L.acidoph,Paracasei, B.lactis [Probiotic] 1 cap PO PC-BRKFST Glucosamine/Chondr Tsai A Sod [Osteo Bi-Flex Caplet] 1 tab PO PC-BRKFST Furosemide [Lasix] 20 mg PO BID@0600,1600 Discharge Medication List Multivitamins, Thera [Multivitamin (formulary)] 1 tab PO PC-BRKFST 09/03/14 [History] Glucosamine/Chondr Tsai A Sod [Osteo Bi-Flex Caplet] 1 tab PO PC-BRKFST 04/26/22 [History] Acetaminophen Tab [Tylenol] 1,000 mg PO Q6HR PRN 12/19/24 [History] L.acidoph,Paracasei, B.lactis [Probiotic] 1 cap PO PC-BRKFST 12/19/24 [History] Magnesium (Unknown Dose) 1 dose PO PC-BRKFST 12/19/24 [History] Triple [place] 1 cap PO PC-BRKFST 12/19/24 [History] Furosemide [Lasix] 20 mg PO BID@0600,1600 01/02/25 [History] Follow up Appointment(s)/Referral(s): Irma Rodrigez MD [Primary Care Provider] - 1-2 days Kelsey Corley [NON-STAFF] - Activity/Diet/Wound Care/Special Instructions: Call [facility] prior to d/c from Hospital for portable O2 delivery [phone] Discharge Disposition: - Preliminary Cause of Preliminary Cause of : Hypoxic Respiratory Failure
== END 2025-01-08 06:00 | disposition expired | DRG 208 ==
LOC: EC 12:34 → 3SCARD 18:33 → 2SICU 01-08 01:58
PROVIDERS: ADMIT Family Medicine; ATTEND Family Medicine
PROC: 0W9B3ZZ Drainage of Left Pleural Cavity, Percutaneous Approach (ICD-10-PCS; 2025-01-06)
PROC: 3E033RZ Introduction of Antiarrhythmic into Peripheral Vein, Percutaneous Approach (ICD-10-PCS; 2025-01-06)
PROC: 5A09357 Assistance with Respiratory Ventilation, Less than 24 Consecutive Hours, Continuous Positive Airway Pressure (ICD-10-PCS; 2025-01-06)
PROC: 5A1935Z Respiratory Ventilation, Less than 24 Consecutive Hours (ICD-10-PCS; principal; 2025-01-08)
PROC: 5A2204Z Restoration of Cardiac Rhythm, Single (ICD-10-PCS; 2025-01-08)
PROC: 5A12012 Performance of Cardiac Output, Single, Manual (ICD-10-PCS; 2025-01-08)
PROC: 0BH18EZ Insertion of Endotracheal Airway into Trachea, Via Natural or Artificial Opening Endoscopic (ICD-10-PCS; 2025-01-08)
PROC: 04HY32Z Insertion of Monitoring Device into Lower Artery, Percutaneous Approach (ICD-10-PCS; 2025-01-08)
PROC: 4A133B1 Monitoring of Arterial Pressure, Peripheral, Percutaneous Approach (ICD-10-PCS; 2025-01-08)
PROC: 4A133J1 Monitoring of Arterial Pulse, Peripheral, Percutaneous Approach (ICD-10-PCS; 2025-01-08)
PROC: 06HY33Z Insertion of Infusion Device into Lower Vein, Percutaneous Approach (ICD-10-PCS; 2025-01-08)
DX: J96.01 Acute respiratory failure with hypoxia (principal); E88.3 Tumor lysis syndrome; C78.01 Secondary malignant neoplasm of right lung; C78.02 Secondary malignant neoplasm of left lung; L89.312 Pressure ulcer of right buttock, stage 2; I31.39 Other pericardial effusion (noninflammatory); J91.0 Malignant pleural effusion; E27.3 Drug-induced adrenocortical insufficiency; L89.322 Pressure ulcer of left buttock, stage 2; C91.10 Chronic lymphocytic leukemia of B-cell type not having achieved remission; C18.9 Malignant neoplasm of colon, unspecified; D50.9 Iron deficiency anemia, unspecified; R18.8 Other ascites; E87.1 Hypo-osmolality and hyponatremia; I46.2 Cardiac arrest due to underlying cardiac condition; I48.91 Unspecified atrial fibrillation; I49.01 Ventricular fibrillation; Z51.5 Encounter for palliative care; Z66 Do not resuscitate; I95.9 Hypotension, unspecified; I51.7 Cardiomegaly; T50.905A Adverse effect of unspecified drugs, medicaments and biological substances, initial encounter; E87.70 Fluid overload, unspecified; R53.81 Other malaise; Z87.891 Personal history of nicotine dependence; Z97.8 Presence of other specified devices; Z79.899 Other long term (current) drug therapy
CPT/HCPCS: 36415; 36600; 70450; 71045; 71046; 76604; 76705; 80048; 80053; 82024; 82533; 82805; 82945; 83036; 83605; 83615; 83735; 83880; 83930; 83935; 84100; 84157; 84295; 84300; 84443; 84484; 84550; 85025; 85730; 87070; 87205; 88108; 88305; 88341; 88342; 89050; 92950; 93005; 93306; 94002; 94660; 94760; 96374; 96375; 96376; 99285